=== PATIENT | male | born 1960 | race Caucasian/White ===

== ENCOUNTER 2017-03-10 02:34 | Inpatient (IN) | payer MEDICARE ==
[~2017-03-10 02:34] MED LIST: ALENDRONATE SOD10 MG PO; AMITRIPTYLINE H50 MG PO; GLUCOPHAGE500 MG PO; HYDROCODONE-APA1 TAB PO; LISINOPRIL-HCTZ1 T13 PO; LISINOPRIL5 MG NG; MOBIC7.5 MG PO; XANAX1 MG PO
[2017-03-10 03:13] LABS: BASOPHILS 0.2 % (0-2); EOSINOPHILS 5.6 % (0-7); HEMATOCRIT 27.4 % (42.0-54.0); HEMOGLOBIN 8.7 g/dL (13.5-17.5); LYMPHOCYTES 17.4 % (15-50); MCH 28.8 pg (26.0-34.0); MCHC 31.8 g/dL (31.0-37.0); MCV 90.7 fL (80.0-100.0); MEAN PLATELET VOLUME 10.4 fL (7.4-10.4); MONOCYTES 14.5 % (2-11); NEUTROPHILS 62.3 % (40-80); PLATELET COUNT 235 10x3/uL (130-400); RBC 3.02 10x6/uL (4.20-6.10); RDW 16.3 % (11.5-14.5); WBC 4.6 10x3/uL (4.8-10.8)
[2017-03-10 03:14] LABS: APPEARANCE CLEAR (CLEAR); BACTERIA NONE SEEN /hpf (NONE SEEN); BILIRUBIN NEGATIVE (NEGATIVE); COLOR YELLOW (YELLOW); EPITHELIAL CELLS NSEEN /hpf (0-5); GLUCOSE NEGATIVE (NEGATIVE); KETONE NEGATIVE (NEGATIVE); NITRITE NEGATIVE (NEGATIVE); PROTEIN 2+ mg/dL (NEGATIVE); SPECIFIC GRAVITY 1.015 (1.005-1.020); UROBILINOGEN NORMAL (NORMAL); WHITE CELLS - URINE NSEEN /hpf (0-5)
[2017-03-10 03:16] LABS: UDS - AMPHET NEGATIVE QUAL (NEGATIVE); UDS - BARB NEGATIVE QUAL (NEGATIVE); UDS - BENZO NEGATIVE QUAL (NEGATIVE); UDS - COCAINE NEGATIVE QUAL (NEGATIVE); UDS - OPIATE NEGATIVE QUAL (NEGATIVE); UDS - PCP NEGATIVE QUAL (NEGATIVE); UDS - THC NEGATIVE QUAL (NEGATIVE)
[2017-03-10 03:31] LABS: ALBUMIN 2.2 g/dL (3.4-5.0); ALKALINE PHOSPHATASE 114 U/L (46-116); ALT (SGPT) 13 U/L (10-68); CARBON DIOXIDE 19.9 mmol/L (21.0-32.0); CHLORIDE - SERUM 108 mmol/L (98-107); CREATININE - SERUM 3.8 mg/dL (0.6-1.3); SODIUM 137 mmol/L (136-145); UREA NITROGEN 58 mg/dL (7-18); eGFR NON AFRICAN AMERICAN 17 mL/min (90-120)
[2017-03-10 03:34] LABS: CREATINE KINASE 80 UL (21-232)
[2017-03-10 03:35] LABS: CALC OSMOLALITY 286 mosm/kg (275-300); GLUCOSE 45 mg/dL (74-106); PROTEIN - SERUM 7.6 g/dL (6.4-8.2); TROPONIN-I < 0.017 ng/mL (0.000-0.060)
--- NOTE | 2017-03-10 09:01 | NUR ---
PT TO ROOM ALERT AND ORIENTED PARTNER AT BEDSIDE. WILL ADMIT
[2017-03-10] MEDS ORDERED: NITROSTAT0.4 MG SL (09:03)
[2017-03-10] MEDS ORDERED: COLACE100 MG PO (09:03)
[2017-03-10] MEDS ORDERED: COREG12.5 MG PO (09:04)
[2017-03-10] MEDS ORDERED: BUMEX2 MG PO (09:04)
[2017-03-10] MEDS ORDERED: ULTRAM50 MG PO (09:05)
[2017-03-10] MEDS ORDERED: GLIMEPIRIDE2 MG PO (09:05)
[2017-03-10] MEDS ORDERED: BENADRYL50 MG PO (09:06)
[2017-03-10] MEDS ORDERED: NEURONTIN 300300 MG PO (09:06)
[2017-03-10 09:08] VITALS: BP 186/90; BMI 39.0
[2017-03-10] MEDS ORDERED: OXYCONTIN10 MG PO (09:08)
--- NOTE | 2017-03-10 09:22 | NUR ---
PT ADMISSION COMPLETE. PT EATING BREAKFAST WITH PARTNER AT BEDSIDE FSBS IS WNL. FLUIDS INFUSING TO R AC NO PROBLEMS. WAITING ON TELE MONITOR TO BE READY AND WILL PLACE AND START PRBC TRANSFUSION
--- NOTE | 2017-03-10 09:59 | NUR ---
CONSENT OBTAINED FOR PRBC TRANSFUSION PLACED ON PT CHART. PT IS SR 69 BPM ON TELE.
--- NOTE | 2017-03-10 10:15 | NUR ---
PT PRE TRANSFUSION VS ARE ALL WNL, BP IS HTN NORMAL FOR PT. 181/84. WILL ASK DR FLOR TO RESTART BP MEDS. PRBC INFUSING TO R AC 20 G PIV WITHOUT ANY ISSUES. WILL CONT TO MONITOR CLOSELY
[2017-03-10 10:27] VITALS: BMI 38.9
--- NOTE | 2017-03-10 10:32 | NUR ---
VS ARE UNCHANGED. PRBC STILL INFUSING TO R AC NO PROBLEMS. SPOUSE AT BEDSIDE PT DENIES ANY TRANSFUSION REACTION. WILL CONT TO MONITOR
[2017-03-10 11:48] VITALS: BP 180/88
--- NOTE | 2017-03-10 12:40 | NUR ---
SECOND UNIT OF PRBC STARTED NO CHANGE IN VS WILL CONT TO MONITOR
[2017-03-10 14:17] LABS: COMPLEMENT C4 22.9 mg/dL (17.4-52.2)
--- NOTE | 2017-03-10 15:00 | NUR ---
SECOND UNIT OF PRBC FINISHED TRANSFUSING. VS STILL UNCHANGED PT TOLERATED WELL WILL CONT TO MONITOR
[2017-03-10 16:04] VITALS: BP 186/89
[2017-03-10 17:28] LABS: CREATININE - URINE 19.2 mg/dL (30-125); PRO/CRE RATIO URINE 12.1 mg/g; PROTEIN - URINE 233.2 mg/dL (0.0-11.9)
--- NOTE | 2017-03-10 17:55 | NUR ---
PT SITTING UP IN BED WATCHING TV DENIES ANY NEEDS
[2017-03-10 19:00] VITALS: BP 143/62
[2017-03-10 19:17] LABS: ERYTHROCYTE SEDIMENTATION RATE 62 mm/hr (0-20)
--- NOTE | 2017-03-10 22:15 | NUR ---
PATIENT IS ALERT, RESTING IN BED WATCHING TV. CALL LIGHT IN REACH, DENIES NEEDS AT THIS TIME.
[2017-03-11] VITALS: BP 132/67
[2017-03-11 04:00] VITALS: BP 158/76
[2017-03-11 05:14] LABS: BASOPHILS 0.3 % (0-2); EOSINOPHILS 7.5 % (0-7); HEMATOCRIT 29.2 % (42.0-54.0); HEMOGLOBIN 9.4 g/dL (13.5-17.5); IMMATURE GRANULOCYTES 0.3 % (0-5); LYMPHOCYTES 28.3 % (15-50); MCH 28.4 pg (26.0-34.0); MCHC 32.2 g/dL (31.0-37.0); MEAN PLATELET VOLUME 10.7 fL (7.4-10.4); MONOCYTES 12.2 % (2-11); NEUTROPHILS 51.4 % (40-80); PLATELET COUNT 196 10x3/uL (130-400); RBC 3.31 10x6/uL (4.20-6.10); WBC 3.6 10x3/uL (4.8-10.8)
[2017-03-11 05:20] LABS: MCV 88.2 fL (80.0-100.0)
[2017-03-11 05:35] LABS: HEMOGLOBIN A1C 5.7 % (4.8-6.0)
[2017-03-11 05:39] LABS: ANION GAP 15.2 mmol/L (8-16); CALCIUM 8.1 mg/dL (8.5-10.1); CARBON DIOXIDE 17.5 mmol/L (21.0-32.0); CREATININE - SERUM 3.8 mg/dL (0.6-1.3); POTASSIUM - SERUM 5.7 mmol/L (3.5-5.1)
--- NOTE | 2017-03-11 07:30 | NUR ---
REPORT RECIEVED. RR EVEN AND UNLABORED. PT DENIES NEEDS AT THIS TIME. PARTNER AT BEDSIDE. ASSESSMENT PERFORMED, PLACED NAME ON WHITE BOARD, WILL CTM.
[2017-03-11 08:00] VITALS: BP 170/65
[2017-03-11 12:00] VITALS: BP 151/52
[2017-03-11 16:00] VITALS: BP 124/51
--- NOTE | 2017-03-11 16:30 | NUR ---
PT EXPRESSING CONCERN REGARDING KIDNEY BIOPSY. GAVE TEACHING PACKET REGARDING BIOPSY. WENT OVER PACKET BRIEFLY WITH PT AND TOLD PT TO ADDRESS FURTHER CONCERNS WITH DR. RCOW WHEN HE ROUNDS AGAIN. PT VERBALIZED UNDERSTANDING. WILL CTM.
--- NOTE | 2017-03-11 18:25 | NUR ---
PT RESTING QUIETLY, REQUESTED DIET ASA'CARSARMIUT SODA. GIVEN TO PT. RR EVEN AND UNLABORED. WILL GIVE REPORT ON PT CONDTION FOR THE DAY.
--- NOTE | 2017-03-11 19:26 | NUR ---
PT IN BED WATCHING TELEVISON. PARTNER AT BEDSIDE. DENIES NEEDS AT THIS TIME.
[2017-03-11 20:00] VITALS: BP 151/77
[2017-03-12] VITALS: BP 130/66
--- NOTE | 2017-03-12 00:03 | NUR ---
PT RESTING WITH EYES CLOSED. RESP EVEN AND REGULAR. FAMILY AT BEDSIDE.
[2017-03-12 04:00] VITALS: BP 135/71
[2017-03-12 07:17] LABS: BASOPHILS 0.3 % (0-2); EOSINOPHILS 8.2 % (0-7); HEMATOCRIT 29.2 % (42.0-54.0); HEMOGLOBIN 9.2 g/dL (13.5-17.5); IMMATURE GRANULOCYTES 0.3 % (0-5); LYMPHOCYTES 25.4 % (15-50); MCH 27.9 pg (26.0-34.0); MCHC 31.5 g/dL (31.0-37.0); MCV 88.5 fL (80.0-100.0); MONOCYTES 13.5 % (2-11); NEUTROPHILS 52.3 % (40-80); PLATELET COUNT 203 10x3/uL (130-400); RDW 17.3 % (11.5-14.5); WBC 3.8 10x3/uL (4.8-10.8)
[2017-03-12 07:34] LABS: ANION GAP 14.9 mmol/L (8-16); CALCIUM 8.7 mg/dL (8.5-10.1); CARBON DIOXIDE 17.9 mmol/L (21.0-32.0); CREATININE - SERUM 4.3 mg/dL (0.6-1.3); POTASSIUM - SERUM 5.8 mmol/L (3.5-5.1)
--- NOTE | 2017-03-12 07:53 | NUR ---
SLEEPING AT THIS TIME WITH RESPIRATIONS EVEN AND NON LABORED. PARTNER AT BEDSIDE. CALL LIGHT IN REACH, WILL CONTINUE WITH PLAN OF CARE.
[2017-03-12 08:00] VITALS: BP 143/71
--- NOTE | 2017-03-12 11:35 | NUR ---
BLOOD SUGAR 156 AND COVERED WITH INSULIN PER SLIDING SCALE AND ORDER.
[2017-03-12 16:00] VITALS: BP 108/51
--- NOTE | 2017-03-12 18:00 | NUR ---
CONSENT SIGNED FOR PROCEDURE TOMORROW. EXPLAINED TO PT AND HE VERBALIZED UNDERSTANDING THAT HE WOULD BE NPO AFTER MIDNIGHT. DENIES NEEDS OR PAIN. CALL LIGHT IN REACH. WILL CONTINUE WITH PLAN OF CARE.
[2017-03-12 19:00] VITALS: BP 173/76
[2017-03-13] VITALS: BP 168/69
[2017-03-13 04:22] VITALS: BP 129/66
[2017-03-13 04:48] LABS: BASOPHILS 0.5 % (0-2); EOSINOPHILS 8.6 % (0-7); HEMATOCRIT 27.5 % (42.0-54.0); HEMOGLOBIN 8.7 g/dL (13.5-17.5); IMMATURE GRANULOCYTES 0.3 % (0-5); LYMPHOCYTES 27.4 % (15-50); MCH 27.9 pg (26.0-34.0); MCHC 31.6 g/dL (31.0-37.0); MCV 88.1 fL (80.0-100.0); MEAN PLATELET VOLUME 10.6 fL (7.4-10.4); MONOCYTES 10.7 % (2-11); NEUTROPHILS 52.5 % (40-80); PLATELET COUNT 191 10x3/uL (130-400); RBC 3.12 10x6/uL (4.20-6.10); RDW 17.3 % (11.5-14.5); WBC 3.8 10x3/uL (4.8-10.8)
[2017-03-13 04:52] LABS: INR 1.13 (0.85-1.17); PROTIME 14.4 SECONDS (11.6-15.0)
[2017-03-13 05:07] LABS: ANION GAP 15.9 mmol/L (8-16); CALCIUM 7.8 mg/dL (8.5-10.1); CARBON DIOXIDE 17.5 mmol/L (21.0-32.0); CREATININE - SERUM 4.3 mg/dL (0.6-1.3); POTASSIUM - SERUM 5.4 mmol/L (3.5-5.1)
--- NOTE | 2017-03-13 07:00 | NUR ---
REPORT RECIEVED FROM OFF GOING NURSE. PT IN BED WITH SIGNIFICANT OTHER AT BEDSIDE. SEE FLOW SHEET FOR ASSESSMENT. PT BREATHING NORMALLY AND UNLABOERD. DENIES PAIN AT THIS TIME. 0 S/SX OF DISTRESS/DISCOMFORT NTOED. REMAINS NPO FROM TODAYS KIDNEY BIOPSY. CALL LIGHT IN REACH. WILL CONT POC
[2017-03-13 08:00] VITALS: BP 138/68
--- NOTE | 2017-03-13 08:00 | NUR ---
LEFT VIA BED FOR KIDNEY BIOPSY. BREATHING NORMAL AND UNLABORED. 0 S/SX OF DISTRESS/DISCOMFORT NOTED. WILL CONT POC
--- NOTE | 2017-03-13 09:44 | NUR ---
PT BACK FROM PROCEDURE. ALERT AND ORIENTED. PRESSURE DRESSING TO RIGHT FLANK DRESSING C/D/I. VSS. DENIES PAIN AT THIS TIME. BREATHING NORMAL AND UNLABORED. CALL LIGHT IN REACH. WILL CONT POC
[2017-03-13 10:11] LABS: ANA REFLEX - DIRECT Negative (Negative)
--- NOTE | 2017-03-13 11:12 | NUR ---
Nutrition Follow Up: Pt had renal biopsy today. Noted low K+ diet discussed by MD with pt. Pt is eating 100% meal avg on a renal ADA diet. Wt stable. +BM 03/12/17. Meds noted. Labs reviewed - K+ continues elevated. Rec continue current diet. RD following.
[2017-03-13 12:00] VITALS: BP 110/57
--- NOTE | 2017-03-13 12:00 | NUR ---
NO CHANGES FROM PREVIOUS ASSESSMENT. DRESSING C/D/I. VSS. CALL LIGHT IN REACH. WILL CONT POC
[2017-03-13 16:00] VITALS: BP 140/54
--- NOTE | 2017-03-13 17:36 | NUR ---
PT REMAINS IN BED WITH NO NEEDS AT THIS TIME. SIGNIFICANT OTHER AT BEDSIDE. DRESSING C/D/I. CALL LIGHT IN REACH. WILL CONT POC
[2017-03-13 19:13] VITALS: BP 156/72
[2017-03-14] VITALS: BP 120/57
--- NOTE | 2017-03-14 04:26 | NUR ---
CARDIOGRAPHER AT BEDSIDE TO OBTAIN VITALS, CALL LIGHT IN REACH. WILL CONTINUE WITH PLAN OF CARE.
[2017-03-14 04:28] VITALS: BP 128/61
[2017-03-14 05:25] LABS: ANION GAP 13.6 mmol/L (8-16); CARBON DIOXIDE 18.9 mmol/L (21.0-32.0); CREATININE - SERUM 4.7 mg/dL (0.6-1.3); POTASSIUM - SERUM 5.5 mmol/L (3.5-5.1)
[2017-03-14 05:27] LABS: INR 1.14 (0.85-1.17); PROTIME 14.5 SECONDS (11.6-15.0)
[2017-03-14 05:39] LABS: HEMOGLOBIN 8.3 g/dL (13.5-17.5); MCH 28.3 pg (26.0-34.0); MCHC 31.9 g/dL (31.0-37.0); MCV 88.7 fL (80.0-100.0); MEAN PLATELET VOLUME 10.7 fL (7.4-10.4); PLATELET COUNT 165 10x3/uL (130-400); RBC 2.93 10x6/uL (4.20-6.10); RDW 17.3 % (11.5-14.5); WBC 2.7 10x3/uL (4.8-10.8)
[2017-03-14 06:02] LABS: EOSINOPHILS 6 % (0-7); LYMPHOCYTES 40 % (15-50); MONOCYTES 6 % (2-11); NEUTROPHILS 42 % (40-80); PLATELET ESTIMATE DECREASED
--- NOTE | 2017-03-14 07:00 | NUR ---
REPORT RECIEVED FROM OFF GOING RN. PT AT BED SIDE BY THE SINK BRUSHING HIS TEETH WITH A STEADY GAIT. SEE FLOW SHEET FOR ASSESSMENT. ASHLEY PAIN AT THIS TIME. DRESSING TO RIGHT FLANK C/D/I. VSS. SIGNIFICANT OTHER IN ROOM WITH PT. WANTING TO DC HOME TODAY. 0 S/SX OF DISTRESS/DISCOMFORT NOTED. CALL LIGHT IN REACH. WILL CONT POC
[2017-03-14 07:25] LABS: SPE - A/G RATIO 0.6 (0.7-1.7); SPE - ALBUMIN 2.8 g/dL (2.9-4.4); SPE - ALPHA-1 GLOBULIN 0.3 g/dL (0.0-0.4); SPE - ALPHA-2 GLOBULIN 0.8 g/dL (0.4-1.0); SPE - BETA GLOBULIN 1.1 g/dL (0.7-1.3); SPE - GAMMA GLOBULIN 2.3 g/dL (0.4-1.8); SPE - M-SPIKE Not Observed g/dL (Not Observed); SPE - TOTAL PROTEIN 7.3 g/dL (6.0-8.5)
[2017-03-14] MEDS ORDERED: FAMOTIDINE10 MG PO (07:47)
[2017-03-14] MEDS ORDERED: HYDRALAZINE HCL25 MG PO (07:47)
[2017-03-14] MEDS ORDERED: SODIUM BICARBO650 MG PO (07:47)
--- NOTE | 2017-03-14 07:53 | NUR ---
DR CROW AT BEDSIDE. NEW ORDERS TO DC PT HOME.
[2017-03-14 07:58] VITALS: BP 152/70
[2017-03-14 11:16] VITALS: BP 178/73
[2017-03-14 12:17] LABS: UPE RAND - ALBUMIN 59.8 % (()); UPE RAND - BETA GLOBULIN 11.1 % (())
--- NOTE | 2017-03-14 14:27 | NUR ---
DISCHARGE PAPER WORK SIGNED. ALL DISCHARGE INSTRUCTIONS WENT OVER WITH PT AND SIGINIFCANT OTHER. DENIES ANY QUESTIONS. IV DC WITH CATHETER TIP INTACT. ALL BELONGS ACCOUNTED FOR. LEFT VIA W/C PUSHED BY HOSPITAL VOULENTEER. BREATHING NORMAL AND UNLABORED. 0 S/X OF DISTRESS/DISCOMFORT NOTED.
[2017-03-14 17:13] LABS: ANCA - ANTIMYELOPEROXIDASE <9.0 U/mL (0.0-9.0); ANCA - ANTIPROTEINASE 3 <3.5 U/mL (0.0-3.5); ANCA - ATYPICAL <1:20 titer (Neg:<1:20); ANCA - CYTOPLASMIC <1:20 titer (Neg:<1:20); ANCA - PERINUCLEAR <1:20 titer (Neg:<1:20)
--- NOTE | 2017-03-14 17:55 | NUR ---
Patient Name: SONYA FLORIAN Admission Status: ER Accout number: [id number] Admission Date: 03-10-2017 : 1960 Admission Diagnosis:ACUTE KIDNEY FAILURE, UNSPECIFIED Attending: CHACHO, Current LOS: 4 Anticipated DC Date: 03-14-2017 Planned Disposition: Home Primary Insurance: [facility] LATE ENTRY: Discharge Planning Comments: * Is the patient Alert and Oriented? Yes 0 * How many steps to enter\exit or inside your home? 3 0 * PCP DR. FLOR 0 * Pharmacy [facility] [address] 0 * Preadmission Environment Home with Family 0 * ADLs Independent 0 * Equipment Bedside Commode Cane Other Rolling Walker Walker 0 * Other Equipment TRANSFER BOARD NO LOCAL MEDICAL EQUIPMENT PROVIDER PREFERENCE 0 * List name and contact numbers for known caregivers / representatives who currently or will assist patient after discharge: VAZQUEZ ALESSIOMARJORIE, FRIEND, 0 * Community resources currently utilized None 0 * Please name any agencies selected above. NONE 0 * Additional services required to return to the preadmission environment? No 0 * Can the patient safely return to the preadmission environment? Yes 0 * Has this patient been hospitalized within the prior 30 days at any hospital? No 0 CM MET WITH PT AND FRIEND IN ROOM TO DISCUSS DISCHARGE PLANNING AND NEEDS. PT REPORTS LIVING AT HOME INDEPENDENTLY WITH FRIEND. PT REPORTS HAVING ALL NEEDED MEDICAL EQUIPMENT AT HOME WITH NO EQUIPMENT PROVIDER PREFERENCE. PT HAS NO OUTSIDE SERVICES ASSISTING IN THE HOME. CM DISCUSSED AVAILABILITY OF HOME HEALTH, REHAB SERVICES AND MEDICAL EQUIPMENT. PT DENIES DISCHARGE NEEDS, REPORTS HIS FRIEND IS HERE TO PICK HIM UP FOR DISCHARGE HOME. IMPORTANT MESSAGE FROM MEDICARE PROVIDED AND EXPLAINED. PT ASKED ABOUT GRAB BARS FOR SHOWER, CM EXPLAINED THAT IT IS NOT COVERED BY MEDICARE, REFERRED TO [facility]. PT DENIES FURTHER NEEDS. Crossing Supervisor: Howie Handley
[2017-03-15 10:21] LABS: ANTI-GLOMERULAR BASMENT MEMBRN 4 units (0-20)
--- NOTE | 2017-03-21 06:49 | DS ---
PATIENT:SONYA FLORIAN :56 MEDICAL RECORD: [id number] DISCHARGE SUMMARY ADMISSION DATE: 03/10/17 DISCHARGE DATE: 03/14/17 REASON FOR ADMISSION: Progressive renal insufficiency, acute kidney injury on chronic kidney disease. HISTORY AND HOSPITAL COURSE: This is a nice 56-year-old gentleman with a past medical history of diabetes. He does have leukopenia and anemia related to his renal insufficiency. He had a renal biopsy and has been ready to go home and we will have to follow him up in clinic. He is not having any active bleeding, but his hematocrit is 26. He will receive a shot of erythropoietin and we will have him follow up with Dr. Johnson as well as our clinic for biopsy results. Somewhat concern, he may have multiple myeloma or simply just progressive diabetic nephropathy. PHYSICIAL EXAMINATION: GENERAL: He is alert and oriented times 3. VITAL SIGNS: Blood pressure is 116/72, 66 heart rate. CHEST: Regular rhythm. S1 and S2. EXTREMITIES: Chronic right lower extremity lymphedema, +1 left lower extremity edema. ABDOMEN: Obese with positive bowel sounds. No appreciable hepatosplenomegaly. LUNGS: Grossly clear except for decreased breath sounds at the bases. Lab is consistent with ESRD, except for his hematocrit of 26. We are avoiding a transfusion at this time. He will follow up in clinic on as mentioned. Renal low-potassium diet. He is not going to be able to afford Veltassa, but needs to follow his low potassium diet, which we discussed in detail. He is also saving his left arm and will need an OPC visit. MEDICATIONS ON DISCHARGE: Pepcid 10 twice a day, Coreg 12.5 b.i.d., hydralazine 25 twice a day. His pain medications per his infant toddler lead teacher. Sodium bicarb 650 mg 3 times a day, Neurontin 300 mg a day. Renal ADA diet. Followup in our clinic in 2 days. TRANSINT:[id number] Voice Confirmation ID: [id number] DOCUMENT ID: [id number] NIGEL CROW MD at 0649 CC: [id number] DICTATION DATE: 03/14/17 0829 ENGINEER CHIEF: 03/14/17 1220 DIS IN 03/14/17 [id number] [place] [address]
--- NOTE | 2017-03-23 12:47 | EC ---
PATIENT:SONYA FLORIAN DATE OF SERVICE: 03/10/17 SEX: M MEDICAL RECORD: [id number] DATE OF : 56 LOCATION:D.M2 D.210 AGE OF PATIENT: 56 ADMISSION DATE: 03/10/17 REFERRING PHYSICIAN: INTERPRETING PHYSICIAN: BIANCA MURGUIA MD ECHOCARDIOGRAM REPORT ECHO CHARGES 4 ECHO COMPLETE CLINICAL DIAGNOSIS: HX OF CABG AND VAVLE/ HTN ECHOCARDIOGRAPHIC MEASUREMENTS (adult normal given) AC root (d.<3.7cm) 3.4 cm LV Septum d (<1.2 cm> 1.3 cm Valve Excursion 1.9 cm LV Septum (systole) 1.5 cm Left Atria (s.<4.0cm> 4.4 cm LVPW d(<1.2cm) 1.5 cm RV (d.<2.3cm) 5.0 cm LVPW (sytole) 1.6 cm LV diastole(<5.6CM) 4.7 cm MV E-F(>70mm/sec) cm LV systole 3.7 cm LVOT Diameter 2.1 cm MV exc.(>10mm) 1.9 cm Est.ejection fraction (50-75%) % Pericardial Effusion N DOPPLER: LVIT cm/sec A 61.0 cm/sec E 129 cm/sec LA cm/sec RVSP 42 mmHg LVOT 106 cm/sec AOP1/2T m/s Asc. Ao 108 cm/sec RVOT 90 cm/sec RA cm/sec PA 120 cm/sec AV Gradient Peak 4364 mmHg AV Mean 2.39 mmHg AV Area 3.2 cm MV Gradient Peak 7.45 mmHg MV Mean 1.80 mmHg MV Area cm COMMENTS: Obstetrics Specialist: Marques MONDRAGON Heel Sander: 4 Dr. Murguia TAPE# PACS DATE OF SERVICE: 03/11/2017 PROCEDURE: Transthoracic echocardiogram. FINDINGS: 1. Left ventricle appears to be mildly hypertrophied. Concentric hypertrophy is seen. Does not appear to have any obvious regional wall motion abnormalities. The patient was bradycardic through the exam; however, the lateral wall was not well visualized. 2. The mitral valve is shown to have normal structure with [id number] ECHOCARDIOGRAM REPORT [id number] SONYA FLORIAN mitral regurgitation. 3. The left atrium is moderately dilated. 4. The right ventricle is mildly to moderately dilated with mildly depressed right ventricular function. 5. The aortic valve is normal. 6. The tricuspid valve has mild tricuspid regurgitation. The right ventricular systolic pressure appears to be 30 to 35 mmHg. 7. IVC was not well demonstrated on this exam. 8. The pericardium is normal. There is no pericardial effusion. CONCLUSIONS: The patient has mild hypertensive heart disease with no obvious regional wall motion abnormalities, dilatation of the left atrium and moderate mitral regurgitation, overall preserved LV systolic function. TRANSINT:[id number] Voice Confirmation ID: [id number] DOCUMENT ID: [id number] 03/21/2017 Edited to correct date of service, dm. BIANCA MURGUIA MD at 1247 CC: [id number] DICTATION DATE: 03/12/17 1104 DENTURE PROCESSOR: 03/12/17 1127 DIS IN 03/14/17 [facility] [address] [place] [address]
== END 2017-03-14 14:32 | disposition home or self-care (01) | DRG 700 ==
LOC: D.ER 02:34 → D.M2 07:00
PROVIDERS: Emergency Medicine; Internal Medicine Nephrology; Radiology Diagnostic Radiology; ADMIT Family Medicine
PROC: 0TB03ZX Excision of Right Kidney, Percutaneous Approach, Diagnostic (ICD-10-PCS; principal; 2017-03-13 08:30)
DX: E11.22 Type 2 diabetes mellitus with diabetic chronic kidney disease (principal); E87.5 Hyperkalemia; N17.9 Acute kidney failure, unspecified; E11.649 Type 2 diabetes mellitus with hypoglycemia without coma; I12.9 Hypertensive chronic kidney disease with stage 1 through stage 4 chronic kidney disease, or unspecified chronic kidney disease; N18.9 Chronic kidney disease, unspecified; D63.1 Anemia in chronic kidney disease; I25.10 Atherosclerotic heart disease of native coronary artery without angina pectoris; R80.9 Proteinuria, unspecified; D72.819 Decreased white blood cell count, unspecified; E66.9 Obesity, unspecified; Z68.39 Body mass index [BMI] 39.0-39.9, adult; Z95.1 Presence of aortocoronary bypass graft

== ENCOUNTER 2017-05-03 13:30 | Emergency (ER) | payer MEDICARE ==
[~2017-05-03 13:30] MED LIST changes: +BENADRYL50 MG PO; +BUMEX2 MG PO; +COLACE100 MG PO; +COREG12.5 MG PO; +FAMOTIDINE10 MG PO; +GLIMEPIRIDE2 MG PO; +HYDRALAZINE HCL25 MG PO; +NEURONTIN 300300 MG PO; +NITROSTAT0.4 MG SL; +OXYCONTIN10 MG PO; +SODIUM BICARBO650 MG PO; +ULTRAM50 MG PO
== END 2017-05-03 15:08 | disposition home or self-care (01) ==
LOC: D.ER 13:30
DX: S49.92XA Unspecified injury of left shoulder and upper arm, initial encounter (principal); W19.XXXA Unspecified fall, initial encounter; Y93.89 Activity, other specified; Y92.029 Unspecified place in mobile home as the place of occurrence of the external cause; M25.512 Pain in left shoulder

== ENCOUNTER 2017-05-08 17:24 | Inpatient (IN) | payer MEDICARE ==
[~2017-05-08] VITALS: Ht 182.9 cm; Wt 149.9 kg
[2017-05-08 18:35] LABS: BASOPHILS 0.2 % (0-2); EOSINOPHILS 3.5 % (0-7); HEMATOCRIT 29.9 % (42.0-54.0); IMMATURE GRANULOCYTES 0.2 % (0-5); LYMPHOCYTES 17.3 % (15-50); MCH 28.2 pg (26.0-34.0); MCHC 30.1 g/dL (31.0-37.0); MCV 93.7 fL (80.0-100.0); MEAN PLATELET VOLUME 11.4 fL (7.4-10.4); MONOCYTES 12.5 % (2-11); NEUTROPHILS 66.3 % (40-80); RBC 3.19 10x6/uL (4.20-6.10); RDW 16.8 % (11.5-14.5); WBC 4.2 10x3/uL (4.8-10.8)
[2017-05-08 18:42] LABS: PLATELET COUNT 215 10x3/uL (130-400)
[2017-05-08 18:58] LABS: APPEARANCE CLEAR (CLEAR); BILIRUBIN NEGATIVE (NEGATIVE); COLOR YELLOW (YELLOW); GLUCOSE 50 mg/dL (NEGATIVE); KETONE NEGATIVE (NEGATIVE); NITRITE NEGATIVE (NEGATIVE); PROTEIN 2+ mg/dL (NEGATIVE); UROBILINOGEN NORMAL (NORMAL)
[2017-05-08 19:00] LABS: ALBUMIN 2.2 g/dL (3.4-5.0); ALKALINE PHOSPHATASE 186 U/L (46-116); ALT (SGPT) 6 U/L (10-68); BILIRUBIN - TOTAL 0.47 mg/dL (0.2-1.3); CALC OSMOLALITY 297 mosm/kg (275-300); CALCIUM 8.4 mg/dL (8.5-10.1); CARBON DIOXIDE 18.6 mmol/L (21.0-32.0); CHLORIDE - SERUM 104 mmol/L (98-107); CREATININE - SERUM 4.8 mg/dL (0.6-1.3); PROTEIN - SERUM 8.2 g/dL (6.4-8.2); SODIUM 135 mmol/L (136-145); UREA NITROGEN 73 mg/dL (7-18); eGFR NON AFRICAN AMERICAN 13 mL/min (90-120)
[2017-05-08 19:02] LABS: GLUCOSE 206 mg/dL (74-106)
[2017-05-08 19:06] LABS: CHOL - HDL RATIO 3.5 ratio (2.3-4.9); CHOLESTEROL, TOTAL 131 mg/dL (0-200); CREATINE KINASE 123 UL (21-232); HDL CHOLESTEROL 38 mg/dL (32-96); LDL CHOLESTEROL 84 mg/dL (0-100); LDL-HDL RATIO 2.2 ratio (1.5-3.5); TRIGLYCERIDE 45 mg/dL (30-200)
[2017-05-08 19:16] LABS: TROPONIN-I < 0.017 ng/mL (0.000-0.060)
[2017-05-08 20:38] LABS: THYROID STIMULATING HORMONE 2.26 uIU/mL (0.36-3.74)
[2017-05-09] VITALS (8 sets, daily range): BP systolic 143–174; BP diastolic 63–73; Ht 182.9 cm; Wt 149.9 kg
--- NOTE | 2017-05-09 07:42 | NUR ---
AM ROUNDING- RECEIVED REPORT FROM SPRAY MAKER NURSE MYCHAL. PT IS CURRENTLY LAYING IN BED WITH EYES OPEN RESTING. GUEST MEMBER IS AT BEDSIDE. ON 02 AT 2L VIA NC. NO MONITOR. IV SEEN TO LEFT HAND THAT IS CURRENTLY SALINE LOCKED. NO NEED AT THIS CURRENT TIME. WILL CONTINUE TO MONITOR AND CONTINUE WITH PLAN OF CARE.
--- NOTE | 2017-05-09 15:42 | NUR ---
CALLED DR. GLASS OFFICE TO SEE ABOUT GETTING PT MEDICATION FOR DVT PREVENTION (PT HAS 4+/3+ PITTING EDEMA). SPOKE WITH DR. QUAN MORENO NURSE WITH NEW ORDERS RECEIVED FOR LOVENOX 30MG DAILY. WILL PUT ORDERS IN GIVEN.
--- NOTE | 2017-05-09 18:50 | NUR ---
PT IS CURRENTLY SITTING UP IN BED WITH EYES OPEN RESTING. PARTNER IS AT BEDSIDE. PT STATES TO ME HE HAS URINATED MORE AND MORE THROUGHOUT SHIFT (APPROX 15 TIMES TODAY). WILL PASS THIS ALONG IN REPORT TO MECHANICAL OPERATOR NURSE. WILL CONTINUE TO MONITOR.
[2017-05-10 01:11] VITALS: BP 116/51
--- NOTE | 2017-05-10 04:10 | NUR ---
PT RESTING COMFORTABLY, NO NEEDS AT THIS TIME. CONTINUE TO MONITOR CLOSELY. BED LOW, CALL LIGHT IN REACH, SIDE RAILS X 2, HOB 30 DEGREES.
[2017-05-10 04:29] VITALS: BP 140/61
[2017-05-10 05:22] LABS: BASOPHILS 0.4 % (0-2); EOSINOPHILS 4.2 % (0-7); HEMOGLOBIN 7.9 g/dL (13.5-17.5); IMMATURE GRANULOCYTES 0.4 % (0-5); LYMPHOCYTES 32.3 % (15-50); MCH 28.4 pg (26.0-34.0); MCHC 30.4 g/dL (31.0-37.0); MCV 93.5 fL (80.0-100.0); MEAN PLATELET VOLUME 11.2 fL (7.4-10.4); MONOCYTES 15.2 % (2-11); NEUTROPHILS 47.5 % (40-80); PLATELET COUNT 209 10x3/uL (130-400); RBC 2.78 10x6/uL (4.20-6.10); RDW 16.7 % (11.5-14.5)
[2017-05-10 05:24] LABS: WBC 2.6 10x3/uL (4.8-10.8)
[2017-05-10 06:00] LABS: ANION GAP 16.3 mmol/L (8-16); CALCIUM 7.5 mg/dL (8.5-10.1); CARBON DIOXIDE 19.8 mmol/L (21.0-32.0); CREATININE - SERUM 4.9 mg/dL (0.6-1.3); PHOSPHOROUS 6.6 mg/dL (2.5-4.9); POTASSIUM - SERUM 5.1 mmol/L (3.5-5.1)
--- NOTE | 2017-05-10 06:10 | NUR ---
EDEMA IN LOWER EXTREMITIES. PATIENT REQUEST A PAIN PILL THIS MORNING EVEN THOUGH HE DID NOT WANT ANYTHING FOR PAIN LAST NIGHT. REPORTS DISCOMFORT IN HIS LEGS. PAIN MEDICATION ADMINISTERED ORDERED. BED LOW, CALL LIGHT IN REACH.
[2017-05-10 08:23] VITALS: BP 140/63
--- NOTE | 2017-05-10 09:11 | NUR ---
MORNING MEDICATIONS GIVEN. PT A&O SITTING UP IN BED EATING BREAKFAST. POST RESIDUAL BLADDER SCAN COMPLETED. PT VOIDED 150ML CLEAR YELLOW URINE. BLADDER SCAN ONLY REVEALED 56ML. JOSH, LOCOMOTIVE FIRER/FIREMAN FOR AT BEDSIDE AND AWARE, WILL REPORT TO RENAL WELL. PT REMAINS EXTREMELY SWOLLEN ALL OVER HAD TO DOPPLER PEDAL PULSES. WILL NEED STOOL SPECIMEN PT VERBALIZED UNDERSTANDING AND TOP HAT IN BR. PT HAS LASIX DRIP AT 10ML/HR INFUSING TO L.HAND PIV WITH DRSG CDI AND SWAB CAPS IN USE. PT DENIES ANY CURRENT PAIN OR NEEDS. CL IN REACH, BED IN LOWEST, SIDE RAILS X2. WILL CPOC.
[2017-05-10 09:25] LABS: % SATURATION 13 % (15-55); IRON 25 ug/dl (35-150); TOTAL IRON BIND CAPACITY 185 ug/dl (260-445); UNSAT IRON BIND CAPACITY 160 ug/dl (150-375)
[2017-05-10 11:56] VITALS: BP 117/55
--- NOTE | 2017-05-10 12:30 | NUR ---
ADMINISTERED PTS NEW MEDICATIONS AND TEACHING PROVIDED. INCREASED PTS LASIX DRIP TO 20ML/HR ORDERED AND STILL MONITERING URINE OUTPUT STRICTLY. PT DENIES ANY QUESTIONS OR CONCERNS. NO FURTHER NEEDS AT THIS TIME. WILL CPOC.
--- NOTE | 2017-05-10 13:00 | CN ---
PATIENT NAME:SONYA FLORIAN MEDICAL RECORD: [id number] : 56 LOCATION:D. D.2131 ADMIT DATE: 05/08/17 ACCOUNT: [id number] CONSULTING PHYSICIAN: MYNOR PARADA MD REFERRING PHYSICIAN: BUFFY TUCKER MD DATE OF CONSULTATION: 05/09/2017 HISTORY OF PRESENT ILLNESS: A 56-year-old gentleman with known history of coronary artery disease, status post coronary bypass grafting. He has a history of chronic renal insufficiency, worsening erythropoietin dependent edema. He admitted with marked volume overload, anasarca, scrotal edema, leg edema, and failed outpatient. He was noted to have a marked elevated BNP. LV function has been normal in late February. We were asked to see him concerning his cardiovascular status. PAST MEDICAL HISTORY: Includes; 1. History of diabetes mellitus. 2. Hypertension. 3. Hyperlipidemia. 4. Chronic renal insufficiency. MEDICATIONS: Include; 1. Amaryl 1 mg p.o. daily. 2. Pepcid 10 daily. 3. Bumex 2 mg p.o. b.i.d. 4. Tramadol 50 q.6 p.r.n. 5. OxyContin 10 mg q.12. 6. Neurontin 300 mg daily. 7. Hydralazine 25 b.i.d. 8. Carvedilol 25 b.i.d. ALLERGIES: PENICILLIN. SOCIAL HISTORY: He is a nonsmoker, nondrinker. Prior to current illness, he was able to take care of his ADLs. REVIEW OF SYSTEMS: The patient reports easy bruising but reports no swollen glands. The patient reports no fever, no night sweats, no significant weight gain, no significant weight loss. No significant exercise tolerance. The patient reports no dry eyes, no irritation, no vision change. Patient reports no difficulty hearing and no ear pain. Patient reports no frequent nose bleeds or nose and sinus problems. Patient reports on arm pain on exertion. No shortness of breath while lying down. No history of heart murmur. Patient reports no cough, no wheezing or coughing up blood. Patient reports no abdominal pain, no vomiting. Normal appetite. No diarrhea and not vomiting blood. No nausea and no constipation. Patient reports no incontinence. No difficulty urinating. No hematuria. No increased frequency. Patient reports no muscle aches. No weakness, no arthralgias, no back pain. No swelling of the extremities. Patient reports no abnormal mole, no jaundice, no rashes. Reports no loss of consciousness. No weakness and no numbness. No seizures, dizziness, or headaches. The patient reports no depression, no sleep disturbance, feeling safe in a relationship and no alcohol abuse. Patient reports on fatigue. Reports no runny nose or sinus pressure. No itching, no hives, and no frequent sneezing. CONSULT REPORT [id number] SONYA FLORIAN PHYSICAL EXAMINATION: GENERAL: Pleasant gentleman in no acute distress. VITAL SIGNS: Blood pressure 163/72, pulse 63 and regular. HEENT: Normocephalic, atraumatic. NECK: No bruits are noted. HEART: Regular, II/ systolic ejection murmur. LUNGS: Fairly good air excursion. ABDOMEN: Soft, nontender. Positive fluid wave. EXTREMITIES: Pulses are 1+. There is 2+ edema. NEUROLOGIC: Grossly intact. IMPRESSION: Volume overload. BNP elevated multifactorial, functionally normal in the past. Combination of edema secondary to renal insufficiency and anemia. At this point in time, we would agree with current management of Bumex drip. Potassium has been elevated, so we would not use Aldactone as an additive agent at this point. TRANSINT:[id number] Voice Confirmation ID: [id number] DOCUMENT ID: [id number] MYNOR PARADA MD at 1300 CC: [id number] DICTATION DATE: 05/09/17 1427 CELLULAR PLASTICS CUTTER: 05/09/17 1524 ADM IN [id number] [place] [address]
[2017-05-10 13:28] LABS: APPEARANCE CLEAR (CLEAR); BACTERIA FEW /hpf (NONE SEEN); BILIRUBIN NEGATIVE (NEGATIVE); COLOR YELLOW (YELLOW); EPITHELIAL CELLS 0-5 /hpf (0-5); GLUCOSE 50 mg/dL (NEGATIVE); KETONE NEGATIVE (NEGATIVE); NITRITE NEGATIVE (NEGATIVE); PROTEIN 3+ mg/dL (NEGATIVE); RED CELLS - URINE OCC /hpf (0-5); SPECIFIC GRAVITY 1.015 (1.005-1.020); UROBILINOGEN NORMAL (NORMAL); WHITE CELLS - URINE RARE /hpf (0-5)
[2017-05-10 13:29] LABS: GRANULAR CAST RARE /lpf (NONE SEEN); HYALINE CAST OCC /lpf (NONE SEEN); MUCUS <1+ /lpf (NONE SEEN)
--- NOTE | 2017-05-10 15:00 | NUR ---
PT SITTING UP IN BED RESTING QUIETLY WITH SPOUSE AT BEDSIDE. RR NONLABORED ON RA. PT DENIES ANY CURRENT PAIN OR NEEDS. CL IN REACH, BED IN LOWEST, SIDE RAILS X2. WILL CPOC.
[2017-05-10 16:13] VITALS: BP 115/53
--- NOTE | 2017-05-10 18:26 | NUR ---
PT OOB IN BR TRYING TO HAVE A BM HE STATES HE IS PASSING A LOT OF GAS AND WILL CONTINUE TO TRY. TOP HAT IN PLACE IF HE IS ABLE AND WILL COLLECT STOOL ORDERED. PT DENIES ANY CURRENT NEEDS. WILL CPOC.
[2017-05-10 21:32] VITALS: BP 101/40
--- NOTE | 2017-05-10 23:05 | NUR ---
PATIENT SLEEPING. IRON INFUSION COMPLETE. FLUSHED IV WITH 10ML NS AND CONTINUED THE LASIX DRIP AT 20 ML HR. BED LOW, CALL LIGHT IN REACH
[2017-05-11 02:21] VITALS: BP 120/60
--- NOTE | 2017-05-11 03:13 | NUR ---
COAT CUTTER AT BEDSIDE TO OBTAIN VITALS, CALL LIGHT IN REACH. WILL CONTINUE WITH PLAN OF CARE.
--- NOTE | 2017-05-11 03:44 | NUR ---
FSBS WAS 32 CRITICAL LOW. TREATING WITH ORANGE JUICE AND TWO PACKS OF SUGAR. ALSO A PUDDING CUP.
--- NOTE | 2017-05-11 04:34 | NUR ---
PATIENT HAS A BLOOD SUGAR OF 43, 30 MINUTES AFTER LAST CHECK. HE REPORTED HAVING DIFFICULTY BREATHING. TREATED WITH APPLE JUICE AND SUGAR. ALSO PUDDING, AND A SANDWICH AND GRAPES. WILL RECHECK IN 30 MINUTES.
--- NOTE | 2017-05-11 04:49 | NUR ---
FSBS IS 60 AT 0450. PUDDING CUP.
[2017-05-11 05:51] LABS: HEMATOCRIT 30.3 % (42.0-54.0); MCH 28.2 pg (26.0-34.0); MCHC 29.7 g/dL (31.0-37.0); MEAN PLATELET VOLUME 11.8 fL (7.4-10.4); PLATELET COUNT 238 10x3/uL (130-400); RBC 3.19 10x6/uL (4.20-6.10); RDW 16.7 % (11.5-14.5); WBC 2.9 10x3/uL (4.8-10.8)
--- NOTE | 2017-05-11 06:07 | NUR ---
FSBS IS AT 70 AT 6:05 . PATIENT RESTING. HE JUST GOT BACK IN BED AFTER BM. STOOL COLLECTED FOR LAB. BEDDING CHANGE, WAS WET FROM SWEATTING. IV INFUSING 20ML/HR LASIX.
[2017-05-11 06:10] LABS: ANION GAP 15.6 mmol/L (8-16); CALCIUM 8.4 mg/dL (8.5-10.1); CARBON DIOXIDE 21.4 mmol/L (21.0-32.0); CREATININE - SERUM 5.5 mg/dL (0.6-1.3); PHOSPHOROUS 7.4 mg/dL (2.5-4.9)
[2017-05-11 06:19] VITALS: BP 154/69
[2017-05-11 06:48] LABS: LYMPHOCYTES 29 % (15-50); MONOCYTES 9 % (2-11); NEUTROPHILS 60 % (40-80); PLATELET ESTIMATE NORMAL
--- NOTE | 2017-05-11 07:45 | NUR ---
AM ROUNDS COMPLETED. INTRODUCED MYSELF TO PT PRIMARY RN FOR TODAYS SHIFT. PT A&O SITTING UP IN BED RESTING QUIETLY. PT STATES HE SLEPT WELL OVERALL AND CAN NOTICE A DECREASE IN BILAT LE SWELLING. PT WAITING ON BREAKFAST, DENIES ANY CURRENT PAIN OR NEEDS. CL IN REACH, BED IN LOWEST, SIDE RAILS X2. WILL CPOC.
[2017-05-11 07:52] VITALS: BP 144/78
[2017-05-11 08:18] LABS: FOLATE (FOLIC ACID) - SERUM 4.3 ng/mL (>3.0); HEPATITIS C ANTIBODY 0.3 (0.0-0.9)
--- NOTE | 2017-05-11 09:00 | NUR ---
MORNING MEDICATIONS GIVEN. PT RESTING IN BED AND DENIES ANY CURRENT PAIN OR NEEDS. REFUSED HIS COLACE AND STATES HE HAD MULTIPLE STOOLS LAST NIGHT AND IS NOT WANTING/NEEDING IT AND WOULD PREFER IT PRN. NO FURTHER NEEDS WILL CPOC.
--- NOTE | 2017-05-11 12:22 | NUR ---
Nutrition follow-up: Diet:Renal PO intake 100% of meals Labs reviewed Wt: 333# PO intake is good at this time. RD following.
[2017-05-11 12:30] VITALS: BP 144/65
--- NOTE | 2017-05-11 14:47 | NUR ---
PT SITTING UP IN BED RESTING QUIETLY. DENIES ANY CURRENT PAIN OR NEEDS AT THIS TIME. EMPTIED URINAL OF 500CC CLEAR YELLOW URINE. WILL CPOC.
[2017-05-11 16:01] VITALS: BP 115/54
--- NOTE | 2017-05-11 18:26 | NUR ---
EMPTIED PTS URINAL OF 125ML CLEAR YELLOW URINE. PT SITTING UP IN BED RESTING QUIETLY WATCHING TV. PT STATES HE HAS HAD A GOOD DAY OVERALL BUT HAS JUST BEEN TIRED. DENIES ANY CURRENT PAIN OR NEEDS. CL IN REACH, BED IN LOWEST, SIDE RAILS X2, WILL PASS ON REPORT TO NIGHTSHIFT NURSE.
[2017-05-11 20:27] VITALS: BP 115/50
--- NOTE | 2017-05-12 00:03 | NUR ---
PT IN BED RESTING AT THIS TIME. WILL CONT TO MONITOR
[2017-05-12 00:33] VITALS: BP 108/44
--- NOTE | 2017-05-12 03:18 | NUR ---
STEEL PICKLER AT BEDSIDE TO OBTAIN VITALS, CALL LIGHT IN REACH. WILL CONTINUE WITH PLAN OF CARE.
--- NOTE | 2017-05-12 03:57 | NUR ---
ASSISTED PT TO BATHROOM. WHILE USING BATHROOM ROOM PT EXPLAINS THAT HE DOESNT WANT TO AND HOW HE DOESNT HAVE ANYONE TO TAKE CARE OF HIM AT HOME. PT BEGAN TO CRY WHILE SAYING "I THINK ITS OVER"
[2017-05-12 04:33] VITALS: BP 107/50
[2017-05-12 05:24] LABS: HEMATOCRIT 26.7 % (42.0-54.0); HEMOGLOBIN 8.2 g/dL (13.5-17.5); LYMPHOCYTES 25.1 % (15-50); MCH 28.4 pg (26.0-34.0); MCHC 30.7 g/dL (31.0-37.0); MEAN PLATELET VOLUME 11.4 fL (7.4-10.4); NEUTROPHILS 50.7 % (40-80); PLATELET COUNT 211 10x3/uL (130-400); RBC 2.89 10x6/uL (4.20-6.10); RDW 16.7 % (11.5-14.5); WBC 3.1 10x3/uL (4.8-10.8)
[2017-05-12 05:25] LABS: ANION GAP 17.7 mmol/L (8-16); CALCIUM 7.7 mg/dL (8.5-10.1); CARBON DIOXIDE 20.3 mmol/L (21.0-32.0); CREATININE - SERUM 5.6 mg/dL (0.6-1.3); PHOSPHOROUS 6.8 mg/dL (2.5-4.9)
[2017-05-12 05:26] LABS: MCV 92.4 fL (80.0-100.0)
--- NOTE | 2017-05-12 06:11 | NUR ---
PT BS WAS 30 25ML OF 50% DEXTROSE GIVEN BS SHAUN TO 52. MILK, MARTHA CRACKERS, AND PEANUT BUTTER GIVEN.
--- NOTE | 2017-05-12 07:54 | NUR ---
INTRODUCED MYSELF TO PT PRIMARY RN FOR TODAYS SHIFT. PT A&O AND FAMILIAR WITH ME FROM PREVIOUS DAYS. PT STILL VERY SWOLLEN IN LE AND SCROTOM. PT STILL ON LASIX DRIP AND DIURETICS HE IS NERVOUS ABOUT NEEDING DIALYSIS AND TRYING TO HOLD OFF. BUN AND CR IN TOILET. PT UNDERSTANDS AND IS ON PLAN FOR WHATEVER IS NEEDED. PT STATES HE HAD AN ALRIGHT NIGHT BUT ANOTHER EPISODE OF LOW BLOOD SUGAR, AMARYL WAS THE CULPRIT AND WAS D/C. WILL CTM. PT DENIES ANY CURRENT PAIN OR NEEDS AT THIS TIME. CL IN REACH, BED IN LOWEST, SIDE RAILS X2. WILL CPOC.
[2017-05-12 08:33] VITALS: BP 117/56
--- NOTE | 2017-05-12 09:00 | NUR ---
PT TOOK MORNING MEDICATIONS WITHOUT ANY TROUBLE SWALLOWING. ASSISTED PT TO BR AND HE HAD SMALL SOFT FORMED BM. PT BACK IN BED AND WATCHING TV. DENIES ANY CURRENT PAIN OR FURTHER NEEDS. CL IN REACH, WILL CPOC.
[2017-05-12 12:50] VITALS: BP 105/48
--- NOTE | 2017-05-12 13:39 | NUR ---
INITIATED PTS ALBUMIN ORDERED AND TEACHING PROVIDED FOR NEW DRUG. PT VERBALIZED UNDERSTANDING AND DENIES ANY QUESTIONS OR CONCERNS. PT WANTING TO REST AND DENIES ANY CURRENT NEEDS. CL IN REACH. WILL CPOC.
[2017-05-12 16:22] VITALS: BP 115/56
--- NOTE | 2017-05-12 19:15 | NUR ---
ROUNDING NOTE: PT VISITING WITH A FRIEND AT THE BEDSIDE AT THE CHANGE OF THE SHIFT. PT W/ LASIX GTT TO LEFT HAND AND RIGHT HAND SALINE LOC. PT HAS SIGNIFCANT BILATERAL LOWER EXTREMITY EDEMA +4, UNABLE TO PALPATE PULSES, BUT CAN DOPPLER PEDAL PULSES. WILL CONT TO MONITOR.
[2017-05-12 20:59] VITALS: BP 143/63
[2017-05-13 01:13] VITALS: BP 129/50
[2017-05-13 04:51] VITALS: BP 135/61
[2017-05-13 05:43] LABS: BASOPHILS 0.4 % (0-2); HEMATOCRIT 26.6 % (42.0-54.0); IMMATURE GRANULOCYTES 0.4 % (0-5); LYMPHOCYTES 33.1 % (15-50); MCHC 30.1 g/dL (31.0-37.0); MEAN PLATELET VOLUME 11.5 fL (7.4-10.4); MONOCYTES 18.4 % (2-11); NEUTROPHILS 40.7 % (40-80); PLATELET COUNT 219 10x3/uL (130-400); RBC 2.86 10x6/uL (4.20-6.10); RDW 16.9 % (11.5-14.5); WBC 2.7 10x3/uL (4.8-10.8)
[2017-05-13 05:58] LABS: ANION GAP 16.7 mmol/L (8-16); CARBON DIOXIDE 20.6 mmol/L (21.0-32.0); CREATININE - SERUM 5.6 mg/dL (0.6-1.3); POTASSIUM - SERUM 5.3 mmol/L (3.5-5.1)
--- NOTE | 2017-05-13 07:04 | NUR ---
PT HAS SLEPT THROUGHOUT MOST OF THE NIGHT. HE HAS BEEN PUTTING OUT SOME URINE PRODUCTION, BUT CONTINUES TO HAVE SIGNIFICANT GENERALIZED EDEMA. PT REPORTS PERSISTENT FATIGUE, BUT OVERALL FEELS BETTER WITH SOME OF THE FLUID BEING REMOVED.
--- NOTE | 2017-05-13 07:30 | NUR ---
RECEIVED PT IN BED AAOX4 RECIEVED PT IN BED RESP UNLABORED NAD NOTED
[2017-05-13 08:45] VITALS: BP 159/61
[2017-05-13 11:48] VITALS: BP 159/52
[2017-05-13 15:45] VITALS: BP 173/63
--- NOTE | 2017-05-13 19:45 | NUR ---
RESUMED CARE OF PT, LYING IN BED RESPIRATIONS EVEN AND UNLABORED ON ROOM AIR. LEFT HAND INFUSING LASIX @ 20ML/HR. CALL LIGHT IN REACH. WILL CONTINUE TO MONITOR. SEE NURSE ASSESSMENT.
[2017-05-13 21:24] VITALS: BP 162/72
[2017-05-14] VITALS: BP 161/98
--- NOTE | 2017-05-14 03:13 | NUR ---
LYING IN BED WITH EYES CLOSED, CALL LIGHT IN REACH. WILL CONTINUE TO MONITOR.
[2017-05-14 04:00] VITALS: BP 162/65
[2017-05-14 05:21] LABS: BASOPHILS 0.5 % (0-2); EOSINOPHILS 5.2 % (0-7); HEMATOCRIT 26.3 % (42.0-54.0); HEMOGLOBIN 8.1 g/dL (13.5-17.5); IMMATURE GRANULOCYTES 0.2 % (0-5); LYMPHOCYTES 22.8 % (15-50); MCH 28.6 pg (26.0-34.0); MCHC 30.8 g/dL (31.0-37.0); MCV 92.9 fL (80.0-100.0); MONOCYTES 14.1 % (2-11); NEUTROPHILS 57.2 % (40-80); PLATELET COUNT 213 10x3/uL (130-400); RBC 2.83 10x6/uL (4.20-6.10); RDW 16.8 % (11.5-14.5)
[2017-05-14 05:38] LABS: ANION GAP 16.9 mmol/L (8-16); CALCIUM 8.4 mg/dL (8.5-10.1); CARBON DIOXIDE 20.5 mmol/L (21.0-32.0); CREATININE - SERUM 5.6 mg/dL (0.6-1.3); PHOSPHOROUS 6.1 mg/dL (2.5-4.9); POTASSIUM - SERUM 5.4 mmol/L (3.5-5.1)
--- NOTE | 2017-05-14 06:39 | NUR ---
NO CHANGES FROM PREVIOUS ASSESSMENT, CALL LIGHT IN REACH. WILL CONTINUE TO MONITOR.
--- NOTE | 2017-05-14 07:30 | NUR ---
PT RESTING QUIETLY RESP UNLABORED EYES CLOSED NAD NOAD
--- NOTE | 2017-05-14 07:44 | NUR ---
LYING IN BED RESTING QUIETLY. ALERT AND ORIENTED X4. DENIES ANY NEEDS OR PAIN. NO S/SX OF ACUTE DISTRESS NOTED. CALL LIGHT AND PERSONAL ITEMS WITHIN REACH, BED LOW AND SR X2. WILL CONTINUE TO MONITOR
--- NOTE | 2017-05-14 08:46 | NUR ---
ADMINISTERED MORNING MEDS WHOLE WITHOUT DIFFICULTY. NO S/SX OF ACUTE DISTRESS NOTED. DENIES ANY PAIN OR NEEDS. WILL CONTINUE TO MONITOR
[2017-05-14 09:34] VITALS: BP 157/70
[2017-05-14 12:16] VITALS: BP 149/56
--- NOTE | 2017-05-14 12:30 | NUR ---
SITTING UP IN BED EATING LUNCH. FAMILY AT BEDSIDE. DENIES ANY NEEDS OR PAIN. CALL LIGHT AND PERSONAL ITEMS WITHIN REACH, BED LOW AND SR X2. WILL CONTINUE TO MONITOR
--- NOTE | 2017-05-14 14:25 | NUR ---
SITTING UP IN BED VISITING WITH FAMILY. DENIES ANY NEEDS. NO S/SX OF ACUTE DISTRESS NOTED. CALL LIGHT WITHIN REACH, BED LOW, SR X3. WILL CONTINUE TO MONITOR
[2017-05-14 16:12] VITALS: BP 158/69
--- NOTE | 2017-05-14 17:02 | NUR ---
LYING IN BED EYES CLOSED RESTING. APPROPRIATE RISE AND FALL OF CHEST. NO S/SX OF RESPIRATORY DISTRESS NOTED. CALL LIGHT AND PERSONAL ITEMS WITHIN REACH, BED LOW AND SR X2. WILL CONTINUE TO MONITOR
--- NOTE | 2017-05-14 19:45 | NUR ---
PT RESTING IN BED. ALERT/ORIENTED. IV LASIX INFUSING TO LEFT HAND AT 20ML/HR. PITTING EDEMA TO BILATERAL FEET/LEGS AND GENERALIZED EDEMA TO UPPER EXTREMITIES. DENIES PAIN. CALL LIGHT IN REACH. CPOC.
--- NOTE | 2017-05-14 21:15 | NUR ---
BEDTIME MEDS GIVEN. IV ALBUMIN ADMINISTERED. IV LASIX DRIP INFUSING. IV IRON NOW INFUSING. PO MEDS GIVEN. CPOC.
[2017-05-14 21:46] VITALS: BP 126/69
[2017-05-15] VITALS: BP 153/65
--- NOTE | 2017-05-15 02:50 | NUR ---
RESTING IN BED WITH NO DISTRESS. IV LASIX INFUSING. SIGNIFICANT OTHER AT BEDSIDE. CPOC.
[2017-05-15 05:33] VITALS: BP 123/66
--- NOTE | 2017-05-15 07:30 | NUR ---
PT SITTING UP IN BED SLEEPING NO S/S DISTRESS NOTED RR EVEN AND UNLABORED WILL CONT TO MONITOR
[2017-05-15 08:52] VITALS: BP 159/65
--- NOTE | 2017-05-15 09:00 | NUR ---
DR CROW SAID THAT HE WAS GOING TO PLAN FOR ACCESS CREATION FOR PT TO HAVE DIALYSIS TOMORROW. BUT SAID TO CANCEL IT. HE CANCELED CONSULT FOR DR LINDO, DR LINDO WAS NEVER NOTIFIED BY [facility] [employer] [facility]. CANCELLED ACCOMPANYING ORDERS.
--- NOTE | 2017-05-15 12:28 | NUR ---
PT LAYING DOWN IN BED SLEEPING WITH AT BEDSIDE. BOTH DENY NEEDS. BOTH STATE THAT THEY ARE NOT GETTING DIALYSIS TREATMENT ANY TIME SOON. THEY WANT TO WAIT FOR THE MEDICATIONS TO DO THEIR JOB.
[2017-05-15 12:39] VITALS: BP 134/59
--- NOTE | 2017-05-15 13:59 | NUR ---
Nutrition follow-up: Diet: Low sodium per renal PO intake 100% of most meals Labs: K, PO4 high at this time +BM Wt: 338# Recommend changing diet order to renal due to elevated K, PO4. RDN following.
--- NOTE | 2017-05-15 14:20 | NUR ---
call put in to pharmacy, no lasix drip on hand on floor for pt. called and spoke with [facility], they are sending one up.
--- NOTE | 2017-05-15 15:08 | NUR ---
STILL WAITING ON LASIX DRIP FROM PHARM..
--- NOTE | 2017-05-15 21:07 | NUR ---
HS MEDS GIVEN WITH FRESH ICE WATER. PT REFUSED NITRO PASTE, STATES THAT HE DOESNT NEED IT BECAUSE HE IS NOT HAVING CHEST PAIN. DENIES NEEDS AT THIS TIME, BED LOW, CL IN REACH.
[2017-05-15 21:22] VITALS: BP 158/68
[2017-05-16 02:14] VITALS: BP 155/74
--- NOTE | 2017-05-16 03:33 | NUR ---
RESTING WITH EYES CLOSED, RESPERATIONS EVEN, NO S/S DISTRESS NOTED.
[2017-05-16 05:55] VITALS: BP 154/64
[2017-05-16 06:32] LABS: BASOPHILS 0.5 % (0-2); EOSINOPHILS 2.8 % (0-7); HEMATOCRIT 27.1 % (42.0-54.0); HEMOGLOBIN 8.4 g/dL (13.5-17.5); IMMATURE GRANULOCYTES 0.2 % (0-5); LYMPHOCYTES 14.2 % (15-50); MCH 28.6 pg (26.0-34.0); MCV 92.2 fL (80.0-100.0); MEAN PLATELET VOLUME 10.9 fL (7.4-10.4); MONOCYTES 15.4 % (2-11); NEUTROPHILS 66.9 % (40-80); PLATELET COUNT 220 10x3/uL (130-400); RBC 2.94 10x6/uL (4.20-6.10); RDW 16.9 % (11.5-14.5); WBC 4.2 10x3/uL (4.8-10.8)
[2017-05-16 06:43] LABS: INR 1.26 (0.85-1.17); PROTIME 15.4 SECONDS (11.6-15.0)
[2017-05-16 06:47] LABS: ANION GAP 14.5 mmol/L (8-16); CALCIUM 8.7 mg/dL (8.5-10.1); CARBON DIOXIDE 22.6 mmol/L (21.0-32.0); CREATININE - SERUM 5.7 mg/dL (0.6-1.3); PHOSPHOROUS 5.3 mg/dL (2.5-4.9); POTASSIUM - SERUM 5.1 mmol/L (3.5-5.1)
--- NOTE | 2017-05-16 08:32 | NUR ---
AM ROUNDS - PT IN BED AT THIS TIME AND AWAKE, MONITOR SHOWING ST, HR 104. PT ON 4L O2 VIA NC. IV TO LEFT AC, SL. BED AT LOWEST POSITION. CALL RAPHAEL IN USE/REACH. WILL CONTINUE TO MONITOR.
--- NOTE | 2017-05-16 09:09 | NUR ---
AM ROUNDS - PT IS IN BED AND AWAKE AT THIS TIME. PT ON ROOM AIR. IV TO LEFT WRIST, LASIX AT 20CC/HR AND RIGHT AC, SL. UP WITH ASSIST. A&O. BED AT LOWEST POSITION. CALL RAPHAEL IN USE/REACH. SIDE RAILS UP X2. WILL CONTINUE TO MONITOR
[2017-05-16 09:48] VITALS: BP 159/66
[2017-05-16 12:26] VITALS: BP 167/68
--- NOTE | 2017-05-16 14:19 | NUR ---
will start lasix drip when pt returns from procedure
--- NOTE | 2017-05-16 18:11 | NUR ---
PT IN BED WITH HOB ELEVATED. PT WENT FOR A HEMESPLIT PLACEMENT TODAY. PT APPLIED ICE WHEN HE RETURNED FROM PROCEDURE. PT STARTED TO BLEED A LITTLE. APPLIED A 4X4 PRESSURE DRESSING AND SECURED WITH FOAM TAPE. V/S WNL. NO FUTHER BLEEDING NOTED. NO FUTHER NEEDS. WILL CONTINUE TO MONITOR.
--- NOTE | 2017-05-16 19:25 | NUR ---
PATIENT IS C/O DISCOMFORT. PAIN IN HIS SHOULDER AFTER HEMOSPLIT PLACEMENT. THE SITE IS BLEEDING , ONE FOUR BY FOUR IS SATURATED UNDER THE DRESSING. SITE IS COVERED WITH A DRESSING. FRESH WRAP APPLIED TO THE SHOULDER WITH VALDEMAR BANDAGE TO APPLY PRESSURE. SAND BAG IS IN ROOM IF NEEDED. MONITORING CLOSELY. BED IN LOW POSITION, CALL LIGHT IN REACH. FAMILY AT BEDSIDE.
[2017-05-16 21:50] VITALS: BP 126/60
--- NOTE | 2017-05-16 22:04 | NUR ---
IV START IN LEFT WRIST SECOND STICK. DC IV IN LEFT HAND BECAUSE IT HAD BECOME OCCLUDED. MEDICATIONS ADMINISTERED ORDERED. FAMILY AT BEDSIDE.
[2017-05-17 00:20] VITALS: BP 140/59
--- NOTE | 2017-05-17 02:54 | NUR ---
PT LYING IN BED, EYES CLOSED, RESPIRATIONS EVEN AND UNLABORED. FAMILY AT BEDSIDE. CONTINUE TO MONITOR CLOSELY. BED LOW, CALL LIGHT IN REACH, SIDE RAILS X 2, HOB 20 DEGREES.
[2017-05-17 04:33] VITALS: BP 125/60
[2017-05-17 05:54] LABS: BASOPHILS 0.3 % (0-2); EOSINOPHILS 2.1 % (0-7); HEMATOCRIT 26.6 % (42.0-54.0); HEMOGLOBIN 8.2 g/dL (13.5-17.5); IMMATURE GRANULOCYTES 0.3 % (0-5); MCH 28.9 pg (26.0-34.0); MCHC 30.8 g/dL (31.0-37.0); MCV 93.7 fL (80.0-100.0); MEAN PLATELET VOLUME 11.2 fL (7.4-10.4); MONOCYTES 15.7 % (2-11); NEUTROPHILS 63.6 % (40-80); PLATELET COUNT 191 10x3/uL (130-400); RBC 2.84 10x6/uL (4.20-6.10); RDW 17.1 % (11.5-14.5); WBC 3.8 10x3/uL (4.8-10.8)
[2017-05-17 06:40] LABS: ANION GAP 17.9 mmol/L (8-16); CALCIUM 8.2 mg/dL (8.5-10.1); CARBON DIOXIDE 21.2 mmol/L (21.0-32.0); CREATININE - SERUM 5.9 mg/dL (0.6-1.3); PHOSPHOROUS 5.5 mg/dL (2.5-4.9); POTASSIUM - SERUM 5.1 mmol/L (3.5-5.1)
--- NOTE | 2017-05-17 07:15 | NUR ---
PATIENT IN BED RESTING AT THIS TIME WITH FAMILY AT BEDSIDE. NO COMPLAINTS VOICED AT THIS TIME. NEW ORDER RECEIVED FOR DIALYSIS FOR TWO HOURS 20 BATH WITH NO FLUID REMOVAL, STOP LASIX, STOP DIUREL. PATIENT UPDATED ON NEW ORDERS AND IS IN AGREEMENT AT THIS TIME. CALL LIGHT AND WATER ARE WITHIN REACH.
[2017-05-17 08:21] VITALS: BP 122/61
--- NOTE | 2017-05-17 09:48 | NUR ---
OUT OF ROOM FOR DIALYSIS AT THIS TIME. WILL CONT. PLAN OF CARE.
[2017-05-17 16:14] VITALS: BP 140/74
[2017-05-17 19:00] VITALS: BP 147/63; BP 164/69
--- NOTE | 2017-05-17 19:46 | NUR ---
PT C/O LOWER EXTREM. LEG PAIN. LOWER LEGS ARE +4 EDEMA. WELL RIGHT ARM +2. PT HAS A HEMASPLIT ON RIGHT CHEST. AND AN IV ON LEFT FOREARM. PT ASKS FOR PAIN MED AND BENADRYL. PT DENIES ANY OTHER NEEDS. NO S/S OF DISTRESS. BED LOW AND CALL LIGHT IN REACH. WILL CPOC
[2017-05-18] VITALS: BP 160/70
--- NOTE | 2017-05-18 01:00 | NUR ---
PT ASLEEP. RESPIRATIONS EVEN AND UNLABORED. 16. BED LOW AND CALL LIGHT IN REACH. NO S/S OF DISTRESS. WILL CPOC
[2017-05-18 04:00] VITALS: BP 166/68
[2017-05-18 04:55] LABS: BASOPHILS 0.5 % (0-2); EOSINOPHILS 3.3 % (0-7); HEMATOCRIT 27.1 % (42.0-54.0); HEMOGLOBIN 8.5 g/dL (13.5-17.5); IMMATURE GRANULOCYTES 0.3 % (0-5); LYMPHOCYTES 27.2 % (15-50); MCHC 31.4 g/dL (31.0-37.0); MCV 92.5 fL (80.0-100.0); MONOCYTES 21.8 % (2-11); NEUTROPHILS 46.9 % (40-80); PLATELET COUNT 170 10x3/uL (130-400); RBC 2.93 10x6/uL (4.20-6.10); RDW 17.3 % (11.5-14.5); WBC 3.9 10x3/uL (4.8-10.8)
[2017-05-18 05:25] LABS: ANION GAP 16.1 mmol/L (8-16); CALCIUM 8.5 mg/dL (8.5-10.1); CARBON DIOXIDE 23.3 mmol/L (21.0-32.0); CREATININE - SERUM 5.1 mg/dL (0.6-1.3); PHOSPHOROUS 4.8 mg/dL (2.5-4.9); POTASSIUM - SERUM 4.4 mmol/L (3.5-5.1)
--- NOTE | 2017-05-18 06:19 | NUR ---
PT ASLEEP. AROUSES TO VERBAL STIMULI. ALBUMIN DONE INFUSING TO LEFT HAND IV. IV FLUSHED AND S/L. PT C/O RIGHT ARM PAIN. AND CONCERNS THAT THE ARM IS MORE SWOLLEN. AMBULATED ARM ON PILLOW AND OFFERED ICE. PT DENIES ANY OTHER NEEDS. NO S/S OF DISTRESS. BED LOW AND CALL LIGHT IN REACH. WILL CPOC
--- NOTE | 2017-05-18 09:12 | NUR ---
ASSESSMENT DONE. DENIES NEEDS.
[2017-05-18 09:15] VITALS: BP 173/82
[2017-05-18 11:53] VITALS: BP 142/78
--- NOTE | 2017-05-18 13:38 | NUR ---
PT SITTING UP IN BED TALKING ON TELEPHONE STATES HE IS DOING ALRIGHT AND DENIES ANY CURRENT PAIN OR NEEDS AT THIS TIME. CL IN REACH.
--- NOTE | 2017-05-18 13:43 | NUR ---
Nutrition Follow Up: Pt is eating 66% meal avg on a renal ADA diet. +BM 05/15/17. Wt stable. Meds and labs reviewed. Rec continue current diet. RD following.
[2017-05-18 16:53] VITALS: BP 142/76
--- NOTE | 2017-05-18 18:03 | NUR ---
WITHOUT CHANGES OR DISTRESS NOTED AT THIS TIME. DENIES NEEDS.
--- NOTE | 2017-05-18 19:28 | NUR ---
PT RESTING IN BED. PT C/O RIGHT ARM PAIM. IT IS SWOLLEN, WARM TO TOUCH. PT VOIDED 175 OF ODOROUS, CLOUDY ISIS URINE, PT DENIES ANY OTHER NEEDS. NO S/S OF DISTRESS. BEDLOW AND CALL LIGHT IN REACH. WILL CPOC
--- NOTE | 2017-05-18 22:01 | NUR ---
PT OUT OF SHOWER. X2 TO ASSIST BACK TO BED. PT IS NOW CLEAN. BED CLEAN AND DRY. DRIED THE GROIN AREA AND SKIN FOLDS. NO REDNESS ON GROIN. SOME REDDNESS ON BUTTOCK. PT SCROTUM IS SWOLLEN AND RED. PENIS IS ALSO SWOLLEN. PT C/O THE SWELLING ON PENIS. PT BACK IN BED. REPOSITONED FOR COMFORT. TEETH CLEANED AND ARE SOAKING AT BEDSIDE. PT DENIES ANY NEEDS. NO S/S OF DISTRESS.BED LOW AND CALL LIGHT IN REACH. WILL CPOC
--- NOTE | 2017-05-18 23:30 | NUR ---
PT LEFT ARM IV IS SWOLLEN. WILL NOT FLUSH PT C/O PAIN. IV INFLITRATED. REMOVED WITH CATH INTACT. DRSG APPLIED. PT STATES HE MAY BE D/C'D IN AM. DOESNT WANT TO BE STUCK FOR AN IV FOR ONE NIGHT. ONLY MED FOR IV IS ALBUMIN. PT DENIES ANY NEEDS. NO S/S OF DISTRESS. BED LOW AND CALL LIGHT IN REACH. WILL CPOC
--- NOTE | 2017-05-19 05:02 | NUR ---
PT ASLEEP. AROUSES TO VERBAL STIMULI. BED LOW AND CALL LIGHT IN REACH. PT DENIES ANY NEEDS AT THIS TIME. NO S/S OF DISTRESS. WILL CPOC
[2017-05-19 05:10] LABS: BASOPHILS 0.2 % (0-2); EOSINOPHILS 5.6 % (0-7); HEMATOCRIT 28.8 % (42.0-54.0); HEMOGLOBIN 8.8 g/dL (13.5-17.5); IMMATURE GRANULOCYTES 0.2 % (0-5); LYMPHOCYTES 21.9 % (15-50); MCH 28.4 pg (26.0-34.0); MCHC 30.6 g/dL (31.0-37.0); MCV 92.9 fL (80.0-100.0); MEAN PLATELET VOLUME 11.4 fL (7.4-10.4); MONOCYTES 15.1 % (2-11); PLATELET COUNT 187 10x3/uL (130-400); RDW 17.2 % (11.5-14.5); WBC 4.3 10x3/uL (4.8-10.8)
[2017-05-19 05:19] VITALS: BP 165/69
[2017-05-19 05:30] LABS: ANION GAP 14.4 mmol/L (8-16); CALCIUM 8.8 mg/dL (8.5-10.1); CREATININE - SERUM 5.7 mg/dL (0.6-1.3); PHOSPHOROUS 5.2 mg/dL (2.5-4.9); POTASSIUM - SERUM 4.4 mmol/L (3.5-5.1)
--- NOTE | 2017-05-19 07:25 | NUR ---
ASSESSMENT COMPLETED.DENIES ANY NEEDS. RIGHT CHEST HEMOSPLIT NOTED. PT HAS ANASARCA. UP TO BR WITH ASSIST. WILL MONITOR
[2017-05-19 10:27] VITALS: BP 127/86
[2017-05-19 11:56] VITALS: BP 130/53
--- NOTE | 2017-05-19 17:27 | NUR ---
Patient Name: SONYA FLORIAN Admission Status: ER Accout number: [id number] Admission Date: 05-08-2017 : 1960 Admission Diagnosis:SHORTNESS OF BREATH Attending: BUFFY TUCKER Current LOS: 11 Anticipated DC Date: Planned Disposition: Home Primary Insurance: [facility] Discharge Planning Comments: CM RECEIVED ORDER FOR OUTPATIENT HEMODIALYSIS CLINIC ARRANGEMENT. PATIENT PATHWAYS COORDINATOR SHANNON NOTIFIED. CM ATTEMPTED TO ASSESS PT FOR DISCHARGE NEEDS AT ABOUT 1425 HOURS, PT NOT IN ROOM. CM TO SEE PT AT A LATER DATE/TIME TO ATTEMPT ASSESSMENT OF DISCHARGE NEEDS. CM WAITING OUTPATIENT HEMODIALYSIS CLINIC ARRANGEMENT. Clinical Partner: Howie Handley
--- NOTE | 2017-05-19 18:09 | NUR ---
BACK FROM DIALYSIS. V/S STABLE DENIES ANYNEEDS. DIET SERVED
[2017-05-19 19:00] VITALS: BP 128/54
--- NOTE | 2017-05-19 20:45 | NUR ---
HS MEDS WITH FRESH ICE WATER, PT DECLINED NITRO PASTE AND COLACE. DENIES PAIN OR NEEDS, BED LOW, CL IN REACH. EXTRA PILLOW GIVEN TO FAMILY AT BED SIDE FOR COMFORT.
[2017-05-20] VITALS: BP 146/56
--- NOTE | 2017-05-20 00:21 | NUR ---
GLASS WOOL BLANKET MACHINE FEEDER AT BED SIDE TO OBTAIN VITALS, NO S/S DISTRESS NOTED.
--- NOTE | 2017-05-20 02:47 | NUR ---
PT RESTING COMFORTABLY, NO NEEDS. CONTINUE TO MONITOR CLOSELY.
[2017-05-20 04:54] VITALS: BP 154/63
[2017-05-20 05:24] LABS: BASOPHILS 0.5 % (0-2); EOSINOPHILS 6.7 % (0-7); HEMATOCRIT 27.7 % (42.0-54.0); HEMOGLOBIN 8.4 g/dL (13.5-17.5); IMMATURE GRANULOCYTES 0.2 % (0-5); LYMPHOCYTES 20.1 % (15-50); MCH 28.2 pg (26.0-34.0); MCHC 30.3 g/dL (31.0-37.0); MEAN PLATELET VOLUME 10.9 fL (7.4-10.4); MONOCYTES 14.3 % (2-11); NEUTROPHILS 58.2 % (40-80); PLATELET COUNT 167 10x3/uL (130-400); RBC 2.98 10x6/uL (4.20-6.10); RDW 17.4 % (11.5-14.5); WBC 4.3 10x3/uL (4.8-10.8)
[2017-05-20 05:47] LABS: CALCIUM 8.8 mg/dL (8.5-10.1); CARBON DIOXIDE 23.2 mmol/L (21.0-32.0); CREATININE - SERUM 5.6 mg/dL (0.6-1.3); PHOSPHOROUS 4.9 mg/dL (2.5-4.9)
[2017-05-20 06:01] LABS: ANION GAP 16.3 mmol/L (8-16); POTASSIUM - SERUM 4.5 mmol/L (3.5-5.1)
--- NOTE | 2017-05-20 07:05 | NUR ---
REPORT RECEIVED ON PATIENT. MORNING ROUNDS MADE. PATIENT LAYING IN BED, EYES CLOSED, BUT OPENED EYES WHEN SPOKEN TO. DENIES ANY NEEDS AT THIS TIME. WILL CONTINUE TO MONITOR. CPOC.
[2017-05-20 07:57] VITALS: BP 130/60
--- NOTE | 2017-05-20 10:14 | NUR ---
MORNING MEDS GIVEN. PATIENT LAYING IN BED, FAMILY AT BEDSIDE. PATIENT STATES HE DOESN'T WANT TO TAKE THE COLACE, HE DOESN'T NEED IT. WHILE IN ROOM HILARY MORENO ROUNDED ON PATIENT. STATES HE IS FINE TO DC TODAY IF OK WITH DR. CROW. PT ASKED IF I COULD FIND OUT WHO IS ROUNDING FOR HIM AND WHEN THEY WILL BE HERE TODAY. ADVISED I WILL CHECK IN TO THAT AND KEEP HIM INFORMED. PT VOICED UNDERSTANDING. DENIES ANY NEEDS AT THIS TIME. CPOC.
[2017-05-20 11:44] VITALS: BP 133/68
--- NOTE | 2017-05-20 11:50 | NUR ---
PATIENT LAYINGING IN BED, FAMILY AT BEDSIDE. REFUSED THE NITRO BID, STATES HE DOESN'T TAKE THAT AND DOESN'T WANT IT. STATES DR. CROW'S NURSE MADE ROUNDS AND TOLD HIM HE WAS GOING HOME TODAY. ADVISED I WOULD BRING DISCHARGE PAPERWORK AROUND SOON IT WAS READY. VOICED UNDERSTANDING. NO NEEDS AT THIS TIME. CPOC.
[2017-05-20] MEDS ORDERED: NEURONTIN 300300 MG PO (12:03)
--- NOTE | 2017-05-20 13:25 | NUR ---
PATIENT RESTING, DENIES ANY NEEDS. OC BED LOW AND LOCKED. CALL LIGHT IN REACH
--- NOTE | 2017-05-20 15:21 | NUR ---
DISCHARGE ORDERS RECEIVED. WENT OVER ALL DC PAPERWORK WITH PATIENT AND FAMILY MEMBER AND GAVE THEM COPIES AND EDUCATION. PATIENT VOICED UNDERSTANDING. HE KNOWS ABOUT HIS DIALYSIS ON MONDAY AND WILL CALL TO MAKE APPT WITH DR. TUCKER. CHANGED DRESSING ON . ESCORTED PATIENT TO VEHICLE VIA WHEELCHAIR.
--- NOTE | 2017-05-20 20:15 | NUR ---
LATE ENTRY 1305 CM SPOKE WITH THE PATIENT AND HIS FRIEND/ CAREGIVER, VAZQUEZ NIEVES, . THE PATIENT GAVE PERMISSION FOR MR NIEVES TO STAY. THE PATIENT HAS HIS INSTRUCTIONS REGARDING F/U FOR HD/WITH A SCHEDULE OF M/W/F AND FIRST APPT MONDAY AT 1100. HE IS A/O X4. WAS FAIRLY INDEPENDENT PRIOR TO ADMIT. HAS SIGNIFICANT LE SWELLING, HAS 3/4 STAIRS TO ENTER HIS HOME. RAILING IS PRESENT. HAS ROLLING WALKER AND CANE. WOULD LIKE A SHOWER CHAIR AND POSSIBLE WHEELCHAIR. DOES NOT HAVE A PREFERRED PROVIDER. WILL HAVE HEALTHCARE MEDICAL AND RESPIRATORY CONTACT PATIENT TO ASSESS TYPE OF BENCH REQUIRED AND WHEELCHAIR. PATIENT AND CAREGIVER DENIES ANY HOME HEALTH NEEDS. CM EXPLINED HOW TO ACCESS H/H IF NEEDED. HE HAS TRANSPORTATION TO HOME. AWAIT DISCHARGE ORDERS. PHARMACY- [facility] PCP- DR TUCKER RENAL- DR CROW CARDIO- DR BORJA AT [facility]
--- NOTE | 2017-05-26 11:12 | OP ---
PATIENT NAME: SONYA LEROY MEDICAL RECORD: [id number] :56 LOCATION:D. D.2131 ADMISSION DATE:05/08/17 SURGEON: FARIDA LINDO MD DATE OF OPERATION: 05/16/2017 REFERRED BY: Juan Luis Obrien MD DIAGNOSIS: Chronic kidney disease stage V, going on end-stage renal failure, N18.6. OPERATION PERFORMED: Insertion of a HemoSplit tunneled hemodialysis catheter with ultrasound and fluoroscopic guidance, placed via the right internal jugular vein. SURGEON: Farida Lindo MD ANESTHESIA: Local with monitoring per [facility] PREOP NOTE: Mr. Leroy is a 56-year-old diabetic male patient with worsening renal insufficiency, who is to start dialysis. I have been requested to provide for dialysis access. At this time, he has resolving anasarca with mostly edema in the lower extremities and lower torso, but there is still some edema in his arms and I prefer to wait to create a primary fistula or implant a graft in his upper extremities until such time as the edema is optimally resolved. I think the best for him is placement of a tunneled dialysis catheter for him to initiate dialysis and we will do that today. The patient is not n.p.o. and the procedure will be done under local. With the patient in the supine position on the operating table, he was prepped and draped in a sterile manner. The right internal jugular vein was located with ultrasound. It was normal in appearance sonographically. It was fully compressible and of normal caliber. The skin and subcutaneous tissues overlying and at the base of the neck were anesthetized with 1% lidocaine. A small incision was made with a #11 blade scalpel, and with continuous ultrasound guidance, a needle and then a guidewire were inserted into the internal jugular vein. Under fluoroscopy, the wire was advanced into the right atrium and dilators were passed. I chose a 23-cm HemoSplit catheter and I inserted this through an infraclavicular site and pulled it through a subcutaneous tunnel up to the cervical wound, where it was inserted into the chest and positioned with its tips in the right atrium through a peel-away introducer, which was subsequently removed. Both lumens of the catheter were aspirated and returned blood easily. They were then flushed with saline and then heparin locked, clamped, and capped. The catheter was sutured to the skin near the exit site with 2-0 Prolene and the surgical wound was closed with interrupted inverted 3-0 Vicryl and Dermabond glue. The incision was dressed with Maxorb Ag, Tegaderm, and Cavilon skin prep. The standard central venous line dressing including chlorhexidine barrier were applied to the catheter at the exit site. The patient was awakened and then returned to his room in stable condition. We will obtain a chest x-ray to document catheter positioning without complication and he may have dialysis now at any time. There was no blood loss during the procedure and all sponges, instruments, and needles were accounted for. No drain was used. No surgical specimen was submitted for histopathology. OPERATIVE REPORT [id number] SONYA LEROY TRANSINT:[id number] Voice Confirmation ID: [id number] DOCUMENT ID: [id number] FARIDA LINDO MD at 1112 CC: [id number] DICTATION DATE: 05/23/17 1326 GUN REPAIR CLERK: 05/23/17 1444 DIS IN 05/20/17 [address] [place] [address]
== END 2017-05-20 15:31 | disposition home or self-care (01) | DRG 683 ==
LOC: D.ER 17:24 → D.M2 20:11
PROVIDERS: Emergency Medicine; Family Medicine; Internal Medicine Nephrology; Surgery; ADMIT Legal Medicine
PROC: B543ZZA Ultrasonography of Right Jugular Veins, Guidance (ICD-10-PCS; 2017-05-16)
PROC: 05HM33Z Insertion of Infusion Device into Right Internal Jugular Vein, Percutaneous Approach (ICD-10-PCS; principal; 2017-05-16 14:30)
PROC: 5A1D70Z Performance of Urinary Filtration, Intermittent, Less than 6 Hours Per Day (ICD-10-PCS; 2017-05-17)
DX: N17.9 Acute kidney failure, unspecified (principal); I12.0 Hypertensive chronic kidney disease with stage 5 chronic kidney disease or end stage renal disease; I13.0 Hypertensive heart and chronic kidney disease with heart failure and stage 1 through stage 4 chronic kidney disease, or unspecified chronic kidney disease; I50.30 Unspecified diastolic (congestive) heart failure; E11.22 Type 2 diabetes mellitus with diabetic chronic kidney disease; D63.1 Anemia in chronic kidney disease; E11.21 Type 2 diabetes mellitus with diabetic nephropathy; E11.40 Type 2 diabetes mellitus with diabetic neuropathy, unspecified; N50.89 Other specified disorders of the male genital organs; N18.5 Chronic kidney disease, stage 5; E78.5 Hyperlipidemia, unspecified; I25.10 Atherosclerotic heart disease of native coronary artery without angina pectoris; Z95.1 Presence of aortocoronary bypass graft; E83.39 Other disorders of phosphorus metabolism

== ENCOUNTER 2017-05-31 11:47 | Emergency (ER) | payer MEDICARE ==
[2017-05-09 12:36] VITALS: BMI 42.8
[2017-05-31 12:52] LABS: ALBUMIN 2.2 g/dL (3.4-5.0); ANION GAP 13.7 mmol/L (8-16); BILIRUBIN - TOTAL 1.48 mg/dL (0.2-1.3); CALCIUM 8.6 mg/dL (8.5-10.1); CARBON DIOXIDE 25.7 mmol/L (21.0-32.0); CREATININE - SERUM 5.4 mg/dL (0.6-1.3); POTASSIUM - SERUM 3.4 mmol/L (3.5-5.1); PROTEIN - SERUM 7.4 g/dL (6.4-8.2)
[2017-05-31 12:59] LABS: BASOPHILS 0.2 % (0-2); EOSINOPHILS 0 % (0-7); HEMATOCRIT 29.4 % (42.0-54.0); HEMOGLOBIN 8.9 g/dL (13.5-17.5); IMMATURE GRANULOCYTES 0.2 % (0-5); LYMPHOCYTES 8.4 % (15-50); MCH 28.1 pg (26.0-34.0); MCHC 30.3 g/dL (31.0-37.0); MCV 92.7 fL (80.0-100.0); MEAN PLATELET VOLUME 11.2 fL (7.4-10.4); MONOCYTES 6.9 % (2-11); NEUTROPHILS 84.3 % (40-80); PLATELET COUNT 190 10x3/uL (130-400); RBC 3.17 10x6/uL (4.20-6.10); RDW 16.4 % (11.5-14.5); WBC 6.1 10x3/uL (4.8-10.8)
== END 2017-05-31 15:06 | disposition home or self-care (01) ==
LOC: D.ER 11:47
PROVIDERS: Emergency Medicine
DX: S82.201A Unspecified fracture of shaft of right tibia, initial encounter for closed fracture (principal); W19.XXXA Unspecified fall, initial encounter; Y93.89 Activity, other specified; Y92.89 Other specified places as the place of occurrence of the external cause; I10 Essential (primary) hypertension

== ENCOUNTER 2017-07-06 15:39 | Inpatient (IN) | payer MEDICARE ==
[~2017-07-06] VITALS: Ht 182.9 cm; Wt 71.7 kg
[2017-07-06 17:29] LABS: BASOPHILS 0.1 % (0-2); EOSINOPHILS 0.9 % (0-7); HEMATOCRIT 28.2 % (42.0-54.0); HEMOGLOBIN 8.2 g/dL (13.5-17.5); IMMATURE GRANULOCYTES 0.1 % (0-5); LYMPHOCYTES 26.1 % (15-50); MCH 27.1 pg (26.0-34.0); MCHC 29.1 g/dL (31.0-37.0); MCV 93.1 fL (80.0-100.0); MEAN PLATELET VOLUME 8.8 fL (7.4-10.4); MONOCYTES 10.3 % (2-11); NEUTROPHILS 62.5 % (40-80); RBC 3.03 10x6/uL (4.20-6.10); RDW 17.4 % (11.5-14.5); WBC 6.7 10x3/uL (4.8-10.8)
[2017-07-06 17:35] LABS: PLATELET COUNT 236 10x3/uL (130-400)
[2017-07-06 17:43] LABS: INR 1.12 (0.85-1.17)
[2017-07-06 17:45] LABS: ALBUMIN 1.7 g/dL (3.4-5.0); ANION GAP 9.6 mmol/L (8-16); BILIRUBIN - TOTAL 0.53 mg/dL (0.2-1.3); CALCIUM 8.4 mg/dL (8.5-10.1); CARBON DIOXIDE 28.5 mmol/L (21.0-32.0); CREATININE - SERUM 2.8 mg/dL (0.6-1.3); POTASSIUM - SERUM 3.1 mmol/L (3.5-5.1); PROTEIN - SERUM 7.6 g/dL (6.4-8.2)
[2017-07-06 23:46] VITALS: BP 137/70; BMI 41.2
[2017-07-07] MEDS ORDERED: HYDRALAZINE HCL25 MG PO (00:51)
[2017-07-07] MEDS ORDERED: COLACE100 MG PO (00:52)
[2017-07-07 01:30] VITALS: BP 137/70
[2017-07-07 05:21] VITALS: BP 114/52
[2017-07-07 09:04] VITALS: BP 122/62
[2017-07-07 10:52] LABS: ERYTHROCYTE SEDIMENTATION RATE 100 mm/hr (0-20)
[2017-07-07 12:38] VITALS: Ht 182.9 cm; Wt 71.7 kg
[2017-07-07 12:43] VITALS: BP 121/55
[2017-07-07 16:05] VITALS: BP 124/56
[2017-07-07 18:37] LABS: BASOPHILS 0.2 % (0-2); EOSINOPHILS 3.1 % (0-7); HEMOGLOBIN 7.6 g/dL (13.5-17.5); IMMATURE GRANULOCYTES 0.2 % (0-5); LYMPHOCYTES 34.4 % (15-50); MCHC 29.2 g/dL (31.0-37.0); MCV 92.5 fL (80.0-100.0); MEAN PLATELET VOLUME 9.2 fL (7.4-10.4); MONOCYTES 11.2 % (2-11); NEUTROPHILS 50.9 % (40-80); PLATELET COUNT 243 10x3/uL (130-400); RBC 2.81 10x6/uL (4.20-6.10); RDW 17.6 % (11.5-14.5); WBC 6.4 10x3/uL (4.8-10.8)
[2017-07-07 19:01] LABS: ALBUMIN 1.7 g/dL (3.4-5.0); ANION GAP 12.5 mmol/L (8-16); BILIRUBIN - TOTAL 0.44 mg/dL (0.2-1.3); CALCIUM 8.2 mg/dL (8.5-10.1); CARBON DIOXIDE 27.6 mmol/L (21.0-32.0); CREATININE - SERUM 3.2 mg/dL (0.6-1.3); POTASSIUM - SERUM 3.1 mmol/L (3.5-5.1); PROTEIN - SERUM 7.2 g/dL (6.4-8.2)
[2017-07-08 00:40] VITALS: BP 104/35
[2017-07-08 04:05] VITALS: BP 123/56
[2017-07-08 06:12] LABS: BASOPHILS 0.4 % (0-2); EOSINOPHILS 3.6 % (0-7); HEMOGLOBIN 7.8 g/dL (13.5-17.5); IMMATURE GRANULOCYTES 0.2 % (0-5); LYMPHOCYTES 32.9 % (15-50); MCHC 28.9 g/dL (31.0-37.0); MCV 93.4 fL (80.0-100.0); MEAN PLATELET VOLUME 8.9 fL (7.4-10.4); NEUTROPHILS 49.9 % (40-80); PLATELET COUNT 224 10x3/uL (130-400); RBC 2.89 10x6/uL (4.20-6.10); RDW 17.6 % (11.5-14.5); WBC 5.5 10x3/uL (4.8-10.8)
[2017-07-08 06:32] LABS: ALBUMIN 1.7 g/dL (3.4-5.0); ANION GAP 10.1 mmol/L (8-16); BILIRUBIN - TOTAL 0.53 mg/dL (0.2-1.3); CALCIUM 8.2 mg/dL (8.5-10.1); CREATININE - SERUM 3.1 mg/dL (0.6-1.3); POTASSIUM - SERUM 3.1 mmol/L (3.5-5.1); PROTEIN - SERUM 7.2 g/dL (6.4-8.2)
[2017-07-08 09:46] VITALS: BP 162/69
[2017-07-08 12:34] VITALS: BP 109/67
[2017-07-08 22:02] VITALS: BP 104/38
[2017-07-09] VITALS (21 sets, daily range): BP systolic 98–169; BP diastolic 33–68
[2017-07-09 06:38] LABS: BASOPHILS 0.3 % (0-2); EOSINOPHILS 4.3 % (0-7); HEMATOCRIT 32.3 % (42.0-54.0); IMMATURE GRANULOCYTES 0.2 % (0-5); LYMPHOCYTES 32.7 % (15-50); MCHC 30.3 g/dL (31.0-37.0); MCV 92.3 fL (80.0-100.0); MEAN PLATELET VOLUME 9.4 fL (7.4-10.4); MONOCYTES 14.5 % (2-11); PLATELET COUNT 224 10x3/uL (130-400); RDW 16.6 % (11.5-14.5); WBC 6.3 10x3/uL (4.8-10.8)
[2017-07-09 06:41] LABS: HEMOGLOBIN 9.8 g/dL (13.5-17.5)
[2017-07-09 06:55] LABS: ALBUMIN 1.8 g/dL (3.4-5.0); ANION GAP 12.7 mmol/L (8-16); BILIRUBIN - TOTAL 0.67 mg/dL (0.2-1.3); CARBON DIOXIDE 25.2 mmol/L (21.0-32.0); POTASSIUM - SERUM 3.9 mmol/L (3.5-5.1); VANCOMYCIN - RANDOM 34.2 ug/mL (10.0-20.0)
[2017-07-10 00:56] VITALS: BP 128/43
[2017-07-10 04:23] VITALS: BP 116/55
[2017-07-10 04:39] LABS: BASOPHILS 0.4 % (0-2); EOSINOPHILS 4.7 % (0-7); HEMATOCRIT 31.6 % (42.0-54.0); HEMOGLOBIN 9.7 g/dL (13.5-17.5); IMMATURE GRANULOCYTES 0.2 % (0-5); LYMPHOCYTES 36.7 % (15-50); MCH 28.2 pg (26.0-34.0); MCHC 30.7 g/dL (31.0-37.0); MCV 91.9 fL (80.0-100.0); MEAN PLATELET VOLUME 9.9 fL (7.4-10.4); MONOCYTES 14.3 % (2-11); NEUTROPHILS 43.7 % (40-80); PLATELET COUNT 227 10x3/uL (130-400); RBC 3.44 10x6/uL (4.20-6.10); RDW 16.5 % (11.5-14.5); WBC 5.5 10x3/uL (4.8-10.8)
[2017-07-10 05:16] LABS: ALBUMIN 1.8 g/dL (3.4-5.0); BILIRUBIN - TOTAL 0.78 mg/dL (0.2-1.3); CALCIUM 8.1 mg/dL (8.5-10.1); CARBON DIOXIDE 27.5 mmol/L (21.0-32.0); CREATININE - SERUM 4.7 mg/dL (0.6-1.3); GENTAMICIN - RANDOM 1.6 ug/mL (0.5-2.0); PHOSPHOROUS 4.7 mg/dL (2.5-4.9); PROTEIN - SERUM 7.8 g/dL (6.4-8.2); VANCOMYCIN - RANDOM 32.3 ug/mL (10.0-20.0)
[2017-07-10 05:33] LABS: ANION GAP 10.7 mmol/L (8-16)
[2017-07-10 05:34] LABS: POTASSIUM - SERUM 3.2 mmol/L (3.5-5.1)
[2017-07-10 09:26] VITALS: BP 148/71
[2017-07-10 20:00] VITALS: BP 131/63
[2017-07-11 04:00] VITALS: BP 145/76
[2017-07-11 04:52] LABS: BASOPHILS 0.2 % (0-2); EOSINOPHILS 5.7 % (0-7); HEMOGLOBIN 9.1 g/dL (13.5-17.5); IMMATURE GRANULOCYTES 0.2 % (0-5); LYMPHOCYTES 36.3 % (15-50); MCH 27.1 pg (26.0-34.0); MCHC 29.4 g/dL (31.0-37.0); MCV 92.3 fL (80.0-100.0); MEAN PLATELET VOLUME 9.8 fL (7.4-10.4); NEUTROPHILS 39.6 % (40-80); PLATELET COUNT 220 10x3/uL (130-400); RBC 3.36 10x6/uL (4.20-6.10); RDW 16.1 % (11.5-14.5); WBC 4.6 10x3/uL (4.8-10.8)
[2017-07-11 05:05] LABS: ALBUMIN 1.7 g/dL (3.4-5.0); ANION GAP 8.9 mmol/L (8-16); BILIRUBIN - TOTAL 0.6 mg/dL (0.2-1.3); CALCIUM 7.9 mg/dL (8.5-10.1); CARBON DIOXIDE 30.3 mmol/L (21.0-32.0); CREATININE - SERUM 3.9 mg/dL (0.6-1.3); POTASSIUM - SERUM 3.2 mmol/L (3.5-5.1); PROTEIN - SERUM 7.3 g/dL (6.4-8.2); VANCOMYCIN - RANDOM 23.2 ug/mL (10.0-20.0)
[2017-07-11 09:47] VITALS: BP 149/63
[2017-07-11 10:17] LABS: HEPATITIS C ANTIBODY 0.3 (0.0-0.9)
[2017-07-11 12:02] VITALS: BP 139/60
[2017-07-11 16:09] VITALS: BP 133/67
[2017-07-11 20:00] VITALS: BP 144/74
[2017-07-12 04:00] VITALS: BP 155/68
[2017-07-12 05:06] LABS: BASOPHILS 0.4 % (0-2); EOSINOPHILS 6.2 % (0-7); HEMATOCRIT 30.8 % (42.0-54.0); HEMOGLOBIN 9.2 g/dL (13.5-17.5); IMMATURE GRANULOCYTES 0.2 % (0-5); LYMPHOCYTES 39.3 % (15-50); MCH 27.5 pg (26.0-34.0); MCHC 29.9 g/dL (31.0-37.0); MCV 91.9 fL (80.0-100.0); MEAN PLATELET VOLUME 9.8 fL (7.4-10.4); MONOCYTES 16.2 % (2-11); NEUTROPHILS 37.7 % (40-80); PLATELET COUNT 201 10x3/uL (130-400); RBC 3.35 10x6/uL (4.20-6.10); RDW 16.1 % (11.5-14.5); WBC 4.8 10x3/uL (4.8-10.8)
[2017-07-12 05:33] LABS: ALBUMIN 1.7 g/dL (3.4-5.0); ANION GAP 9.4 mmol/L (8-16); BILIRUBIN - TOTAL 0.59 mg/dL (0.2-1.3); CALCIUM 8.1 mg/dL (8.5-10.1); PHOSPHOROUS 4.4 mg/dL (2.5-4.9); POTASSIUM - SERUM 3.4 mmol/L (3.5-5.1); PROTEIN - SERUM 7.3 g/dL (6.4-8.2); VANCOMYCIN - RANDOM 20.7 ug/mL (10.0-20.0)
[2017-07-12 05:34] LABS: CREATININE - SERUM 4.9 mg/dL (0.6-1.3)
[2017-07-12 09:40] VITALS: BP 163/63
[2017-07-12 16:28] VITALS: BP 160/62
[2017-07-12 20:00] VITALS: BP 124/65
[2017-07-13 04:00] VITALS: BP 132/51
[2017-07-13 04:39] LABS: BASOPHILS 0.2 % (0-2); EOSINOPHILS 5.1 % (0-7); HEMATOCRIT 30.3 % (42.0-54.0); HEMOGLOBIN 9.3 g/dL (13.5-17.5); IMMATURE GRANULOCYTES 0.2 % (0-5); LYMPHOCYTES 36.5 % (15-50); MCH 28.1 pg (26.0-34.0); MCHC 30.7 g/dL (31.0-37.0); MCV 91.5 fL (80.0-100.0); MEAN PLATELET VOLUME 9.5 fL (7.4-10.4); MONOCYTES 13.1 % (2-11); NEUTROPHILS 44.9 % (40-80); PLATELET COUNT 194 10x3/uL (130-400); RBC 3.31 10x6/uL (4.20-6.10); RDW 15.9 % (11.5-14.5); WBC 5.1 10x3/uL (4.8-10.8)
[2017-07-13 05:00] LABS: ALBUMIN 1.6 g/dL (3.4-5.0); ANION GAP 8.8 mmol/L (8-16); BILIRUBIN - TOTAL 0.6 mg/dL (0.2-1.3); CARBON DIOXIDE 30.6 mmol/L (21.0-32.0); CREATININE - SERUM 4.5 mg/dL (0.6-1.3); POTASSIUM - SERUM 3.4 mmol/L (3.5-5.1); PROTEIN - SERUM 7.3 g/dL (6.4-8.2); VANCOMYCIN - RANDOM 18.1 ug/mL (10.0-20.0)
[2017-07-13 08:58] LABS: ERYTHROCYTE SEDIMENTATION RATE 75 mm/hr (0-20)
[2017-07-13 09:02] VITALS: BP 148/80
[2017-07-13 12:24] VITALS: BP 136/61
[2017-07-13 16:21] VITALS: BP 121/61
[2017-07-13 20:00] VITALS: BP 133/61
[2017-07-14] VITALS: BP 147/67
[2017-07-14 04:00] VITALS: BP 125/63
[2017-07-14 05:32] LABS: BASOPHILS 0.2 % (0-2); EOSINOPHILS 7.3 % (0-7); HEMATOCRIT 29.9 % (42.0-54.0); HEMOGLOBIN 8.9 g/dL (13.5-17.5); IMMATURE GRANULOCYTES 0.2 % (0-5); LYMPHOCYTES 34.6 % (15-50); MCH 27.5 pg (26.0-34.0); MCHC 29.8 g/dL (31.0-37.0); MCV 92.3 fL (80.0-100.0); MEAN PLATELET VOLUME 9.8 fL (7.4-10.4); MONOCYTES 14.7 % (2-11); PLATELET COUNT 215 10x3/uL (130-400); RBC 3.24 10x6/uL (4.20-6.10); RDW 15.8 % (11.5-14.5); WBC 4.8 10x3/uL (4.8-10.8)
[2017-07-14 05:51] LABS: ALBUMIN 1.7 g/dL (3.4-5.0); ANION GAP 9.8 mmol/L (8-16); BILIRUBIN - TOTAL 0.59 mg/dL (0.2-1.3); CALCIUM 8.1 mg/dL (8.5-10.1); CARBON DIOXIDE 27.5 mmol/L (21.0-32.0); CREATININE - SERUM 5.5 mg/dL (0.6-1.3); PHOSPHOROUS 3.9 mg/dL (2.5-4.9); POTASSIUM - SERUM 3.3 mmol/L (3.5-5.1); PROTEIN - SERUM 7.2 g/dL (6.4-8.2); VANCOMYCIN - RANDOM 16.1 ug/mL (10.0-20.0)
[2017-07-14 08:06] VITALS: BP 151/52
[2017-07-14 20:00] VITALS: BP 143/62
[2017-07-15 04:00] VITALS: BP 149/66
[2017-07-15 06:38] LABS: HEMATOCRIT 30.8 % (42.0-54.0); HEMOGLOBIN 9.3 g/dL (13.5-17.5); LYMPHOCYTES 34.1 % (15-50); MCH 27.4 pg (26.0-34.0); MCHC 30.2 g/dL (31.0-37.0); MCV 90.9 fL (80.0-100.0); MEAN PLATELET VOLUME 9.6 fL (7.4-10.4); NEUTROPHILS 46.8 % (40-80); PLATELET COUNT 215 10x3/uL (130-400); RBC 3.39 10x6/uL (4.20-6.10); RDW 15.8 % (11.5-14.5); WBC 4.4 10x3/uL (4.8-10.8)
[2017-07-15 06:43] LABS: ALBUMIN 1.7 g/dL (3.4-5.0); ANION GAP 9.8 mmol/L (8-16); BILIRUBIN - TOTAL 0.58 mg/dL (0.2-1.3); CALCIUM 7.9 mg/dL (8.5-10.1); CARBON DIOXIDE 29.3 mmol/L (21.0-32.0); CREATININE - SERUM 4.4 mg/dL (0.6-1.3); POTASSIUM - SERUM 3.1 mmol/L (3.5-5.1); PROTEIN - SERUM 7.2 g/dL (6.4-8.2)
[2017-07-15 07:15] VITALS: BP 146/61
[2017-07-15 11:03] VITALS: BP 169/73
[2017-07-15 15:11] VITALS: BP 139/64
[2017-07-15 20:00] VITALS: BP 129/61
[2017-07-15 23:59] VITALS: BP 136/64
[2017-07-16 05:16] LABS: BASOPHILS 0.5 % (0-2); EOSINOPHILS 5.1 % (0-7); HEMATOCRIT 31.5 % (42.0-54.0); HEMOGLOBIN 9.3 g/dL (13.5-17.5); LYMPHOCYTES 35.3 % (15-50); MCH 27.3 pg (26.0-34.0); MCHC 29.5 g/dL (31.0-37.0); MCV 92.4 fL (80.0-100.0); MEAN PLATELET VOLUME 9.6 fL (7.4-10.4); MONOCYTES 14.4 % (2-11); NEUTROPHILS 44.7 % (40-80); PLATELET COUNT 232 10x3/uL (130-400); RBC 3.41 10x6/uL (4.20-6.10); RDW 16.1 % (11.5-14.5); WBC 4.3 10x3/uL (4.8-10.8)
[2017-07-16 05:32] LABS: ALBUMIN 1.9 g/dL (3.4-5.0); ANION GAP 9.7 mmol/L (8-16); BILIRUBIN - TOTAL 0.6 mg/dL (0.2-1.3); CALCIUM 8.4 mg/dL (8.5-10.1); CARBON DIOXIDE 29.8 mmol/L (21.0-32.0); CREATININE - SERUM 5.1 mg/dL (0.6-1.3); PHOSPHOROUS 3.7 mg/dL (2.5-4.9); POTASSIUM - SERUM 3.5 mmol/L (3.5-5.1); PROTEIN - SERUM 7.5 g/dL (6.4-8.2); VANCOMYCIN - RANDOM 20.2 ug/mL (10.0-20.0)
[2017-07-16 07:57] VITALS: BP 157/60
[2017-07-16 12:34] VITALS: BP 149/71
[2017-07-16 15:45] VITALS: BP 129/56
[2017-07-16 20:00] VITALS: BP 155/70
[2017-07-17] VITALS: BP 152/68
[2017-07-17 04:00] VITALS: BP 150/70
[2017-07-17 05:47] LABS: BASOPHILS 0.2 % (0-2); EOSINOPHILS 6.2 % (0-7); HEMATOCRIT 31.8 % (42.0-54.0); HEMOGLOBIN 9.6 g/dL (13.5-17.5); IMMATURE GRANULOCYTES 0.2 % (0-5); LYMPHOCYTES 33.7 % (15-50); MCH 27.7 pg (26.0-34.0); MCHC 30.2 g/dL (31.0-37.0); MCV 91.9 fL (80.0-100.0); MEAN PLATELET VOLUME 9.5 fL (7.4-10.4); MONOCYTES 14.6 % (2-11); NEUTROPHILS 45.1 % (40-80); PLATELET COUNT 242 10x3/uL (130-400); RBC 3.46 10x6/uL (4.20-6.10); RDW 16.2 % (11.5-14.5); WBC 4.2 10x3/uL (4.8-10.8)
[2017-07-17 06:05] LABS: ALBUMIN 1.8 g/dL (3.4-5.0); BILIRUBIN - TOTAL 0.6 mg/dL (0.2-1.3); CALCIUM 8.3 mg/dL (8.5-10.1); CARBON DIOXIDE 29.1 mmol/L (21.0-32.0); CREATININE - SERUM 5.8 mg/dL (0.6-1.3); PROTEIN - SERUM 7.5 g/dL (6.4-8.2); VANCOMYCIN - RANDOM 16.9 ug/mL (10.0-20.0)
[2017-07-17 06:07] LABS: POTASSIUM - SERUM 4.1 mmol/L (3.5-5.1)
[2017-07-17 08:45] VITALS: BP 168/76
[2017-07-17 12:31] VITALS: BP 98/43
[2017-07-17 16:47] VITALS: BP 148/72
[2017-07-18] VITALS: BP 123/55
[2017-07-18 04:00] VITALS: BP 145/65
[2017-07-18 09:02] VITALS: BP 148/63
[2017-07-18 12:45] VITALS: BP 138/55
[2017-07-18 17:19] VITALS: BP 147/61
[2017-07-19] VITALS: BP 133/58
[2017-07-19 04:00] VITALS: BP 118/58
[2017-07-19 05:27] LABS: BASOPHILS 0.2 % (0-2); EOSINOPHILS 5.8 % (0-7); HEMATOCRIT 31.9 % (42.0-54.0); HEMOGLOBIN 9.5 g/dL (13.5-17.5); IMMATURE GRANULOCYTES 0.2 % (0-5); MCH 27.7 pg (26.0-34.0); MCHC 29.8 g/dL (31.0-37.0); MEAN PLATELET VOLUME 9.5 fL (7.4-10.4); MONOCYTES 14.4 % (2-11); NEUTROPHILS 43.4 % (40-80); PLATELET COUNT 244 10x3/uL (130-400); RBC 3.43 10x6/uL (4.20-6.10); RDW 16.5 % (11.5-14.5)
[2017-07-19 05:48] LABS: ANION GAP 8.6 mmol/L (8-16); CARBON DIOXIDE 29.2 mmol/L (21.0-32.0); CREATININE - SERUM 5.1 mg/dL (0.6-1.3); PHOSPHOROUS 3.6 mg/dL (2.5-4.9); POTASSIUM - SERUM 3.8 mmol/L (3.5-5.1); VANCOMYCIN - RANDOM 22.7 ug/mL (10.0-20.0)
[2017-07-19 08:01] VITALS: BP 168/76
[2017-07-19 17:02] VITALS: BP 97/50
[2017-07-20] VITALS (17 sets, daily range): BP systolic 93–168; BP diastolic 42–79
[2017-07-20 05:20] LABS: BASOPHILS 0.2 % (0-2); HEMATOCRIT 32.5 % (42.0-54.0); HEMOGLOBIN 9.5 g/dL (13.5-17.5); IMMATURE GRANULOCYTES 0.2 % (0-5); LYMPHOCYTES 35.3 % (15-50); MCH 27.4 pg (26.0-34.0); MCHC 29.2 g/dL (31.0-37.0); MCV 93.7 fL (80.0-100.0); MEAN PLATELET VOLUME 9.4 fL (7.4-10.4); MONOCYTES 13.3 % (2-11); PLATELET COUNT 213 10x3/uL (130-400); RBC 3.47 10x6/uL (4.20-6.10); RDW 16.7 % (11.5-14.5); WBC 4.8 10x3/uL (4.8-10.8)
[2017-07-20 06:03] LABS: ANION GAP 8.6 mmol/L (8-16); CALCIUM 8.2 mg/dL (8.5-10.1); CARBON DIOXIDE 30.9 mmol/L (21.0-32.0); CREATININE - SERUM 4.3 mg/dL (0.6-1.3); PHOSPHOROUS 3.3 mg/dL (2.5-4.9); POTASSIUM - SERUM 3.5 mmol/L (3.5-5.1)
[2017-07-20 18:49] LABS: HEMATOCRIT 25.4 % (42.0-54.0)
[2017-07-20 18:53] LABS: HEMOGLOBIN 7.5 g/dL (13.5-17.5)
[2017-07-21] VITALS (14 sets, daily range): BP systolic 83–134; BP diastolic 38–57
[2017-07-21 13:57] LABS: BASOPHILS 0.2 % (0-2); EOSINOPHILS 3.8 % (0-7); HEMATOCRIT 28.6 % (42.0-54.0); HEMOGLOBIN 8.8 g/dL (13.5-17.5); IMMATURE GRANULOCYTES 0.2 % (0-5); LYMPHOCYTES 30.4 % (15-50); MCH 27.7 pg (26.0-34.0); MCHC 30.8 g/dL (31.0-37.0); MEAN PLATELET VOLUME 9.2 fL (7.4-10.4); MONOCYTES 13.4 % (2-11); PLATELET COUNT 221 10x3/uL (130-400); RBC 3.18 10x6/uL (4.20-6.10); RDW 17.7 % (11.5-14.5)
[2017-07-21 14:04] LABS: MCV 89.9 fL (80.0-100.0); WBC 6.6 10x3/uL (4.8-10.8)
[2017-07-21 14:26] LABS: ANION GAP 7.6 mmol/L (8-16); CALCIUM 7.7 mg/dL (8.5-10.1); CARBON DIOXIDE 31.9 mmol/L (21.0-32.0); CREATININE - SERUM 3.3 mg/dL (0.6-1.3); PHOSPHOROUS 2.7 mg/dL (2.5-4.9); POTASSIUM - SERUM 3.5 mmol/L (3.5-5.1); VANCOMYCIN - RANDOM 13.3 ug/mL (10.0-20.0)
[2017-07-22] VITALS: BP 90/42
[2017-07-22 04:00] VITALS: BP 115/56
[2017-07-22 04:38] LABS: BASOPHILS 0.4 % (0-2); EOSINOPHILS 5.2 % (0-7); HEMATOCRIT 26.5 % (42.0-54.0); HEMOGLOBIN 8.1 g/dL (13.5-17.5); IMMATURE GRANULOCYTES 0.4 % (0-5); LYMPHOCYTES 38.8 % (15-50); MCH 27.6 pg (26.0-34.0); MCHC 30.6 g/dL (31.0-37.0); MCV 90.1 fL (80.0-100.0); MEAN PLATELET VOLUME 9.1 fL (7.4-10.4); MONOCYTES 17.3 % (2-11); NEUTROPHILS 37.9 % (40-80); PLATELET COUNT 198 10x3/uL (130-400); RBC 2.94 10x6/uL (4.20-6.10); RDW 17.8 % (11.5-14.5); WBC 5.2 10x3/uL (4.8-10.8)
[2017-07-22 05:00] LABS: ANION GAP 7.5 mmol/L (8-16); CALCIUM 7.7 mg/dL (8.5-10.1); CARBON DIOXIDE 31.1 mmol/L (21.0-32.0); CREATININE - SERUM 3.9 mg/dL (0.6-1.3); PHOSPHOROUS 3.1 mg/dL (2.5-4.9); POTASSIUM - SERUM 3.6 mmol/L (3.5-5.1)
[2017-07-22 07:03] VITALS: BP 111/54
[2017-07-22 11:10] VITALS: BP 119/52
[2017-07-22 15:07] VITALS: BP 135/60
[2017-07-22 23:37] VITALS: BP 106/35
[2017-07-23 04:00] VITALS: BP 124/61
[2017-07-23 04:28] LABS: BASOPHILS 0.2 % (0-2); HEMATOCRIT 28.2 % (42.0-54.0); HEMOGLOBIN 8.3 g/dL (13.5-17.5); IMMATURE GRANULOCYTES 0.5 % (0-5); LYMPHOCYTES 40.7 % (15-50); MCH 26.9 pg (26.0-34.0); MCHC 29.4 g/dL (31.0-37.0); MCV 91.6 fL (80.0-100.0); MEAN PLATELET VOLUME 9.4 fL (7.4-10.4); MONOCYTES 15.1 % (2-11); NEUTROPHILS 35.5 % (40-80); PLATELET COUNT 203 10x3/uL (130-400); RBC 3.08 10x6/uL (4.20-6.10); RDW 17.5 % (11.5-14.5); WBC 4.4 10x3/uL (4.8-10.8)
[2017-07-23 04:42] LABS: ANION GAP 8.8 mmol/L (8-16); CALCIUM 7.8 mg/dL (8.5-10.1); CARBON DIOXIDE 30.9 mmol/L (21.0-32.0); CREATININE - SERUM 4.4 mg/dL (0.6-1.3); PHOSPHOROUS 3.6 mg/dL (2.5-4.9); POTASSIUM - SERUM 3.7 mmol/L (3.5-5.1)
[2017-07-23 09:23] VITALS: BP 119/62
[2017-07-23 11:43] VITALS: BP 124/64
[2017-07-23 16:00] VITALS: BP 135/50
[2017-07-23 20:00] VITALS: BP 104/51
[2017-07-24 04:00] VITALS: BP 124/42
[2017-07-24 04:00] LABS: HEMATOCRIT 28.5 % (42.0-54.0); HEMOGLOBIN 8.5 g/dL (13.5-17.5); MCH 27.2 pg (26.0-34.0); MCHC 29.8 g/dL (31.0-37.0); MCV 91.3 fL (80.0-100.0); MEAN PLATELET VOLUME 9.2 fL (7.4-10.4); RBC 3.12 10x6/uL (4.20-6.10); RDW 17.1 % (11.5-14.5); WBC 4.8 10x3/uL (4.8-10.8)
[2017-07-24 09:14] VITALS: BP 151/62
[2017-07-24 16:59] VITALS: BP 128/56
[2017-07-24 20:00] VITALS: BP 110/46
[2017-07-25 04:00] VITALS: BP 134/58
[2017-07-25 05:19] LABS: BASOPHILS 0.5 % (0-2); EOSINOPHILS 8.4 % (0-7); HEMOGLOBIN 8.3 g/dL (13.5-17.5); IMMATURE GRANULOCYTES 0.2 % (0-5); LYMPHOCYTES 41.5 % (15-50); MCH 27.5 pg (26.0-34.0); MCHC 29.6 g/dL (31.0-37.0); MCV 92.7 fL (80.0-100.0); MEAN PLATELET VOLUME 9.5 fL (7.4-10.4); MONOCYTES 14.4 % (2-11); PLATELET COUNT 205 10x3/uL (130-400); RBC 3.02 10x6/uL (4.20-6.10); RDW 17.3 % (11.5-14.5); WBC 4.3 10x3/uL (4.8-10.8)
[2017-07-25 05:47] LABS: ANION GAP 7.7 mmol/L (8-16); CALCIUM 7.9 mg/dL (8.5-10.1); CREATININE - SERUM 3.7 mg/dL (0.6-1.3); PHOSPHOROUS 3.6 mg/dL (2.5-4.9); POTASSIUM - SERUM 3.7 mmol/L (3.5-5.1); VANCOMYCIN - RANDOM 17.4 ug/mL (10.0-20.0)
[2017-07-25 08:56] VITALS: BP 162/58
[2017-07-25 12:46] VITALS: BP 157/58
[2017-07-25 16:12] VITALS: BP 115/43
[2017-07-25 20:00] VITALS: BP 130/60
[2017-07-26 04:00] VITALS: BP 112/63
[2017-07-26 05:36] LABS: BASOPHILS 0.7 % (0-2); EOSINOPHILS 6.9 % (0-7); HEMOGLOBIN 8.5 g/dL (13.5-17.5); IMMATURE GRANULOCYTES 0.2 % (0-5); LYMPHOCYTES 43.8 % (15-50); MCH 27.2 pg (26.0-34.0); MCHC 29.3 g/dL (31.0-37.0); MCV 92.7 fL (80.0-100.0); MEAN PLATELET VOLUME 9.8 fL (7.4-10.4); MONOCYTES 13.2 % (2-11); NEUTROPHILS 35.2 % (40-80); PLATELET COUNT 229 10x3/uL (130-400); RBC 3.13 10x6/uL (4.20-6.10); RDW 17.4 % (11.5-14.5); WBC 4.6 10x3/uL (4.8-10.8)
[2017-07-26 06:16] LABS: ANION GAP 8.9 mmol/L (8-16); CALCIUM 8.3 mg/dL (8.5-10.1); CARBON DIOXIDE 29.9 mmol/L (21.0-32.0); CREATININE - SERUM 4.3 mg/dL (0.6-1.3); POTASSIUM - SERUM 3.8 mmol/L (3.5-5.1)
[2017-07-26] MEDS ORDERED: ULTRAM50 MG PO (08:25)
[2017-07-26 08:28] VITALS: BP 157/58
[2017-07-26 12:17] LABS: FUNGUS STAIN Final report (())
[2017-07-26 20:00] VITALS: BP 122/61
[2017-07-27 04:00] VITALS: BP 150/66
[2017-07-27 04:45] LABS: BASOPHILS 0.5 % (0-2); HEMATOCRIT 27.9 % (42.0-54.0); HEMOGLOBIN 8.3 g/dL (13.5-17.5); IMMATURE GRANULOCYTES 0.2 % (0-5); LYMPHOCYTES 43.7 % (15-50); MCH 27.2 pg (26.0-34.0); MCHC 29.7 g/dL (31.0-37.0); MCV 91.5 fL (80.0-100.0); MEAN PLATELET VOLUME 9.3 fL (7.4-10.4); MONOCYTES 14.2 % (2-11); NEUTROPHILS 36.4 % (40-80); PLATELET COUNT 198 10x3/uL (130-400); RBC 3.05 10x6/uL (4.20-6.10); RDW 17.4 % (11.5-14.5); WBC 4.2 10x3/uL (4.8-10.8)
[2017-07-27 05:08] LABS: ANION GAP 6.8 mmol/L (8-16); CALCIUM 8.1 mg/dL (8.5-10.1); CREATININE - SERUM 3.5 mg/dL (0.6-1.3); PHOSPHOROUS 3.5 mg/dL (2.5-4.9); POTASSIUM - SERUM 3.8 mmol/L (3.5-5.1)
[2017-07-27 08:12] VITALS: BP 150/70
[2017-07-27 15:57] VITALS: BP 153/72
[2017-07-27 20:00] VITALS: BP 143/67
[2017-07-28] VITALS: BP 149/68
[2017-07-28 04:00] VITALS: BP 160/70
[2017-07-28 05:00] LABS: BASOPHILS 0.6 % (0-2); EOSINOPHILS 5.8 % (0-7); HEMATOCRIT 27.6 % (42.0-54.0); HEMOGLOBIN 8.2 g/dL (13.5-17.5); IMMATURE GRANULOCYTES 0.2 % (0-5); LYMPHOCYTES 39.3 % (15-50); MCH 27.1 pg (26.0-34.0); MCHC 29.7 g/dL (31.0-37.0); MCV 91.1 fL (80.0-100.0); MEAN PLATELET VOLUME 9.1 fL (7.4-10.4); NEUTROPHILS 40.1 % (40-80); PLATELET COUNT 197 10x3/uL (130-400); RBC 3.03 10x6/uL (4.20-6.10); RDW 17.7 % (11.5-14.5)
[2017-07-28 05:19] LABS: ANION GAP 8.4 mmol/L (8-16); CALCIUM 8.3 mg/dL (8.5-10.1); CARBON DIOXIDE 30.4 mmol/L (21.0-32.0); CREATININE - SERUM 4.3 mg/dL (0.6-1.3); PHOSPHOROUS 3.8 mg/dL (2.5-4.9); POTASSIUM - SERUM 3.8 mmol/L (3.5-5.1)
[2017-07-28 09:33] VITALS: BP 137/71
[2017-08-01 13:14] LABS: FUNGUS MYCOLOGY CULTURE Preliminary report (())
== END 2017-07-28 15:30 | disposition home health service (06) | DRG 981 ==
LOC: D.ER 15:39 → D.MS 22:17
PROVIDERS: Internal Medicine; Internal Medicine Nephrology; Nurse Practitioner Family; Orthopaedic Surgery
PROC: 0QPG04Z Removal of Internal Fixation Device from Right Tibia, Open Approach (ICD-10-PCS; principal; 2017-07-20 12:15)
PROC: 0QHG05Z Insertion of External Fixation Device into Right Tibia, Open Approach (ICD-10-PCS; 2017-07-20 12:15)
DX: L03.115 Cellulitis of right lower limb (principal); N18.6 End stage renal disease; I12.0 Hypertensive chronic kidney disease with stage 5 chronic kidney disease or end stage renal disease; E11.22 Type 2 diabetes mellitus with diabetic chronic kidney disease; D63.1 Anemia in chronic kidney disease; Z99.2 Dependence on renal dialysis; E87.6 Hypokalemia; Z95.1 Presence of aortocoronary bypass graft; R80.9 Proteinuria, unspecified; R06.6 Hiccough

== ENCOUNTER 2017-09-21 08:35 | Day surgery (SDC) | payer MEDICARE, MEDICAID ==
[~2017-09-21] VITALS: Ht 185.4 cm; Wt 118.4 kg
--- NOTE | ~2017-09-21 | OP ---
PATIENT NAME: SONYA FLORIAN MEDICAL RECORD: [id number] :56 LOCATION:[facility] ADMISSION DATE: SURGEON: FARIDA RIOJAS MD DATE OF OPERATION: 09/21/2017 PREOPERATIVE DIAGNOSIS: Prior right spiral tib-fib fracture. POSTOPERATIVE DIAGNOSIS: Prior right spiral tib-fib fracture. PROCEDURE: Removal of external fixator and placement of a short leg cast. SURGEON: Farida Riojas MD ANESTHESIA: General. INTRAOPERATIVE COMPLICATIONS: None. SUMMARY OF PATHOLOGIC FINDINGS: Essentially none. Upon removal of the long leg cast, the fracture had become fairly stabilized. OPERATIVE SUMMARY IN DETAIL: After obtaining the appropriate preoperative orthopedic surgery consent as well as anesthetic consultation, evaluation, and clearance, the patient was brought to the operating room and placed on the operating table in supine position. After adequate general laryngeal mask airway was administered, the lower extremity external fixator was serially and sequentially removed. Pin sites were cleaned with Betadine, covered with Xeroform dressing, and then a short leg cast was placed. After the short leg cast was placed, final radiographs were taken in AP and lateral planes with fluoroscopy. After the cast was allowed to dry, the patient was awakened and taken to recovery room in stable condition. All final instrument and sponge counts correct. TRANSINT:[id number] Voice Confirmation ID: [id number] DOCUMENT ID: [id number] BEULAH PEREZ, FARIDA PUGH at 1518 CC: [id number] DICTATION DATE: 10/19/17 08 ACTIVITIES OFFICER: 10/19/17 1428 [facility] 09/21/[address] [address]
[~2017-09-21 08:35] MED LIST changes: +LISINOPRIL5 MG PO
[2017-09-21 09:14] VITALS: Ht 185.4 cm; Wt 118.4 kg
[2017-09-21 09:16] LABS: BASOPHILS 0.2 % (0-2); EOSINOPHILS 4.7 % (0-7); HEMATOCRIT 35.9 % (42.0-54.0); HEMOGLOBIN 11.6 g/dL (13.5-17.5); IMMATURE GRANULOCYTES 0.2 % (0-5); MCH 28.4 pg (26.0-34.0); MCHC 32.3 g/dL (31.0-37.0); MEAN PLATELET VOLUME 9.3 fL (7.4-10.4); MONOCYTES 10.2 % (2-11); NEUTROPHILS 48.7 % (40-80); RBC 4.08 10x6/uL (4.20-6.10); RDW 15.7 % (11.5-14.5)
[2017-09-21 09:29] LABS: PLATELET COUNT 257 10x3/uL (130-400)
[2017-09-21 09:49] LABS: ANION GAP 13.5 mmol/L (8-16); CALCIUM 9.2 mg/dL (8.5-10.1); CARBON DIOXIDE 26.2 mmol/L (21.0-32.0); CREATININE - SERUM 3.7 mg/dL (0.6-1.3)
[2017-09-21 09:53] LABS: INR 1.04 (0.85-1.17)
[2017-09-21 09:56] LABS: POTASSIUM - SERUM 2.7 mmol/L (3.5-5.1)
[2017-09-21 10:00] LABS: APTT 30.7 SECONDS (22.8-39.4)
[2017-09-21] MEDS ORDERED: ULTRAM50 MG PO (15:13)
== END 2017-09-21 15:45 | disposition home or self-care (01) ==
LOC: D.OPS 08:35 → D.PAN 11:30 → D.OPS 13:00 → D.PAN 13:00 → D.OPS 15:45
PROVIDERS: Anesthesiology
DX: S82.91XA Unspecified fracture of right lower leg, initial encounter for closed fracture (principal); M14.671 Charcot's joint, right ankle and foot; E11.40 Type 2 diabetes mellitus with diabetic neuropathy, unspecified; K21.9 Gastro-esophageal reflux disease without esophagitis; Z01.812 Encounter for preprocedural laboratory examination

== ENCOUNTER 2017-12-19 07:14 | Day surgery (SDC) | payer MEDICARE, MEDICAID ==
[2017-12-18 17:26] LABS: BASOPHILS 0.5 % (0-2); EOSINOPHILS 3.5 % (0-7); HEMATOCRIT 33.5 % (42.0-54.0); HEMOGLOBIN 10.6 g/dL (13.5-17.5); IMMATURE GRANULOCYTES 0.2 % (0-5); LYMPHOCYTES 28.6 % (15-50); MCH 27.6 pg (26.0-34.0); MCHC 31.6 g/dL (31.0-37.0); MCV 87.2 fL (80.0-100.0); MEAN PLATELET VOLUME 9.2 fL (7.4-10.4); NEUTROPHILS 57.2 % (40-80); PLATELET COUNT 273 10x3/uL (130-400); RBC 3.84 10x6/uL (4.20-6.10); RDW 16.2 % (11.5-14.5); WBC 4.3 10x3/uL (4.8-10.8)
[2017-12-18 17:42] LABS: PROTIME 12.8 SECONDS (11.6-15.0)
[2017-12-18 17:55] LABS: ANION GAP 7.8 mmol/L (8-16); CALCIUM 8.5 mg/dL (8.5-10.1); CARBON DIOXIDE 33.3 mmol/L (21.0-32.0); CREATININE - SERUM 3.6 mg/dL (0.6-1.3); POTASSIUM - SERUM 3.1 mmol/L (3.5-5.1)
[~2017-12-19] VITALS: Ht 185.4 cm; Wt 100.7 kg
--- NOTE | ~2017-12-19 | OP ---
PATIENT NAME: SONYA LEROY MEDICAL RECORD: [id number] :56 LOCATION:[facility] ADMISSION DATE: SURGEON: FARIDA LINDO MD DATE OF OPERATION: 12/19/2017 REFERRING PHYSICIAN: Juan Luis Obrien MD PREOPERATIVE DIAGNOSES: End-stage renal disease, dependence on hemodialysis, malfunction of left internal jugular tunneled dialysis catheter. POSTOPERATIVE DIAGNOSES: End-stage renal disease, dependence on hemodialysis, malfunction of left internal jugular tunneled dialysis catheter. OPERATIONS PERFORMED: 1. Creation of left arm Tiny-type brachiobasilic AV fistula with plans for return to the operating room in 2-4 weeks for translocation of the basilic vein. 2. Exchange of tunneled dialysis catheter under fluoroscopy with performance of superior vena cavogram. 3. Laparoscopic insertion or implantation of peritoneal dialysis catheter with substernal extension. ANESTHESIA: Left upper extremity regional nerve block and general endotracheal anesthesia per MEDICAL INSURANCE COLLECTOR. SURGEON: Farida Lindo MD PREOPERATIVE NOTE: Mr. Leroy is a very nice 57-year-old white male patient who has end-stage renal disease and is on dialysis now with left internal jugular dialysis catheter. That catheter is not working properly and I have been asked to replace it. Also, he is now brought to the operating room to create an AV fistula in his left arm and to laparoscopically implant a PD catheter. He was examined preoperatively in the office and I considered him a candidate for substernal extension of PD catheter, so we are going to have an upper abdominal exit site. Under anesthesia, in supine position, the patient was prepped and draped in sterile manner. I used a Vera drain as proximal venous tourniquet and applied nitroglycerin ointment and then did Duplex ultrasound exam of the superficial and deeper veins and arteries of his left arm. I concluded that a brachiobasilic AV fistula would be his best access. He was not a good candidate for a forearm fistula or forearm loop graft. I made a hockey stick-shaped incision on the medial aspect of the arm and elbow and exposed the basilic vein and the brachial artery. The vein was ligated distally and then transected and bevelled. It was flushed with heparinized saline and treated with topical papaverine. It was hydrostatically distended or dilated with the dilute heparin flush. The artery was controlled proximally and distally with Silastic loops. The artery was opened and flushed proximally and distally with heparinized saline. The vein was then anastomosed end of vein to side of artery with continuous running 7-0 Prolene. When completed, the suture line was found to be hemostatic, and with release of the occluding loops, excellent flow was immediately established in the fistula. This was demonstrated by continuous pulsatile Doppler flow as well as pulsatile thrill. The wound was irrigated with gentamicin solution and approximated with interrupted inverted 3-0 Vicryl, running intracuticular 4-0 Monocryl, and Dermabond glue; dressed with Maxorb Ag, OPERATIVE REPORT [id number] ANIVAL,SONYA Tegaderm, and Cavilon skin prep. The patient's TDC was then addressed. Blunt dissection was used to free the Dacron felt cuff from the surrounding soft tissues and the subcutaneous tunnel. I found that it was seated quite well and there was no evidence of purulence. A Roadrunner guidewire was then passed through the catheter and into the inferior vena cava. Under fluoroscopy, the catheter was pulled back and contrast injection demonstrated the absence of fibrin sheathing and no evidence of stenosis of the left brachiocephalic vein or superior vena cava. The catheter was completely removed and then, over a guidewire, I inserted a new 23-cm HemoSplit catheter. I positioned its tip deep in the right atrium and the Dacron felt cuff deep in the subcutaneous tunnel. Both lumens were accessed and aspirated. Free return of blood confirmed from both. The catheter was then flushed with saline and lastly Hep-Locked with heparin 100 units per cc, clamped and capped. The catheter was sutured in place with 2-0 Prolene. Sterile dressing was applied including chlorhexidine patch on the catheter at the skin entry site. The patient was then reprepped and redraped. I attempted to insert a 5-mm XL Optiview-type port with a 0-degree 5-mm diameter laparoscope in place, but I was unable to actually get the trocar safely into the peritoneal space. I did note that the musculature of his anterior abdominal wall was quite stiff despite the environmental monitoring technician's use of muscle relaxing agents. I made a transverse incision at that site and cutdown to the superficial fascia and then explored the tract I had already created. Bleeding from a branch of the epigastric vessel was fairly brisk for a minute or two and this required several suture ligatures of Vicryl. At that point, I elected to go on and place a Val port through a supraumbilical midline incision. I made that incision and carried it down to the linea alba, which then was opened vertically and digital exploration of the upper abdomen revealed no evidence of blood or any injury from the initial trocar insertion attempt. A Val port was placed and pneumoperitoneum was developed with carbon dioxide. There were no intraabdominal adhesions. The omentum was quite thin and somewhat surprisingly confined to the upper half of the abdomen. I chose to use a Merit PD catheter with sternal extension. I used the stencils to identify sites for incision and placed the catheter into the abdomen and into the pelvis through a slanted tract and left the Dacron felt cuff within the substance of the rectus muscle and the coiled portion of the catheter in the pelvis. A pursestring suture of #0 Vicryl was applied. I moved the laparoscope to a 5-mm port in the left lower quadrant and closed the fascia of the upper midline incision with interrupted [id number] #0 Vicryls and used this incision then as part of the tunnel for the PD catheter extension. Appropriate measurements were done and the catheter shortened and connected with the provided metal connector, which was secured with two simple 2-0 Prolene ties. The extension was placed in a subcutaneous curving tunnel to an exit site in the right subcostal area. The catheter was then flushed with saline and noted to flow easily and aspirated well. The catheter was then heparin locked, clamped, and capped. The patient's wounds were irrigated with Ancef and gentamicin solution and infiltrated with 0.25% Marcaine without epinephrine. The fascia of the transverse incision on the left upper quadrant was closed with #0 Vicryl and all the wounds subcutaneous tissues approximated with interrupted 3-0 Vicryl and the two longer incisions closed with running intracuticular 4-0 Monocryl. All incisions were sealed with glue and dressed with Maxorb Ag, Tegaderm, and Cavilon skin prep. The catheter at the exit site was dressed with chlorhexidine-containing Biopatch and an Airstrip dressing. The patient was then awakened, extubated, and taken to the recovery room. OPERATIVE REPORT [id number] SONYA LEROY Blood loss during the operation was insignificant, 10 cc or 20 cc perhaps; certainly none was replaced. All sponges, instruments, and needles were accounted for. No surgical specimen was submitted for histopathology, though I did send the tip of the old TDC for culture. PLAN: The patient will go home today from the outpatient department and will have an appointment to return to see me in my office for dressing change and wound check next week. Also, he will be seeing the peritoneal dialysis nurses at [facility] next week for his first catheter flush. I expect he can start doing dialysis with his new catheter in about 2 weeks. He will be scheduled for return to the operating room in the next 2-4 weeks for translocation of the basilic vein. TRANSINT:[id number] Voice Confirmation ID: [id number] DOCUMENT ID: [id number] FARIDA LINDO MD at 0847 CC: [id number] DICTATION DATE: 12/19/17 1234 INFORMATION SECURITY MANAGER: 12/19/17 1354 [facility] 12/19/17 [facility] [address] [place] [address]
[~2017-12-19 07:14] MED LIST changes: +CARDIZEM30 MG PO; +MEGACE40 MG PO
[2017-12-19 07:20] VITALS: Ht 185.4 cm; Wt 100.7 kg
[2017-12-19 07:43] LABS: ANION GAP 9.9 mmol/L (8-16); CALCIUM 8.7 mg/dL (8.5-10.1); CREATININE - SERUM 4.4 mg/dL (0.6-1.3)
[2017-12-19 07:56] LABS: POTASSIUM - SERUM 2.9 mmol/L (3.5-5.1)
[2017-12-19] MEDS ORDERED: HYDROCODON-ACE1 EAC7 PO (12:07)
[2018-02-14] MEDS ORDERED: METAMUCIL1042 GM PO (14:45)
[2018-02-14] MEDS ORDERED: HYDROCODONE-APA1 TAB PO (14:46)
== END 2017-12-19 17:15 | disposition home or self-care (01) ==
LOC: D.OPS 07:14
PROVIDERS: Anesthesiology; Surgery
DX: T82.49XA Other complication of vascular dialysis catheter, initial encounter (principal); E11.22 Type 2 diabetes mellitus with diabetic chronic kidney disease; I12.0 Hypertensive chronic kidney disease with stage 5 chronic kidney disease or end stage renal disease; N18.6 End stage renal disease; Z99.2 Dependence on renal dialysis; I25.10 Atherosclerotic heart disease of native coronary artery without angina pectoris; Z01.812 Encounter for preprocedural laboratory examination

== ENCOUNTER 2017-12-27 12:11 | Emergency (ER) | payer MEDICARE, MEDICAID ==
[~2017-12-27] VITALS: Ht 185.4 cm; Wt 103.2 kg
[~2017-12-27 12:11] MED LIST changes: +HYDROCODON-ACE1 EAC7 PO
[2017-12-27 12:14] VITALS: BP 198/96; Ht 185.4 cm; Wt 103.2 kg
[2017-12-27] MEDS ORDERED: NORCO 7.5/325 T1 TA1 PO (14:02)
[2018-02-14] MEDS ORDERED: METAMUCIL1042 GM PO (14:45)
[2018-02-14] MEDS ORDERED: HYDROCODONE-APA1 TAB PO (14:46)
== END 2017-12-27 14:13 | disposition home or self-care (01) ==
LOC: D.ER 12:11
DX: R07.89 Other chest pain (principal); I12.0 Hypertensive chronic kidney disease with stage 5 chronic kidney disease or end stage renal disease; N18.6 End stage renal disease; Z99.2 Dependence on renal dialysis; S49.92XA Unspecified injury of left shoulder and upper arm, initial encounter; W19.XXXA Unspecified fall, initial encounter; Y93.89 Activity, other specified; Y92.019 Unspecified place in single-family (private) house as the place of occurrence of the external cause; E11.9 Type 2 diabetes mellitus without complications

== ENCOUNTER 2018-02-15 08:10 | Inpatient (IN) | payer MEDICARE, MEDICAID ==
[~2018-02-15] VITALS: Ht 182.9 cm; Wt 117.2 kg
--- NOTE | ~2018-02-15 | OP ---
PATIENT NAME: SONYA FLORIAN MEDICAL RECORD: [id number] :56 LOCATION:D.M2 D.2130 ADMISSION DATE:02/15/18 SURGEON: FARIDA RIOJAS MD DATE OF OPERATION: 02/15/2018 PREOPERATIVE DIAGNOSIS: Periprosthetic fracture of the left shoulder. 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 PROCEDURES: 1. Revision left shoulder hemiarthroplasty. 2. Excisional debridement of infection. SURGEON: Farida Riojas MD ANESTHESIA: General. INTRAOPERATIVE COMPLICATIONS: Essentially none; however, summary of pathologic findings showed the patient to have infectious mass in and around the area of the fracture at the tip of the cemented hemiarthroplasty that was put in 2013. Furthermore, this infection did track up all the way into the glenohumeral joint with infection about the previously placed prosthesis. The patient did have a history of having an infected Trialysis catheter on the same side around the time that he fell and broke his humerus below his previously placed implant. The decision was made to copiously I&D this, replace it with a long stem hemiarthroplasty for distal stability. It is of note that the patient has severely osteoporotic bone. OPERATIVE SUMMARY IN DETAIL: After obtaining the appropriate preoperative orthopedic surgery consent as well as anesthetic consultation, evaluation and clearance, the patient was brought to the operating room and placed in the operating table in supine position. After adequate general laryngeal mask airway was administered, the patient was placed in beach chair position. All pressure points were well padded. He was held firmly to the operating table using the vacuum pack suction system. Left upper extremity and shoulder were then prepped and draped in routine sterile fashion. Previously utilized deltopectoral incision was used. It was elongated. Careful dissection was carried down and as the dissection was carried out, pus was encountered. This was cultured. The dissection was then carried down to the level of the fracture. The shoulder prosthesis itself was dislocated and it was removed. The cement was retained in the humerus; however, it was loose enough that the entire cement mantle came out as a separate piece. At this point, curettage and rongeur was utilized to clean out the area of infected nonunion. Intraoperative frozen section showed infectious type material only and no evidence for metastatic disease and no neoplasia at the time of frozen section. After substantial excisional debridement that did include skin, subcutaneous tissue, portions of fat, fascia, muscle and bone, approximately 140 cm in aggregate and I felt like all infectious material was cleared. Serial broaching down the canal showed the patient could have a size 9 long stem humeral system. This was not cemented as revision surgery is likely in this infected position. Torn A long stem was placed. This is the long stem reverse; however, I used the adapter to put a normal head on it as I did not want to put a metaglene and glenosphere on at this point. When the stem was then placed under direct OPERATIVE REPORT [id number] SONYA FLORIAN fluoroscopic guidance, the head was created as described above, reduced back into the glenohumeral joint. Distal rotational stability had been achieved essentially based on press fit. At this point, the wound was copiously irrigated and closed in layered fashion using #1 Vicryl, 2-0 Vicryl, and ultimately skin estephania. Sterile dressings were applied. The patient was then awakened, taken to recovery room in stable condition. All final needle and sponge counts were correct. TRANSINT:[id number] Voice Confirmation ID: [id number] DOCUMENT ID: [id number] BEULAH PEREZ, FARIDA PUGH at 1418 CC: [id number] DICTATION DATE: 02/22/18 1247 BOTTOM FINISHER: 02/22/18 1257 [facility] 02/21/18 [facility] [address] [place] [address]
[~2018-02-15 08:10] MED LIST changes: +METAMUCIL1042 GM PO; +NORCO 7.5/325 T1 TA1 PO
[2018-02-15 08:45] LABS: BASOPHILS 0.4 % (0-2); EOSINOPHILS 6.3 % (0-7); HEMATOCRIT 27.3 % (42.0-54.0); HEMOGLOBIN 8.4 g/dL (13.5-17.5); IMMATURE GRANULOCYTES 0.2 % (0-5); LYMPHOCYTES 24.8 % (15-50); MCH 27.7 pg (26.0-34.0); MCHC 30.8 g/dL (31.0-37.0); MCV 90.1 fL (80.0-100.0); MEAN PLATELET VOLUME 8.9 fL (7.4-10.4); MONOCYTES 8.8 % (2-11); NEUTROPHILS 59.5 % (40-80); PLATELET COUNT 245 10x3/uL (130-400); RBC 3.03 10x6/uL (4.20-6.10); RDW 15.5 % (11.5-14.5); WBC 5.3 10x3/uL (4.8-10.8)
[2018-02-15 08:57] VITALS: BMI 30.3
[2018-02-15 08:59] LABS: INR 1.05 (0.85-1.17); PROTIME 13.3 SECONDS (11.6-15.0)
[2018-02-15 09:00] LABS: APTT 30.4 SECONDS (22.8-39.4)
[2018-02-15 09:03] LABS: ANION GAP 11.5 mmol/L (8-16); CALCIUM 8.2 mg/dL (8.5-10.1); CARBON DIOXIDE 26.6 mmol/L (21.0-32.0); CREATININE - SERUM 8.2 mg/dL (0.6-1.3); POTASSIUM - SERUM 3.1 mmol/L (3.5-5.1)
[2018-02-15 14:16] VITALS: BP 149/82; BMI 30.3
[2018-02-15 20:41] VITALS: BP 144/65
[2018-02-16 04:54] VITALS: BP 124/68
[2018-02-16 08:06] LABS: HEMATOCRIT 25.5 % (42.0-54.0); HEMOGLOBIN 8.2 g/dL (13.5-17.5); MCH 28.2 pg (26.0-34.0); MCHC 32.2 g/dL (31.0-37.0); MEAN PLATELET VOLUME 10.1 fL (7.4-10.4); RBC 2.91 10x6/uL (4.20-6.10); RDW 15.6 % (11.5-14.5)
[2018-02-16 08:07] LABS: MCV 87.6 fL (80.0-100.0); WBC 3.8 10x3/uL (4.8-10.8)
[2018-02-16 09:23] VITALS: BP 147/70
[2018-02-16 12:44] VITALS: Ht 182.9 cm; Wt 117.2 kg
[2018-02-16 13:26] VITALS: BP 114/69
[2018-02-16 18:00] VITALS: BP 118/64
[2018-02-16 20:00] VITALS: BP 130/74
[2018-02-17 04:00] VITALS: BP 103/52
[2018-02-17 05:18] LABS: BASOPHILS 0.2 % (0-2); HEMATOCRIT 22.4 % (42.0-54.0); IMMATURE GRANULOCYTES 0.2 % (0-5); LYMPHOCYTES 27.4 % (15-50); MCH 27.5 pg (26.0-34.0); MCHC 30.8 g/dL (31.0-37.0); MCV 89.2 fL (80.0-100.0); MEAN PLATELET VOLUME 9.6 fL (7.4-10.4); NEUTROPHILS 52.2 % (40-80); RBC 2.51 10x6/uL (4.20-6.10); RDW 15.9 % (11.5-14.5)
[2018-02-17 05:21] LABS: PLATELET COUNT 167 10x3/uL (130-400); WBC 4.9 10x3/uL (4.8-10.8)
[2018-02-17 05:22] LABS: HEMOGLOBIN 6.9 g/dL (13.5-17.5)
[2018-02-17 05:47] LABS: ANION GAP 11.6 mmol/L (8-16); CALCIUM 7.4 mg/dL (8.5-10.1); CARBON DIOXIDE 24.6 mmol/L (21.0-32.0); CREATININE - SERUM 8.3 mg/dL (0.6-1.3); POTASSIUM - SERUM 3.2 mmol/L (3.5-5.1); VANCOMYCIN - RANDOM 23.7 ug/mL (10.0-20.0)
[2018-02-17 08:20] VITALS: BP 134/87
[2018-02-17 12:09] VITALS: BP 117/59
[2018-02-17 15:56] VITALS: BP 140/59
[2018-02-17 20:26] VITALS: BP 113/54
[2018-02-18 00:58] VITALS: BP 115/55
[2018-02-18 06:37] LABS: BASOPHILS 0.2 % (0-2); EOSINOPHILS 5.8 % (0-7); HEMATOCRIT 26.3 % (42.0-54.0); IMMATURE GRANULOCYTES 0.4 % (0-5); LYMPHOCYTES 30.2 % (15-50); MCH 28.1 pg (26.0-34.0); MCHC 31.6 g/dL (31.0-37.0); MCV 89.2 fL (80.0-100.0); MEAN PLATELET VOLUME 10.1 fL (7.4-10.4); MONOCYTES 15.1 % (2-11); NEUTROPHILS 48.3 % (40-80); PLATELET COUNT 170 10x3/uL (130-400); RBC 2.95 10x6/uL (4.20-6.10); RDW 15.6 % (11.5-14.5); WBC 4.6 10x3/uL (4.8-10.8)
[2018-02-18 06:41] LABS: HEMOGLOBIN 8.3 g/dL (13.5-17.5)
[2018-02-18 06:51] VITALS: BP 115/55
[2018-02-18 06:59] LABS: ANION GAP 12.8 mmol/L (8-16); CARBON DIOXIDE 24.5 mmol/L (21.0-32.0); POTASSIUM - SERUM 3.3 mmol/L (3.5-5.1); VANCOMYCIN - RANDOM 21.8 ug/mL (10.0-20.0)
[2018-02-18 09:20] VITALS: BP 147/61
[2018-02-18 12:33] VITALS: BP 140/60
[2018-02-18 17:32] VITALS: BP 142/70
[2018-02-18 21:59] VITALS: BP 140/89
[2018-02-19 05:51] LABS: BASOPHILS 0.5 % (0-2); EOSINOPHILS 6.5 % (0-7); HEMATOCRIT 24.6 % (42.0-54.0); HEMOGLOBIN 7.8 g/dL (13.5-17.5); LYMPHOCYTES 27.1 % (15-50); MCH 28.2 pg (26.0-34.0); MCHC 31.7 g/dL (31.0-37.0); MCV 88.8 fL (80.0-100.0); MEAN PLATELET VOLUME 10.6 fL (7.4-10.4); MONOCYTES 11.5 % (2-11); NEUTROPHILS 54.4 % (40-80); PLATELET COUNT 191 10x3/uL (130-400); RBC 2.77 10x6/uL (4.20-6.10); RDW 15.1 % (11.5-14.5); WBC 4.4 10x3/uL (4.8-10.8)
[2018-02-19 06:28] LABS: ANION GAP 13.5 mmol/L (8-16); CALCIUM 7.7 mg/dL (8.5-10.1); CARBON DIOXIDE 24.8 mmol/L (21.0-32.0); CREATININE - SERUM 7.7 mg/dL (0.6-1.3); POTASSIUM - SERUM 3.3 mmol/L (3.5-5.1); VANCOMYCIN - RANDOM 18.9 ug/mL (10.0-20.0)
[2018-02-19 07:16] VITALS: BP 143/62
[2018-02-19 08:37] VITALS: BP 152/66
[2018-02-19 11:41] VITALS: BP 142/67
[2018-02-19 16:10] VITALS: BP 175/74
[2018-02-19 20:00] VITALS: BP 127/64
[2018-02-20 00:46] VITALS: BP 174/75
[2018-02-20 04:00] VITALS: BP 144/64
[2018-02-20 06:23] LABS: BASOPHILS 0.2 % (0-2); EOSINOPHILS 5.8 % (0-7); HEMATOCRIT 26.5 % (42.0-54.0); HEMOGLOBIN 8.9 g/dL (13.5-17.5); IMMATURE GRANULOCYTES 0.2 % (0-5); LYMPHOCYTES 25.3 % (15-50); MCH 29.5 pg (26.0-34.0); MCHC 33.6 g/dL (31.0-37.0); MCV 87.7 fL (80.0-100.0); MONOCYTES 13.3 % (2-11); NEUTROPHILS 55.2 % (40-80); PLATELET COUNT 202 10x3/uL (130-400); RBC 3.02 10x6/uL (4.20-6.10); RDW 15.6 % (11.5-14.5); WBC 4.2 10x3/uL (4.8-10.8)
[2018-02-20 07:27] LABS: ANION GAP 12.9 mmol/L (8-16); CARBON DIOXIDE 23.4 mmol/L (21.0-32.0); CREATININE - SERUM 7.8 mg/dL (0.6-1.3); POTASSIUM - SERUM 3.3 mmol/L (3.5-5.1); VANCOMYCIN - RANDOM 18.2 ug/mL (10.0-20.0)
[2018-02-20 07:41] VITALS: BP 162/65
[2018-02-20 11:06] VITALS: BP 169/82
[2018-02-20 15:52] VITALS: BP 186/64
[2018-02-20 20:00] VITALS: BP 124/67
[2018-02-21 00:44] VITALS: BP 130/51
[2018-02-21 04:00] VITALS: BP 151/67
[2018-02-21 06:39] LABS: BASOPHILS 0.5 % (0-2); EOSINOPHILS 6.1 % (0-7); HEMATOCRIT 27.7 % (42.0-54.0); HEMOGLOBIN 8.9 g/dL (13.5-17.5); IMMATURE GRANULOCYTES 0.2 % (0-5); LYMPHOCYTES 28.4 % (15-50); MCH 28.4 pg (26.0-34.0); MCHC 32.1 g/dL (31.0-37.0); MCV 88.5 fL (80.0-100.0); MONOCYTES 12.7 % (2-11); NEUTROPHILS 52.1 % (40-80); PLATELET COUNT 235 10x3/uL (130-400); RBC 3.13 10x6/uL (4.20-6.10); RDW 15.6 % (11.5-14.5); WBC 4.3 10x3/uL (4.8-10.8)
[2018-02-21 06:44] LABS: % SATURATION 34 % (15-55); IRON 53 ug/dl (35-150); TOTAL IRON BIND CAPACITY 155 ug/dl (260-445); UNSAT IRON BIND CAPACITY 102 ug/dl (150-375)
[2018-02-21 07:03] LABS: ANION GAP 11.8 mmol/L (8-16); CALCIUM 7.9 mg/dL (8.5-10.1); CARBON DIOXIDE 24.6 mmol/L (21.0-32.0); CREATININE - SERUM 7.8 mg/dL (0.6-1.3); POTASSIUM - SERUM 3.4 mmol/L (3.5-5.1); VANCOMYCIN - RANDOM 16.2 ug/mL (10.0-20.0)
[2018-02-21 07:55] VITALS: BP 166/48
[2018-02-21] MEDS ORDERED: PROBIOTIC1 EAC1 PO (11:07)
[2018-02-21] MEDS ORDERED: RIFADIN300 MG PO (11:26)
[2018-02-21 11:28] VITALS: BP 162/63
== END 2018-02-21 16:47 | disposition home health service (06) | DRG 483 ==
LOC: D.OPS 08:10 → D.PAN 13:00 → D.M2 14:02 → D.OPS 14:20 → D.M2 02-21 16:47
PROVIDERS: Anesthesiology; Internal Medicine Nephrology; Orthopaedic Surgery
PROC: 0RPK0JZ Removal of Synthetic Substitute from Left Shoulder Joint, Open Approach (ICD-10-PCS; 2018-02-15)
PROC: 0RBK0ZZ Excision of Left Shoulder Joint, Open Approach (ICD-10-PCS; principal; 2018-02-15 09:45)
PROC: 0RRK0JZ Replacement of Left Shoulder Joint with Synthetic Substitute, Open Approach (ICD-10-PCS; 2018-02-15 09:45)
PROC: 5A1D70Z Performance of Urinary Filtration, Intermittent, Less than 6 Hours Per Day (ICD-10-PCS; 2018-02-16)
DX: T84.59XA Infection and inflammatory reaction due to other internal joint prosthesis, initial encounter (principal); N18.6 End stage renal disease; M86.112 Other acute osteomyelitis, left shoulder; I12.0 Hypertensive chronic kidney disease with stage 5 chronic kidney disease or end stage renal disease; M97.32XA Periprosthetic fracture around internal prosthetic left shoulder joint, initial encounter; B95.61 Methicillin susceptible Staphylococcus aureus infection as the cause of diseases classified elsewhere; X58.XXXA Exposure to other specified factors, initial encounter; E11.69 Type 2 diabetes mellitus with other specified complication; D64.9 Anemia, unspecified; E87.6 Hypokalemia; E11.22 Type 2 diabetes mellitus with diabetic chronic kidney disease; K21.9 Gastro-esophageal reflux disease without esophagitis; Y83.8 Other surgical procedures as the cause of abnormal reaction of the patient, or of later complication, without mention of misadventure at the time of the procedure; B95.62 Methicillin resistant Staphylococcus aureus infection as the cause of diseases classified elsewhere

== ENCOUNTER → 2018-02-26 17:02 | Outpatient (CLI) | payer MEDICARE, MEDICAID ==
[2018-02-16 12:44] VITALS: BMI 30.2
[~2018-02-26 17:02] MED LIST changes: +PROBIOTIC1 EAC1 PO; +RIFADIN300 MG PO
[2018-02-26 18:23] LABS: BASOPHILS 0.4 % (0-2); EOSINOPHILS 7.3 % (0-7); HEMATOCRIT 32.5 % (42.0-54.0); HEMOGLOBIN 10.2 g/dL (13.5-17.5); IMMATURE GRANULOCYTES 0.2 % (0-5); LYMPHOCYTES 29.3 % (15-50); MCHC 31.4 g/dL (31.0-37.0); MCV 92.3 fL (80.0-100.0); MEAN PLATELET VOLUME 9.8 fL (7.4-10.4); MONOCYTES 7.9 % (2-11); NEUTROPHILS 54.9 % (40-80); PLATELET COUNT 267 10x3/uL (130-400); RBC 3.52 10x6/uL (4.20-6.10); RDW 15.8 % (11.5-14.5); WBC 4.7 10x3/uL (4.8-10.8)
[2018-02-26 19:10] LABS: ERYTHROCYTE SEDIMENTATION RATE 20 mm/hr (0-20)
== END | disposition home or self-care (01) ==
LOC: D.LABREF 17:02
PROVIDERS: Student in an Organized Health Care Education/Training Program
DX: B99.9 Unspecified infectious disease (principal)

== ENCOUNTER → 2018-03-05 12:19 | Outpatient (CLI) | payer MEDICARE, MEDICAID ==
[2018-02-16 12:44] VITALS: BMI 30.2
[2018-03-05 14:07] LABS: BASOPHILS 0.4 % (0-2); EOSINOPHILS 10.1 % (0-7); HEMATOCRIT 32.7 % (42.0-54.0); HEMOGLOBIN 10.2 g/dL (13.5-17.5); IMMATURE GRANULOCYTES 0.2 % (0-5); LYMPHOCYTES 28.3 % (15-50); MCHC 31.2 g/dL (31.0-37.0); MCV 92.9 fL (80.0-100.0); MEAN PLATELET VOLUME 9.7 fL (7.4-10.4); MONOCYTES 9.1 % (2-11); NEUTROPHILS 51.9 % (40-80); PLATELET COUNT 279 10x3/uL (130-400); RBC 3.52 10x6/uL (4.20-6.10); RDW 16.5 % (11.5-14.5); WBC 5.1 10x3/uL (4.8-10.8)
[2018-03-05 15:29] LABS: ERYTHROCYTE SEDIMENTATION RATE 105 mm/hr (0-20)
== END | disposition home or self-care (01) ==
LOC: D.LABREF 12:19
PROVIDERS: Student in an Organized Health Care Education/Training Program
DX: B99.9 Unspecified infectious disease (principal)

== ENCOUNTER → 2018-03-12 12:13 | Outpatient (CLI) | payer MEDICARE, MEDICAID ==
[2018-02-16 12:44] VITALS: BMI 30.2
[2018-03-12 13:15] LABS: BASOPHILS 0.4 % (0-2); EOSINOPHILS 13.6 % (0-7); HEMATOCRIT 32.7 % (42.0-54.0); HEMOGLOBIN 10.2 g/dL (13.5-17.5); IMMATURE GRANULOCYTES 0.2 % (0-5); LYMPHOCYTES 31.6 % (15-50); MCH 29.3 pg (26.0-34.0); MCHC 31.2 g/dL (31.0-37.0); NEUTROPHILS 43.2 % (40-80); RBC 3.48 10x6/uL (4.20-6.10); RDW 17.4 % (11.5-14.5); WBC 4.7 10x3/uL (4.8-10.8)
[2018-03-12 13:21] LABS: PLATELET COUNT 216 10x3/uL (130-400)
[2018-03-12 14:47] LABS: ERYTHROCYTE SEDIMENTATION RATE 50 mm/hr (0-20)
== END | disposition home or self-care (01) ==
LOC: D.LABREF 12:13
PROVIDERS: Student in an Organized Health Care Education/Training Program
DX: B99.9 Unspecified infectious disease (principal)

== ENCOUNTER 2018-03-14 14:11 | Outpatient (CLI) | payer MEDICARE, MEDICAID ==
[~2018-03-14] VITALS: Ht 182.9 cm; Wt 104.5 kg
[2018-03-14 14:51] VITALS: BP 133/87; Ht 182.9 cm; Wt 104.5 kg
== END 2018-03-14 15:30 | disposition home or self-care (01) ==
LOC: D.OPS 14:11
DX: Z79.2 Long term (current) use of antibiotics (principal)

== ENCOUNTER → 2018-03-19 13:05 | Outpatient (CLI) | payer MEDICARE, MEDICAID ==
[2018-03-14 14:51] VITALS: BMI 31.2
[2018-03-19 13:48] LABS: BASOPHILS 0.4 % (0-2); EOSINOPHILS 11.8 % (0-7); HEMATOCRIT 30.4 % (42.0-54.0); HEMOGLOBIN 9.6 g/dL (13.5-17.5); IMMATURE GRANULOCYTES 0.2 % (0-5); LYMPHOCYTES 27.6 % (15-50); MCHC 31.6 g/dL (31.0-37.0); MEAN PLATELET VOLUME 10.5 fL (7.4-10.4); MONOCYTES 8.9 % (2-11); NEUTROPHILS 51.1 % (40-80); PLATELET COUNT 189 10x3/uL (130-400); RDW 18.1 % (11.5-14.5); WBC 5.2 10x3/uL (4.8-10.8)
[2018-03-19 14:58] LABS: ERYTHROCYTE SEDIMENTATION RATE 70 mm/hr (0-20)
== END | disposition home or self-care (01) ==
LOC: D.LABREF 13:05
PROVIDERS: Student in an Organized Health Care Education/Training Program
DX: B99.9 Unspecified infectious disease (principal)

== ENCOUNTER → 2018-03-26 17:31 | Outpatient (CLI) | payer MEDICARE, MEDICAID ==
[2018-03-14 14:51] VITALS: BMI 31.2
[2018-03-26 19:15] LABS: BASOPHILS 0.2 % (0-2); EOSINOPHILS 8.8 % (0-7); HEMATOCRIT 32.7 % (42.0-54.0); HEMOGLOBIN 10.2 g/dL (13.5-17.5); IMMATURE GRANULOCYTES 0.2 % (0-5); LYMPHOCYTES 23.8 % (15-50); MCH 30.7 pg (26.0-34.0); MCHC 31.2 g/dL (31.0-37.0); MCV 98.5 fL (80.0-100.0); MEAN PLATELET VOLUME 10.4 fL (7.4-10.4); MONOCYTES 11.4 % (2-11); NEUTROPHILS 55.6 % (40-80); PLATELET COUNT 212 10x3/uL (130-400); RBC 3.32 10x6/uL (4.20-6.10); RDW 17.8 % (11.5-14.5); WBC 6.1 10x3/uL (4.8-10.8)
[2018-03-26 20:32] LABS: ERYTHROCYTE SEDIMENTATION RATE 72 mm/hr (0-20)
== END | disposition home or self-care (01) ==
LOC: D.LABREF 17:31
PROVIDERS: Student in an Organized Health Care Education/Training Program
DX: B99.9 Unspecified infectious disease (principal)

== ENCOUNTER 2018-05-29 17:58 | Inpatient (IN) | payer MEDICARE, MEDICAID ==
[2018-05-29] VITALS (7 sets, daily range): BP systolic 157–224; BP diastolic 85–102
[~2018-05-29] VITALS: Ht 182.9 cm; Wt 105.5 kg
[2018-05-29] MEDS ORDERED: FUROSEMIDE20 MG (18:13)
[2018-05-29 19:14] LABS: BASOPHILS 0.2 % (0-2); EOSINOPHILS 3.5 % (0-7); HEMATOCRIT 38.4 % (42.0-54.0); HEMOGLOBIN 12.5 g/dL (13.5-17.5); IMMATURE GRANULOCYTES 0.2 % (0-5); LYMPHOCYTES 22.8 % (15-50); MCH 31.6 pg (26.0-34.0); MCHC 32.6 g/dL (31.0-37.0); MCV 97.2 fL (80.0-100.0); MEAN PLATELET VOLUME 10.5 fL (7.4-10.4); MONOCYTES 11.1 % (2-11); NEUTROPHILS 62.2 % (40-80); PLATELET COUNT 188 10x3/uL (130-400); RBC 3.95 10x6/uL (4.20-6.10); RDW 14.1 % (11.5-14.5); WBC 5.4 10x3/uL (4.8-10.8)
[2018-05-29 19:19] LABS: APTT 32.1 SECONDS (22.8-39.4); PROTIME 12.7 SECONDS (11.6-15.0)
[2018-05-29 19:38] LABS: ALBUMIN 2.8 g/dL (3.4-5.0); ALKALINE PHOSPHATASE 85 U/L (46-116); ALT (SGPT) 9 U/L (10-68); BILIRUBIN - TOTAL 0.42 mg/dL (0.2-1.3); CALC OSMOLALITY 287 mosm/kg (275-300); CALCIUM 8.9 mg/dL (8.5-10.1); CARBON DIOXIDE 30.8 mmol/L (21.0-32.0); CHLORIDE - SERUM 99 mmol/L (98-107); CKMB 5.5 U/L (0.0-3.6); CREATINE KINASE 81 UL (21-232); CREATININE - SERUM 7.1 mg/dL (0.6-1.3); GLUCOSE 144 mg/dL (74-106); MAGNESIUM - SERUM 1.7 mg/dL (1.8-2.4); PRO BNP 25078 pg/mL (0-125); SODIUM 140 mmol/L (136-145); TROPONIN-I 0.029 ng/mL (0.000-0.060); UREA NITROGEN 28 mg/dL (7-18); eGFR NON AFRICAN AMERICAN 8 mL/min (90-120)
[2018-05-29 19:40] LABS: POTASSIUM - SERUM 2.6 mmol/L (3.5-5.1)
[2018-05-30] VITALS (16 sets, daily range): BP systolic 98–151; BP diastolic 57–82; Ht 182.9 cm; Wt 105.5 kg
[2018-05-30 06:22] LABS: BASOPHILS 0.2 % (0-2); EOSINOPHILS 3.5 % (0-7); HEMATOCRIT 33.2 % (42.0-54.0); HEMOGLOBIN 10.7 g/dL (13.5-17.5); LYMPHOCYTES 25.4 % (15-50); MCH 31.9 pg (26.0-34.0); MCHC 32.2 g/dL (31.0-37.0); MCV 99.1 fL (80.0-100.0); MEAN PLATELET VOLUME 10.2 fL (7.4-10.4); MONOCYTES 11.4 % (2-11); NEUTROPHILS 59.5 % (40-80); PLATELET COUNT 162 10x3/uL (130-400); RBC 3.35 10x6/uL (4.20-6.10); RDW 14.3 % (11.5-14.5); WBC 5.1 10x3/uL (4.8-10.8)
[2018-05-30 06:50] LABS: ANION GAP 15.6 mmol/L (8-16); CALCIUM 8.2 mg/dL (8.5-10.1); CARBON DIOXIDE 26.2 mmol/L (21.0-32.0); CREATININE - SERUM 7.5 mg/dL (0.6-1.3); MAGNESIUM - SERUM 1.7 mg/dL (1.8-2.4)
[2018-05-30 07:19] LABS: POTASSIUM - SERUM 2.8 mmol/L (3.5-5.1)
[2018-05-30] MEDS ORDERED: LASIX40 MG PO (11:36)
[2018-05-30] MEDS ORDERED: COZAAR50 MG PO (11:37)
[2018-05-30] MEDS ORDERED: OXYCODONE-APAP1 TAB PO (11:40)
[2018-05-30] MEDS ORDERED: NEURONTIN 300300 MG PO (11:40)
[2018-05-30] MEDS ORDERED: TOBREX5 ML RIGHT EYE (11:42)
[2018-05-30] MEDS ORDERED: DUREZOL5 ML EACH EYE (11:43)
[2018-05-31 00:09] VITALS: BP 128/66
[2018-05-31 04:00] VITALS: BP 135/60
[2018-05-31 06:10] LABS: BASOPHILS 0.4 % (0-2); EOSINOPHILS 4.5 % (0-7); HEMATOCRIT 36.9 % (42.0-54.0); HEMOGLOBIN 11.6 g/dL (13.5-17.5); IMMATURE GRANULOCYTES 0.2 % (0-5); LYMPHOCYTES 30.6 % (15-50); MCH 31.4 pg (26.0-34.0); MCHC 31.4 g/dL (31.0-37.0); MEAN PLATELET VOLUME 10.6 fL (7.4-10.4); NEUTROPHILS 54.3 % (40-80); PLATELET COUNT 151 10x3/uL (130-400); RBC 3.69 10x6/uL (4.20-6.10); RDW 14.5 % (11.5-14.5); WBC 5.3 10x3/uL (4.8-10.8)
[2018-05-31 06:24] LABS: ANION GAP 16.9 mmol/L (8-16); CALCIUM 8.2 mg/dL (8.5-10.1); CARBON DIOXIDE 24.4 mmol/L (21.0-32.0); CREATININE - SERUM 8.1 mg/dL (0.6-1.3); PROTEIN - SERUM 8.1 g/dL (6.4-8.2)
[2018-05-31 06:27] LABS: POTASSIUM - SERUM 3.3 mmol/L (3.5-5.1)
[2018-05-31 06:41] LABS: APTT 38.5 SECONDS (22.8-39.4); INR 0.98 (0.85-1.17); PROTIME 12.5 SECONDS (11.6-15.0)
[2018-05-31 08:17] VITALS: BP 136/73
[2018-05-31 12:52] LABS: PROTEIN - BODY FLUID 0.4 G/DL
[2018-05-31 13:11] LABS: MACROPHAGES BF 48 %; MESOTHELIALS BF 20 %; NEUT - BF 10 %
[2018-05-31 17:22] VITALS: BP 112/52
[2018-05-31 20:43] VITALS: BP 118/64
[2018-05-31 23:52] VITALS: BP 104/65
[2018-06-01 04:05] LABS: BASOPHILS 0.2 % (0-2); EOSINOPHILS 4.1 % (0-7); HEMATOCRIT 32.2 % (42.0-54.0); HEMOGLOBIN 10.3 g/dL (13.5-17.5); IMMATURE GRANULOCYTES 0.2 % (0-5); LYMPHOCYTES 33.2 % (15-50); MCH 31.6 pg (26.0-34.0); MCV 98.8 fL (80.0-100.0); MEAN PLATELET VOLUME 10.2 fL (7.4-10.4); MONOCYTES 9.1 % (2-11); NEUTROPHILS 53.2 % (40-80); PLATELET COUNT 136 10x3/uL (130-400); RBC 3.26 10x6/uL (4.20-6.10); RDW 14.5 % (11.5-14.5); WBC 5.2 10x3/uL (4.8-10.8)
[2018-06-01 04:13] LABS: ANION GAP 12.7 mmol/L (8-16); CALCIUM 7.8 mg/dL (8.5-10.1); CARBON DIOXIDE 27.5 mmol/L (21.0-32.0); CREATININE - SERUM 8.4 mg/dL (0.6-1.3); MAGNESIUM - SERUM 1.5 mg/dL (1.8-2.4); PHOSPHOROUS 5.6 mg/dL (2.5-4.9); POTASSIUM - SERUM 3.2 mmol/L (3.5-5.1)
[2018-06-01 09:26] VITALS: BP 134/62
[2018-06-01 13:15] LABS: FUNGUS STAIN Final report (())
[2018-06-01 18:29] VITALS: BP 140/78
[2018-06-01 19:59] VITALS: BP 134/58
[2018-06-01 23:45] VITALS: BP 149/64
[2018-06-02 03:55] VITALS: BP 138/66
[2018-06-02 05:14] LABS: ANION GAP 13.1 mmol/L (8-16); CALCIUM 8.1 mg/dL (8.5-10.1); CARBON DIOXIDE 27.1 mmol/L (21.0-32.0); CREATININE - SERUM 9.3 mg/dL (0.6-1.3); PHOSPHOROUS 6.5 mg/dL (2.5-4.9); POTASSIUM - SERUM 3.2 mmol/L (3.5-5.1)
[2018-06-02 05:15] LABS: BASOPHILS 0.3 % (0-2); EOSINOPHILS 5.2 % (0-7); HEMATOCRIT 31.9 % (42.0-54.0); HEMOGLOBIN 10.3 g/dL (13.5-17.5); LYMPHOCYTES 34.1 % (15-50); MCH 31.8 pg (26.0-34.0); MCHC 32.3 g/dL (31.0-37.0); MCV 98.5 fL (80.0-100.0); MEAN PLATELET VOLUME 10.5 fL (7.4-10.4); MONOCYTES 10.8 % (2-11); NEUTROPHILS 49.6 % (40-80); PLATELET COUNT 146 10x3/uL (130-400); RBC 3.24 10x6/uL (4.20-6.10); RDW 14.3 % (11.5-14.5); WBC 5.7 10x3/uL (4.8-10.8)
[2018-06-02 08:15] VITALS: BP 167/76
[2018-06-02 11:27] LABS: NEUT - BF 34 %
[2018-06-02 11:28] LABS: EOS BF 2 %; MACROPHAGES BF 37 %
[2018-06-02 12:51] VITALS: BP 177/78
[2018-06-02 16:14] VITALS: BP 154/69
[2018-06-02 18:07] LABS: ACID FAST SMEAR Negative (()); AFB SPECIMEN PROCESSING Concentration (())
[2018-06-02 19:55] VITALS: BP 159/66
[2018-06-02 23:45] VITALS: BP 124/51
[2018-06-03 03:55] VITALS: BP 160/57
[2018-06-03 06:06] LABS: ANION GAP 14.5 mmol/L (8-16); CALCIUM 8.1 mg/dL (8.5-10.1); CARBON DIOXIDE 26.3 mmol/L (21.0-32.0); PHOSPHOROUS 7.3 mg/dL (2.5-4.9)
[2018-06-03 06:09] LABS: POTASSIUM - SERUM 3.8 mmol/L (3.5-5.1)
[2018-06-03 06:21] LABS: BASOPHILS 0.2 % (0-2); EOSINOPHILS 6.7 % (0-7); HEMATOCRIT 30.8 % (42.0-54.0); HEMOGLOBIN 10.1 g/dL (13.5-17.5); IMMATURE GRANULOCYTES 0.4 % (0-5); LYMPHOCYTES 31.3 % (15-50); MCH 31.5 pg (26.0-34.0); MCHC 32.8 g/dL (31.0-37.0); MEAN PLATELET VOLUME 10.9 fL (7.4-10.4); MONOCYTES 12.1 % (2-11); NEUTROPHILS 49.3 % (40-80); PLATELET COUNT 140 10x3/uL (130-400); RBC 3.21 10x6/uL (4.20-6.10); RDW 14.1 % (11.5-14.5); WBC 5.4 10x3/uL (4.8-10.8)
[2018-06-03 11:34] VITALS: BP 139/62
[2018-06-03 19:59] VITALS: BP 165/67
[2018-06-03 23:45] VITALS: BP 147/70
[2018-06-04 03:45] VITALS: BP 167/71
[2018-06-04 05:00] LABS: BASOPHILS 0.2 % (0-2); EOSINOPHILS 6.9 % (0-7); HEMATOCRIT 32.4 % (42.0-54.0); HEMOGLOBIN 10.4 g/dL (13.5-17.5); LYMPHOCYTES 34.1 % (15-50); MCH 30.9 pg (26.0-34.0); MCHC 32.1 g/dL (31.0-37.0); MCV 96.1 fL (80.0-100.0); MEAN PLATELET VOLUME 10.3 fL (7.4-10.4); MONOCYTES 8.9 % (2-11); NEUTROPHILS 49.9 % (40-80); PLATELET COUNT 137 10x3/uL (130-400); RBC 3.37 10x6/uL (4.20-6.10)
[2018-06-04 05:18] LABS: ANION GAP 14.7 mmol/L (8-16); CALCIUM 7.8 mg/dL (8.5-10.1); CARBON DIOXIDE 25.8 mmol/L (21.0-32.0); CREATININE - SERUM 10.4 mg/dL (0.6-1.3); PHOSPHOROUS 7.9 mg/dL (2.5-4.9)
[2018-06-04 05:26] LABS: POTASSIUM - SERUM 4.5 mmol/L (3.5-5.1)
[2018-06-04 08:41] VITALS: BP 177/77
[2018-06-04 12:08] LABS: BASOPHILS 0.2 % (0-2); EOSINOPHILS 6.8 % (0-7); HEMATOCRIT 32.1 % (42.0-54.0); HEMOGLOBIN 10.4 g/dL (13.5-17.5); IMMATURE GRANULOCYTES 0.2 % (0-5); LYMPHOCYTES 30.4 % (15-50); MCH 30.3 pg (26.0-34.0); MCHC 32.4 g/dL (31.0-37.0); MCV 93.6 fL (80.0-100.0); MEAN PLATELET VOLUME 9.9 fL (7.4-10.4); MONOCYTES 6.9 % (2-11); NEUTROPHILS 55.5 % (40-80); PLATELET COUNT 144 10x3/uL (130-400); RBC 3.43 10x6/uL (4.20-6.10); RDW 15.3 % (11.5-14.5); WBC 6.2 10x3/uL (4.8-10.8)
[2018-06-04 19:00] VITALS: BP 129/61
[2018-06-05 00:23] VITALS: BP 93/50
[2018-06-05 05:03] VITALS: BP 118/60
[2018-06-05 05:38] LABS: BASOPHILS 0.2 % (0-2); EOSINOPHILS 4.2 % (0-7); HEMOGLOBIN 9.4 g/dL (13.5-17.5); IMMATURE GRANULOCYTES 0.2 % (0-5); LYMPHOCYTES 15.5 % (15-50); MCH 30.8 pg (26.0-34.0); MCHC 33.6 g/dL (31.0-37.0); MCV 91.8 fL (80.0-100.0); MEAN PLATELET VOLUME 11.6 fL (7.4-10.4); MONOCYTES 10.4 % (2-11); NEUTROPHILS 69.5 % (40-80); RBC 3.05 10x6/uL (4.20-6.10); RDW 16.6 % (11.5-14.5); WBC 6.2 10x3/uL (4.8-10.8)
[2018-06-05 05:46] LABS: PLATELET COUNT 179 10x3/uL (130-400)
[2018-06-05 06:00] LABS: ANION GAP 14.7 mmol/L (8-16); CALCIUM 7.8 mg/dL (8.5-10.1); CARBON DIOXIDE 26.2 mmol/L (21.0-32.0); PHOSPHOROUS 6.9 mg/dL (2.5-4.9); POTASSIUM - SERUM 4.9 mmol/L (3.5-5.1)
[2018-06-05 06:11] LABS: CREATININE - SERUM 7.7 mg/dL (0.6-1.3)
[2018-06-05 08:35] VITALS: BP 125/61
[2018-06-05 13:20] VITALS: BP 95/52
[2018-06-05 19:45] VITALS: BP 110/88
[2018-06-05 23:30] VITALS: BP 89/41
[2018-06-06 04:05] VITALS: BP 109/53
[2018-06-06 09:51] VITALS: BP 93/58
[2018-06-06 14:12] VITALS: BP 98/43
[2018-06-06 19:00] VITALS: BP 133/67
[2018-06-07 00:44] VITALS: BP 106/56
[2018-06-07 04:34] VITALS: BP 106/53
[2018-06-07 08:48] VITALS: BP 111/59
[2018-06-07 12:00] VITALS: BP 130/58
[2018-06-07 14:12] LABS: FUNGUS MYCOLOGY CULTURE Preliminary report (())
--- NOTE | 2018-06-07 17:13 | MORECARE ---
CASE MANAGEMENT DISCHARGE SUMMARY PATIENT: SONYA FLORIAN UNIT: [id number] ADM DATE: 05/29/18 AGE: 57 : 56 SEX: M ROOM/BED: D.210 AUTHOR: ROSIO BARRIENTOS PHYSICIAN: REFERRING PHYSICIAN: NOAH GALEANO MD DATE OF SERVICE: 06/07/18 Discharge Plan Patient Name: SONYA FLORIAN Facility: [facility]:[place] : 1960 Planned Disposition: Acute Care Hospital Anticipated Discharge Date: 06/07/18 Discharge Date: Expected LOS: 9 Initial Reviewer: [id number] Initial Review Date: 06/07/2018 Generated: 06/07/18 6:13 pm DCP- Discharge Planning Updated by [email or web address]: Cailin Hamilton on 06/07/18 11:[address] BEDSIDE NURSE (HODAN MORENO) CAME AND ASKED ME TO ASSIST DR GATES. HE WANTS TO TRANSFER THE PATIENT TO [facility] FOR PLEURAL EFFUSION SECONDARY TO PD. (WITH NOTATION TO ME THAT THE PATIENT "JUST DOESN'T LIKE US"). OBTAINED HIS CELL NUMBER TO GIVE THE TRANSFER UNIT FO RT DOC TO DOC. CALL PLACED TO TRANSFER CENTER ( ) AND I SPOKE WITH ARNOLDO. HE WILL INITIATE THE TRANSFER. I FAXED FACE SHEET TO [phone]. ARNOLDO CALLED BACK FOR CLINICALS, AND THE PHONE CALL GOT SENT TO ME. I GAVE HIM THE INFORMATION THAT COULD BE FOUND IN THE COMPUTER, EXPLAINING THAT I HONESTLY HAVE NOT LAID EYES ON THE PATINET IN A COUPLE OF DAYS. I REQUESTED THAT HE SPEAK TO THE BEDSIDE NURSE WITH FURTHER QUESTIONS. HE EXPLAINED THAT HE TRIED TO SPEAK WITH HER AND FOR SOME REASON WAS TRANSFERRED TO OR. I EXPLAINED TO [facility] THAT IF THE TRANSFER CENTER CALLS BACK ON THEIR LINE, HE IS NEEDING TO SPEAK TO THE BEDSIDE NURSE AND NOT ME. WILL WAIT FOR RETURN CALL. DCPIA - Discharge Planning Initial Assessment Updated by [id number]: Howie Handley on 06/07/18 5:11 pm * Is the patient Alert and Oriented? Yes * How many steps to enter\\exit or inside your home? RAMP * PCP DR. TUCKER * [facility] [address] * Preadmission Environment Home with Family * ADLs Partial Dependent * Partial ADLs (Assistance needed) Bathing Toileting * Equipment Bedside Commode Shower Chair Wheelchair * Other Equipment NO MEDICAL EQUIPMENT PROVIDER PREFERENCE * List name and contact numbers for known caregivers / representatives who currently or will assist patient after discharge: VAZQUEZ NIEVES (CRAIG), SIGNIFICANT OTHER, * Verbal permission to speak to the caregivers and representatives has been obtained from the patient. Yes * Community resources currently utilized None * Please name any agencies selected above. PT WAS DOING PERITONEAL DIALYSIS AT HOME, THE CATHETER HAS BEEN REMOVED AND HE WILL NEED HEMODIALYSIS * Additional services required to return to the preadmission environment? Yes * Can the patient safely return to the preadmission environment? Yes * Has this patient been hospitalized within the prior 30 days at any hospital? No Coverage Notice Reviewer: [id number] Daisy Handley Notice Issued Date-Time: 06/07/2018 14:50 Notice Type: IM Discharge Notice Notice Delivered To: Patient Relationship to Patient: Agency Service Representative Name: Delivery Method: HAND - Hand Delivered Helen Days: Prior Verbal Notification: Recipient Understood Notice: Yes Recipient Signature: Yes Med Rec Note Co-signed by Attending: Coverage Notice Comment: Patient Name: SONYA FLORIAN Page [phone] at 1713 All edits/amendments must be made on the electronic document DICTATION DATE: 06/07/181712 GATE WATCH: RAY 06/07/181712 RPT#: [id number] DC DATE: STATUS: ADM IN [facility] [address] [place] [address] END OF REPORT
--- NOTE | 2018-06-07 17:21 | MORECARE ---
CASE MANAGEMENT DISCHARGE SUMMARY PATIENT: SONYA FLORIAN UNIT: [id number] ADM DATE: 05/29/18 AGE: 57 : 56 SEX: M ROOM/BED: D.2106 AUTHOR: FLOYDDOC PHYSICIAN: REFERRING PHYSICIAN: NOAH GALEANO MD DATE OF SERVICE: 06/07/18 Discharge Plan Patient Name: SONYA FLORIAN Facility: [facility]:[place] : 1960 Planned Disposition: Acute Care Hospital Anticipated Discharge Date: 06/07/18 Discharge Date: Expected LOS: 9 Initial Reviewer: [email or web address] Initial Review Date: 06/07/2018 Generated: 06/07/18 6:20 pm Comments DCP- Discharge Planning Updated by [email or web address]: Howie Handley on 06/07/18 4:[address] Patient Name: SONYA FLORIAN Encounter No: [id number] : 1960 Primary Insurance: [facility] MEDICARE SOLUTIONS Anticipated DC Date: 06-07-2018 Planned Disposition: Acute Care Hospital External Planned Provider: [facility] DCP follow-up note: CM SPOKE TO HAND ASSEMBLER, URI, INFORMED HER THAT ADMINISTRATIVE APPROVAL WILL NEED TO BE REQUESTED FOR TRANSFER. CM MET WITH PT IN ROOM WHO REPORTS HE HAS MET WITH DR. GATES AND DISCUSSED TRANSFER. PT STILL WANTS TRANSFER TO [facility] AND REPORTS DR. AGTES TOLD HIM THAT HE WOULD "DO BETTER IN [place]". PT REPORTS LIVING AT HOME WITH SIGNIFICANT OTHER WHO ASSISTS WITH BATHING AND TOILETING NEEDED. PT HAS NO OUTSIDE SERVICES ASSISTING IN THE HOME. PT HAS BEDSIDE TOILET, SHOWER CHAIR AND WHEELCHAIR AT [facility] WITH NO MEDICAL EQUIPMENT PROVIDER PREFERNECE. PT REPORTS HIS PD CATHETER HAS BEEN REMOVED AND HE WILL NOW HAVE TO HAVE HEMODIALYSIS. PT REPORTS SIGNIFICANT OTHER OR FAMILY MEMBER WILL PICK HIM UP FOR DISCHARGE HOME. IMPORTANT MESSAGE FROM MEDICARE PROVIDED AND EXPLAINED. CM PROVIDED CM CONTACT INFORMATION TO PT. CM NOTIFIED URI, HAND ASSEMBLER, OF PT'S DESIRE TO TRANSFER TO [facility] IN [place]. CM RECEIVED MESSAGE FROM BEDSIDE NURSE THAT DOM AT [facility], , IS WORKING WITH THE CASE WITH [facility] TRANSFER LINE. CM WAITING ADMISSION DETERINATION FROM [facility] HOSPITAL IN [place]. CM TO CONTINUE TO FOLLOW AND ASSIST NEEDED. Howie Handley, CASE MANAGEMENT DCP- Discharge Planning Updated by [id number]: Cailin Alfonso on 06/07/18 11:[address] BEDSIDE NURSE (HODAN MORENO) CAME AND ASKED ME TO ASSIST DR GATES. HE WANTS TO TRANSFER THE PATIENT TO [facility] FOR PLEURAL EFFUSION SECONDARY TO PD. (WITH NOTATION TO ME THAT THE PATIENT "JUST DOESN'T LIKE US"). OBTAINED HIS CELL NUMBER TO GIVE THE TRANSFER UNIT FO RTHE DOC TO DOC. CALL PLACED TO TRANSFER CENTER ( ) AND I SPOKE WITH ARNOLDO. HE WILL INITIATE THE TRANSFER. I FAXED FACE SHEET TO [phone]. ARNOLDO CALLED BACK FOR CLINICALS, AND THE PHONE CALL GOT SENT TO ME. I GAVE HIM THE INFORMATION THAT COULD BE FOUND IN THE COMPUTER, EXPLAINING THAT I HONESTLY HAVE NOT LAID EYES ON THE PATINET IN A COUPLE OF DAYS. I REQUESTED THAT HE SPEAK TO THE BEDSIDE NURSE WITH FURTHER QUESTIONS. HE EXPLAINED THAT HE TRIED TO SPEAK WITH HER AND FOR SOME REASON WAS TRANSFERRED TO [place]. I EXPLAINED TO SACHA THAT IF THE TRANSFER CENTER CALLS BACK ON THEIR LINE, HE IS NEEDING TO SPEAK TO THE BEDSIDE NURSE AND NOT ME. WILL WAIT FOR RETURN CALL. DCPIA - Discharge Planning Initial Assessment Updated by [id number]: Howie Handley on 06/07/18 5:11 pm * Is the patient Alert and Oriented? Yes * How many steps to enter\\exit or inside your home? RAMP * PCP DR. TUCKER * Pharmacy [facility] [address] * Preadmission Environment Home with Family * ADLs Partial Dependent * Partial ADLs (Assistance needed) Bathing Toileting * Equipment Bedside Commode Shower Chair Wheelchair * Other Equipment NO MEDICAL EQUIPMENT PROVIDER PREFERENCE * List name and contact numbers for known caregivers / representatives who currently or will assist patient after discharge: VAZQUEZ NIEVES (CRAIG), SIGNIFICANT OTHER, * Verbal permission to speak to the caregivers and representatives has been obtained from the patient. Yes * Community resources currently utilized None * Please name any agencies selected above. PT WAS DOING PERITONEAL DIALYSIS AT HOME, THE CATHETER HAS BEEN REMOVED AND HE WILL NEED HEMODIALYSIS * Additional services required to return to the preadmission environment? Yes * Can the patient safely return to the preadmission environment? Yes * Has this patient been hospitalized within the prior 30 days at any hospital? No Coverage Notice Reviewer: [id number] Daisy Handley Notice Issued Date-Time: 06/07/2018 14:50 Notice Type: IM Discharge Notice Notice Delivered To: Patient Relationship to Patient: Bander Operator Name: Delivery Method: HAND - Hand Delivered Helen Days: Prior Verbal Notification: Recipient Understood Notice: Yes Recipient Signature: Yes Med Rec Note Co-signed by Attending: Coverage Notice Comment: Last DP export: 06/07/18 4:13 Patient Name: SONYA FLORIAN Page [phone] at 1721 All edits/amendments must be made on the electronic document DICTATION DATE: 06/07/181719 SEED TESTER: RAY 06/07/181719 RPT#: [id number] DC DATE: STATUS: ADM IN [facility] [address] [place] [address] END OF REPORT
[2018-06-07 18:45] VITALS: BP 107/62
[2018-06-07 20:00] VITALS: BP 124/60
[2018-06-08] VITALS: BP 122/48
[2018-06-08 04:00] VITALS: BP 147/60
[2018-06-08 07:00] VITALS: BP 148/68
--- NOTE | 2018-06-08 10:42 | MORECARE ---
CASE MANAGEMENT DISCHARGE SUMMARY PATIENT: SONYA FLORIAN UNIT: [id number] ADM DATE: 05/29/18 AGE: 57 : 56 SEX: M ROOM/BED: D.210 AUTHOR: FLOYD,DOC PHYSICIAN: REFERRING PHYSICIAN: NOAH GALEANO MD DATE OF SERVICE: 06/08/18 Discharge Plan Patient Name: SONYA FLORIAN Facility: [facility]:[place] : 1960 Planned Disposition: Home Anticipated Discharge Date: 06/07/18 Discharge Date: Expected LOS: 9 Initial Reviewer: [id number] Initial Review Date: 06/07/2018 Generated: 06/08/18 11:42 am Comments DCP- Discharge Planning Updated by [email or web address]: Howie Handley on 06/08/18 9:[address] Patient Name: SONYA FLORIAN Encounter No: [id number] : 1960 Primary Insurance: [facility] MEDICARE SOLUTIONS Anticipated DC Date: Planned Disposition: Home DCP follow-up note: CM REVIEWED CHART, NURSES NOTE INDICATES THAT [facility] CALLED LAST EVENING AND DECLINED PT. CM NOTIFED PT IN ROOM. PT PLANS TO DISCHARGE HOME WITH SIGNIFICANT OTHER AND HAS UNKNOWN DISCHARGE NEEDS AT THIS TIME. CM TO CONTINUE TO FOLLOW AND ASSIST NEEDED. ARIANA Sanchez DCP- Discharge Planning Updated by [id number]: Howie Handley on 06/07/18 4:[address] Patient Name: SONYA FLORIAN Encounter No: [id number] : 1960 Primary Insurance: [facility] MEDICARE SOLUTIONS Anticipated DC Date: 06-07-2018 Planned Disposition: Acute Care Hospital External Planned Provider: [facility] DCP follow-up note: CM SPOKE TO RD MANAGER, URI, INFORMED HER THAT ADMINISTRATIVE APPROVAL WILL NEED TO BE REQUESTED FOR TRANSFER. CM MET WITH PT IN ROOM WHO REPORTS HE HAS MET WITH DR. GATES AND DISCUSSED TRANSFER. PT STILL WANTS TRANSFER TO [facility] AND REPORTS DR. GATES TOLD HIM THAT HE WOULD "DO BETTER IN [place]". PT REPORTS LIVING AT HOME WITH SIGNIFICANT OTHER WHO ASSISTS WITH BATHING AND TOILETING NEEDED. PT HAS NO OUTSIDE SERVICES ASSISTING IN THE HOME. PT HAS BEDSIDE TOILET, SHOWER CHAIR AND WHEELCHAIR AT [facility] WITH NO MEDICAL EQUIPMENT PROVIDER PREFERNECE. PT REPORTS HIS PD CATHETER HAS BEEN REMOVED AND HE WILL NOW HAVE TO HAVE HEMODIALYSIS. PT REPORTS SIGNIFICANT OTHER OR FAMILY MEMBER WILL PICK HIM UP FOR DISCHARGE HOME. IMPORTANT MESSAGE FROM MEDICARE PROVIDED AND EXPLAINED. PROVIDED CM CONTACT INFORMATION TO PT. CM NOTIFIED MAURICIO GREWALRD MANAGER, OF PT'S DESIRE TO TRANSFER TO [facility] IN [place]. CM RECEIVED MESSAGE FROM BEDSIDE NURSE THAT DOM AT [facility], , IS WORKING WITH THE CASE WITH [facility] TRANSFER LINE. CM WAITING ADMISSION DETERINATION FROM [facility] IN [place]. CM TO CONTINUE TO FOLLOW AND ASSIST NEEDED. Howie Handley, CASE MANAGEMENT DCP- Discharge Planning Updated by [id number]: Cailin Hamilton on 06/07/18 11:[address] BEDSIDE NURSE (HODAN MORENO) CAME AND ASKED ME TO ASSIST DR GATES. HE WANTS TO TRANSFER THE PATIENT TO [facility] FOR PLEURAL EFFUSION SECONDARY TO PD. (WITH NOTATION TO ME THAT THE PATIENT "JUST DOESN'T LIKE US"). OBTAINED HIS CELL NUMBER TO GIVE THE TRANSFER UNIT FO RTHE DOC TO DOC. CALL PLACED TO TRANSFER CENTER ( ) AND I SPOKE WITH ARNOLDO. HE WILL INITIATE THE TRANSFER. I FAXED FACE SHEET TO [phone]. ARNOLDO CALLED BACK FOR CLINICALS, AND THE PHONE CALL GOT SENT TO ME. I GAVE HIM THE INFORMATION THAT COULD BE FOUND IN THE COMPUTER, EXPLAINING THAT I HONESTLY HAVE NOT LAID EYES ON THE PATINET IN A COUPLE OF DAYS. I REQUESTED THAT HE SPEAK TO THE BEDSIDE NURSE WITH FURTHER QUESTIONS. HE EXPLAINED THAT HE TRIED TO SPEAK WITH HER AND FOR SOME REASON WAS TRANSFERRED TO [place]. I EXPLAINED TO SACHA THAT IF THE TRANSFER CENTER CALLS BACK ON THEIR LINE, HE IS NEEDING TO SPEAK TO THE BEDSIDE NURSE AND NOT ME. WILL WAIT FOR RETURN CALL. DCPIA - Discharge Planning Initial Assessment Updated by [id number]: Howie Handley on 06/07/18 5:11 pm * Is the patient Alert and Oriented? Yes * How many steps to enter\\exit or inside your home? RAMP * PCP DR. TUCKER * Pharmacy [facility] [address] * Preadmission Environment Home with Family * ADLs Partial Dependent * Partial ADLs (Assistance needed) Bathing Toileting * Equipment Bedside Commode Shower Chair Wheelchair * Other Equipment NO MEDICAL EQUIPMENT PROVIDER PREFERENCE * List name and contact numbers for known caregivers / representatives who currently or will assist patient after discharge: VAZQUEZ NIEVES (CRAIG), SIGNIFICANT OTHER, * Verbal permission to speak to the caregivers and representatives has been obtained from the patient. Yes * Community resources currently utilized None * Please name any agencies selected above. PT WAS DOING PERITONEAL DIALYSIS AT HOME, THE CATHETER HAS BEEN REMOVED AND HE WILL NEED HEMODIALYSIS * Additional services required to return to the preadmission environment? Yes * Can the patient safely return to the preadmission environment? Yes * Has this patient been hospitalized within the prior 30 days at any hospital? No Coverage Notice Reviewer: [id number] Daisy Handley Notice Issued Date-Time: 06/07/2018 14:50 Notice Type: IM Discharge Notice Notice Delivered To: Patient Relationship to Patient: Lodge Sales Associate Name: Delivery Method: HAND - Hand Delivered Helen Days: Prior Verbal Notification: Recipient Understood Notice: Yes Recipient Signature: Yes Med Rec Note Co-signed by Attending: Coverage Notice Comment: Last DP export: 06/07/18 4:20 Patient Name: SONYA FLORIAN Page [id number] at 1042 All edits/amendments must be made on the electronic document DICTATION DATE: 06/08/18 104 STILL OPERATOR WHISKEY: RAY 06/08/18 104 RPT#: [id number] DC DATE: STATUS: ADM IN [facility] [address] [place] [address] END OF REPORT
[2018-06-08 16:11] VITALS: BP 150/74
--- NOTE | 2018-06-08 16:28 | MORECARE ---
CASE MANAGEMENT DISCHARGE SUMMARY PATIENT: SONYA FLORIAN UNIT: [id number] ADM DATE: 05/29/18 AGE: 57 : 56 SEX: M ROOM/BED: D.210 AUTHOR: FLOYD,DOC PHYSICIAN: REFERRING PHYSICIAN: NOAH GALEANO MD DATE OF SERVICE: 06/08/18 Discharge Plan Patient Name: SONYA FLORIAN Facility: [facility]:[place] : 1960 Planned Disposition: Home Anticipated Discharge Date: 06/07/18 Discharge Date: Expected LOS: 9 Initial Reviewer: [id number] Initial Review Date: 06/07/2018 Generated: 06/08/18 5:27 pm Comments DCP- Discharge Planning Updated by [id number]: Howie Handley on 06/08/18 9:[address] Patient Name: SONYA FLORIAN Encounter No: [id number] : 1960 Primary Insurance: [facility] MEDICARE SOLUTIONS Anticipated DC Date: Planned Disposition: Home DCP follow-up note: CM REVIEWED CHART, NURSES NOTE INDICATES THAT [facility] CALLED LAST EVENING AND DECLINED PT. CM NOTIFED PT IN ROOM. PT PLANS TO DISCHARGE HOME WITH SIGNIFICANT OTHER AND HAS UNKNOWN DISCHARGE NEEDS AT THIS TIME. CM TO CONTINUE TO FOLLOW AND ASSIST NEEDED. ARIANA Sanchez DCP- Discharge Planning Updated by [id number]: Howie Handley on 06/07/18 4:[address] Patient Name: SONYA FLORIAN Encounter No: [id number] : 1960 Primary Insurance: [facility] MEDICARE SOLUTIONS Anticipated DC Date: 06-07-2018 Planned Disposition: Acute Care Hospital External Planned Provider: [facility] DCP follow-up note: CM SPOKE TO TRANSPORTATION DRIVER, URI, INFORMED HER THAT ADMINISTRATIVE APPROVAL WILL NEED TO BE REQUESTED FOR TRANSFER. CM MET WITH PT IN ROOM WHO REPORTS HE HAS MET WITH DR. GATES AND DISCUSSED TRANSFER. PT STILL WANTS TRANSFER TO [facility] AND REPORTS DR. GATES TOLD HIM THAT HE WOULD "DO BETTER IN [place]". PT REPORTS LIVING AT HOME WITH SIGNIFICANT OTHER WHO ASSISTS WITH BATHING AND TOILETING NEEDED. PT HAS NO OUTSIDE SERVICES ASSISTING IN THE HOME. PT HAS BEDSIDE TOILET, SHOWER CHAIR AND WHEELCHAIR AT [facility] WITH NO MEDICAL EQUIPMENT PROVIDER PREFERNECE. PT REPORTS HIS PD CATHETER HAS BEEN REMOVED AND HE WILL NOW HAVE TO HAVE HEMODIALYSIS. PT REPORTS SIGNIFICANT OTHER OR FAMILY MEMBER WILL PICK HIM UP FOR DISCHARGE HOME. IMPORTANT MESSAGE FROM MEDICARE PROVIDED AND EXPLAINED. PROVIDED CM CONTACT INFORMATION TO PT. CM NOTIFIED MAURICIO GREWALTRANSPORTATION DRIVER, OF PT'S DESIRE TO TRANSFER TO [facility] IN [place]. CM RECEIVED MESSAGE FROM BEDSIDE NURSE THAT DOM AT [facility], , IS WORKING WITH THE CASE WITH [facility] TRANSFER LINE. CM WAITING ADMISSION DETERINATION FROM [facility] IN [place]. CM TO CONTINUE TO FOLLOW AND ASSIST NEEDED. Howie Handley, CASE MANAGEMENT DCP- Discharge Planning Updated by [id number]: Cailin Hamilton on 06/07/18 11:[address] BEDSIDE NURSE (HODAN MORENO) CAME AND ASKED ME TO ASSIST DR GATES. HE WANTS TO TRANSFER THE PATIENT TO [facility] FOR PLEURAL EFFUSION SECONDARY TO PD. (WITH NOTATION TO ME THAT THE PATIENT "JUST DOESN'T LIKE US"). OBTAINED HIS CELL NUMBER TO GIVE THE TRANSFER UNIT FO RTHE DOC TO DOC. CALL PLACED TO TRANSFER CENTER ( ) AND I SPOKE WITH ARNOLDO. HE WILL INITIATE THE TRANSFER. I FAXED FACE SHEET TO [phone]. ARNOLDO CALLED BACK FOR CLINICALS, AND THE PHONE CALL GOT SENT TO ME. I GAVE HIM THE INFORMATION THAT COULD BE FOUND IN THE COMPUTER, EXPLAINING THAT I HONESTLY HAVE NOT LAID EYES ON THE PATINET IN A COUPLE OF DAYS. I REQUESTED THAT HE SPEAK TO THE BEDSIDE NURSE WITH FURTHER QUESTIONS. HE EXPLAINED THAT HE TRIED TO SPEAK WITH HER AND FOR SOME REASON WAS TRANSFERRED TO [place]. I EXPLAINED TO SACHA THAT IF THE TRANSFER CENTER CALLS BACK ON THEIR LINE, HE IS NEEDING TO SPEAK TO THE BEDSIDE NURSE AND NOT ME. WILL WAIT FOR RETURN CALL. DCPIA - Discharge Planning Initial Assessment Updated by [id number]: Howie Handley on 06/07/18 5:11 pm * Is the patient Alert and Oriented? Yes * How many steps to enter\\exit or inside your home? RAMP * PCP DR. TUCKER * Pharmacy [facility] [address] * Preadmission Environment Home with Family * ADLs Partial Dependent * Partial ADLs (Assistance needed) Bathing Toileting * Equipment Bedside Commode Shower Chair Wheelchair * Other Equipment NO MEDICAL EQUIPMENT PROVIDER PREFERENCE * List name and contact numbers for known caregivers / representatives who currently or will assist patient after discharge: VAZQUEZ NIEVES (CRAIG), SIGNIFICANT OTHER, * Verbal permission to speak to the caregivers and representatives has been obtained from the patient. Yes * Community resources currently utilized None * Please name any agencies selected above. PT WAS DOING PERITONEAL DIALYSIS AT HOME, THE CATHETER HAS BEEN REMOVED AND HE WILL NEED HEMODIALYSIS * Additional services required to return to the preadmission environment? Yes * Can the patient safely return to the preadmission environment? Yes * Has this patient been hospitalized within the prior 30 days at any hospital? No External Providers [facility] Next Contact Date: 06/08/2018 Service Request Date: Service Type: Resolution: Reviewer: Comments: Coverage Notice Reviewer: [id number] Daisy Handley Notice Issued Date-Time: 06/07/2018 14:50 Notice Type: IM Discharge Notice Notice Delivered To: Patient Relationship to Patient: General Administrator Name: Delivery Method: HAND - Hand Delivered Helen Days: Prior Verbal Notification: Recipient Understood Notice: Yes Recipient Signature: Yes Med Rec Note Co-signed by Attending: Coverage Notice Comment: Last DP export: 06/08/18 9:42 Patient Name: SONYA FLORIAN Page [id number] at 1628 All edits/amendments must be made on the electronic document DICTATION DATE: 06/08/181626 SECURITY MANAGEMENT SPECIALIST: RAY 06/08/181626 RPT#: [id number] [place] DATE: STATUS: ADM IN [facility] [address] [place] [address] END OF REPORT
--- NOTE | 2018-06-08 16:43 | MORECARE ---
CASE MANAGEMENT DISCHARGE SUMMARY PATIENT: SONYA FLORIAN UNIT: [id number] ADM DATE: 05/29/18 AGE: 57 : 56 SEX: M ROOM/BED: D.2104 AUTHOR: FLOYD,DOC PHYSICIAN: REFERRING PHYSICIAN: NOAH GALEANO MD DATE OF SERVICE: 06/08/18 Discharge Plan Patient Name: SONYA FLORIAN Facility: [facility]:[place] : 1960 Planned Disposition: Home Anticipated Discharge Date: 06/08/18 Discharge Date: Expected LOS: 10 Initial Reviewer: [id number] Initial Review Date: 06/07/2018 Generated: 06/08/18 5:43 pm Comments DCP- Discharge Planning Updated by [email or web address]: Howie Handley on 06/08/18 3:[address] Patient Name: SONYA FLORIAN Encounter No: [id number] : 1960 Primary Insurance: [facility] MEDICARE SOLUTIONS Anticipated DC Date: 06-08-2018 Planned Disposition: Home DCP follow-up note: CM SPOKE TO BEDSIDE NURSE WHO INFORMED CM THAT PT FAILED OXYGEN TESTING AND WILL NEED HOME AND PORTABLE OXYGEN. CM CALLED AND SPOKE TO DR. JACK WHO PROVIDED OXYGEN ORDER FOR DISCHARGE TODAY. CM NOTIFIED BEDSIDE NURSE. CM CALLED LEVIE AT [phone], SPOKE TO CHIQUITA WHO TOOK REFERRAL AND WILL HAVE PORTABLE OXYGEN DELIVERED TO [facility] FOR DIS[facility]GE HOME AND WILL ARRANGE HOME DELIVERY OF HOME OXYGEN AFTER PT'S ARRIVAL HOME TODAY. [facility] AT [phone]. CM NOTIFIED PT AND CAREGIVER / SIGNIFICANT OTHER IN ROOM. PT'S SIGNIFICANT OTHER TO TRANSPORT PT HOME AT DISCHARGE. BEDSIDE NURSE NOTIFIED. Howie Handley, CASE MANAGMENT DCP- Discharge Planning Updated by [id number]: Howie Handley on 06/08/18 9:[address] Patient Name: SONYA FLORIAN Encounter No: [id number] : 1960 Primary Insurance: C MEDICARE SOLUTIONS Anticipated DC Date: Planned Disposition: Home DCP follow-up note: CM REVIEWED CHART, NURSES NOTE INDICATES THAT [facility] CALLED LAST EVENING AND DECLINED PT. CM NOTIFED PT IN ROOM. PT PLANS TO DISCHARGE HOME WITH SIGNIFICANT OTHER AND HAS UNKNOWN DISCHARGE NEEDS AT THIS TIME. CM TO CONTINUE TO FOLLOW AND ASSIST NEEDED. Howie Handley, CASE MANAGEMENT DCP- Discharge Planning Updated by [id number]: Howie Handley on 06/07/18 4:[address] Patient Name: SONYA FLORIAN Encounter No: [id number] : 1960 Primary Insurance: [facility] MEDICARE SOLUTIONS Anticipated DC Date: 06-07-2018 Planned Disposition: Acute Care Hospital External Planned Provider: [facility] DCP follow-up note: CM SPOKE TO BRIMMER BLOCKER, URI, INFORMED HER THAT ADMINISTRATIVE APPROVAL WILL NEED TO BE REQUESTED FOR TRANSFER. CM MET WITH PT IN ROOM WHO REPORTS HE HAS MET WITH DR. GATES AND DISCUSSED TRANSFER. PT STILL WANTS TRANSFER TO [facility] AND REPORTS DR. GATES TOLD HIM THAT HE WOULD "DO BETTER IN [place]". PT REPORTS LIVING AT HOME WITH SIGNIFICANT OTHER WHO ASSISTS WITH BATHING AND TOILETING NEEDED. PT HAS NO OUTSIDE SERVICES ASSISTING IN THE HOME. PT HAS BEDSIDE TOILET, SHOWER CHAIR AND WHEELCHAIR AT [facility] WITH NO MEDICAL EQUIPMENT PROVIDER PREFERNECE. PT REPORTS HIS PD CATHETER HAS BEEN REMOVED AND HE WILL NOW HAVE TO HAVE HEMODIALYSIS. PT REPORTS SIGNIFICANT OTHER OR FAMILY MEMBER WILL PICK HIM UP FOR DISCHARGE HOME. IMPORTANT MESSAGE FROM MEDICARE PROVIDED AND EXPLAINED. PROVIDED CM CONTACT INFORMATION TO PT. CM NOTIFIED URI, BRIMMER BLOCKER, OF PT'S DESIRE TO TRANSFER TO [facility] IN [place]. CM RECEIVED MESSAGE FROM BEDSIDE NURSE THAT DOM AT [facility], , IS WORKING WITH THE CASE WITH [facility] TRANSFER LINE. CM WAITING ADMISSION DETERINATION FROM [facility] IN [place]. CM TO CONTINUE TO FOLLOW AND ASSIST NEEDED. Howie Handley, CASE MANAGEMENT DCP- Discharge Planning Updated by [id number]: Cailin Hamilton on 06/07/18 11:[address] BEDSIDE NURSE (HODAN MORENO) CAME AND ASKED ME TO ASSIST DR GATES. HE WANTS TO TRANSFER THE PATIENT TO [facility] FOR PLEURAL EFFUSION SECONDARY TO PD. (WITH NOTATION TO ME THAT THE PATIENT "JUST DOESN'T LIKE US"). OBTAINED HIS CELL NUMBER TO GIVE THE TRANSFER UNIT FO RTHE DOC TO DOC. CALL PLACED TO TRANSFER CENTER ( ) AND I SPOKE WITH ARNOLDO. HE WILL INITIATE THE TRANSFER. I FAXED FACE SHEET TO [phone]. ARNOLDO CALLED BACK FOR CLINICALS, AND THE PHONE CALL GOT SENT TO ME. I GAVE HIM THE INFORMATION THAT COULD BE FOUND IN THE COMPUTER, EXPLAINING THAT I HONESTLY HAVE NOT LAID EYES ON THE PATINET IN A COUPLE OF DAYS. I REQUESTED THAT HE SPEAK TO THE BEDSIDE NURSE WITH FURTHER QUESTIONS. HE EXPLAINED THAT HE TRIED TO SPEAK WITH HER AND FOR SOME REASON WAS TRANSFERRED TO [place]. I EXPLAINED TO SACHA THAT IF THE TRANSFER CENTER CALLS BACK ON THEIR LINE, HE IS NEEDING TO SPEAK TO THE BEDSIDE NURSE AND NOT ME. WILL WAIT FOR RETURN CALL. DCPIA - Discharge Planning Initial Assessment Updated by [id number]: Howie Handley on 06/07/18 5:11 pm * Is the patient Alert and Oriented? Yes * How many steps to enter\\exit or inside your home? RAMP * PCP DR. TUCKER * Pharmacy [facility] [address] * Preadmission Environment Home with Family * ADLs Partial Dependent * Partial ADLs (Assistance needed) Bathing Toileting * Equipment Bedside Commode Shower Chair Wheelchair * Other Equipment NO MEDICAL EQUIPMENT PROVIDER PREFERENCE * List name and contact numbers for known caregivers / representatives who currently or will assist patient after discharge: VAZQUEZ "TYLER NIEVES, SIGNIFICANT OTHER, * Verbal permission to speak to the caregivers and representatives has been obtained from the patient. Yes * Community resources currently utilized None * Please name any agencies selected above. PT WAS DOING PERITONEAL DIALYSIS AT HOME, THE CATHETER HAS BEEN REMOVED AND HE WILL NEED HEMODIALYSIS * Additional services required to return to the preadmission environment? Yes * Can the patient safely return to the preadmission environment? Yes * Has this patient been hospitalized within the prior 30 days at any hospital? No Coverage Notice Reviewer: [id number] - Howie Handley Notice Issued Date-Time: 06/07/2018 14:50 Notice Type: IM Discharge Notice Notice Delivered To: Patient Relationship to Patient: Supervisor Remelt Name: Delivery Method: HAND - Hand Delivered Helen Days: Prior Verbal Notification: Recipient Understood Notice: Yes Recipient Signature: Yes Med Rec Note Co-signed by Attending: Coverage Notice Comment: Last DP export: 06/08/18 3:28 Patient Name: SONYA FLORIAN Page 11353 at 1643 All edits/amendments must be made on the electronic document DICTATION DATE: 06/08/181642 BUSINESS ANALYTICS INTERN: RAY 06/08/181642 RPT#: [id number] [place] DATE: STATUS: ADM IN [facility] [address] [place] [address] END OF REPORT
--- NOTE | 2018-06-09 17:31 | MORECARE ---
CASE MANAGEMENT DISCHARGE SUMMARY PATIENT: SONYA FLORIAN UNIT: [id number] ADM DATE: 05/29/18 AGE: 57 : 56 SEX: M ROOM/BED: D.2101 AUTHOR: FLOYD,DOC PHYSICIAN: REFERRING PHYSICIAN: NOAH GALEANO MD DATE OF SERVICE: 06/09/18 Discharge Plan Patient Name: SONYA FLORIAN Facility: [facility]:[place] : 1960 Planned Disposition: Home Anticipated Discharge Date: 06/08/18 Discharge Date: 06/08/2018 Expected LOS: 10 Initial Reviewer: [id number] Initial Review Date: 06/07/2018 Generated: 06/09/18 6:31 pm Comments DCP- Discharge Planning Updated by [id number]: Nirmala Leon on 06/09/18 4:[address] LATE ENTRY CM OBTAINED DR JACK' SIGNATURE FOR [facility]. FAXED OXYGEN ORDER TO [phone]. DCP- Discharge Planning Updated by [email or web address]: Howei Handley on 06/08/18 3:[address] Patient Name: SONYA FLORIAN Encounter No: [id number] : 1960 Primary Insurance: [facility] MEDICARE SOLUTIONS Anticipated DC Date: 06-08-2018 Planned Disposition: Home DCP follow-up note: CM SPOKE TO BEDSIDE NURSE WHO INFORMED CM THAT PT FAILED OXYGEN TESTING AND WILL NEED HOME AND PORTABLE OXYGEN. CM CALLED AND SPOKE TO DR. JACK WHO PROVIDED OXYGEN ORDER FOR DISCHARGE TODAY. CM NOTIFIED BEDSIDE NURSE. CM CALLED [facility] AT [phone], SPOKE TO CHIQUITA WHO TOOK REFERRAL AND WILL HAVE PORTABLE OXYGEN DEL[facility]ED TO [facility] FOR DIS[facility]GE HOME AND WILL ARRANGE HOME DELIVERY OF HOME OXYGEN AFTER PT'S ARRIVAL HOME TODAY. CM FAXED REFERRAL TO [facility] AT [phone]. CM NOTIFIED PT AND CAREGIVER / SIGNIFICANT OTHER IN ROOM. PT'S SIGNIFICANT OTHER TO TRANSPORT PT HOME AT DISCHARGE. BEDSIDE NURSE NOTIFIED. Howie Handley, CASE MANAGMENT DCP- Discharge Planning Updated by [id number]: Howie Handley on 06/08/18 9:[address] Patient Name: SONYA FLORIAN Encounter No: [id number] : 1960 Primary Insurance: [facility] [employer] SOLUTIONS Anticipated DC Date: Planned Disposition: Home DCP follow-up note: CM REVIEWED CHART, NURSES NOTE INDICATES THAT [facility] CALLED LAST EVENING AND DECLINED PT. CM NOTIFED PT IN ROOM. PT PLANS TO DISCHARGE HOME WITH SIGNIFICANT OTHER AND HAS UNKNOWN DISCHARGE NEEDS AT THIS TIME. CM TO CONTINUE TO FOLLOW AND ASSIST NEEDED. Howie Handley, CASE MANAGEMENT DCP- Discharge Planning Updated by [id number]: Howie Handley on 06/07/18 4:[address] Patient Name: SONYA FLORIAN Encounter No: [id number] : 1960 Primary Insurance: [facility] [employer] SOLUTIONS Anticipated DC Date: 06-07-2018 Planned Disposition: Acute Care Hospital External Planned Provider: [facility] DCP follow-up note: CM SPOKE TO HAND WASHER, URI, INFORMED HER THAT ADMINISTRATIVE APPROVAL WILL NEED TO BE REQUESTED FOR TRANSFER. CM MET WITH PT IN ROOM WHO REPORTS HE HAS MET WITH DR. GATES AND DISCUSSED TRANSFER. PT STILL WANTS TRANSFER TO [facility] AND REPORTS DR. GATES TOLD HIM THAT HE WOULD "DO BETTER IN [place]". PT REPORTS LIVING AT HOME WITH SIGNIFICANT OTHER WHO ASSISTS WITH BATHING AND TOILETING NEEDED. PT HAS NO OUTSIDE SERVICES ASSISTING IN THE HOME. PT HAS BEDSIDE TOILET, SHOWER CHAIR AND WHEELCHAIR AT [facility] WITH NO MEDICAL EQUIPMENT PROVIDER PREFERNECE. PT REPORTS HIS PD CATHETER HAS BEEN REMOVED AND HE WILL NOW HAVE TO HAVE HEMODIALYSIS. PT REPORTS SIGNIFICANT OTHER OR FAMILY MEMBER WILL PICK HIM UP FOR DISCHARGE HOME. IMPORTANT MESSAGE FROM MEDICARE PROVIDED AND EXPLAINED. PROVIDED CM CONTACT INFORMATION TO PT. CM NOTIFIED MAURICIO GREWALHAND WASHER, OF PT'S DESIRE TO TRANSFER TO [facility] IN [place]. CM RECEIVED MESSAGE FROM BEDSIDE NURSE THAT DOM AT [facility], , IS WORKING WITH THE CASE WITH [facility] TRANSFER LINE. CM WAITING ADMISSION DETERINATION FROM [facility] IN [place]. CM TO CONTINUE TO FOLLOW AND ASSIST NEEDED. Howie Handley, CASE MANAGEMENT DCP- Discharge Planning Updated by [id number]: Cailin Hamilton on 06/07/18 11:[address] BEDSIDE NURSE (HODAN MORENO) CAME AND ASKED ME TO ASSIST DR GATES. HE WANTS TO TRANSFER THE PATIENT TO [facility] FOR PLEURAL EFFUSION SECONDARY TO PD. (WITH NOTATION TO ME THAT THE PATIENT "JUST DOESN'T LIKE US"). OBTAINED HIS CELL NUMBER TO GIVE THE TRANSFER UNIT FO RTHE DOC TO DOC. CALL PLACED TO TRANSFER CENTER ( ) AND I SPOKE WITH ARNOLDO. HE WILL INITIATE THE TRANSFER. I FAXED FACE SHEET TO [phone]. ARNOLDO CALLED BACK FOR CLINICALS, AND THE PHONE CALL GOT SENT TO ME. I GAVE HIM THE INFORMATION THAT COULD BE FOUND IN THE COMPUTER, EXPLAINING THAT I HONESTLY HAVE NOT LAID EYES ON THE PATINET IN A COUPLE OF DAYS. I REQUESTED THAT HE SPEAK TO THE BEDSIDE NURSE WITH FURTHER QUESTIONS. HE EXPLAINED THAT HE TRIED TO SPEAK WITH HER AND FOR SOME REASON WAS [place]SFERRED TO [place]. I EXPLAINED TO SACHA THAT IF THE TRANSFER CENTER CALLS BACK ON THEIR LINE, HE IS NEEDING TO SPEAK TO THE BEDSIDE NURSE AND NOT ME. WILL WAIT FOR RETURN CALL. DCPIA - Discharge Planning Initial Assessment Updated by KACIE: Howie Handley on 06/07/18 5:11 pm * Is the patient Alert and Oriented? Yes * How many steps to enter\\exit or inside your home? RAMP * PCP DR. TUCKER * Pharmacy [facility] [address] * Preadmission Environment Home with Family * ADLs Partial Dependent * Partial ADLs (Assistance needed) Bathing Toileting * Equipment Bedside Commode Shower Chair Wheelchair * Other Equipment NO MEDICAL EQUIPMENT PROVIDER PREFERENCE * List name and contact numbers for known caregivers / representatives who currently or will assist patient after discharge: ELLASHABBIR"JULI"EZEQUIEL, SIGNIFICANT OTHER, * Verbal permission to speak to the caregivers and representatives has been obtained from the patient. Yes * Community resources currently utilized None * Please name any agencies selected above. PT WAS DOING PERITONEAL DIALYSIS AT HOME, THE CATHETER HAS BEEN REMOVED AND HE WILL NEED HEMODIALYSIS * Additional services required to return to the preadmission environment? Yes * Can the patient safely return to the preadmission environment? Yes * Has this patient been hospitalized within the prior 30 days at any hospital? No Coverage Notice Reviewer: [id number] - Howie Handley Notice Issued Date-Time: 06/07/2018 14:50 Notice Type: IM Discharge Notice Notice Delivered To: Patient Relationship to Patient: Tire Builder Operator Name: Delivery Method: HAND - Hand Delivered Helen Days: Prior Verbal Notification: Recipient Understood Notice: Yes Recipient Signature: Yes Med Rec Note Co-signed by Attending: Coverage Notice Comment: Last DP export: 06/08/18 3:43 Patient Name: SONYA FLORIAN Page 12010 at 1731 All edits/amendments must be made on the electronic document DICTATION DATE: 06/09/181730 BUSINESS SALES CONSULTANT: RAY 06/09/181730 RPT#: [id number] DC DATE:06/08/18 STATUS: DIS IN [facility] [address] [place] [address] END OF REPORT
--- NOTE | 2018-06-11 11:15 | MORECARE ---
CASE MANAGEMENT DISCHARGE SUMMARY PATIENT: SONYA FLORIAN UNIT: [id number] ADM DATE: 05/29/18 AGE: 57 : 56 SEX: M ROOM/BED: D.2104 AUTHOR: FLOYD,DOC PHYSICIAN: REFERRING PHYSICIAN: NOAH GALEANO MD DATE OF SERVICE: 06/11/18 Discharge Plan Patient Name: SONYA FLORIAN Facility: [facility]:[place] : 1960 Planned Disposition: Home Anticipated Discharge Date: 06/08/18 Discharge Date: 06/08/2018 Expected LOS: 10 Initial Reviewer: [id number] Initial Review Date: 06/07/2018 Generated: 06/11/18 12:15 pm Comments DCP- Discharge Planning Updated by [email or web address]: Nirmala Leon on 06/09/18 4:[address] LATE ENTRY CM OBTAINED DR JACK' SIGNATURE FOR [facility]. FAXED OXYGEN ORDER TO [phone]. DCP- Discharge Planning Updated by [id number]: Howie Handley on 06/08/18 3:[address] Patient Name: SONYA FLORIAN Encounter No: [id number] : 1960 Primary Insurance: [facility] MEDICARE SOLUTIONS Anticipated DC Date: 06-08-2018 Planned Disposition: Home DCP follow-up note: CM SPOKE TO BEDSIDE NURSE WHO INFORMED CM THAT PT FAILED OXYGEN TESTING AND WILL NEED HOME AND PORTABLE OXYGEN. CM CALLED AND SPOKE TO DR. JACK WHO PROVIDED OXYGEN ORDER FOR DISCHARGE TODAY. CM NOTIFIED BEDSIDE NURSE. CM CALLED [facility] AT [phone], SPOKE TO CHIQUITA WHO TOOK REFERRAL AND WILL HAVE PORTABLE OXYGEN DELIVERED TO [facility] FOR DISCHARGE HOME AND WILL ARRANGE HOME DELIVERY OF HOME OXYGEN AFTER PT'S ARRIVAL HOME TODAY. CM FAXED REFERRAL TO [facility] AT [phone]. CM NOTIFIED PT AND CAREGIVER / SIGNIFICANT OTHER IN ROOM. PT'S SIGNIFICANT OTHER TO TRANSPORT PT HOME AT DISCHARGE. BEDSIDE NURSE NOTIFIED. Howie Handley, CASE MANAGMENT DCP- Discharge Planning Updated by [id number]: Howie Handley on 06/08/18 9:[address] Patient Name: SONYA FLORIAN Encounter No: [id number] : 1960 Primary Insurance: [facility] MEDICARE SOLUTIONS Anticipated DC Date: Planned Disposition: Home DCP follow-up note: CM REVIEWED CHART, NURSES NOTE INDICATES THAT [facility] CALLED LAST EVENING AND DECLINED PT. CM NOTIFED PT IN ROOM. PT PLANS TO DISCHARGE HOME WITH SIGNIFICANT OTHER AND HAS UNKNOWN DISCHARGE NEEDS AT THIS TIME. CM TO CONTINUE TO FOLLOW AND ASSIST NEEDED. Howie Handley, CASE MANAGEMENT DCP- Discharge Planning Updated by [id number]: Howie Handley on 06/07/18 4:[address] Patient Name: SONYA FLORIAN Encounter No: [id number] : 1960 Primary Insurance: [facility] MEDICARE SOLUTIONS Anticipated DC Date: 06-07-2018 Planned Disposition: Acute Care Hospital External Planned Provider: [facility] DCP follow-up note: CM SPOKE TO THREAD SPOOLER, URI, INFORMED HER THAT ADMINISTRATIVE APPROVAL WILL NEED TO BE REQUESTED FOR TRANSFER. CM MET WITH PT IN ROOM WHO REPORTS HE HAS MET WITH DR. GATES AND DISCUSSED TRANSFER. PT STILL WANTS TRANSFER TO [facility] AND REPORTS DR. GATES TOLD HIM THAT HE WOULD "DO BETTER IN [place]". PT REPORTS LIVING AT HOME WITH SIGNIFICANT OTHER WHO ASSISTS WITH BATHING AND TOILETING NEEDED. PT HAS NO OUTSIDE SERVICES ASSISTING IN THE HOME. PT HAS BEDSIDE TOILET, SHOWER CHAIR AND WHEELCHAIR AT [facility] WITH NO MEDICAL EQUIPMENT PROVIDER PREFERNECE. PT REPORTS HIS PD CATHETER HAS BEEN REMOVED AND HE WILL NOW HAVE TO HAVE HEMODIALYSIS. PT REPORTS SIGNIFICANT OTHER OR FAMILY MEMBER WILL PICK HIM UP FOR DISCHARGE HOME. IMPORTANT MESSAGE FROM MEDICARE PROVIDED AND EXPLAINED. PROVIDED CM CONTACT INFORMATION TO PT. CM NOTIFIED MAURICIO GREWALTHREAD SPOOLER, OF PT'S DESIRE TO TRANSFER TO [facility] IN [place]. CM RECEIVED MESSAGE FROM BEDSIDE NURSE THAT DOM AT [facility], , IS WORKING WITH THE CASE WITH [facility] TRANSFER LINE. CM WAITING ADMISSION DETERINATION FROM [facility] IN [place]. CM TO CONTINUE TO FOLLOW AND ASSIST NEEDED. Howie Handley, CASE MANAGEMENT DCP- Discharge Planning Updated by [id number]: Cailin Hamilton on 06/07/18 11:[address] BEDSIDE NURSE (HODAN MORENO) CAME AND ASKED ME TO ASSIST DR GATES. HE WANTS TO TRANSFER THE PATIENT TO [facility] FOR PLEURAL EFFUSION SECONDARY TO PD. (WITH NOTATION TO ME THAT THE PATIENT "JUST DOESN'T LIKE US"). OBTAINED HIS CELL NUMBER TO GIVE THE TRANSFER UNIT FO RTHE DOC TO DOC. CALL PLACED TO TRANSFER CENTER ( ) AND I SPOKE WITH ARNOLDO. HE WILL INITIATE THE TRANSFER. I FAXED FACE SHEET TO [phone]. ARNOLDO CALLED BACK FOR CLINICALS, AND THE PHONE CALL GOT SENT TO ME. I GAVE HIM THE INFORMATION THAT COULD BE FOUND IN THE COMPUTER, EXPLAINING THAT I HONESTLY HAVE NOT LAID EYES ON THE PATINET IN A COUPLE OF DAYS. I REQUESTED THAT HE SPEAK TO THE BEDSIDE NURSE WITH FURTHER QUESTIONS. HE EXPLAINED THAT HE TRIED TO SPEAK WITH HER AND FOR SOME REASON WAS TRANSFERRED TO [place]. I EXPLAINED TO SACHA THAT IF THE TRANSFER CENTER CALLS BACK ON THEIR LINE, HE IS NEEDING TO SPEAK TO THE BEDSIDE NURSE AND NOT ME. WILL WAIT FOR RETURN CALL. DCPIA - Discharge Planning Initial Assessment Updated by KACIE: Howie Handley on 06/07/18 5:11 pm * Is the patient Alert and Oriented? Yes * How many steps to enter\\exit or inside your home? RAMP * PCP DR. TUCKER * [place] [facility] [address] * Preadmission Environment Home with Family * ADLs Partial Dependent * Partial ADLs (Assistance needed) Bathing Toileting * Equipment Bedside Commode Shower Chair Wheelchair * Other Equipment NO MEDICAL EQUIPMENT PROVIDER PREFERENCE * List name and contact numbers for known caregivers / representatives who currently or will assist patient after discharge: ELLASHABBIR"JULI"EZEQUIEL, SIGNIFICANT OTHER, * Verbal permission to speak to the caregivers and representatives has been obtained from the patient. Yes * Community resources currently utilized None * Please name any agencies selected above. PT WAS DOING PERITONEAL DIALYSIS AT HOME, THE CATHETER HAS BEEN REMOVED AND HE WILL NEED HEMODIALYSIS * Additional services required to return to the preadmission environment? Yes * Can the patient safely return to the preadmission environment? Yes * Has this patient been hospitalized within the prior 30 days at any hospital? No External Providers External Provider: [facility] Next Contact Date: 06/11/2018 Service Request Date: Service Type: Resolution: Reviewer: Comments: Coverage Notice Reviewer: [id number] - Howie Handley Notice Issued Date-Time: 06/07/2018 14:50 Notice Type: IM Discharge Notice Notice Delivered To: Patient Relationship to Patient: Field Artillery Targeting Technician Name: Delivery Method: HAND - Hand Delivered Helen Days: Prior Verbal Notification: Recipient Understood Notice: Yes Recipient Signature: Yes Med Rec Note Co-signed by Attending: Coverage Notice Comment: Last DP export: 06/09/18 4:31 Patient Name: SONYA FLORIAN Page 51490 at 1115 All edits/amendments must be made on the electronic document DICTATION DATE: 06/11/181113 CANNON FIRE DIRECTION SPECIALIST: RAY 06/11/181113 RPT#: [id number] DC DATE:06/08/18 STATUS: DIS IN [facility] [address] [place] [address] END OF REPORT
--- NOTE | 2018-06-11 11:22 | MORECARE ---
CASE MANAGEMENT DISCHARGE SUMMARY PATIENT: SONYA FLORIAN UNIT: [id number] ADM DATE: 05/29/18 AGE: 57 : 56 SEX: M ROOM/BED: D.2105 AUTHOR: FLOYD,DOC PHYSICIAN: REFERRING PHYSICIAN: NOAH GALEANO MD DATE OF SERVICE: 06/11/18 Discharge Plan Patient Name: SONYA FLORIAN Facility: [facility]:[place] : 1960 Planned Disposition: Home Anticipated Discharge Date: 06/08/18 Discharge Date: 06/08/2018 Expected LOS: 10 Initial Reviewer: [id number] Initial Review Date: 06/07/2018 Generated: 06/11/18 12:22 pm Comments DCP- Discharge Planning Updated by [id number]: Howie Handley on 06/11/18 10:[address] Patient Name: SONYA FLORIAN Encounter No: [id number] : 1960 Primary Insurance: [facility] MEDICARE SOLUTIONS Anticipated DC Date: 06-08-2018 Planned Disposition: Home WITH HOME HEALTH RESUMPTION External Planned Provider: [facility] DCP follow-up note: CM RECEIVED MESSAGE FROM FLAVIO OF [facility] REPORTING THAT PT IS ACTIVE WITH [facility] AND THEY ARE RESUMING CARE; FLAVIO ASKED THAT DISCHARGE INFORMATION BE FAXED TO THEM. CM CALLED PT AT HOME, , WHO REPORTED HE IS NOT SURE HOW MUCH THERAPY HE WILL BE ABLE TO DO WITH THE ARM THAT HAS THE NEW FISTULA, BUT HE DOES WANT HOME HEALTH TO RESUME. PT STATES HE DID NOT THINK TO MENTION THIS DURING CONVERSATION WITH CM AT THE HOSPITAL. CM FAXED DISCHARGE INFORMATION [facility] INFORMATION TO [place] AT [phone]. Howie Handley, CASE MANAGEMENT DCP- Discharge Planning Updated by [id number]: Nirmala Leon on 06/09/18 4:[address] LATE ENTRY CM OBTAINED DR JACK' SIGNATURE FOR [facility]. FAXED OXYGEN ORDER TO [phone]. DCP- Discharge Planning Updated by [email or web address]: Howie Handley on 06/08/18 3:[address] Patient Name: SONYA FLORIAN Encounter No: [id number] : 1960 Primary Insurance: [facility] MEDICARE SOLUTIONS Anticipated DC Date: 06-08-2018 Planned Disposition: Home DCP follow-up note: CM SPOKE TO BEDSIDE NURSE WHO INFORMED CM THAT PT FAILED OXYGEN TESTING AND WILL NEED HOME AND PORTABLE OXYGEN. CM CALLED AND SPOKE TO DR. JACK WHO PROVIDED OXYGEN ORDER FOR DISCHARGE TODAY. CM NOTIFIED BEDSIDE NURSE. CM CALLED [facility] AT [phone], SPOKE TO CHIQUITA WHO TOOK REFERRAL AND WILL HAVE PORTABLE OXYGEN DELIVERED TO [facility]OSP[facility] FOR DISCHARGE HOME AND WILL ARRANGE HOME DELIVERY OF HOME OXYGEN AFTER PT'S ARRIVAL HOME TODAY. CM FAXED REFERRAL TO [facility] AT [phone]. CM NOTIFIED PT AND CAREGIVER / SIGNIFICANT OTHER IN ROOM. PT'S SIGNIFICANT OTHER TO TRANSPORT PT HOME AT DISCHARGE. BEDSIDE NURSE NOTIFIED. Howie Handley, CASE MANAGMENT DCP- Discharge Planning Updated by [id number]: Howie Handley on 06/08/18 9:[address] Patient Name: SONYA FLORIAN Encounter No: [id number] : 1960 Primary Insurance: [facility] MEDICARE SOLUTIONS Anticipated DC Date: Planned Disposition: Home DCP follow-up note: CM REVIEWED CHART, NURSES NOTE INDICATES THAT [facility] CALLED LAST EVENING AND DECLINED PT. CM NOTIFED PT IN ROOM. PT PLANS TO DISCHARGE HOME WITH SIGNIFICANT OTHER AND HAS UNKNOWN DISCHARGE NEEDS AT THIS TIME. CM TO CONTINUE TO FOLLOW AND ASSIST NEEDED. Howie Handley, CASE MANAGEMENT DCP- Discharge Planning Updated by [id number]: Hoiwe Handley on 06/07/18 4:[address] Patient Name: SONYA FLORIAN Encounter No: [id number] : 1960 Primary Insurance: [facility] MEDIC[facility] SOLUTIONS Anticipated DC Date: 06-07-2018 Planned Disposition: Acute Care Hospital External Planned Provider: [facility] DCP follow-up note: CM SPOKE TO VAN DRIVER, URI, INFORMED HER THAT ADMINISTRATIVE APPROVAL WILL NEED TO BE REQUESTED FOR TRANSFER. CM MET WITH PT IN ROOM WHO REPORTS HE HAS MET WITH DR. GATES AND DISCUSSED TRANSFER. PT STILL WANTS TRANSFER TO [facility] AND REPORTS DR. GATES TOLD HIM THAT HE WOULD "DO BETTER IN [place]". PT REPORTS LIVING AT HOME WITH SIGNIFICANT OTHER WHO ASSISTS WITH BATHING AND TOILETING NEEDED. PT HAS NO OUTSIDE SERVICES ASSISTING IN THE HOME. PT HAS BEDSIDE TOILET, SHOWER CHAIR AND WHEELCHAIR AT [facility] WITH NO MEDICAL EQUIPMENT PROVIDER PREFERNECE. PT REPORTS HIS PD CATHETER HAS BEEN REMOVED AND HE WILL NOW HAVE TO HAVE HEMODIALYSIS. PT REPORTS SIGNIFICANT OTHER OR FAMILY MEMBER WILL PICK HIM UP FOR DISCHARGE HOME. IMPORTANT MESSAGE FROM MEDICARE PROVIDED AND EXPLAINED. PROVIDED CM CONTACT INFORMATION TO PT. CM NOTIFIED MAURICIO GREWALVAN DRIVER, OF PT'S DESIRE TO TRANSFER TO [facility] IN [place]. CM RECEIVED MESSAGE FROM BEDSIDE NURSE THAT DOM AT [facility], , IS WORKING WITH THE CASE WITH [facility] TRANSFER LINE. CM WAITING ADMISSION DETERINATION FROM [facility] IN [place]. CM TO CONTINUE TO FOLLOW AND ASSIST NEEDED. Howie Handley, CASE MANAGEMENT DCP- Discharge Planning Updated by [id number]: Cailin Hamilton on 06/07/18 11:[address] BEDSIDE NURSE (HODAN MORENO) CAME AND ASKED ME TO ASSIST DR GATES. HE WANTS TO TRANSFER THE PATIENT TO [facility] FOR PLEURAL EFFUSION SECONDARY TO PD. (WITH NOTATION TO ME THAT THE PATIENT "JUST DOESN'T LIKE US"). OBTAINED HIS CELL NUMBER TO GIVE THE TRANSFER UNIT FO RTHE DOC TO DOC. CALL PLACED TO TRANSFER CENTER ( ) AND I SPOKE WITH ARNOLDO. HE WILL INITIATE THE TRANSFER. I FAXED FACE SHEET TO [phone]. ARNOLDO CALLED BACK FOR CLINICALS, AND THE PHONE CALL GOT SENT TO ME. I GAVE HIM THE INFORMATION THAT COULD BE FOUND IN THE COMPUTER, EXPLAINING THAT I HONESTLY HAVE NOT LAID EYES ON THE PATINET IN A COUPLE OF DAYS. I REQUESTED THAT HE SPEAK TO THE BEDSIDE NURSE WITH FURTHER QUESTIONS. HE EXPLAINED THAT HE TRIED TO SPEAK WITH HER AND FOR SOME REASON WAS TRANSFERRED TO [place]. I EXPLAINED TO SACHA THAT IF THE TRANSFER CENTER CALLS BACK ON THEIR LINE, HE IS NEEDING TO SPEAK TO THE BEDSIDE NURSE AND NOT ME. WILL WAIT FOR RETURN CALL. DCPIA - Discharge Planning Initial Assessment Updated by [id number]: Howie Handley on 06/07/18 5:11 pm * Is the patient Alert and Oriented? Yes * How many steps to enter\\exit or inside your home? RAMP * PCP DR. TUCKER * [facility] [address] * Preadmission Environment Home with Family * ADLs Partial Dependent * Partial ADLs (Assistance needed) Bathing Toileting * Equipment Bedside Commode Shower Chair Wheelchair * Other Equipment NO MEDICAL EQUIPMENT PROVIDER PREFERENCE * List name and contact numbers for known caregivers / representatives who currently or will assist patient after discharge: VAZQUEZ NIEVES (CRAIG), SIGNIFICANT OTHER, * Verbal permission to speak to the caregivers and representatives has been obtained from the patient. Yes * Community resources currently utilized None * Please name any agencies selected above. PT WAS DOING PERITONEAL DIALYSIS AT HOME, THE CATHETER HAS BEEN REMOVED AND HE WILL NEED HEMODIALYSIS * Additional services required to return to the preadmission environment? Yes * Can the patient safely return to the preadmission environment? Yes * Has this patient been hospitalized within the prior 30 days at any hospital? No Coverage Notice Reviewer: [id number] Daisy Handley Notice Issued Date-Time: 06/07/2018 14:50 Notice Type: IM Discharge Notice Notice Delivered To: Patient Relationship to Patient: Hearing Therapist Name: Delivery Method: HAND - Hand Delivered Helen Days: Prior Verbal Notification: Recipient Understood Notice: Yes Recipient Signature: Yes Med Rec Note Co-signed by Attending: Coverage Notice Comment: Last DP export: 06/11/18 10:15 Patient Name: SONYA FLORIAN Page 08289 at 1122 All edits/amendments must be made on the electronic document DICTATION DATE: 06/11/181120 PRODUCE DEPARTMENT MANAGER: RAY 06/11/18 112 RPT#: [id number] DC DATE:06/08/18 STATUS: DIS IN [facility] [address] [place] [address] END OF REPORT
--- NOTE | 2018-06-14 09:29 | OP ---
PATIENT NAME: SONYA LEROY MEDICAL RECORD: [id number] :56 LOCATION:D.M2 D.2109 ADMISSION DATE:05/29/18 SURGEON: FARIDA LINDO MD DATE OF OPERATION: 06/04/2018 REFERRED BY: Tadeo Myers MD PRIMARY CARE PHYSICIAN: Frandy Tucker MD PREOPERATIVE DIAGNOSES: End-stage renal disease and dependence on dialysis with a pleural effusion complicating peritoneal dialysis and necessitating cessation of peritoneal dialysis and initiation of hemodialysis. POSTOPERATIVE DIAGNOSES: End-stage renal disease and dependence on dialysis with pleural effusion complicating peritoneal dialysis and necessitating cessation of peritoneal dialysis and initiation of hemodialysis, broken peritoneal dialysis catheter with subcutaneous leak. SURGEON: Farida Lindo MD ANESTHESIA: General with LMA per MANPOWER DEVELOPMENT SPECIALIST MANAGER. OPERATION PERFORMED: Ultrasound-guided insertion of a 23 cm HemoSplit tunneled dialysis catheter via the left internal jugular vein and removal of peritoneal dialysis catheter. OPERATIVE COMPLICATIONS: Right inferior epigastric artery tear with hemorrhage, requiring transfusion. PREOPERATIVE NOTE: Mr. Leroy is a 57-year-old white male with end-stage renal disease, who has had hemodialysis with catheters in the past. More recently, I have created a brachial artery to basilic vein AV fistula and planned a second stage operation for translocation of the basilic vein, but that has not been done due to him falling out of his wheelchair and breaking his arm. I have done laparoscopic implantation of a Merit peritoneal dialysis catheter in the right pelvis with a subcutaneous extension exiting in the right upper quadrant. The patient has had difficulties with insufficient fluid removal and development of a pleural effusion requiring chest tube drainage and he is now brought to the operating room to place a tunneled dialysis catheter for hemodialysis and to remove the peritoneal catheter. DESCRIPTION OF PROCEDURE: Under general anesthesia with LMA by MANPOWER DEVELOPMENT SPECIALIST MANAGER, he was prepped and draped in sterile manner. The right internal jugular was examined with ultrasound and noted to be small and sclerotic. The left internal jugular vein was imaged sonographically. It was of normal caliber, it was fully compressible, and an incision was then made there at the base of the neck on the left, and through that incision a micropuncture needle was inserted with the ultrasound guidance. A guidewire followed and that was replaced with a larger introducer and a larger guidewire, and under fluoroscopy dilators were passed over the guidewire with the guidewire positioned initially in the inferior vena cava and lastly a dilator peel-away sheath was inserted and then a 23 cm HemoSplit catheter was brought through a subcutaneous incision from a small infraclavicular incision and passed through the peel-away sheath. It was positioned nicely in the right atrium. Both lumens were accessed and aspirated, they returned blood easily. They were then flushed easily with saline and OPERATIVE REPORT [id number] SONYA LEROY lastly they were heparin-locked, clamped and capped. The cervical incision was closed with an interrupted inverted 3-0 Vicryl and Dermabond glue and dressed with Maxorb Ag, Tegaderm, and Cavilon skin prep. The catheter was sutured to the skin at the entry site with 2-0 Prolene and a standard CVL dressing with chlorhexidine impregnated disc applied. The abdomen was then exposed already having been prepped and draped. I used a combination of fluoroscopy and ultrasound to follow the tract of the subcutaneous portion of the dialysis catheter from the right upper quadrant exit site, noted immediately on fluoroscopy was the fact that the two catheter segments had become disconnected and the titanium connector was free in the middle, not attached to either. I made an incision over the connector and exposed the superior segment of the catheter and exposed the connector, which was removed. The Dacron felt cuff on this upper portion was just about a centimeter from the exit sites, so this required an additional incision there at the exit site to free up the Dacron felt cuff from the surrounding tissues and removed that segment. I placed the inferior segment on traction and was able to palpate the catheter just below the incision beneath the umbilicus and made a transverse incision through the old scar there and exposed the catheter with electrocautery, extended the dissection down to the anterior rectus sheath and opened that and dissected the deeper Dacron felt cuff from the surrounding tissues and removed that deeper catheter segment. At that point, a rather dramatic hemorrhage emanated from the wound. This required extension of the incision both to the left and right, and there was about 2000 units of blood lost in a very short period of time before the bleeding torn inferior rectus artery, which was quite large, was identified, clamped and suture ligated. The artery was noted to be atherosclerotic and although it was torn completely in two, the lower portion of the artery did not contract and bled freely. The superior portion of that artery fortunately did contract and was not bleeding. It was also suture ligated. The patient did have some fluid collected along the catheter from the broken connection down to the anterior rectus sheath and this fluid was obviously peritoneal dialysis fluid, which had leaked from the catheter and it was suctioned away and the wounds irrigated with saline and then the fascia of the lower incision was closed with interrupted [id number] 0 Vicryl. The wounds were then all infiltrated with 0.5% Marcaine with epinephrine and closed with interrupted 3-0 Vicryl and estephania. Sterile dressings were applied and the patient was awakened and taken to the recovery room in stable condition. The patient was given 2 units of type O negative blood during the rapid hemorrhage and did not have significant shock or hypotension during this time. It is my opinion that this blood transfusion was needed and very necessary to prevent further complications. No drain was used. All sponges, instruments and needles were accounted for. No surgical specimen was submitted for histopathology. In future, I actually would consider the patient again for a peritoneal dialysis as that is if I can find an explanation for how subcutaneous leakage of the peritoneal dialysis catheter might have caused his pleural effusion. TRANSINT:[id number] Voice Confirmation ID: [id number] DOCUMENT ID: [id number] OPERATIVE REPORT [id number] SONYA LEROY JAMES MD at 0929 CC: FRANDY TUCKER MD and TADEO MYERS MD [id number] DICTATION DATE: 06/04/18 1228 PSYCHOLOGY LECTURER: 06/04/18 1335 DIS IN 06/08/18 [facility] [address] [place] [address]
== END 2018-06-08 19:58 | disposition home health service (06) | DRG 981 ==
LOC: D.ER 17:58 → D.EDHOLD 22:00 → D.M2 22:00
PROVIDERS: Family Medicine; General Practice; Internal Medicine Nephrology; Internal Medicine Pulmonary Disease; Surgery; ADMIT Internal Medicine
PROC: 0W9930Z Drainage of Right Pleural Cavity with Drainage Device, Percutaneous Approach (ICD-10-PCS; 2018-05-31 10:30)
PROC: 0JH63XZ Insertion of Tunneled Vascular Access Device into Chest Subcutaneous Tissue and Fascia, Percutaneous Approach (ICD-10-PCS; 2018-06-04)
PROC: 05HN33Z Insertion of Infusion Device into Left Internal Jugular Vein, Percutaneous Approach (ICD-10-PCS; 2018-06-04)
PROC: B544ZZA Ultrasonography of Left Jugular Veins, Guidance (ICD-10-PCS; 2018-06-04)
PROC: 0WPG03Z Removal of Infusion Device from Peritoneal Cavity, Open Approach (ICD-10-PCS; principal; 2018-06-04 09:00)
DX: T85.611A Breakdown (mechanical) of intraperitoneal dialysis catheter, initial encounter (principal); I50.33 Acute on chronic diastolic (congestive) heart failure; J18.9 Pneumonia, unspecified organism; N18.6 End stage renal disease; I13.2 Hypertensive heart and chronic kidney disease with heart failure and with stage 5 chronic kidney disease, or end stage renal disease; J90 Pleural effusion, not elsewhere classified; J98.11 Atelectasis; E11.22 Type 2 diabetes mellitus with diabetic chronic kidney disease; Z99.2 Dependence on renal dialysis; E87.6 Hypokalemia; J98.01 Acute bronchospasm; I27.20 Pulmonary hypertension, unspecified; D64.9 Anemia, unspecified; E78.5 Hyperlipidemia, unspecified; Y83.8 Other surgical procedures as the cause of abnormal reaction of the patient, or of later complication, without mention of misadventure at the time of the procedure

== ENCOUNTER → 2018-06-28 16:07 | Outpatient (CLI) | payer MEDICARE, MEDICAID ==
[2018-05-30 14:58] VITALS: BMI 31.4
[~2018-06-28 16:07] MED LIST changes: +COZAAR50 MG PO; +DUREZOL5 ML EACH EYE; +FUROSEMIDE20 MG; +LASIX40 MG PO; +OXYCODONE-APAP1 TAB PO; +TOBREX5 ML RIGHT EYE
== END | disposition home or self-care (01) ==
LOC: D.RAD 16:07
DX: J90 Pleural effusion, not elsewhere classified (principal)

== ENCOUNTER 2018-07-20 06:10 | Day surgery (SDC) | payer MEDICARE, MEDICAID ==
[2018-07-19 14:55] LABS: BASOPHILS 0.5 % (0-2); EOSINOPHILS 5.1 % (0-7); HEMATOCRIT 34.4 % (42.0-54.0); HEMOGLOBIN 10.9 g/dL (13.5-17.5); LYMPHOCYTES 33.5 % (15-50); MCH 31.1 pg (26.0-34.0); MCHC 31.7 g/dL (31.0-37.0); MCV 98.3 fL (80.0-100.0); MONOCYTES 13.7 % (2-11); NEUTROPHILS 47.2 % (40-80); PLATELET COUNT 209 10x3/uL (130-400); RDW 15.6 % (11.5-14.5); WBC 3.7 10x3/uL (4.8-10.8)
[2018-07-19 15:05] LABS: INR 1.03 (0.85-1.17)
[2018-07-19 15:21] LABS: ANION GAP 13.1 mmol/L (8-16); CALCIUM 8.3 mg/dL (8.5-10.1); CARBON DIOXIDE 29.4 mmol/L (21.0-32.0); CREATININE - SERUM 3.5 mg/dL (0.6-1.3); POTASSIUM - SERUM 3.5 mmol/L (3.5-5.1)
[~2018-07-20] VITALS: Ht 182.9 cm; Wt 99.8 kg
[2018-07-20] MEDS ORDERED: DIFLUCAN100 MG PO (06:47)
[2018-07-20 06:50] VITALS: Ht 182.9 cm; Wt 99.8 kg
--- NOTE | 2018-07-20 11:30 | NUR ---
REC'D FROM RR. FRIEND AT BEDSIDE. DRESSING CDI TO LEFT UPPER AVF. BRUIT AND THRILL PRESENT. SCARLETT CHRISTENSEN SERVED,
--- NOTE | 2018-07-20 12:00 | NUR ---
EATING FL TRAY. FRIEND AT BEDSIDE. NO C/O VOICED.
--- NOTE | 2018-07-20 13:15 | NUR ---
TOLERATED FL TRAY. IV DC'D WITH CATHETER INTACT.
--- NOTE | 2018-07-20 13:20 | NUR ---
WRITTEN AND VERBAL DC INST GIVEN TO PT. VERBALIZED UNDERSTANDING. SLING APPLIED TO LEFT ARM.
--- NOTE | 2018-07-20 13:30 | NUR ---
DC'D HOME WITH FRIEND VIA PRIVATE VEHICLE. TAKEN TO VEHICLE PER PRIVATE WHEELCHAIR. STABLE AT TIME OF DC.
--- NOTE | 2018-07-27 13:37 | OP ---
PATIENT NAME: SONYA FLORIAN MEDICAL RECORD: [id number] :56 LOCATION:[facility] ADMISSION DATE: SURGEON: FARIDA LINDO MD DATE OF OPERATION: 07/20/2018 REFERRING PHYSICIAN: Matt Castillo MD DIAGNOSES: End-stage renal disease and dependence on hemodialysis. OPERATION PERFORMED: Second stage creation of a left brachial artery to translocated basilic arteriovenous fistula. SURGEON: Farida Lindo MD ANESTHESIA: General anesthesia via LMA per CHIP BIN CONVEYOR TENDER. PREOPERATIVE NOTE: This 57-year-old man is presently on hemodialysis with a left internal jugular vein catheter and has had a brachiobasilic Tiny type AV fistula created as a first stage in preparation for creation of a translocated basilic vein fistula. In the meantime since that operation to create the fistula had a laparoscopic peritoneal dialysis catheter implanted and removed due to complications. Today, we planned to complete the translocated fistula. 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 Hicks has only fairly recently finally taken care of and Dr. Hicks has expressed concern about the patient even having a left-sided internal jugular dialysis catheter. I have told him that I think his risk of infection would be higher with the groin catheter. I thought we will hopefully be able to get this catheter out as soon as possible. Under anesthesia in supine position, the patient was prepped and draped in sterile manner. The patient has some contracture type or limited range of motion of the left shoulder and it was difficult to abduct it fully, but it was abducted fairly easily about 75 degrees. I used ultrasound to trace the course of the basilic vein from the arterial anastomosis proximally. I thought it was somewhat disappointingly small in the distal third of the arm. I made a long incision from axilla to antecubital space and exposed the vein and mobilized it fully to the arterial anastomosis. There was a segment of strictured vein in the JA area. I clamped the vein close to the arterial anastomosis and transected it on the bevel. I then flushed it with heparinized saline and treated it with more topical papaverine. The area of stenosis was subsequently able to be excised as I had enough redundancy in the vein for that. I made a subcutaneous tunnel not as far anterior as I would have preferred, but I thought all I could get and I placed the vein as superficially as possible. I then did an end-to-end [id number] anastomosis with a running 7-0 Prolene and when the occluding clamps and loops were released, excellent flow was restored within the basilic vein and fistula and the suture line was hemostatic. The wound was irrigated with saline and then infiltrated with 0.25% Marcaine with epinephrine and then closed without the use of a drain with interrupted 3-0 Vicryl and running intracuticular 4-0 Monocryl. The incision was sealed with glue and dressed with Maxorb Ag, Tegaderm, and Cavilon skin prep, and the patient awakened and taken to the recovery room. Blood loss during the operation was about 5 cc. None was replaced. Sponges, instruments, and needles were accounted for. No surgical specimen was submitted OPERATIVE REPORT [id number] SONYA FLORIAN for histopathology. PLAN: I will have the patient back to see me in my office about 10 days from now. I will have home health see him to check on his wound and he will be going to dialysis in [place] on his usual schedule for dialysis via his tunneled dialysis catheter. Hopefully, this fistula will go ahead and develop now that the stenotic segment has been treated. I will recommend that he have an angiogram in 3-4 weeks and certainly if it is not developing as expected. If the fistula does not develop relatively quickly, I would not hesitate to go on to placing a graft so we can get his catheter out sooner. TRANSINT:[id number] Voice Confirmation ID: [id number] DOCUMENT ID: [id number] cc: Elliott Nichols FARIDA LINDO MD at 1337 CC: ELLIOTT NICHOLS and MATT CASTILLO [id number] DICTATION DATE: 07/20/18 183 ROLL FORGER: 07/20/182152 [facility] 07/20/18 [facility] [address] [place] [address]
== END 2018-07-20 13:30 | disposition home or self-care (01) ==
LOC: D.OPS 06:10 → D.PAN 08:00 → D.OPS 08:00
PROVIDERS: Surgery
DX: N18.6 End stage renal disease (principal); E11.22 Type 2 diabetes mellitus with diabetic chronic kidney disease; I12.0 Hypertensive chronic kidney disease with stage 5 chronic kidney disease or end stage renal disease; Z99.2 Dependence on renal dialysis; I25.10 Atherosclerotic heart disease of native coronary artery without angina pectoris; Z01.812 Encounter for preprocedural laboratory examination

== ENCOUNTER 2018-10-23 06:45 | Day surgery (SDC) | payer MEDICARE, MEDICAID ==
[2018-10-22 11:42] LABS: BASOPHILS 0.5 % (0-2); EOSINOPHILS 4.3 % (0-7); HEMOGLOBIN 10.5 g/dL (13.5-17.5); IMMATURE GRANULOCYTES 0.2 % (0-5); MCH 29.7 pg (26.0-34.0); MCHC 31.8 g/dL (31.0-37.0); MCV 93.5 fL (80.0-100.0); MEAN PLATELET VOLUME 10.2 fL (7.4-10.4); MONOCYTES 9.2 % (2-11); NEUTROPHILS 50.8 % (40-80); PLATELET COUNT 178 10x3/uL (130-400); RBC 3.53 10x6/uL (4.20-6.10); RDW 13.9 % (11.5-14.5); WBC 4.4 10x3/uL (4.8-10.8)
[2018-10-22 11:50] LABS: INR 0.98 (0.85-1.17); PROTIME 12.5 SECONDS (11.6-15.0)
[2018-10-22 11:54] LABS: ANION GAP 12.3 mmol/L (8-16); CALCIUM 8.9 mg/dL (8.5-10.1); CARBON DIOXIDE 28.9 mmol/L (21.0-32.0); CREATININE - SERUM 8.3 mg/dL (0.6-1.3); POTASSIUM - SERUM 5.2 mmol/L (3.5-5.1)
[~2018-10-23] VITALS: Ht 182.9 cm; Wt 99.8 kg
[~2018-10-23 06:45] MED LIST changes: +DIFLUCAN100 MG PO; +NITROQUICK0.4 MG SL
[2018-10-23 07:18] VITALS: Ht 182.9 cm; Wt 99.8 kg
--- NOTE | 2018-10-23 14:19 | NUR ---
1350 HOB UP 90 DEGREES. B/P 106/78 PT STATES HIS B/P FLUCTUATES AND LAST SURGERY HE WAS HOSPITALIZED FOR 2 DAYS DUE TO B/P ISSUES. AFTER ONE MINUTE ON SITTING ON SOB A REPEAT B/P WAS TAKEN- 122/71. DR. LINDO'S NURSE HERE AND AWARE THAT B/P HAS BEEN STABLE FOR LAST SEVERAL CYCLES.
--- NOTE | 2018-10-23 14:52 | NUR ---
1440 IV DISCONNECTED FROM HEMOSPLIT. HUB WIPED WITH ALCOHOL AND THEN FLUSHED WITH 2100 UNITS OF HEPARIN AND CLAMPED. SITE COVERED WITH HEMOSPLIT HUB.
--- NOTE | 2018-10-23 15:10 | NUR ---
1445 B/P 131/37 HR 76 R 16 O2 SAT 97% PT IS TALKATIVE AND CHEERFUL. STATES HE IS READY TO GO HOME. DR. LINDO CAME BY AND SPOKE WITH PT AND AGREES PT IS READY TO BE DISCHARGED HOME.
--- NOTE | 2018-10-24 16:31 | OP ---
PATIENT NAME: SONYA FLORIAN MEDICAL RECORD: [id number] :56 LOCATION:[facility] ADMISSION DATE: SURGEON: FARIDA LINDO MD DATE OF OPERATION: 10/23/2018 REFERRING PHYSICIAN: Khadra Gardiner MD PREOPERATIVE DIAGNOSES: End-stage renal disease and dependence on hemodialysis, diabetes, hypertension, coronary artery disease, mechanical complications of prior PD catheter, and thrombosed right arm AV graft. POSTOPERATIVE DIAGNOSES: End-stage renal disease and dependence on hemodialysis, diabetes, hypertension, coronary artery disease, mechanical complications of prior PD catheter, and thrombosed right arm AV graft. OPERATION PERFORMED: Implantation of a 6-mm x 40-cm Artegraft in the left arm in a loop configuration from the proximal brachial artery back to the proximal basilic vein. DESCRIPTION OF PROCEDURE: I made a vertical incision on the medial aspect of the arm and exposed the brachial artery just above the antecubital space. I found it to be quite atherosclerotic and I was concerned that putting a graft on that might lead to steal syndrome. I made a second incision longitudinally just distal to the axilla and exposed the most proximal brachial artery and the proximal basilic vein. These vessels were quite suitable, I thought, for a graft. The vein was controlled with Silastic loops. It was opened and flushed with heparinized saline. An Artegraft was rinsed and prepared for anastomosis. It was shortened, bevelled, and anastomosed end-to-side of the vein with running 6-0 Prolene. When completed, the graft and anastomosis were flushed with heparinized saline and the suture line was hemostatic. The graft was clamped. It was pulled through a very shallow subcutaneous tunnel down to the initial incision just above the elbow and then back up to the proximal incision, where it was shortened and beveled. The artery was occluded, controlled with Silastic loops, opened, and flushed with heparinized saline. The graft was then anastomosed end-to-side of the artery with running 6-0 Prolene. When completed, that suture line was hemostatic, and with release of the occluding loops and clamps, excellent flow was established within this new loop AV graft in the right arm. Doppler examination demonstrated pulsatile flow in the distal brachial artery and in the radial and ulnar arteries, which persisted when the graft was opened and was enhanced with digital compression of the graft. The wounds were irrigated with saline and infiltrated with 0.25% Marcaine without epinephrine. The wounds were closed with interrupted inverted 3-0 Vicryl and running intracuticular 4-0 Monocryl, Dermabond glue, and Maxorb Ag. They were dressed further with Tegaderm and Cavilon skin prep. The patient was awakened and taken to the recovery room in stable condition. Blood loss during the operation perhaps 5 cc, was unreplaced. Sponges, instruments, and needles were accounted for. No drain was used and no surgical specimen submitted for histopathology. The patient will be discharged to home today with a prescription for [place] 5/325. He can take one or two p.o. q. 4 hours p.r.n. pain. He will come back to see me in my office in the next week or 10 days. I anticipate that his new OPERATIVE REPORT [id number] SONYA FLORIAN AV graft can be utilized for dialysis in 2 weeks and hopefully surely, soon after that, he will be able to have his tunneled dialysis catheter removed. TRANSINT:[id number] Voice Confirmation ID: [id number] DOCUMENT ID: [id number] FARIDA LINDO MD at 1631 CC: KHADRA GARDINER MD [id number] DICTATION DATE: 10/23/18 1412 ANIMAL SHELTER CLERK: 10/23/18 1643 [facility] 10/23/18 [facility] [address] [place] [address]
== END 2018-10-23 15:04 | disposition home or self-care (01) ==
LOC: D.OPS 06:45 → D.PAN 08:00 → D.OPS 15:04
PROVIDERS: Surgery; ATTEND Internal Medicine Nephrology
DX: T82.868A Thrombosis due to vascular prosthetic devices, implants and grafts, initial encounter (principal); E11.22 Type 2 diabetes mellitus with diabetic chronic kidney disease; I12.0 Hypertensive chronic kidney disease with stage 5 chronic kidney disease or end stage renal disease; N18.6 End stage renal disease; Z99.2 Dependence on renal dialysis; Z01.812 Encounter for preprocedural laboratory examination

== ENCOUNTER 2018-12-17 11:40 | Inpatient (IN) | payer MEDICARE, MEDICAID ==
[~2018-12-17] VITALS: Ht 182.9 cm; Wt 105.2 kg
--- NOTE | ~2018-12-17 | HEMODYNAMI ---
PATIENT:SONYA FLORIAN MEDICAL RECORD: [id number] : 56 LOCATION:[facility] D.2120 ADMISSION DATE: 12/17/18 Generatedon:12/18/201811:55 Patient name: SONYA FLORIAN Patient #: [id number] SSN: : 1960 Date of study: 12/18/2018 Page: Of Hemodynamic Procedure Report Patient Data Patient Demographics Procedure consent was obtained First Name: SONYA Gender: Male Last Name: ANIVAL : 1960 [facility] Initial: CELINA Age: 58 year(s) Patient #: [id number] Race: Unknown Additional ID: [id number] Contact details Address: [address] [address] State: [place] City: [place] Zip code: [address] Past Medical History Allergies Allergen Reaction Date Comments Reported Penicillins 12/18/2018 Admission Admission Data Admission Date: 12/17/2018 Admission Time: 17:07 Room #: D.2120 Lab Results Lab Result Date: 12/18/2018 Lab Result Time: 0:00 Biochemistry Name Units Result Min Max BUN mg/dl 69 --(----)-* 7 18 Creatinine mg/dl 9.6 --(----)-* 0.6 1.3 eGFR ml/min 6 *-(----)-- 90 120 NONAFRICAN CBC Name Units Result Min Max Hematocrit % 33.6 *-(----)-- 42 54 Hemoglobin g/dl 10.6 *-(----)-- 13.5 17.5 Procedure Procedure Types Cath Procedure Diagnostic Procedure LHC LHC w/Coronaries w/Grafts Sedation Charges Moderate Sedation up to 15 minutes PCI Procedure Coronary Stent Coronary Stent Initial Procedure Description Procedure Date Procedure Date: 12/18/2018 Procedure Start Time: 11:34 Procedure End Time: 11:53 Procedure Staff Name Function Dane Mccall MD Performing Physician Whit Christianson RT Monitor Ru Bolden RT Scrub Francoise Garza RT Scrub Yovany Quispe RN Nurse Procedure Data Cath Procedure Fluoroscopy Diagnostic fluoroscopy Total fluoroscopy Time: 3.9 time: 3.9 min min Diagnostic fluoroscopy Total fluoroscopy dose: dose: 1298 mGy 1298 mGy Contrast Material Contrast Material Type Amount (ml) Isovue 300 118 Entry Location Entry Primary Successful Side Size Upsize Upsize Entry Closure Succes sful Closure Location (Fr) 1 (Fr) 2 (Fr) Remarks Device Remarks Femoral Right 5 Fr 6 Fr Exoseal artery Short Estimated blood loss: 10 ml Diagnostic catheters Device Type Used For End Catheter Placement MULTIPACK Pigtail 5 Fr Procedure catheter MULTIPACK JL 4.0 5Fr Procedure catheter MULTIPACK 3DRC 5Fr Procedure catheter DIAGNOSTIC AR2 MOD 5 Fr Procedure catheter ([id number]) Procedure Complications No complications Procedure Medications Medication Administration Route Dosage 0.9% NaCl I.V. 10 ml/hr Oxygen etCO2 Nasal cannula 2 l/min Heparin Flush Bag added to field 2 bags (1000units/500ml NS) Lidocaine 2% added to field 20 Versed I.V. 1 mg Fentanyl I.V. 50 mcg Heparin Bolus I.V. 4000 units Integrilin (Bolus I.V. 9 ml 2mg/ml) Integrilin (Bolus wasted 1 ml 2mg/ml) Plavix P.O. 600 mg Hemodynamics Rest HGB: 10.6 (g/dl) Heart Rate: 70 (bpm) Snapshots Pre Cath Intra NCS Post Cath Vital Signs Time Heart Resp SPO2 etCO2 NIBP Rhythm Pain Sedation Rate (ipm) (%) (mmHg) (mmHg) Status Level (bpm) 11:06:36 69 16 100 33.7 83/50(65) NSR 0 (11) 10(A) , No pain 11:12:45 66 15 100 33 140/51(78) NSR 0 (11) 10(A) , No pain 11:23:38 63 17 100 43.5 110/34(69) NSR 0 (11) 10(A) , No pain 11:27:54 62 11 100 42 119/43(84) NSR 0 (11) 9(A) , No pain 11:33:14 62 19 100 41.2 119/48(92) NSR 0 (11) 9(A) , No pain 11:37:34 65 15 100 32.2 123/41(74) NSR 0 (11) 9(A) , No pain 11:41:54 65 15 100 33.7 133/43(97) NSR 0 (11) 10(A) , No pain 11:47:05 68 15 100 35.2 136/42(88) NSR 0 (11) 10(A) , No pain 11:51:23 68 16 100 34.5 135/47(94) NSR 0 (11) 10(A) , No pain Medications Time Medication Route Dose Verified Delivered Reason Notes Effectiveness by by 11:13:06 0.9% NaCl I.V. 10 Yovany Yovany Per physician ml/hr Brittaney Quispe RN RN 11:13:17 Oxygen etCO2 2 Yovany Yovany for low 02 sats Nasal l/min Brittaney Quispe cannula RN RN 11:13:27 Heparin Flush added 2 Yovany Yovany used for Bag to bags Brittaney Quispe procedure (1000units/500ml RN RN NS) 11:13:38 Lidocaine 2% added 20ml Yovany Yovany for local to vial Brittaney Quispe anesthetic RN RN 11:31:14 Versed I.V. 1 mg Yovany Yovany for sedation Brittaney Quispe RN RN 11:31:22 Fentanyl I.V. 50 Yovany Yovany for sedation mcg Brittaney Quispe RN RN 11:44:43 Heparin Bolus I.V. 4000 Yovany Yovany for units Brittaney Quispe anticoagulation RN RN 11:44:56 Integrilin I.V. 9 ml Yovany Yovany for (Bolus 2mg/ml) Brittaney Quispe antiplatelet RN RN therapy 11:45:05 Integrilin wasted 1 ml Yovany Yovany to sharp's (Bolus 2mg/ml) Brittaney Quispe RN RN 11:50:16 Plavix P.O. 600 Yovany Yovany for mg Brittaney Quispe antiplatelet RN RN therapy Procedure Log Time Note 10:48:45 Signed procedure consent form obtained from patient. 10:48:46 Diagnostic Cath status Urgent 10:48:47 Time tracking: Regular hours (M-F 7:00 - 5:00) 10:48:52 Plan of Care:Hemodynamics will remain stable., Cardiac rhythm will remain stable., Comfort level will be maintained., Respiratory function will remain adequate., Patient/ family verbilizes understanding of procedure., Procedure tolerated without complication., Recovers from procedure without complications.. 10:49:03 Patient allergic to Penicillins 10:49:54 Lab Result : BUN 69 mg/dl 10:49:54 Lab Result : eGFR NONAFRICAN 6 ml/min 10:49:54 Lab Result : Creatinine 9.6 mg/dl 10:49:54 Lab Result : Hemoglobin 10.6 g/dl 10:49:54 Lab Result : Hematocrit 33.6 % 10:50:16 Ru BONILLA(R) sent for patient. Start room use. 10:58:14 Patient received from Med II to CCL 2 Alert and oriented. Tansferred to table in Supine position. 10:58:15 Warm blankets applied, and benji hugger turned on for patient comfort. 10:58:16 Correct patient and procedure confirmed by team. 10:58:16 ECG and BP/O2 sat monitors applied to patient. 11:05:19 Vital chart was started 11:05:21 Baseline sample Acquired. 11:05:25 Rhythm: sinus rhythm 11:05:32 Full Disclosure recording started 11:05:34 Pre-procedure instructions explained to patient. 11:05:34 Pre-op teaching completed and patient verbalized understanding. 11:05:35 Family in patients room. 11:05:37 Patient NPO since Midnight. 11:05:46 Patient diabetic? Yes. 11:05:47 If diabetic: On Metformin? No 11:05:51 Previous problem with sedation/anesthesia? No ? 11:05:52 Snore? Yes 11:05:54 Sleep apnea? No 11:05:55 Deviated septum? No 11:05:56 Opens mouth fully? Yes 11:05:58 Sticks out tongue? Yes 11:06:00 Airway obstruction? No ? 11:06:05 Dentures? No ? 11:06:08 Pre procedure: right dorsailis pedis pulse 2+ Normal; easily identifiable; not easily obliterated 11:06:20 Patient pain scale 0/10 ?. 11:06:23 IV patent on arrival in left hand with 0.9% NaCl at KVO. 11:06:25 Lab results completed and on chart. 11:06:28 Right groin area was prepped with chlora-prep and draped in sterile fashion 11:06:29 Alarms reviewed by RDa N. 11:06:29 Sharps counted by scrub and verified by R.N. 11:07:30 Use device set Femoral Dx 11:07:31 ACIST Syringe (64749) opened to sterile field. 11:07:32 Bag Decanter (2002S) opened to sterile field. 11:07:33 ACIST Hand Control (29669) opened to sterile field. 11:07:33 ACIST Manifold (89050) opened to sterile field. 11:07:34 Tegaderm 4 x 4 (1626W) opened to sterile field. 11:07:35 Medline Cath Pack ([id number]) opened to sterile field. 11:07:35 DIAGNOSTIC Multipack 5Fr catheter set (AO1588) opened to sterile field. 11:07:39 SHEATH 5FR [place] (CCF249) opened to sterile field. 11:07:40 DENITAALD Guide Wire (159-194) opened to sterile field. 11:13:06 0.9% NaCl 10 ml/hr I.V. was administered by Yovany Quispe RN; Per physician; 11:13:17 Oxygen 2 l/min etCO2 Nasal cannula was administered by Yovany Quispe RN; for low 02 sats; 11:13:27 Heparin Flush Bag (1000units/500ml NS) 2 bags added to field was administered by Yovany Quispe RN; used for procedure; 11:13:38 Lidocaine 2% 20ml vial added to field was administered by Yovany Quispe RN; for local anesthetic; 11:21:12 Procedure type changed to Cath procedure, Diagnostic procedure, LHC, LHC w/Coronaries w/Grafts, Sedation Charges, Moderate Sedation up to 15 minutes, PCI procedure, Coronary Stent, Coronary Stent Initial 11:24:39 Zero performed for pressure channel P1 11:30:08 --------ALL STOP TIME OUT------ 11:30:08 Final Timeout: patient, procedure, and site verified with staff and physician. All members of the team are in agreement. 11:30:09 Right groin site verified by team. 11:30:12 Fire Safety Assessment: A--An alcohol-based skin anteseptic being used preoperatively., C--Open oxygen or nitrous oxide is being used., D--An ESU, laser, or fiber-optic light is being used. 11:30:15 Physical assessment completed. ASA score P 3 - A patient with severe systemic disease as per Dane Mccall MD. 11:30:26 5) <15 or on dialysis Very severe, or end stage kidney failure. 11:30:30 Maximum allowable contrast does (3.7 X eGFR X 0.75)6 ml. 11:30:33 Sedation plan: IV Moderate Sedation Medication:Versed, Fentanyl 11:31:14 Versed 1 mg I.V. was administered by Yovany Quispe RN; for sedation; 11::22 Fentanyl 50 mcg I.V. was administered by Yovany Quispe RN; for sedation; 11:34:24 Procedure started. 11:34:43 Local anesthetic to right femoral artery with Lidocaine 2% by Dane Mccall MD.INITIAL ACCESS ONLY 11:35:38 A 5 Fr sheath was inserted into the Right Femoral artery 11:35:52 A MULTIPACK Pigtail 5 Fr catheter was advanced over the wire and used for Procedure. 11:36:15 LV gram done using KIRK 11:36:25 Injector settings: Ml/sec: 10, Volume: 20, 11:36:47 EF : 60 % 11:36:52 Catheter removed. 11:36:57 A MULTIPACK JL 4.0 5Fr catheter was advanced over the wire and used for Procedure. 11:38:24 LCA angiography performed. 11:38:26 Catheter removed. 11:38:31 A MULTIPACK 3DRC 5Fr catheter was advanced over the wire and used for Procedure. 11:39:32 TAVERA to LAD angiography performed. 11:40:05 RCA angiography performed. 11:40:08 Catheter removed. 11:40:27 SHEATH 6FR [place] (PTW551) opened to sterile field. 11:40:35 Sheath upsized to a 6 Fr Short. 11:40:46 A DIAGNOSTIC AR2 MOD 5 Fr catheter ([id number]) was advanced over the wire and used for Procedure. 11:41:22 SVG to OM angiography performed. 11:42:09 SVG to RCA angiography performed. 11:42:16 Catheter removed. 11:42:33 CHOICE PT Extra Support 182cm wire ([id number]) opened to sterile field. 11:42:34 INFLATOR Merit BasixCompak (UF4681) opened to sterile field. 11:42:43 GUIDE 6FR XBC 3 ([id number]) opened to sterile field. 11:42:52 6 Fr XBC 3 guide catheter was inserted over the wire 11:43:46 CHOICE ES 182 wire advanced. 11:44:43 Heparin Bolus 4000 units I.V. was administered by Yovany Quispe RN; for anticoagulation; 11:44:48 Wire advanced across lesion. 11:44:56 Integrilin (Bolus 2mg/ml) 9 ml I.V. was administered by Yovany Quispe RN; for antiplatelet therapy; 11:45:05 Integrilin (Bolus 2mg/ml) 1 ml wasted was administered by Yovany Quispe RN; to sharp's; 11:46:10 Place stent Inflation Number: 1 A ITZ RX 2.5 x 15 stent ([id number]) was prepped and advanced across the Mid CX 80. The stent was deployed at 13 ANILA for 0:00 (min:sec) 0. 11:46:34 Inflation number: 2 The stent balloon was then re-inflated across the Mid CX 0 to 19 ANILA for 0:00 (min:sec) . 11:46:49 Stent catheter was removed intact over wire. 11:46:50 Wire removed. 11:46:51 Guide catheter removed. 11:47:26 EXOSEAL 6Fr (EX600) opened to sterile field. 11:47:36 Sheath removed intact; hemostasis achieved with Exoseal to the Right Femoral artery. 11:47:38 Procedure ended.(Physican Out) 11:48:25 Fluoroscopy time 03.90 minutes. 11:48:29 Fluoroscopy dose: 1298 mGy 11:48:29 Flurop Dose total: 1298 11:48:33 Contrast amount:Isovue 300 118ml. 11:48:34 Sharps counted by scrub and verified by R.N. 11:48:38 Post-op/insertion site Right Femoral artery dressed using a 4 x 4 and Tegaderm. 11:48:41 Post-procedure physical assessment completed. ASA score P 3 - A patient with severe systemic disease as per Dane Mccall MD. 11:48:43 Post procedure rhythm: sinus rhythm 11:48:46 Estimated blood loss: 10 ml 11:48:47 Post procedure instruction explained to patient.Patient verbalizes understanding. 11:48:47 Patient needs reinforcement of post procedure teaching. 11:50:16 Plavix 600 mg P.O. was administered by Yovany Quispe RN; for antiplatelet therapy; 11:50:54 Procedure and supply charges have been captured, reviewed, submitted and are correct. 11:50:58 Procedure Complication : No complications 11:53:01 Vital chart was stopped 11:53:01 See physician's report for complete and final results. 11:53:03 Report given to Pre/Post Procedure Room. 11:53:07 Patient transfered to Pre/Post Procedure Room with Bed. 11:53:09 Procedure ended. 11:53:09 Full Disclosure recording stopped 11:53:12 End room use (Document Last) Intervention Summary Intervention Notes Time ActionType Lesion and Equipment Used Action# Pressure Duration Attributes 11:46:10 Place stent Mid CX ITZ RX 2.5 x 1 13 00:00 15 stent ([id number]) 11:46:34 Reinflate Mid CX ITZ RX 2.5 x 2 19 00:00 stent 15 stent balloon ([id number]) Device Usage Item Name Manufacture Quantity Catalog Number Hospital Part Current M inimal Lot# / Charge Number Stock Stock Serial# Code ACIST Syringe Acist 1 82472 176618 439424 866422 2 0 (72770) Medical Systems Inc Bag Decanter Microtek 1 2001S 606159 72032 950196 5 (2001S) Medical Inc. ACIST Hand Acist 1 81982 455421 560694 008752 5 Control Medical (53151) Systems Inc ACIST Manifold Acist 1 85016 521234 757038 535292 5 (00256) Medical Systems Inc Tegaderm 4 x 4 3M 1 1626W 952011 449065 867193 5 (1626W) Medline Cath Medline 1 [id number] 381971 60003 010075 5 Pack ([id number]) DIAGNOSTIC Cardinal 1 IZ8075 944970 81285 128854 3 0 Multipack 5Fr Health catheter set (MO9787) SHEATH 5FR Terumo 1 GDE017 047605 345050 895455 5 [place] (WIH886) EMERALD Guide Cardinal 1 502-834 392182 034592 902450 5 Wire (339-671) Health MULTIPACK Cardinal 1 555091 5 Pigtail 5 Fr Health catheter MULTIPACK JL Cardinal 1 426058 5 4.0 5Fr Health catheter MULTIPACK 3DRC Cardinal 1 607277 5 5Fr catheter Health SHEATH 6FR Terumo 1 GRS304 898545 733511 582663 4 0 [place] (JBV574) DIAGNOSTIC AR2 Cardinal 1 356910I 317846 356554 722418 2 0 MOD 5 Fr Health catheter (946883G) CHOICE PT [place] 1 [id number] 205890 550160 723681 5 Extra Support Scientific 182cm wire (5150650L4) INFLATOR Merit Merit 1 TL0204 243436 016124 875648 1 5 FREEjit (MJ3715) GUIDE 6FR XBC Cardinal 1 84097905 349718 31406 698760 5 3 (33312511) Health ITZ RX 2.5 x Medtronic 1 [id number] 999012 8599150 914413 5 [id number] 15 stent ([id number]) EXOSEAL 6Fr Cardinal 1 EX600 729399 079814 683864 1 0 (EX600) Health Signature Audit [place] Stage Time Signature Unsigned Intra-Procedure 12/18/2018 Whit Christianson 11:55:52 AM RT(R) Signatures Monitor : Whit Christianson Signature : RT Date : Time : [address] [address]
[2018-12-17 12:03] VITALS: BP 202/80
--- NOTE | 2018-12-17 12:03 | NUR ---
EDP AT BEDSIDE AND IS AWARE OF PT'S BP.
[2018-12-17 12:22] LABS: BASOPHILS 0.2 % (0-2); EOSINOPHILS 2.4 % (0-7); HEMATOCRIT 33.6 % (42.0-54.0); HEMOGLOBIN 10.6 g/dL (13.5-17.5); IMMATURE GRANULOCYTES 0.2 % (0-5); LYMPHOCYTES 12.8 % (15-50); MCH 31.3 pg (26.0-34.0); MCHC 31.5 g/dL (31.0-37.0); MCV 99.1 fL (80.0-100.0); MEAN PLATELET VOLUME 10.1 fL (7.4-10.4); MONOCYTES 12.1 % (2-11); NEUTROPHILS 72.3 % (40-80); PLATELET COUNT 158 10x3/uL (130-400); RBC 3.39 10x6/uL (4.20-6.10); RDW 14.9 % (11.5-14.5); WBC 5.1 10x3/uL (4.8-10.8)
[2018-12-17 12:33] LABS: ALBUMIN 3.6 g/dL (3.4-5.0); ALKALINE PHOSPHATASE 127 U/L (46-116); ALT (SGPT) 9 U/L (10-68); BILIRUBIN - TOTAL 0.46 mg/dL (0.2-1.3); CALC OSMOLALITY 289 mosm/kg (275-300); CALCIUM 8.7 mg/dL (8.5-10.1); CARBON DIOXIDE 25.7 mmol/L (21.0-32.0); CHLORIDE - SERUM 99 mmol/L (98-107); CREATININE - SERUM 9.6 mg/dL (0.6-1.3); GLUCOSE 107 mg/dL (74-106); POTASSIUM - SERUM 5.9 mmol/L (3.5-5.1); PROTEIN - SERUM 8.5 g/dL (6.4-8.2); SODIUM 135 mmol/L (136-145); UREA NITROGEN 69 mg/dL (7-18); eGFR NON AFRICAN AMERICAN 6 mL/min (90-120)
[2018-12-17 12:34] LABS: APTT 32.8 SECONDS (22.8-39.4); INR 1.08 (0.85-1.17); PROTIME 13.5 SECONDS (11.6-15.0)
[2018-12-17 12:45] LABS: CKMB 1.5 U/L (0.0-3.6); CREATINE KINASE 47 UL (21-232); MAGNESIUM - SERUM 1.9 mg/dL (1.8-2.4); TROPONIN-I < 0.017 ng/mL (0.000-0.060)
[2018-12-17 13:01] VITALS: BP 192/76
[2018-12-17 13:30] VITALS: BP 190/53
[2018-12-17 14:00] VITALS: BP 177/59
--- NOTE | 2018-12-17 14:25 | NUR ---
PT TRANSFERED TO DIALYSIS VIA STRETCHER AT THIS TIME.
--- NOTE | 2018-12-17 17:17 | NUR ---
PT LEFT ED TO DIALYSIS AT APPROX 1410. ROOM 2120 ASSIGNED TO PT, THIS NURSE CALLED REPORT TO HODAN TRAN AT 1709. DIALYSIS NOTIFIED THAT PT WILL GO TO ASSIGNED BED WHEN DIALYSIS COMPLETE. HODAN TRAN AWARE THAT PT IN DIALYSIS CURRENTLY.
--- NOTE | 2018-12-17 18:29 | NUR ---
DIALYSIS CALLED HE IS FINISHED. THEY PULLED OFF 2.3 LITERS. TRANSPORTED TO 2119 VIA ER [facility]. HE IS ALERT ABLE TO VOICE NEEDS RESP EVEN WITHOUT LABOR. FAMILY AT BEDSIDE. 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 HEPARIN DRIP INFUSING AT 10CC/HR OR 1000U/HR. WEARS A RIGHT BOOT ON FOOT. ORIENT TO ROOM. FAMILY AT BEDSIDE.
--- NOTE | 2018-12-17 19:30 | NUR ---
REPORT RECIEVED AND ROUNDING COMPLETE. PATIENT LAYING IN BED EYES CLOSED, BREATHING EVEN AND UNLABORED. PATIENT HAS A LEFT HAND PIV WITH HEPARIN @ 10ML/HR. PATIENT RESERVES BILATERAL ARMS. PATIENT IS SHOWING NO S/SX OF DISTRESS AT THIS TIME. CALL LIGHT WITHIN REACH AND BED IN LOWEST POSITION.
[2018-12-17 20:00] VITALS: BP 141/44
[2018-12-17 23:25] VITALS: BP 141/44; BMI 31.5
[2018-12-18] VITALS: BP 110/56
--- NOTE | 2018-12-18 01:44 | NUR ---
I have reviewed this patient and I concur with the Shift Assessment completed by the Licensed Practical Nurse today this shift.
[2018-12-18 03:14] LABS: BASOPHILS 0.3 % (0-2); EOSINOPHILS 3.6 % (0-7); HEMATOCRIT 31.2 % (42.0-54.0); HEMOGLOBIN 9.9 g/dL (13.5-17.5); IMMATURE GRANULOCYTES 0.3 % (0-5); LYMPHOCYTES 25.6 % (15-50); MCH 31.5 pg (26.0-34.0); MCHC 31.7 g/dL (31.0-37.0); MCV 99.4 fL (80.0-100.0); MEAN PLATELET VOLUME 9.7 fL (7.4-10.4); MONOCYTES 22.3 % (2-11); NEUTROPHILS 47.9 % (40-80); PLATELET COUNT 132 10x3/uL (130-400); RBC 3.14 10x6/uL (4.20-6.10)
[2018-12-18 03:24] LABS: WBC 3.1 10x3/uL (4.8-10.8)
[2018-12-18 03:38] LABS: CALCIUM 8.5 mg/dL (8.5-10.1); CHLORIDE - SERUM 101 mmol/L (98-107); GLUCOSE 88 mg/dL (74-106); SODIUM 138 mmol/L (136-145); TROPONIN-I < 0.017 ng/mL (0.000-0.060)
[2018-12-18 03:39] LABS: CALC OSMOLALITY 284 mosm/kg (275-300); CARBON DIOXIDE 33.3 mmol/L (21.0-32.0); CREATININE - SERUM 6.6 mg/dL (0.6-1.3); POTASSIUM - SERUM 4.9 mmol/L (3.5-5.1); UREA NITROGEN 40 mg/dL (7-18); eGFR NON AFRICAN AMERICAN 9 mL/min (90-120)
[2018-12-18 04:30] VITALS: BP 106/35
--- NOTE | 2018-12-18 07:51 | NUR ---
BEDSIDE REPORT FROM INSTALLER INSPECTOR FINAL NURSE. PT IS NPO FOR HEART CATH THIS AM. HEP GTT GOING AT 12. HOWEVER, DR. ZARAGOZA JUST DC GTT. WILL GET CONSENTS SIGNED.
[2018-12-18 08:14] VITALS: Ht 182.9 cm; Wt 105.2 kg
[2018-12-18 09:18] VITALS: BP 122/38
--- NOTE | 2018-12-18 12:41 | NUR ---
BACK FROM VAULT TELLER. R GROIN CLEAN DRY NO SIGNS OF EDEMA. PT INSTRUCTED TO LAY FLAT FOR 4 HOURS.
--- NOTE | 2018-12-18 15:56 | NUR ---
NO SIGNS OF EDEMA NOR BLEEDING ON SITE. NO DISTRESS NOTED.
[2018-12-18 15:57] VITALS: BP 133/46
--- NOTE | 2018-12-18 16:23 | NUR ---
HOB ELEVATED. NO DISTRESS VS STABLE. NO BLEEDING, NO EDEMA FROM SITE.
[2018-12-18 18:49] VITALS: BP 140/67
--- NOTE | 2018-12-18 19:26 | NUR ---
RECEIVED PATIENT. RESTING IN BED. RR EVEN AND UNLABORED. NO S/S OF DISTRESS NOTED. DENIES NEEDS AT THIS TIME. WILL CPOC.
[2018-12-19] VITALS: BP 102/36
--- NOTE | 2018-12-19 01:47 | NUR ---
PT RESTING QUIETLY IN BED. RR EVEN AN UNLABORED. DENIES PAIN AT THIS TIME. DRESSING TO R GROIN C/D/I. NO S/S OF DISTRESS NOTED. WILL CPOC.
[2018-12-19 04:30] VITALS: BP 109/26
[2018-12-19 05:10] LABS: BASOPHILS 0.5 % (0-2); EOSINOPHILS 5.2 % (0-7); HEMATOCRIT 31.6 % (42.0-54.0); HEMOGLOBIN 10.1 g/dL (13.5-17.5); IMMATURE GRANULOCYTES 0.2 % (0-5); LYMPHOCYTES 27.4 % (15-50); MCH 32.2 pg (26.0-34.0); MCV 100.6 fL (80.0-100.0); MEAN PLATELET VOLUME 10.8 fL (7.4-10.4); MONOCYTES 18.2 % (2-11); NEUTROPHILS 48.5 % (40-80); PLATELET COUNT 136 10x3/uL (130-400); RBC 3.14 10x6/uL (4.20-6.10); RDW 15.2 % (11.5-14.5)
[2018-12-19 05:23] LABS: WBC 4.2 10x3/uL (4.8-10.8)
[2018-12-19 05:37] LABS: ANION GAP 14.6 mmol/L (8-16); CALCIUM 7.8 mg/dL (8.5-10.1); CARBON DIOXIDE 26.7 mmol/L (21.0-32.0); CREATININE - SERUM 8.2 mg/dL (0.6-1.3); POTASSIUM - SERUM 5.3 mmol/L (3.5-5.1)
--- NOTE | 2018-12-19 08:04 | NUR ---
REPORT RECEIVED. WILL CONTINUE WITH POC. PT CURRENTLY LYING SEMI FOWLERS. CALL LIGHT W/I REACH. PT IS RESTING AT THE MOMENT. FAMILY AT BEDSIDE. RR EVEN AND UNLABORED ON RA. L.HAND PIV IS SALINE LOCKED. NO S/S OF DISTRESS NOTED. PT DENIES ANY NEEDS AT THIS TIME. WILL CTM.
[2018-12-19 08:41] VITALS: BP 122/27
[2018-12-19] MEDS ORDERED: RENVELA800 MG PO (09:15)
--- NOTE | 2018-12-19 11:00 | NUR ---
PT TRANSFERED TO DIALYSIS. WILL CTM.
--- NOTE | 2018-12-19 15:11 | NUR ---
I have reviewed this patient and I concur with the Shift Assessment completed by the Licensed Practical Nurse today this shift.
--- NOTE | 2018-12-19 16:26 | NUR ---
PT CURRENTLY LYING SEMI FOWLERS. CALL LIGHT W/I REACH. PT IS AAO AND DENIES ANY NEEDS AT THIS TIME. NO FAMILY PRESENT. WILL CTM.
[2018-12-19 18:15] VITALS: BP 113/27
--- NOTE | 2018-12-19 18:43 | NUR ---
PT SEMI FOWLERS. RR UNLABORED AND EVEN. CALL LIGHT WITH REACH. PT DENIES ANY FUTHER NEEDS AT THIS TIME. WILL CONT WITH POC.
--- NOTE | 2018-12-19 19:54 | NUR ---
RESUMING PATIENT CARE. PATIENT IS ALERT AND ORIENTED, RESTING COMFORTABLY ION BED. RESPIRATIONS ARE EVEN AND UNLABORED. NO S/S OF DISTRESS. NO C/O PAIN. DENIES NEEDS AT THIS TIME. CALL LIGHT WITHIN REACH. WILL CPOC.
[2018-12-19 20:00] VITALS: BP 101/62
[2018-12-20] VITALS: BP 100/68
[2018-12-20 04:00] VITALS: BP 110/56
[2018-12-20 05:56] LABS: BASOPHILS 0.6 % (0-2); HEMATOCRIT 29.8 % (42.0-54.0); HEMOGLOBIN 9.7 g/dL (13.5-17.5); IMMATURE GRANULOCYTES 0.3 % (0-5); LYMPHOCYTES 46.2 % (15-50); MCH 32.1 pg (26.0-34.0); MCHC 32.6 g/dL (31.0-37.0); MCV 98.7 fL (80.0-100.0); MEAN PLATELET VOLUME 10.4 fL (7.4-10.4); MONOCYTES 14.1 % (2-11); NEUTROPHILS 30.8 % (40-80); PLATELET COUNT 125 10x3/uL (130-400); RBC 3.02 10x6/uL (4.20-6.10); WBC 3.3 10x3/uL (4.8-10.8)
[2018-12-20 06:28] LABS: ANION GAP 10.7 mmol/L (8-16); CALCIUM 7.8 mg/dL (8.5-10.1); CARBON DIOXIDE 30.7 mmol/L (21.0-32.0); CREATININE - SERUM 6.5 mg/dL (0.6-1.3); POTASSIUM - SERUM 4.4 mmol/L (3.5-5.1)
--- NOTE | 2018-12-20 07:34 | NUR ---
BEDSIDE SHIFT REPORT DONE WITH NIGHT NURSE. PT IN NO DISTRESS. WILL CONTINUE TO MONITOR.
[2018-12-20 09:43] VITALS: BP 131/57
--- NOTE | 2018-12-20 11:19 | NUR ---
RESTING QUIETLY WITH NO DISTRESS. WILL CONTINUE TO MONITOR.
[2018-12-20] MEDS ORDERED: LIPITOR20 MG PO (12:56)
[2018-12-20] MEDS ORDERED: ISOSORBIDE MONO30 M1 PO (12:57)
[2018-12-20] MEDS ORDERED: PROTONIX40 MG PO (12:58)
[2018-12-20] MEDS ORDERED: PLAVIX75 MG PO (13:03)
[2018-12-20] MEDS ORDERED: BAYER CHEWABLE81 MG PO (13:03)
[2018-12-20 13:27] VITALS: BP 122/41
--- NOTE | 2018-12-20 15:00 | NUR ---
ORDERS FOR DC. PT IV DC WITH CATH INTACT. DC INSTRUCTIONS GIVEN TO PT AND CAREGIVER. BOTH VERBALIZE UNDERSTANDING.
--- NOTE | 2018-12-20 15:19 | NUR ---
TO CAR VIA .
--- NOTE | 2018-12-20 16:16 | MORECARE ---
CASE MANAGEMENT DISCHARGE SUMMARY PATIENT: SONYA FLORIAN UNIT: [id number] ADM DATE: 12/17/18 AGE: 58 : 56 SEX: M ROOM/BED: D.2120 AUTHOR: FLOYD,DOC PHYSICIAN: REFERRING PHYSICIAN: DIEGO GATES MD DATE OF SERVICE: 12/20/18 Discharge Plan Patient Name: SONYA FLORIAN Facility: [facility]:[place] : 1960 Planned Disposition: Home Anticipated Discharge Date: 12/20/18 Discharge Date: 12/20/2018 Expected LOS: 3 Initial Reviewer: [email or web address] Initial Review Date: 12/20/2018 Generated: 12/20/18 5:16 pm DCPIA - Discharge Planning Initial Assessment Updated by KACIE: Howie Handley on 12/20/18 4:15 pm * Is the patient Alert and Oriented? Yes * How many steps to enter\exit or inside your home? * PCP DR. TUCKER * Pharmacy [facility] [address] * Preadmission Environment Home with Family * ADLs Independent * Equipment Back Brace Rolling Walker Shower Chair Wheelchair * Other Equipment ROLLATOR WALKER NO MEDICAL EQUIPMENT PROVIDER PREFERENCE * List name and contact numbers for known caregivers / representatives who currently or will assist patient after discharge: VAZQUEZ NIEVES (CRAIG), SIGNIFICANT OTHER, * Verbal permission to speak to the caregivers and representatives has been obtained from the patient. Yes * Community resources currently utilized Other * Please name any agencies selected above. OUTPATIENT DIALYSIS, [facility], MWF, 1100, DRIVES SELF * Additional services required to return to the preadmission environment? No * Can the patient safely return to the preadmission environment? Yes * Has this patient been hospitalized within the prior 30 days at any hospital? No Coverage Notice Reviewer: [id number] - Howie Handley Notice Issued Date-Time: 12/20/2018 9:45 Notice Type: IM Discharge Notice Notice Delivered To: Patient Relationship to Patient: Cut Press Operator Name: Delivery Method: HAND - Hand Delivered Helen Days: Prior Verbal Notification: Recipient Understood Notice: Yes Recipient Signature: Yes Med Rec Note Co-signed by Attending: Coverage Notice Comment: Patient Name: SONYA FLORIAN Page 52415 at 1616 All edits/amendments must be made on the electronic document DICTATION DATE: 12/20/181614 DRYER OPERATOR: RAY 12/20/181614 RPT#: [id number] DC DATE:12/20/18 STATUS: DIS IN [facility] [address] [place] [address] END OF REPORT
--- NOTE | 2018-12-20 16:25 | MORECARE ---
CASE MANAGEMENT DISCHARGE SUMMARY PATIENT: SONYA FLORIAN UNIT: [id number] ADM DATE: 12/17/18 AGE: 58 : 56 SEX: M ROOM/BED: D.7815 AUTHOR: FLOYD,DOC PHYSICIAN: REFERRING PHYSICIAN: DIEGO GATES MD DATE OF SERVICE: 12/20/18 Discharge Plan Patient Name: SONYA FLORIAN Facility: [facility]:[place] : 1960 Planned Disposition: Home Anticipated Discharge Date: 12/20/18 Discharge Date: 12/20/2018 Expected LOS: 3 Initial Reviewer: [email or web address] Initial Review Date: 12/20/2018 Generated: 12/20/18 5:24 pm Comments DCP- Discharge Planning Updated by [email or web address]: Howie Handley on 12/20/18 3:[address] Patient Name: SONYA FLORIAN Admission Status: ER Accout number: [id number] Admission Date: 12-17-2018 : 1960 Admission Diagnosis: Attending: DIEGO GATES Current LOS: 3 Anticipated DC Date: 12-20-2018 Planned Disposition: Home Primary Insurance: [facility] MEDIC[facility] SOLUT[employer] Discharge Planning Comments: CM MET WITH PT AND SIGNIFICANT OTHER IN ROOM TO DISCUSS DISCHARGE PLANNING AND NEEDS. SONYA FLORIAN provided verbal consent to discuss current and ongoing needs with/in the presence of: SIGNIFICANT OTHER, JULI. PT REPORTS LIVING AT HOME INDEPENDENTLY WITH HIS SIGNIFICANT OTHER. PT HASBEDSIDE COMMMODE, SHOWER CHAIR, ROLLATOR WALKER AND WHEELCHAIR WITH NO MEDICAL EQUIPMENT PROVIDER PREFERENCE. PT HAS NO OUTSIDE SERVICES ASSISTING IN THE HOME. PT GOES TO DIALYSIS AT [facility], MWF, 1100, DRIVES SELF TO AND FROM DIALYSIS. CM DISCUSSED AVAILABILITY OF HOME HEALTH, REHAB SERVICES AND MEDICAL EQUIPMENT. PT DENIES DISCHARGE NEEDS, REPORTS HIS SIGNIFICANT OTHER WILL PICK HIM UP FOR DISCHARGE HOME. IMPORTANT MESSAGE FROM MEDICARE PROVIDED AND EXPLAINED. PT PLANS TO DISCHARGE HOME WITH SIGNIFICANT OTHER, HAS NO ANTICIPATED DISCHARGE NEEDS AT THIS TIME. SIGNIFICANT OTHER TO TRANSPORT HOME. CM TO FOLLOW AND ASSIST IF NEEDED. Computer Forensics Investigator: Howie Handley DCPIA - Discharge Planning Initial Assessment Updated by [email or web address]: Howie Handley on 12/20/18 4:15 pm * Is the patient Alert and Oriented? Yes * How many steps to enter\\exit or inside your home? * PCP DR. TUCKER * Pharmacy [facility] [address] * Preadmission Environment Home with Family * ADLs Independent * Equipment Back Brace Rolling Walker Shower Chair Wheelchair * Other Equipment ROLLATOR WALKER NO MEDICAL EQUIPMENT PROVIDER PREFERENCE * List name and contact numbers for known caregivers / representatives who currently or will assist patient after discharge: ELLASHABBIR"JULI" LMAKYLEIGH, SIGNIFICANT OTHER, * Verbal permission to speak to the caregivers and representatives has been obtained from the patient. Yes * Community resources currently utilized Other * Please name any agencies selected above. OUTPATIENT DIALYSIS, [facility], MWF, 1100, DRIVES SELF * Additional services required to return to the preadmission environment? No * Can the patient safely return to the preadmission environment? Yes * Has this patient been hospitalized within the prior 30 days at any hospital? No Coverage Notice Reviewer: [email or web address] Dasiy Handley Notice Issued Date-Time: 12/20/2018 9:45 Notice Type: IM Discharge Notice Notice Delivered To: Patient Relationship to Patient: Professor Of Languages Name: Delivery Method: HAND - Hand Delivered Helen Days: Prior Verbal Notification: Recipient Understood Notice: Yes Recipient Signature: Yes Med Rec Note Co-signed by Attending: Coverage Notice Comment: Last DP export: 12/20/18 3:16 p Patient Name: SONYA FLORIAN Page [id number] at 1625 All edits/amendments must be made on the electronic document DICTATION DATE: 12/20/181623 ASSEMBLY AND PACKING SUPERVISOR: RAY 12/20/181623 RPT#: [id number] DC DATE:12/20/18 STATUS: DIS IN [facility] [address] [place] [address] END OF REPORT
--- NOTE | 2018-12-21 08:37 | MORECARE ---
CASE MANAGEMENT DISCHARGE SUMMARY PATIENT: SONYA FLORIAN UNIT: [id number] ADM DATE: 12/17/18 AGE: 58 : 56 SEX: M ROOM/BED: D.2685 AUTHOR: FLOYD,DOC PHYSICIAN: REFERRING PHYSICIAN: DIEGO GATES MD DATE OF SERVICE: 12/21/18 Discharge Plan Patient Name: SONYA FLORIAN Facility: [facility]:[place] : 1960 Planned Disposition: Home Anticipated Discharge Date: 12/20/18 Discharge Date: 12/20/2018 Expected LOS: 3 Initial Reviewer: [email or web address] Initial Review Date: 12/20/2018 Generated: 12/21/18 9:36 am Comments DCP- Discharge Planning Updated by [email or web address]: Howie Handley on 12/20/18 3:[address] Patient Name: SONYA FLORIAN Admission Status: ER Accout number: [id number] Admission Date: 12-17-2018 : 1960 Admission Diagnosis: Attending: DIEGO GATES Current LOS: 3 Anticipated DC Date: 12-20-2018 Planned Disposition: Home Primary Insurance: [facility] [employer] SOLUTIONS Discharge Planning Comments: CM MET WITH PT AND SIGNIFICANT OTHER IN ROOM TO DISCUSS DISCHARGE PLANNING AND NEEDS. SONYA FLORIAN provided verbal consent to discuss current and ongoing needs with/in the presence of: SIGNIFICANT OTHER, JULI. PT REPORTS LIVING AT HOME INDEPENDENTLY WITH HIS SIGNIFICANT OTHER. PT HASBEDSIDE COMMMODE, SHOWER CHAIR, ROLLATOR WALKER AND WHEELCHAIR WITH NO MEDICAL EQUIPMENT PROVIDER PREFERENCE. PT HAS NO OUTSIDE SERVICES ASSISTING IN THE HOME. PT GOES TO DIALYSIS AT [facility], MWF, 1100, DRIVES SELF TO AND FROM DIALYSIS. CM DISCUSSED AVAILABILITY OF HOME HEALTH, REHAB SERVICES AND MEDICAL EQUIPMENT. PT DENIES DISCHARGE NEEDS, REPORTS HIS SIGNIFICANT OTHER WILL PICK HIM UP FOR DISCHARGE HOME. IMPORTANT MESSAGE FROM MEDICARE PROVIDED AND EXPLAINED. PT PLANS TO DISCHARGE HOME WITH SIGNIFICANT OTHER, HAS NO ANTICIPATED DISCHARGE NEEDS AT THIS TIME. SIGNIFICANT OTHER TO TRANSPORT HOME. CM TO FOLLOW AND ASSIST IF NEEDED. It Program Engagement Director: Howie Handley DCPIA - Discharge Planning Initial Assessment Updated by [id number]: Howie Handley on 12/20/18 4:15 pm * Is the patient Alert and Oriented? Yes * How many steps to enter\\exit or inside your home? * PCP DR. TUCKER * Pharmacy [facility] [address] * Preadmission Environment Home with Family * ADLs Independent * Equipment Back Brace Rolling Walker Shower Chair Wheelchair * Other Equipment ROLLATOR WALKER NO MEDICAL EQUIPMENT PROVIDER PREFERENCE * List name and contact numbers for known caregivers / representatives who currently or will assist patient after discharge: VAZQUEZ FORD" LAMKYLEIGH, SIGNIFICANT OTHER, * Verbal permission to speak to the caregivers and representatives has been obtained from the patient. Yes * Community resources currently utilized Other * Please name any agencies selected above. OUTPATIENT DIALYSIS, [facility], MWF, 1100, DRIVES SELF * Additional services required to return to the preadmission environment? No * Can the patient safely return to the preadmission environment? Yes * Has this patient been hospitalized within the prior 30 days at any hospital? No Coverage Notice Reviewer: [id number] Daisy Handley Notice Issued Date-Time: 12/20/2018 9:45 Notice Type: IM Discharge Notice Notice Delivered To: Patient Relationship to Patient: Building Performance Consultant Name: Delivery Method: HAND - Hand Delivered Helen Days: Prior Verbal Notification: Recipient Understood Notice: Yes Recipient Signature: Yes Med Rec Note Co-signed by Attending: Coverage Notice Comment: Last DP export: 12/20/18 3:24 p Patient Name: SONYA FLORIAN Page [id number] at 0837 All edits/amendments must be made on the electronic document DICTATION DATE: 12/21/18835 COAL CRUSHER OPERATOR: RAY 12/21/1836 RPT#: [id number] DC DATE:12/20/18 STATUS: DIS IN [facility] [address] [place] [address] END OF REPORT
--- NOTE | 2018-12-24 18:38 | CN ---
PATIENT NAME:SONYA LEROY MEDICAL RECORD: [id number] : 56 LOCATION:D.M2 D.2120 ADMIT DATE: 12/17/18 ACCOUNT: [id number] CONSULTING PHYSICIAN: CATE ZARAGOZA MD REFERRING PHYSICIAN: DIEGO GATES MD DATE OF CONSULTATION: 12/17/2018 CARDIOLOGY CONSULT DIAGNOSES: 1. Unstable angina class IV. 2. Coronary artery disease. 3. Previous coronary bypass graft surgery. 4. End-stage renal failure, on dialysis. 5. Hypertension. 6. Diabetes. 7. Obesity. HISTORY OF PRESENT ILLNESS: Mr. Leroy presents with chest pain that started this morning and last night. It is just like that of his previous angina, status post coronary artery bypass graft surgery [address] Gonzalez at [facility]. He continues to have chest pain at rest with class IV anginal symptomatology. He was set to dialyze today, but due to the chest pain he came here instead. He is hypertensive with systolic blood pressures in the 200 range. His heart rate is in the 70s. He is on carvedilol. No other cardiovascular medications. PHYSICAL EXAMINATION: GENERAL APPEARANCE: Well-nourished, well-developed, appears stated age. Level of distress, comfortable. PSYCHIATRIC: Mental status, alert, normal affect. Orientation, oriented to time, place and person. EYES: Lids and conjunctiva, noninjected. No discharge, no pallor. ENT: Lips, teeth, gums, normal dentition. Oropharynx, no cyanosis, no pallor. NECK: Carotid arteries, bilateral normal upstroke, no bruits, no thrills. JUGULAR VEINS: No jugular venous pressure or distention. CERVICAL LYMPH NODES: Nontender, nonenlarged. THYROID: Not enlarged. Nontender. No nodules. LUNGS: Respiratory effort, unlabored. CHEST: Normal curvature. No thoracic deformity. No chest wall tenderness. Percussion, resonant. Auscultation, clear. No wheezes, no rales, no rhonchi. CARDIOVASCULAR: Precordial exam, nondisplaced. No heaves or pericardial thrills. Rate and rhythm, regular. Heart sounds, normal S1, normal S2. No S3, no gallop, no rub. Systolic murmur, not heard. Diastolic murmur, not heard. EXTREMITIES: No cyanosis, no edema. Peripheral pulses, full and equal in all extremities, except as noted. No bruits appreciated. ABDOMEN: Soft, nondistended. Normal aorta. No bruit. Nontender. No masses. Liver, nontender, no hepatomegaly. Spleen, nontender, no splenomegaly. MUSCULOSKELETAL: No joint tenderness. No joint swelling. No erythema. NEUROLOGICAL: Normal gait, normal strength, normal tone. SKIN: Warm and dry. OVERALL IMPRESSION: Chest pain compatible with angina, no acute changes on his EKG. He is significantly hypertensive at this time, we will optimize medical management with the addition of calcium channel fabio as well as long-acting CONSULT REPORT [id number] SONYA LEROY nitrate. If he continues to have chest pain in an unstable fashion, would proceed with coronary angiography. TRANSINT:[id number] Voice Confirmation ID: [id number] DOCUMENT ID: [id number] CATE ZARAGOZA MD at 1838 CC: [id number] DICTATION DATE: 12/17/18 120 TOP WADDY: 12/17/18 1225 DIS IN 12/20/18 [facility] [address] [place] [address]
--- NOTE | 2018-12-24 18:38 | OP ---
PATIENT NAME: SONYA FLORIAN MEDICAL RECORD: [id number] :56 LOCATION:D.M2 D.2120 ADMISSION DATE:12/17/18 SURGEON: CATE ZARAGOZA MD DATE OF OPERATION: 12/18/2018 PROCEDURES: 1. PTCA and stent, left circumflex. 2. Left heart catheterization. 3. Selective coronary angiography. 4. Vein graft angiography. 5. TAVERA angiography. 6. Left ventriculogram. INDICATION: Unstable angina, coronary artery disease. PROCEDURE IN DETAIL: After informed consent was obtained with detailed description of risks and benefits as well as alternative therapies, the patient elected to proceed with angiogram and angioplasty. The right femoral area was prepped and draped in normal sterile fashion. The right femoral artery was cannulated via modified Seldinger technique with placement of 6-Azeri sheath. All catheters were exchanged through this sheath. FINDINGS: Left ventriculogram performed in standard 30-degree KIRK view reveals good cardiac wall motion throughout all segments. Overall ejection fraction is estimated at 60%. SELECTIVE CORONARY ANGIOGRAPHY: 1. Left main is with no significant angiographic disease. 2. Left anterior descending has 80+ percent stenosis proximally. 3. TAVERA to the distal LAD is widely patent. Distal LAD is widely patent. 4. Ramus intermedius is totally occluded. 5. Vein graft to the ramus intermedius is widely patent. Distal ramus intermedius is widely patent. 6. Circumflex has 85% to 90% stenosis in the mid vessel. This is nongrafted. 7. Right coronary has 95% stenosis in the mid vessel. 8. Vein graft to the RCA is widely patent. Distal RCA is widely patent. PTCA AND STENT OF THE SOLOMON CIRCUMFLEX: The stent used was 2.5 x 15 mm Jack, taken to 19 atmospheres. Result was 0% residual stenosis. OVERALL IMPRESSION: Successful PTCA and stent of the left circumflex, going from 85% to 90% initial stenosis to 0% residual. TRANSINT:[id number] Voice Confirmation ID: [id number] DOCUMENT ID: [id number] CATE ZARAGOZA MD at 1838 CC: [id number] DICTATION DATE: 12/18/18 1155 WAFER POLISHER: 12/18/18 1205 DIS IN 12/20/18 [place] [id number] [facility] [place] [id number]
--- NOTE | 2018-12-24 18:38 | EC ---
PATIENT:SONYA FLORIAN DATE OF SERVICE: 12/17/18 SEX: M MEDICAL RECORD: [id number] DATE OF : 56 LOCATION:D. D.212 AGE OF PATIENT: 58 ADMISSION DATE: 12/17/18 REFERRING PHYSICIAN: INTERPRETING PHYSICIAN: CATE MCCALL MD ECHOCARDIOGRAM REPORT ECHO CHARGES 5 ECHO LIMITED Date: 12/17/18 CLINICAL DIAGNOSIS: UNSTABLE ANGINA CAD/CABG ECHOCARDIOGRAPHIC MEASUREMENTS (adult normal given) AC root (d.<3.7cm) cm LV Septum d (<1.2 cm> cm Valve Excursion cm LV Septum (systole) cm Left Atria (s.<4.0cm> 3.8 cm LVPW d(<1.2cm) cm RV (d.<2.3cm) 4.4 cm LVPW (sytole) cm LV diastole(<5.6CM) 4.6 cm MV E-F(>70mm/sec) cm LV systole 3.4 cm LVOT Diameter cm MV exc.(>10mm) cm Est.ejection fraction (50-75%) % DOPPLER: LVIT cm/sec A 101 cm/sec E 154 cm/sec LA cm/sec RVSP 24 mmHg LVOT 118 cm/sec AOP1/2T m/s Asc. Ao 152 cm/sec RVOT cm/sec RA cm/sec PA cm/sec AV Gradient Peak 9.20 mmHg AV Mean 4.70 mmHg AV Area 2.7 cm MV Gradient Peak 12.54mmHg MV Mean 4.58 mmHg MV Area cm COMMENTS: Arcade Game Technician: Marques MONDRAGON Photographer News: 1 Dr. Mccall TAPE# PACS Pericardial Effusion N DATE OF SERVICE: 12/17/2018 ECHOCARDIOGRAM DATE OF SERVICE: 12/17/2018 FINDINGS: 1. Left ventricular chamber size is within normal limits. Left ventricular systolic function is normal. Overall ejection fraction estimated at 55%. 2. Left atrium is within normal limits at 3.8 cm. Right atrium and right ECHOCARDIOGRAM REPORT [id number] SONYA FLORIAN ventricular chamber sizes are mildly dilated. 3. Valvular structures have normal structure and motion. 4. Doppler interrogation reveals no significant valvular insufficiency or stenosis. 5. No evidence of pericardial effusion or left ventricular thrombus. TRANSINT:[id number] Voice Confirmation ID: [id number] DOCUMENT ID: [id number] CATE MCCALL MD at 1838 CC: [id number] DICTATION DATE: 12/18/18 0644 STOCK ORDER LISTER: 12/18/18 0818 DIS IN 12/20/18 [place] [id number] [place] [id number]
== END 2018-12-20 15:20 | disposition home or self-care (01) | DRG 246 ==
LOC: D.ER 11:40 → D.M2 17:07 → D.ER 17:17 → D.M2 12-20 15:20
PROVIDERS: Family Medicine; Internal Medicine Interventional Cardiology; ADMIT Internal Medicine Nephrology; ATTEND Internal Medicine Nephrology
PROC: 5A1D70Z Performance of Urinary Filtration, Intermittent, Less than 6 Hours Per Day (ICD-10-PCS; 2018-12-17)
PROC: B2111ZZ Fluoroscopy of Multiple Coronary Arteries using Low Osmolar Contrast (ICD-10-PCS; 2018-12-18)
PROC: B2121ZZ Fluoroscopy of Single Coronary Artery Bypass Graft using Low Osmolar Contrast (ICD-10-PCS; 2018-12-18)
PROC: B2181ZZ Fluoroscopy of Left Internal Mammary Bypass Graft using Low Osmolar Contrast (ICD-10-PCS; 2018-12-18)
PROC: B2151ZZ Fluoroscopy of Left Heart using Low Osmolar Contrast (ICD-10-PCS; 2018-12-18)
PROC: 027034Z Dilation of Coronary Artery, One Artery with Drug-eluting Intraluminal Device, Percutaneous Approach (ICD-10-PCS; principal; 2018-12-18 15:00)
PROC: 4A023N7 Measurement of Cardiac Sampling and Pressure, Left Heart, Percutaneous Approach (ICD-10-PCS; 2018-12-18 15:00)
DX: I25.110 Atherosclerotic heart disease of native coronary artery with unstable angina pectoris (principal); N18.6 End stage renal disease; I12.0 Hypertensive chronic kidney disease with stage 5 chronic kidney disease or end stage renal disease; E11.22 Type 2 diabetes mellitus with diabetic chronic kidney disease; E66.9 Obesity, unspecified; Z68.31 Body mass index [BMI] 31.0-31.9, adult; E87.5 Hyperkalemia; D63.1 Anemia in chronic kidney disease

== ENCOUNTER 2019-02-19 16:48 | Emergency (ER) | payer MEDICARE, MEDICAID ==
[~2019-02-19] VITALS: Ht 182.9 cm; Wt 108.0 kg
[~2019-02-19 16:48] MED LIST changes: +BAYER CHEWABLE81 MG PO; +ISOSORBIDE MONO30 M1 PO; +LIPITOR20 MG PO; +PLAVIX75 MG PO; +PROTONIX40 MG PO; +RENVELA800 MG PO
[2019-02-19 16:49] VITALS: Ht 182.9 cm; Wt 108.0 kg
[2019-02-19] MEDS ORDERED: HYDROCODONE-A1 UDTA2 PO (18:19)
[2019-02-19 18:33] VITALS: BP 156/80
== END 2019-02-19 19:42 | disposition home or self-care (01) ==
LOC: D.ER 16:48
DX: S40.012A Contusion of left shoulder, initial encounter (principal); V49.40XA Driver injured in collision with unspecified motor vehicles in traffic accident, initial encounter

== ENCOUNTER 2019-08-16 10:06 | Outpatient (CLI) | payer MEDICARE ==
[~2019-08-16] VITALS: Ht 182.9 cm; Wt 103.6 kg
--- NOTE | ~2019-08-16 | CN ---
PATIENT NAME:SONYA LEROY MEDICAL RECORD: [id number] : 56 LOCATION:D.ER ADMIT DATE: ACCOUNT: [id number] CONSULTING PHYSICIAN: CATE ZARAGOZA MD REFERRING PHYSICIAN: LARRY PATE MD DATE OF CONSULTATION: 08/16/2019 CARDIOLOGY CONSULTATION ADMITTING DIAGNOSES: 1. Unstable angina. 2. Coronary artery disease. 3. Previous percutaneous transluminal coronary angioplasty stent. 4. Hypertension. 5. Hyperlipidemia. HISTORY OF PRESENT ILLNESS: Mr. Leroy has a history of coronary artery disease. Last cardiac stent being last summer. For the past 2 days, he has had increasing episodes of chest pain, he is now class IV, it is just like that of his previous angina, dull, aching, pressure-like sensation across the anterior chest with radiation to the jaw and left shoulder area. He was quite hypertensive when he came into the Emergency Room. His blood pressure is markedly better now, but he continues to have the chest pain. His EKG is with no acute ST-T abnormalities. PHYSICAL EXAMINATION: CONSTITUTIONAL/GENERAL APPEARANCE: Well nourished, well developed, appears stated age. EYES: Lids and conjunctivae noninjected. No discharge. No pallor. ENT: Lips within normal limit. No cyanosis. No pallor. NECK: Carotid arteries, bilateral normal upstroke. No bruits. No thrills. No jugular venous pressure or distention. CERVICAL LYMPH NODES: Nontender. Nonenlarged. THYROID: Not enlarged. No nodules. CARDIOVASCULAR: Precordial exam, nondisplaced. No heaves or pericardial thrills. Rate and rhythm, regular. Heart sounds, normal S1, normal S2. No S3, no gallop, no rub. Systolic murmur, not heard. Diastolic murmur, not heard. RESPIRATORY: Respiratory effort, unlabored. Normal curvature. No thoracic deformity. No chest wall tenderness. Percussion, resonant. Auscultation, clear. No wheezes, no rales, no rhonchi. ABDOMEN: Soft, nondistended, nontender. No abdominal pain, no vomiting and normal appetite. MUSCULOSKELETAL: No joint tenderness, normal gait, normal tone. SKIN: Warm and dry. OVERALL IMPRESSION: Chest pain compatible with angina. We will give him Lopressor to get his heart rate and blood pressure down even further. We will proceed with coronary angiography if he continues to have chest pain. TRANSINT:[id number] Voice Confirmation ID: [id number] DOCUMENT ID: [id number] CONSULT REPORT [id number] SONYA LEROY JEFFREY MD CC: [id number] DICTATION DATE: 08/16/19 120 DEVELOPMENTAL TRAINING COUNSELOR: 08/16/19 1548 [facility] [address] [place] [address]
--- NOTE | ~2019-08-16 | EC ---
PATIENT:SONYA FLORIAN DATE OF SERVICE: 08/16/19 SEX: M MEDICAL RECORD: [id number] DATE OF : 56 LOCATION:D.CAT AGE OF PATIENT: 58 ADMISSION DATE: 08/16/19 REFERRING PHYSICIAN: INTERPRETING PHYSICIAN: CATE MCCALL MD ECHOCARDIOGRAM REPORT ECHO CHARGES 4 ECHO COMPLETE Date: 08/17/19 CLINICAL DIAGNOSIS: [place] ECHOCARDIOGRAPHIC MEASUREMENTS (adult normal given) AC root (d.<3.7cm) 3.8 cm LV Septum d (<1.2 cm> 0.9 cm Valve Excursion 2.2 cm LV Septum (systole) 1.1 cm Left Atria (s.<4.0cm> 3.9 cm LVPW d(<1.2cm) 0.7 cm RV (d.<2.3cm) 2.6 cm LVPW (sytole) 0.9 cm LV diastole(<5.6CM) 4.6 cm MV E-F(>70mm/sec) cm LV systole 3.5 cm LVOT Diameter 1.8 cm MV exc.(>10mm) cm Est.ejection fraction (50-75%) % DOPPLER: LVIT cm/sec A 106 cm/sec E 118 cm/sec LA cm/sec RVSP 19.3 mmHg LVOT 132 cm/sec AOP1/2T m/s Asc. Ao 134 cm/sec RVOT 82 cm/sec RA cm/sec PA 122 cm/sec AV Gradient Peak 7.2 mmHg AV Mean 3.9 mmHg AV Area 2.3 cm MV Gradient Peak 6.9 mmHg MV Mean 3.4 mmHg MV Area cm COMMENTS: Director Of Outside Sales: Josiane [facility] Grill Attendant: 1 Dr. Mccall TAPE# PACS Pericardial Effusion N DATE OF SERVICE: ECHOCARDIOGRAM FINDINGS: 1. Left ventricular chamber size is within normal limits. Left ventricular systolic function is normal at 55%. 2. Left atrium is within normal limits. Right atrium and right ventricular chamber sizes are mildly dilated. 3. Valvular structures have normal structure and motion. ECHOCARDIOGRAM REPORT [id number] SONYA FLORIAN 4. Doppler interrogation reveals no significant valvular insufficiency or stenosis and pulmonary systolic pressure estimated at 19 mmHg. 5. No evidence of pericardial effusion or left ventricular thrombus. TRANSINT:[id number] Voice Confirmation ID: [id number] DOCUMENT ID: [id number] CATE MCCALL MD CC: [id number] DICTATION DATE: 08/18/19 1114 FIBERGLASS SKI MAKER: 08/18/19 193 DEP CLI 08/17/19 [facility] [address] [place] [address]
--- NOTE | ~2019-08-16 | OP ---
PATIENT NAME: SONYA FLORIAN MEDICAL RECORD: [id number] :56 LOCATION:D.M2 D.2125 ADMISSION DATE: SURGEON: CATE ZARAGOZA MD DATE OF OPERATION: 08/16/2019 PROCEDURES: 1. PTCA stent LAD. 2. PTCA stent left circumflex. 3. Left heart catheterization. 4. Selective coronary angiography. 5. Vein graft angiography. 6. TAVERA angiography. 7. Left ventriculogram. PROCEDURE: After informed consent was obtained and after a detailed description of risks, benefits as well as alternative therapies, the patient elected to proceed with angiogram and angioplasty. The right femoral area was prepped and draped in normal sterile fashion. Right femoral artery was cannulated via modified Seldinger technique with placement of 6-Chinese sheath. All catheters exchanged through this sheath. FINDINGS: Left ventriculogram was performed in standard 30-degree KIRK view reveals preserved cardiac wall motion, ejection fraction estimated at 55%. SELECTIVE CORONARY ANGIOGRAPHY: 1. Left main is with no significant angiographic disease. 2. Left anterior descending has 85%-90% stenosis proximally and the TAVERA is atretic with no functional flow. 3. Left circumflex has a 90% stenosis proximally and is nongrafted. 4. Ramus intermedius is 100% stenosis proximally and is grafted. The distal ramus intermedius is widely patent as is the graft. 5. The right coronary is totally occluded. 6. Vein graft to the right coronary is widely patent. Distal right coronary is widely patent as well as the vein graft. PTCA STENT OF THE LAD: The stent used was a 3.0 x 30 mm [place]. Result was 0% residual stenosis. PTCA STENT OF THE LEFT CIRCUMFLEX: The stent used was a 3.0 x 22 mm Jack. Result was 0% residual stenosis. OVERALL IMPRESSION: Successful PTCA stent of the LAD and circumflex, both going from 85% to 90% initial stenosis to 0% residual. TRANSINT:[id number] Voice Confirmation ID: [id number] DOCUMENT ID: [id number] CATE ZARAGOZA MD CC: [id number] DICTATION DATE: 08/16/19 1604 CONTAINER MAKER: 08/16/192136 [place] [id number] [place] [address]
--- NOTE | ~2019-08-16 | HEMODYNAMI ---
PATIENT:SONYA FLORIAN MEDICAL RECORD: [id number] : 56 LOCATION:[facility] ADMISSION DATE: 08/16/19 Generatedon:08/16/201916:09 Patient name: SONYA FLORIAN Patient #: [id number] SSN: : 1960 Date of study: 08/16/2019 Page: Of Hemodynamic Procedure Report Patient Data Patient Demographics Procedure consent was obtained First Name: SONYA Gender: Male Last Name: ANIVAL : 1960 [facility] Initial: CELINA Age: 58 year(s) Patient #: [id number] Race: Unknown Additional ID: [id number] Contact details Address: [place] [phone] State: [place] City: [place] Zip code: [address] Past Medical History Allergies Allergen Reaction Date Comments Reported Penicillins 12/18/2018 Penicillins 08/16/2019 Admission Admission Data Admission Date: 08/16/2019 Admission Time: 10:06 Arrival Date: 08/16/2019 Arrival Time: 0:00 Admit Source: Emergency Insurance Payor: Medicare department [facility] #: [id number] Height (in.): 72 BSA: 2.25 (m2) Height (cm.): 182.88 BMI: 30.99 (kg/m2) Weight (lbs.): 228.47 Weight (kg.): 103.63 Lab Results Lab Result Date: 08/16/2019 Lab Result Time: 0:00 Biochemistry Name Units Result Min Max BUN mg/dl 25 --(----)-* 7 18 Creatinine mg/dl 5 --(----)-* 0.6 1.3 eGFR ml/min 13 *-(----)-- 90 120 NONAFRICAN CBC Name Units Result Min Max Hematocrit % 37 *-(----)-- 42 54 Hemoglobin g/dl 12 *-(----)-- 13.5 17.5 Procedure Procedure Types Cath Procedure Diagnostic Procedure LHC LHC w/Coronaries w/Grafts Sedation Charges Moderate Sedation up to 15 minutes PCI Procedure Coronary Stent Coronary Stent Initial x2 Hemochron ACT Test Procedure Description Procedure Date Procedure Date: 08/16/2019 Procedure Start Time: 15:39 Procedure End Time: 16:07 Procedure Staff Name Function Dane Mccall MD Performing Physician Pat Reyan RT Scrub Freddy Joyner RN Nurse Francoise Garza RT Monitor Procedure Data Cath Procedure Fluoroscopy Diagnostic fluoroscopy Total fluoroscopy Time: 6.5 time: 6.5 min min Diagnostic fluoroscopy Total fluoroscopy dose: 982 dose: 982 mGy mGy Contrast Material Contrast Material Type Amount (ml) Isovue 370 137 Entry Location Entry Primary Successful Side Size Upsize Upsize Entry Closure Succes sful Closure Location (Fr) 1 (Fr) 2 (Fr) Remarks Device Remarks Femoral Right 5 Fr 6 Fr Exoseal artery Short Estimated blood loss: 10 ml Diagnostic catheters Device Type Used For End Catheter Placement MULTIPACK Pigtail 5 Fr Procedure catheter MULTIPACK JL 4.0 5Fr Procedure catheter MULTIPACK 3DRC 5Fr Procedure catheter Procedure Complications No complications Procedure Medications Medication Administration Route Dosage Oxygen etCO2 Nasal cannula 2 l/min Heparin Flush Bag added to field 2 bags (1000units/500ml NS) Lidocaine 2% added to field 20 0.9% NaCl I.V. 100 ml/hr Versed I.V. 1 mg Fentanyl I.V. 50 mcg Versed I.V. 1 mg Fentanyl I.V. 50 mcg Heparin Bolus I.V. 4000 units Hemodynamics Rest BSA: 2.25 (m2) HGB: 12 (g/dl) O2 Consumption: Estimated: 260.83 (ml/min) O2 Cons umption indexed: Estimated:115.92 (ml/min/m) Heart Rate: 66 (bpm) Snapshots Pre Cath Intra NCS Post Cath Vital Signs Time Heart Resp SPO2 etCO2 NIBP (mmHg) Rhythm Pain Sedation Rate (ipm) (%) (mmHg) Status Level (bpm) 15:26:22 65 17 100 0 156/62(111) NSR 0 (11) 10(A) , No pain 15:30:15 65 20 100 0 152/69(121) NSR 0 (11) 10(A) , No pain 15:34:42 64 13 100 0 135/62(95) NSR 0 (11) 10(A) , No pain 15:39:02 65 18 100 0 135/58(101) NSR 0 (11) 10(A) , No pain 15:43:20 64 13 100 0 110/60(83) NSR 0 (11) 10(A) , No pain 15:48:35 65 12 100 0 133/58(96) NSR 0 (11) 10(A) , No pain 15:52:51 67 12 100 0 119/56(88) NSR 0 (11) 10(A) , No pain 15:57:07 56 12 100 0 126/53(81) NSR 0 (11) 10(A) , No pain 16:02:18 66 12 100 0 143/60(100) NSR 0 (11) 10(A) , No pain 16:06:41 70 32 100 0 148/58(113) NSR 0 (11) 10(A) , No pain Medications Time Medication Route Dose Verified Delivered Reason Notes Effectiveness by by 15:09:49 Oxygen etCO2 2 Buffie Buffie Per physician Nasal l/min Anya Joyner RN cannula 15:09:59 Heparin Flush added 2 Buffie Buffie used for Bag to bags Anya Joyner RN procedure (1000units/500ml field NS) 15:10:10 Lidocaine 2% added 20ml Buffie Dane for local to vial Anya Mccall MD anesthetic field 15:10:22 0.9% NaCl I.V. 100 Buffie Buffie ml/hr Anya Joyner RN 15:39:36 Versed I.V. 1 mg Buffie Buffie for sedation Anya Joyner RN 15:39:41 Fentanyl I.V. 50 Buffie Buffie for sedation mcg Anya Joyner RN 15:44:09 Versed I.V. 1 mg Buffie Buffie for sedation Anya Joyner RN 15:44:13 Fentanyl I.V. 50 Buffie Buffie for sedation mcg Anya Joyner RN 15:47:35 Heparin Bolus I.V. 4000 Buffie Buffie for verif ied units Anya Joyner RN anticoagulation with dr mccall Procedure Log Time Note 14:29:21 Informed consent obtained and on chart 14:29:38 Procedure Status Urgent Heart Cath (IP). 14:29:38 Time tracking: Regular hours (M-F 7:00 - 5:00) 14:29:41 Plan of Care:Hemodynamics will remain stable., Cardiac rhythm will remain stable., Comfort level will be maintained., Respiratory function will remain adequate., Patient/ family verbilizes understanding of procedure., Procedure tolerated without complication., Recovers from procedure without complications.. 14:29:43 Pat Friasur RT(R) sent for patient. Start room use. 14:29:46 H&P Date Dictated: 08/16/2019 ER History on chart.. 15:09:49 Oxygen 2 l/min etCO2 Nasal cannula was administered by Freddy Joyner RN; Per physician; Verbal order read back and verified. 15:09:59 Heparin Flush Bag (1000units/500ml NS) 2 bags added to field was administered by Freddy Joyner RN; used for procedure; Verbal order read back and verified. 15:10:10 Lidocaine 2% 20ml vial added to field was administered by Dane Mccall MD; for local anesthetic; Verbal order read back and verified. 15:10:22 0.9% NaCl 100 ml/hr I.V. was administered by Freddy Joyner RN; ; Verbal order read back and verified. 15:17:44 Patient received from ED to CCL 1 Alert and oriented. Tansferred to table in Supine position. 15:17:45 Warm blankets applied, and benji hugger turned on for patient comfort. 15:17:46 Correct patient and procedure confirmed by team. 15:17:46 ECG and BP/O2 sat monitors applied to patient. 15:18:36 Pre-procedure instructions explained to patient. 15:18:37 Pre-op teaching completed and patient verbalized understanding. 15:18:39 Family in waiting room. 15:18:41 Patient NPO since Midnight. 15:18:46 Patient allergic to Penicillins 15:18:50 Is the patient allergic to Iodine/contrast media? No. 15:20:43 Light sedation used due to pt had full lunch less than 4 hrs prior to construction craft laborer procedure and had just finished a canned soda immediately before arrival to lab. Dr Mccall aware. 15:20:48 Is patient on blood thinner?Yes 15:20:50 ACC The patient was administered the following blood thiners within the last 24 hours: ACCPlavix 15:20:57 Patient diabetic? Yes. 15:21:05 Previous problem with sedation/anesthesia? No ? 15:21:07 Snore? Yes 15:21:08 Sleep apnea? No 15:21:09 Deviated septum? No 15:21:10 Opens mouth fully? Yes 15:21:11 Sticks out tongue? Yes 15:21:13 Airway obstruction? No ? 15:21:16 Dentures? Yes OUT 15:21:22 Pre procedure: right dorsailis pedis pulse 2+ Normal; easily identifiable; not easily obliterated 15:21:26 Patient pain scale 0/10 ?. 15:21:38 IV patent on arrival in left hand with 0.9% NaCl at [facility]. 15::59 Lab Result : BUN 25 mg/dl 15::59 Lab Result : eGFR NONAFRICAN 13 ml/min ::59 Lab Result : Creatinine 5 mg/dl ::59 Lab Result : Hemoglobin 12 g/dl ::59 Lab Result : Hematocrit 37 % 15:25:02 Lab results completed and on chart. 15:25:05 Stress Test: no; N/A ? 15:28:33 Risk of Mortality: 2.6 15:28:37 Risk of blood transfusion: 12.4 15:28:40 Risk of YASSINE: 20.7 15:28:44 Right groin area was prepped with chlora-prep and draped in sterile fashion 15:28:44 Alarms reviewed by R. N. 15:28:45 Sharps counted by scrub and verified by R.N. 15:29:00 Vital chart was started 15:29:01 Baseline sample Acquired. 15:29:02 Full Disclosure recording started 15:29:14 Rhythm: sinus rhythm 15:30:21 Arrival Date: 08/16/2019 12:00:00 AM 15:30:22 Admit Source: Emergency department 15:30:27 Patient Height : 72 inches 15:30:32 Patient Weight : 228.47 lbs 15:30:43 Spoke with dialysis nurse about pt transfered to construction craft laborer from er, with dialysis needles still in place to fistula to upper rt arm with syringes attached. She stated that she would send someone to remove the needles upon arrival of pt to inpatient room 2124. 15:30:59 Insurance Payor : Medicare 15:33:40 --------ALL STOP TIME OUT------ 15:33:41 Final Timeout: patient, procedure, and site verified with staff and physician. All members of the team are in agreement. 15:33:42 Right groin site verified by team. 15:33:45 Fire Safety Assessment: A--An alcohol-based skin anteseptic being used preoperatively., C--Open oxygen or nitrous oxide is being used., D--An ESU, laser, or fiber-optic light is being used. 15:33:48 Physical assessment completed. ASA score P 2 - A patient with mild systemic disease as per Dane Mccall MD. 15:34:07 5) <15 or on dialysis Very severe, or end stage kidney failure. 15:34:09 Maximum allowable contrast dose (3.7 X eGFR X 0.75)36 ml. 15:34:13 Sedation plan: IV Moderate Sedation Medication:Versed, Fentanyl 15:34:17 Use device set Femoral Dx 15:34:22 Use device set TAUTH PCI 15:34:24 ACIST Syringe (30668) opened to sterile field. 15:34:27 Bag Decanter (2002S) opened to sterile field. 15:34:29 Medline Cath Pack ([id number]) opened to sterile field. 15:34:30 ACIST Hand Control (29931) opened to sterile field. 15:34:31 ACIST Manifold (93131) opened to sterile field. 15:34:32 DIAGNOSTIC Multipack 5Fr catheter set ([id number]) opened to sterile field. 15:34:36 SHEATH 5FR [place] (SIS172) opened to sterile field. 15:34:36 EMERALD Guide Wire (010-427) opened to sterile field. 15:38:59 Procedure started. 15:39:03 Local anesthetic to right femoral artery with Lidocaine 2% by Dane Mccall MD.INITIAL ACCESS ONLY 15:39:36 Versed 1 mg I.V. was administered by Freddy Joyner RN; for sedation; Verbal order read back and verified. 15:39:41 Fentanyl 50 mcg I.V. was administered by Freddy Joyner RN; for sedation; Verbal order read back and verified. 15:39:50 A 5 Fr sheath was inserted into the Right Femoral artery 15:40:47 A MULTIPACK Pigtail 5 Fr catheter was advanced over the wire and used for Procedure. 15:40:55 LV gram done using KIRK 15:40:59 Injector settings: Ml/sec: 5, Volume: 15, 15:41:07 EF : 60 % 15:41:10 Catheter removed. 15:41:16 A MULTIPACK JL 4.0 5Fr catheter was advanced over the wire and used for Procedure. 15:41:21 LCA angiography performed. 15:42:10 Catheter removed. 15:42:16 A MULTIPACK 3DRC 5Fr catheter was advanced over the wire and used for Procedure. 15:42:55 TAVERA to LAD angiography performed. 15:44:07 RCA angiography performed. 15:44:09 Versed 1 mg I.V. was administered by Freddy Joyner RN; for sedation; Verbal order read back and verified. 15:44:13 Fentanyl 50 mcg I.V. was administered by Freddy Joyner RN; for sedation; Verbal order read back and verified. 15:44:16 Catheter removed. 15:44:29 GUIDE 6FR AR 2.0 catheter ([id number]) opened to sterile field. 15:45:02 Sheath upsized to a 6 Fr Short. 15:45:12 6 Fr AR 2 guide catheter was inserted over the wire 15:45:48 SVG to Ramus angiography performed. 15:46:29 SVG to RCA angiography performed. 15:46:48 Proceeding to intervention. 15:47:07 Guide catheter removed. 15:47:10 GUIDE 6FR XBLAD 4.0 catheter ([id number]) opened to sterile field. 15:47:15 6 Fr XBLAD 4 guide catheter was inserted over the wire 15:47:35 Heparin Bolus 4000 units I.V. was administered by Frdedy Joyner RN; for anticoagulation; verified with dr mccall Verbal order read back and verified. 15:48:51 Pre PCI Site: [place] Circ has 85% stenosis. 15:50:09 CHOICE PT Extra Support 182cm wire ([id number]) opened to sterile field. 15:50:13 2ND WIRE GOING DOWN THE LAD. 15:50:57 The ITZ RX 3.0 x 22 stent ([id number]) was advanced then removed because of failure to cross lesion 15:52:13 Inflate balloon Inflation number: 1 A EUPHORA 3.0 x 20 Balloon ([id number]) was prepped and advanced across the Mid CX , then inflated to 15 ANILA for 0:00 (min:sec) . 15:52:17 Inflation number: 2 The EUPHORA 3.0 x 20 Balloon ([id number]) was reinflated across the Mid CX , to 15 ANILA for 0:00 (min:sec) . 15:52:21 Balloon removed over the wire. 15:53:34 Place stent Inflation Number: 3 A ITZ RX 3.0 x 22 stent ([id number]) was prepped and advanced across the Mid CX . The stent was deployed at 17 ANILA for 0:00 (min:sec) . 15:53:45 Stent catheter was removed intact over wire. 15:53:46 Wire removed. 15:54:06 Pre PCI Site: [place] LAD has 90% stenosis. 15:55:20 Inflation number: 1 The EUPHORA 3.0 x 20 Balloon ([id number]) was reinflated across the Mid LAD , to 17 ANILA for 0:00 (min:sec) . 15:55:23 Balloon removed over the wire. 15:57:03 Place stent Inflation Number: 1 A ITZ RX 3.0 x 30 stent ([id number]) was prepped and advanced across the Mid LAD1 . The stent was deployed at 17 ANILA for 0:00 (min:sec) . 15:57:52 Stent catheter was removed intact over wire. 15:57:53 Wire removed. 15:57:53 Guide catheter removed. 15:57:58 EXOSEAL 6Fr (EX600) opened to sterile field. 15:58:09 Sheath removed intact; hemostasis achieved with Exoseal to the Right Femoral artery. 15:58:33 Fluoroscopy time 06.50 minutes. 15:58:39 Flurop Dose total: 982 15:58:39 Fluoroscopy dose: 982 mGy 15:58:44 Dose Area Product 59006 mGy/cm. 15:59:06 Procedure ended.(Physican Out) 15:59:53 Contrast amount:Isovue 370 137ml. 15:59:56 Maximum allowable dose exceeded? Yes. 15:59:56 Sharps counted by scrub and verified by R.N. 16:00:00 Post-op/insertion site Right Femoral artery dressed using a 4 x 4 and Tegaderm. 16:00:04 Post right femoral artery:stable, soft, clean and dry 16:00:06 Post Procedure Pulses reassessed and unchanged 16:00:09 Post procedure: right dorsailis pedis pulse 2+ Normal; easily identifiable; not easily obliterated. 16:00:18 Post-procedure physical assessment completed. ASA score P 2 - A patient with mild systemic disease as per Dane Mccall MD. 16:00:21 Post procedure rhythm: unchanged. 16:00:24 Estimated blood loss: 10 ml 16:00:25 Post procedure instruction explained to patient.Patient verbalizes understanding. 16:00:26 Patient needs reinforcement of post procedure teaching. 16:01:03 Procedure type changed to Cath procedure, Diagnostic procedure, LHC, C w/Coronaries w/Grafts, Sedation Charges, Moderate Sedation up to 15 minutes, PCI procedure, Coronary Stent, Coronary Stent Initial x2, Hemochron ACT Test 16:06:37 Procedure and supply charges have been captured, reviewed, submitted and are correct. 16:06:42 Procedure Complication : No complications 16:06:46 Vital chart was stopped 16:06:47 [facility] Findings: MVD- PCI performed (see procedure note) 16:06:49 Operative report dictated upon procedure completion. 16:06:49 See physician's report for complete and final results. 16:06:53 Report given to Med II. 16:06:57 Patient transfered to Med II with Bed. 16:07:00 Procedure ended. 16:07:00 Full Disclosure recording stopped 16:07:10 ACC-PCI Only Patient was given prescriptions, or instructed by Dane Mccall MD to start/continue the following medications upon discharge: Plavix 16:07:12 End room use (Document Last) 16:07:41 End room use (Document Last) 16:08:53 ACT drawn and resulted at 260 seconds. (normal therapeutic range 180-240 seconds). Intervention Summary Intervention Notes Time ActionType Lesion and Equipment Used Action# Pressure Duration Attributes 15:50:57 Discard ITZ RX 3.0 x Stent 22 stent ([id number]) 15:52:13 Inflate Mid CX EUPHORA 3.0 x 1 15 00:00 balloon 20 Balloon ([id number]) 15:52:17 Reinflate Mid CX EUPHORA 3.0 x 2 15 00:00 balloon 20 Balloon ([id number]) 15:53:34 Place stent Mid CX ITZ RX 3.0 x 3 17 00:00 22 stent ([id number]) 15:55:20 Reinflate Mid LAD EUPHORA 3.0 x 1 17 00:00 balloon 20 Balloon ([id number]) 15:57:03 Place stent Mid LAD1 ITZ RX 3.0 x 1 17 00:00 30 stent ([id number]) Device Usage Item Name Manufacture Quantity Catalog Number Hospital Part Current M inimal Lot# / Charge Number Stock Stock Serial# Code ACIST Syringe Acist 1 88561 658961 758022 955605 2 0 (22928) Medical Systems Inc Bag Decanter Microtek 1 2001S 911690 40539 536424 5 (2001S) Medical Inc. Medline Cath Medline 1 [id number] 688435 42339 976572 5 Pack ([id number]) ACIST Hand Acist 1 72638 201408 928764 438841 5 Control Medical (49368) Systems Inc ACIST Manifold Acist 1 25374 928723 291857 044706 5 (41292) Medical Systems Inc DIAGNOSTIC Cardinal 1 ME4041 482868 60732 904522 3 0 Multipack 5Fr Health catheter set (SU4691) SHEATH 5FR Terumo 1 HSP048 903290 754020 653721 5 [place] (QWL575) EMERALD Guide Cardinal 1 502-455 304862 783903 945807 5 Wire (502-455) Health MULTIPACK Cardinal 1 802476 5 Pigtail 5 Fr Health catheter MULTIPACK JL Cardinal 1 921758 5 4.0 5Fr Health catheter MULTIPACK 3DRC Cardinal 1 929802 5 5Fr catheter Health GUIDE 6FR AR Medtronic 1 [id number] 803546 42762 317253 1 2.0 catheter ([id number]) GUIDE 6FR Cardinal 1 09203553 840082 451283 067503 3 XBLAD 4.0 Health catheter (35977694) CHOICE PT Mayer 1 [id number] 538721 089068 516851 5 Extra Support Scientific 182cm wire ([id number]) ITZ RX 3.0 x Medtronic 1 [id number] 467333 1949292 395034 5 [id number] 22 stent ([id number]) EUPHORA 3.0 x Medtronic 1 [id number] 434663 473611 596494 5 [id number] 20 Balloon ([id number]) ITZ RX 3.0 x Medtronic 1 [id number] 440622 8549848 059986 5 [id number] 30 stent ([id number]) EXOSEAL 6Fr Cardinal 1 EX600 371895 662317 152775 1 0 (EX600) Health Signature Audit [place] Stage Time Signature Unsigned Intra-Procedure 08/16/2019 Francoise Garza 4:08:02 PM RT(R) Intra-Procedure 08/16/2019 Freddy Joyner RN 4:08:20 PM Intra-Procedure 08/16/2019 Dane Mccall 4:09:42 PM [place] [id number] [place] [id number]
[~2019-08-16 10:06] MED LIST changes: +HYDROCODONE-A1 UDTA2 PO
[2019-08-16 10:29] LABS: LYMPHOCYTES 26.4 % (15-50); MCH 31.3 pg (26.0-34.0); MCHC 32.4 g/dL (31.0-37.0); MCV 96.6 fL (80.0-100.0); MEAN PLATELET VOLUME 10.1 fL (7.4-10.4); NEUTROPHILS 53.9 % (40-80); PLATELET COUNT 149 10x3/uL (130-400); RBC 3.83 10x6/uL (4.20-6.10); WBC 4.4 10x3/uL (4.8-10.8)
[2019-08-16 10:44] LABS: APTT 29.6 SECONDS (22.8-39.4); INR 0.97 (0.85-1.17); PROTIME 12.9 SECONDS (11.6-15.0)
[2019-08-16 10:47] LABS: CALC OSMOLALITY 273 mosm/kg (275-300); CALCIUM 8.6 mg/dL (8.5-10.1); CARBON DIOXIDE 22.8 mmol/L (21.0-32.0); CHLORIDE - SERUM 99 mmol/L (98-107); POTASSIUM - SERUM 3.6 mmol/L (3.5-5.1); SODIUM 133 mmol/L (136-145); UREA NITROGEN 25 mg/dL (7-18); eGFR NON AFRICAN AMERICAN 13 mL/min (90-120)
[2019-08-16 10:48] LABS: GLUCOSE 164 mg/dL (74-106)
[2019-08-16 11:04] LABS: ALBUMIN 3.1 g/dL (3.4-5.0); ALKALINE PHOSPHATASE 128 U/L (30-120); ALT (SGPT) 10 U/L (10-68); BILIRUBIN - TOTAL 0.32 mg/dL (0.2-1.3); CKMB 1.6 U/L (0.0-3.6); CREATINE KINASE 40 UL (21-232); MAGNESIUM - SERUM 1.8 mg/dL (1.8-2.4); PROTEIN - SERUM 8.4 g/dL (6.4-8.2)
[2019-08-16 11:05] LABS: TROPONIN-I < 0.017 ng/mL (0.000-0.060)
[2019-08-16] MEDS ORDERED: GABAPENTIN300 MG PO (12:46)
[2019-08-16 17:20] VITALS: BP 117/88; Ht 182.9 cm; Wt 103.6 kg
[2019-08-16] MEDS ORDERED: BENADRYL25 MG PO (18:37)
--- NOTE | 2019-08-16 18:40 | NUR ---
[facility] CALLED BY ANA ROBERTS IN ICU TO REMOVE DIALYSIS NEEDLES. STATED WILL BE OVER WHEN DIALYSIS COMPLETE IN ICU
--- NOTE | 2019-08-16 19:30 | NUR ---
RECEIVED REPORT, WILL ASSUME CARE OF PT, A&O,R.GROIN DRESSING C/D/I, IV-L.HAND. DENIES ANY NEEDS AT THIS TIME, BED IS LOW, SRX2,FAMILY AT BEDSIDE, WILL CONTINUE PLAN OF CARE
[2019-08-16 20:00] VITALS: BP 115/48
[2019-08-16] MEDS ORDERED: SENSIPAR30 MG PO (23:32)
[2019-08-17] VITALS: BP 90/38
--- NOTE | 2019-08-17 02:23 | NUR ---
I have reviewed this patient and I concur with the Shift Assessment completed by the Licensed Practical Nurse today this shift.
[2019-08-17 04:00] VITALS: BP 134/64
[2019-08-17 06:10] LABS: BASOPHILS 0.2 % (0-2); EOSINOPHILS 4.6 % (0-7); HEMATOCRIT 36.7 % (42.0-54.0); HEMOGLOBIN 11.6 g/dL (13.5-17.5); IMMATURE GRANULOCYTES 0.2 % (0-5); LYMPHOCYTES 24.8 % (15-50); MCHC 31.6 g/dL (31.0-37.0); MCV 98.1 fL (80.0-100.0); MEAN PLATELET VOLUME 10.4 fL (7.4-10.4); MONOCYTES 14.2 % (2-11); PLATELET COUNT 166 10x3/uL (130-400); RBC 3.74 10x6/uL (4.20-6.10); RDW 13.5 % (11.5-14.5); WBC 4.8 10x3/uL (4.8-10.8)
[2019-08-17 06:45] LABS: ALBUMIN 2.8 g/dL (3.4-5.0); ALKALINE PHOSPHATASE 111 U/L (30-120); ALT (SGPT) 12 U/L (10-68); BILIRUBIN - TOTAL 0.21 mg/dL (0.2-1.3); CALCIUM 8.1 mg/dL (8.5-10.1); CARBON DIOXIDE 27.2 mmol/L (21.0-32.0); CHLORIDE - SERUM 100 mmol/L (98-107); CKMB 5.2 U/L (0.0-3.6); CREATINE KINASE 57 UL (21-232); PHOSPHOROUS 6.4 mg/dL (2.5-4.9); PROTEIN - SERUM 7.2 g/dL (6.4-8.2); SODIUM 135 mmol/L (136-145)
[2019-08-17 06:46] LABS: CALC OSMOLALITY 277 mosm/kg (275-300); CREATININE - SERUM 7.1 mg/dL (0.6-1.3); GLUCOSE 84 mg/dL (74-106); POTASSIUM - SERUM 4.5 mmol/L (3.5-5.1); UREA NITROGEN 37 mg/dL (7-18); eGFR NON AFRICAN AMERICAN 8 mL/min (90-120)
[2019-08-17 06:47] LABS: TROPONIN-I 1.154 ng/mL (0.000-0.060)
--- NOTE | 2019-08-17 07:11 | NUR ---
ASSESSMENT DONE. DENIES NEEDS
[2019-08-17 09:07] VITALS: BP 105/42
[2019-08-17] MEDS ORDERED: RENVELA800 MG PO (11:04)
[2019-08-17] MEDS ORDERED: BAYER CHEWABLE81 MG PO (11:31)
--- NOTE | 2019-08-17 11:32 | NUR ---
CONFIRMED WITH DR ZARAGOZA THAT PT TO BE DISCHARGED HOME ON ASA [address] ZARAGOZA. ADDED TO HOME MEDICATION LIST.
--- NOTE | 2019-08-17 12:49 | NUR ---
DC GIVEN TO PT
--- NOTE | 2019-08-17 14:11 | NUR ---
I have reviewed this patient and I concur with the Shift Assessment completed by the Licensed Practical Nurse today this shift.
--- NOTE | 2019-08-17 14:12 | NUR ---
DC HOME PER PERSONAL CAR
== END 2019-08-17 14:14 | disposition home or self-care (01) ==
LOC: D.M2 10:06 → D.ER 10:06 → D.CATH 10:06 → EDSTATUS 16:55 → D.M2 16:55 → D.CATH 08-17 14:14
PROVIDERS: Family Medicine; ATTEND Internal Medicine Nephrology
DX: I25.110 Atherosclerotic heart disease of native coronary artery with unstable angina pectoris (principal); E78.5 Hyperlipidemia, unspecified; I12.0 Hypertensive chronic kidney disease with stage 5 chronic kidney disease or end stage renal disease; N18.6 End stage renal disease; Z99.2 Dependence on renal dialysis; G62.9 Polyneuropathy, unspecified
CPT/HCPCS: 93459; C9600 ×2

== ENCOUNTER → 2020-09-24 08:48 | Outpatient (CLI) | payer MEDICARE, OTHER ==
[2020-04-03 17:53] VITALS: BMI 39.1
[~2020-09-24 08:48] MED LIST changes: +BENADRYL25 MG PO; +GABAPENTIN300 MG PO; +KEFLEX500 MG PO; +SENSIPAR30 MG PO
== END | disposition home or self-care (01) ==
LOC: D.MRI 08:48
PROVIDERS: ATTEND Clinical Nurse Specialist Family Health
DX: S91.002A Unspecified open wound, left ankle, initial encounter (principal)

== ENCOUNTER 2020-10-26 09:00 | Inpatient (IN) | payer MEDICARE, OTHER ==
[~2020-10-26] VITALS: Ht 182.9 cm; Wt 111.1 kg
[~2020-10-26 09:00] MED LIST changes: +CREON DR 24,001 EACH
[2020-10-26 09:58] VITALS: BP 97/76; BMI 33.3
[2020-10-26 10:16] LABS: ANION GAP 15.7 mmol/L (8-16); CALCIUM 9.1 mg/dL (8.5-10.1); CARBON DIOXIDE 25.9 mmol/L (21.0-32.0); CREATININE - SERUM 9.7 mg/dL (0.6-1.3); POTASSIUM - SERUM 4.6 mmol/L (3.5-5.1)
[2020-10-26 10:26] LABS: BASOPHILS 0.3 % (0-2); EOSINOPHILS 3.5 % (0-7); LYMPHOCYTES 16.9 % (15-50); MCHC 33.2 g/dL (31.0-37.0); MCV 96.2 fL (80.0-100.0); MONOCYTES 7.6 % (2-11); NEUTROPHILS 71.7 % (40-80); PLATELET COUNT 153 10x3/uL (130-400); RBC 3.12 10x6/uL (4.20-6.10); RDW 14.6 % (11.5-14.5); WBC 4.9 10x3/uL (4.8-10.8)
[2020-10-26 11:02] LABS: APTT 31.1 SECONDS (22.8-39.4); INR 1.13 (0.85-1.17); PROTIME 13.4 SECONDS (11.6-15.0)
--- NOTE | 2020-10-26 14:31 | NUR ---
PATIENT ARRIVED VIA STRETCHER. FAMILY AT BEDSIDE. DENIES ANY NEEDS AT THIS TIME. ALERT AND ORIENTED. WOUND VAC PRESENT UPON ARRIVAL.
--- NOTE | 2020-10-26 15:41 | NUR ---
DOWN TO DIALYISIS
--- NOTE | 2020-10-26 20:10 | NUR ---
REPORT RECEIVED. RETRIEVED PT FROM DIALYSIS. PT A&O, UP IN BED TALKING WITH NURSE. NO S/S OF DISTRESS OBSERVED. RR EVEN & UNLABORED ON RA. IV TO L FA SL. SR 79 ON TELE. WOUND VAC ON AND IN PLACE TO L LOWER EXTREMITY. BED LOCKED AND LOWERED, CL IN REACH. ASSESSMENT COMPLETE. WILL CONT POC.
[2020-10-26 21:00] VITALS: BP 126/49
[2020-10-27] VITALS (7 sets, daily range): BP systolic 95–130; BP diastolic 39–60; Ht 182.9 cm; Wt 111.1 kg
[2020-10-27 04:16] LABS: VANCOMYCIN - RANDOM 18.9 ug/mL (10.0-20.0)
[2020-10-27 04:20] LABS: CREATININE - SERUM 6.9 mg/dL (0.6-1.3)
--- NOTE | 2020-10-27 11:18 | NUR ---
PATIENT AAOX4, RESP EVEN AND NON LABORED, NO S/S OF DISTRESS, MEDICATIONS ADMINSITERED WITH NO COMPLICATIONS, IV ANTIBIOTICS INFUSING, PATIENT IS NOT IN ANY PAIN AT THIS TIME, WOUND VAC TO LEFT ANKLE WOUND DRESSING INTACT, NO FURTHER NEEDS AT THIS TIME, CLIR, EVERP
--- NOTE | 2020-10-27 14:49 | NUR ---
I have reviewed this patient and I concur with the Shift Assessment completed by the Licensed Practical Nurse today this shift.
--- NOTE | 2020-10-27 19:00 | NUR ---
pt lying in bed awake alert denies any issues or needs, wound vac continues to lle, dressing cdi. call light in reach will continue to monitor
[2020-10-28] VITALS: BP 108/50
[2020-10-28 04:00] VITALS: BP 101/43
[2020-10-28 06:25] LABS: HEMATOCRIT 26.5 % (42.0-54.0); HEMOGLOBIN 8.7 g/dL (13.5-17.5); MCH 31.6 pg (26.0-34.0); MCHC 32.9 g/dL (31.0-37.0); MEAN PLATELET VOLUME 9.2 fL (7.4-10.4); RBC 2.76 10x6/uL (4.20-6.10); RDW 14.7 % (11.5-14.5); WBC 4.4 10x3/uL (4.8-10.8)
[2020-10-28 06:46] LABS: ANION GAP 12.8 mmol/L (8-16); CALCIUM 8.5 mg/dL (8.5-10.1); CARBON DIOXIDE 28.7 mmol/L (21.0-32.0); POTASSIUM - SERUM 4.5 mmol/L (3.5-5.1); VANCOMYCIN - RANDOM 15.6 ug/mL (10.0-20.0)
[2020-10-28 06:48] LABS: CREATININE - SERUM 8.8 mg/dL (0.6-1.3)
--- NOTE | 2020-10-28 07:00 | NUR ---
PT LYING IN BED WITH EYES CLOSED. RAISES TO VERBAL STIMULI. RESP EVEN AND UNLABORED. AAO X4. WOUND VAC CONNECTED TO LEFT FOOT. DRESSING C/D/I. PT DENIES NEEDS AT THIS TIME. CLIR. BED IN LOWEST POSITION. SIDE RAILS X2
[2020-10-28 07:49] VITALS: BP 105/45
--- NOTE | 2020-10-28 11:30 | NUR ---
PT LEFT UNIT FOR DIALYSIS ACCOMPANIED BY HOSPITAL STAFF
--- NOTE | 2020-10-28 14:40 | NUR ---
PT LEFT UNIT FOR DIALYSIS ACCOMPANIED BY HOSPITAL STAFF
--- NOTE | 2020-10-28 15:50 | NUR ---
PT RETURNED TO UNIT FROM DIALYSIS. VS WNL. NO DISTRESS NOTED. CLIR. BED IN LOWEST POSITION. SIDE RAILS X2
--- NOTE | 2020-10-28 16:02 | NUR ---
OT NOTE: PT COMPLETED SUPINE TO SIT WITH CGA. PT COMPLETED SIT TO STAND WITH CGA. PT COMPLETED ADL MOB WITH CGA. PT COMPLETED SELF BATHING TASKS AT EOB WITH SETUP FOR UB. [phone] JOSH CORREIA COTA
[2020-10-28 16:03] VITALS: BP 110/58
--- NOTE | 2020-10-28 18:03 | NUR ---
I have reviewed this patient and I concur with the Shift Assessment completed by the Licensed Practical Nurse today this shift.
--- NOTE | 2020-10-28 18:51 | NUR ---
DIALYSIS TREATMENT FOR 3 HOURS TODAY. REMOVED 2 LITERS TOTAL. PATIENT TOLERATED WELL WITH THE EXCEPTION OF NEED TO DECREASE UF GOAL FROM 2.5 LITERS TO 2 LITERS DUE TO MILD HYPOTENSION. DID NOT REQUIRE NS BOLUS OR ALBUMIN. ENDING BLOOD PRESSURE 130/71. REPORT GIVEN TO GEOVANY MARIA LPN.
[2020-10-28 19:34] VITALS: BP 98/48
--- NOTE | 2020-10-28 21:38 | NUR ---
REPORT RECEIVED. PT A&O, UP IN BED WATCHING TV. NO S/S OF DISTRESS OBSERVED. RR EVEN & UNLABORED ON RA. IV TO L FA SL. SR 72 ON TELE. BED LOCKED AND LOWERED, CL IN REACH. ASSESSMENT COMPLETE. WILL CONT POC.
[2020-10-29] VITALS (7 sets, daily range): BP systolic 95–141; BP diastolic 43–62
[2020-10-29 06:16] LABS: HEMATOCRIT 27.5 % (42.0-54.0); MCH 31.5 pg (26.0-34.0); MCHC 32.6 g/dL (31.0-37.0); MCV 96.6 fL (80.0-100.0); MEAN PLATELET VOLUME 9.1 fL (7.4-10.4); RBC 2.85 10x6/uL (4.20-6.10); RDW 14.6 % (11.5-14.5)
[2020-10-29 06:45] LABS: ANION GAP 11.1 mmol/L (8-16); CALCIUM 7.8 mg/dL (8.5-10.1); CARBON DIOXIDE 29.1 mmol/L (21.0-32.0); CREATININE - SERUM 6.7 mg/dL (0.6-1.3); POTASSIUM - SERUM 4.2 mmol/L (3.5-5.1); VANCOMYCIN - RANDOM 20.9 ug/mL (10.0-20.0)
--- NOTE | 2020-10-29 11:53 | NUR ---
Nutrition Follow-up: NPO for I&D of L heel with wound vac change vs closure. Pt reports good appetite/PO intake. Has been drinking some Vasquez. Denies N/V/C/D. Wt: 245# (10/27) Last BM: 10/28 Labs noted: Na 134, K+ 4.2, BUN 25, Cre 6.7, GFR 9, Ca 7.8 Meds noted: Miralax, Florajen, Sensipar, Colace, Protonix, Renagel -Resume diet when medically feasible. -RD follow-up: 11/03
--- NOTE | 2020-10-29 14:39 | NUR ---
OT NOTE: I/D TODAY...WILL CHECK ON PT LATER. CONCETTA ELAM, OTR/L
--- NOTE | 2020-10-29 20:00 | NUR ---
REPORT RECEIVED. PT A&O, UP IN BED WITH FRIEND AT BEDSIDE. NO S/S OF DISTRESS OBSERVED. RR EVEN & UNLABORED ON RA. BED LOCKED AND LOWERED, CL IN REACH. ASSESSMENT COMPLETE. WILL CONT POC.
[2020-10-30 03:33] VITALS: BP 148/45
[2020-10-30 06:06] LABS: VANCOMYCIN - RANDOM 31.2 ug/mL (10.0-20.0)
[2020-10-30 06:08] LABS: CREATININE - SERUM 8.4 mg/dL (0.6-1.3)
[2020-10-30 07:54] VITALS: BP 177/54
[2020-10-30 15:09] VITALS: BP 114/43
--- NOTE | 2020-10-30 15:43 | NUR ---
OT NOTE: PT DECLINED THERAPY AT THIS TIME. PT JUST BACK FROM DIALYSIS. JOSH CORREIA COTA
[2020-10-30 19:47] VITALS: BP 123/33
--- NOTE | 2020-10-30 23:03 | NUR ---
REPORT RECEIVED. PT A&O, UP IN BED WITH FAMLY AT BEDSIDE. NO S/S OF DISTRESS OBSERVED. RR EVEN & UNLABORED ON RA. SR 69 ON TELE. IV TO L FA PATENT, SL, SWAB CAPS IN USE. DRESSING C/D/I. NO S/S OF INFILTRATION. PAIN 10/19. NORCO ADMINISTERED. BED LOCKED AND LOWERED, CL IN REACH. ASSESSMENT COMPLETE. WILL CONT POC.
[2020-10-30 23:38] VITALS: BP 116/45
[2020-10-31 03:57] VITALS: BP 104/46
[2020-10-31 06:16] LABS: BASOPHILS 0.5 % (0-2); EOSINOPHILS 4.5 % (0-7); HEMATOCRIT 27.5 % (42.0-54.0); HEMOGLOBIN 9.2 g/dL (13.5-17.5); LYMPHOCYTES 28.5 % (15-50); MCH 32.3 pg (26.0-34.0); MCHC 33.4 g/dL (31.0-37.0); MCV 96.6 fL (80.0-100.0); MEAN PLATELET VOLUME 8.7 fL (7.4-10.4); MONOCYTES 11.6 % (2-11); NEUTROPHILS 54.9 % (40-80); PLATELET COUNT 139 10x3/uL (130-400); RBC 2.85 10x6/uL (4.20-6.10); RDW 14.9 % (11.5-14.5); WBC 4.5 10x3/uL (4.8-10.8)
[2020-10-31 06:56] LABS: ALBUMIN 2.7 g/dL (3.4-5.0); ANION GAP 11.1 mmol/L (8-16); BILIRUBIN - TOTAL 0.38 mg/dL (0.2-1.3); CALCIUM 8.4 mg/dL (8.5-10.1); CARBON DIOXIDE 30.3 mmol/L (21.0-32.0); PHOSPHOROUS 3.9 mg/dL (2.5-4.9); POTASSIUM - SERUM 4.4 mmol/L (3.5-5.1); VANCOMYCIN - RANDOM 25.4 ug/mL (10.0-20.0)
[2020-10-31 06:57] LABS: CREATININE - SERUM 6.1 mg/dL (0.6-1.3)
--- NOTE | 2020-10-31 07:00 | NUR ---
RECEIVED REPORT. ASSUMED CARE OF PATIENT. PATIENT WITH EYES OPEN, RESTING IN BED. MALE VISITOR AT BEDSIDE. CALL LIGHT WITHIN REACH. PATIENT STATES PAIN IS OKAY BUT COMPLAINS OF CONSTIPATION. WHITE BOARD UPDATED, BEDSIDE SHIFT REPORT COMPLETE. NO DISTRESS.
--- NOTE | 2020-10-31 08:04 | NUR ---
PRUNE JUICE PROVIDED FOR COMPLAINTS OF CONSTIPATION.
[2020-10-31 08:25] VITALS: BP 135/42
--- NOTE | 2020-10-31 12:38 | NUR ---
RESTING IN BED, NOON MEAL COMPLETED, IV ABX COMPLETED AT THIS TIME. NO DISTRESS.
[2020-10-31 15:56] VITALS: BP 147/32
--- NOTE | 2020-10-31 17:30 | NUR ---
NO BM X 3 DAYS. PATIENT NOW VOMITING AND NAUSEATED. PATIENT HAS RECIEVED COLACE, MIRALAX, AND PRUNE JUICE ON THIS SHIFT. PAGED DIRECTOR MEDICARE SALES FOR SUPPOSITORY ORDER.
--- NOTE | 2020-10-31 17:58 | NUR ---
STILL WAITING FOR PHARMACY TO VERIFY ORDERS FOR SUPPOSITORY
--- NOTE | 2020-10-31 18:54 | NUR ---
CALLED AFTER HOURS PHARMACY TO VERFIY NEW ORDER THAT HAS BEEN WAITING ON VERIFICATION FOR ONE HOUR!
--- NOTE | 2020-10-31 19:00 | NUR ---
RECEIVED REPORT, WILL ASSUME CARE OF PT, VISITING WITH FAMILY, EXPLAIN WE ARE WAITING ON DULCOLAX SUPP. WILL GIVE SOON IT IS VERIFIED, DENIES ANY OTHER NEEDS AT THIS TIME, BED IS LOW, SRX2, CALL LIGHT IN REACH, WILL CONTINUE PLAN OF CARE
[2020-10-31 20:09] VITALS: BP 116/38
[2020-11-01 00:01] VITALS: BP 119/42
[2020-11-01 04:49] VITALS: BP 129/38
[2020-11-01 06:00] LABS: BASOPHILS 0.5 % (0-2); EOSINOPHILS 5.2 % (0-7); HEMATOCRIT 27.1 % (42.0-54.0); HEMOGLOBIN 8.9 g/dL (13.5-17.5); LYMPHOCYTES 20.5 % (15-50); MCH 31.7 pg (26.0-34.0); MCV 95.9 fL (80.0-100.0); MEAN PLATELET VOLUME 9.1 fL (7.4-10.4); MONOCYTES 14.4 % (2-11); NEUTROPHILS 59.4 % (40-80); PLATELET COUNT 129 10x3/uL (130-400); RBC 2.82 10x6/uL (4.20-6.10); RDW 14.4 % (11.5-14.5); WBC 5.1 10x3/uL (4.8-10.8)
[2020-11-01 06:43] LABS: ALBUMIN 2.6 g/dL (3.4-5.0); ANION GAP 10.2 mmol/L (8-16); BILIRUBIN - TOTAL 0.39 mg/dL (0.2-1.3); CALCIUM 8.3 mg/dL (8.5-10.1); CARBON DIOXIDE 30.5 mmol/L (21.0-32.0); PHOSPHOROUS 4.4 mg/dL (2.5-4.9); POTASSIUM - SERUM 4.7 mmol/L (3.5-5.1); PROTEIN - SERUM 6.9 g/dL (6.4-8.2); VANCOMYCIN - RANDOM 25.1 ug/mL (10.0-20.0)
[2020-11-01 06:55] LABS: CREATININE - SERUM 7.8 mg/dL (0.6-1.3)
--- NOTE | 2020-11-01 07:00 | NUR ---
RECEIVED REPORT. ASSUMED CARE OF PATIENT. PATIENT RESTING IN BED WITH EYES CLOSED. MALE VISITOR AT BEDSIDE. CALL LIGHT WITHIN REACH. WHITE BOARD UPDATED, BEDSIDE SHIFT REPORT COMPLETE. REPORTED PATIENT HAD 2 LARGE BM ON PREVIOUS SHIFT, NO FURTHER NAUSEA OR VOMITING THROUGHOUT THE NIGHT. NO DISTRESS.
[2020-11-01 08:00] VITALS: BP 147/45
[2020-11-01 12:00] VITALS: BP 143/48
[2020-11-01 15:08] LABS: AEROBE ID Final report (())
[2020-11-01 16:00] VITALS: BP 145/36
[2020-11-01 21:00] VITALS: BP 119/68
--- NOTE | 2020-11-01 22:30 | NUR ---
INITIAL ROUNDS COMPLETED AT 1915 HRS. PT DENIED ANY DISCOMFORT. FRIEND AT BEDSIDE. ASSESSMENT COMPLETED AT 2009 HRS. SR PER CM HR 69. ALERT AND ORIENTED TO PERSON, PLACE AND TIME. MAZA. PALPABLE PERIPHERAL PULSES. LUNGS ESSENTIALLY CTA. ABD SOFT WTIH ACTIVE BS NOTED. UPPER R ARM WITH AV FISTULA. GOOD BRUIT AND THRILL NOTED. IV TO L WRIST SL. DRESSING WRAPPED WITH VALDEMAR BANDAGE TO LOWER L CALF AND FOOT CLEAN, DRY AND INTACT. PALPABLE PEDAL PULSE. L FOOT TOENAILS PINK WITH GOOD CAP REFILL. VSS. PM MEDS GIVEN. PT CURRENTLY WATCHINT TV. SR UP X2, CALL LIGHT WITHIN REACH.
[2020-11-02] VITALS: BP 148/70
--- NOTE | 2020-11-02 00:31 | NUR ---
PT AWAKE; DENIES ANY DISCOMFORT. CALL LIGHT WITHIN REACH.
--- NOTE | 2020-11-02 03:19 | NUR ---
PT RESTING WITH EYES CLOSED. RESP EVEN AND REGULAR. SR UP X2, CALL LIGHT WITHIN REACH.
[2020-11-02 04:00] VITALS: BP 135/63
--- NOTE | 2020-11-02 05:57 | NUR ---
VSS THROUGHOUT NIGHT. PT RESTED WELL DURING SHIFT. NEEDS MET; WILL CONTINUE TO MONITOR.
[2020-11-02 06:43] LABS: BASOPHILS 0.7 % (0-2); EOSINOPHILS 4.6 % (0-7); HEMATOCRIT 28.1 % (42.0-54.0); HEMOGLOBIN 9.6 g/dL (13.5-17.5); LYMPHOCYTES 17.7 % (15-50); MCH 32.4 pg (26.0-34.0); MCV 95.5 fL (80.0-100.0); MEAN PLATELET VOLUME 9.4 fL (7.4-10.4); MONOCYTES 13.6 % (2-11); NEUTROPHILS 63.4 % (40-80); PLATELET COUNT 136 10x3/uL (130-400); RBC 2.95 10x6/uL (4.20-6.10); RDW 14.3 % (11.5-14.5); WBC 5.5 10x3/uL (4.8-10.8)
--- NOTE | 2020-11-02 07:00 | NUR ---
RECEIVED REPORT. ASSUMED CARE OF PATIENT. RESTING WITH EYES CLOSED. RESP EVEN AND UNLABORED. WHITE BOARD UPDATED, BEDSIDE SHIFT REPORT COMPLETE. NO DISTRESS.
[2020-11-02 07:03] LABS: ALBUMIN 2.7 g/dL (3.4-5.0); ANION GAP 10.6 mmol/L (8-16); BILIRUBIN - TOTAL 0.38 mg/dL (0.2-1.3); CALCIUM 8.5 mg/dL (8.5-10.1); CARBON DIOXIDE 29.2 mmol/L (21.0-32.0); CREATININE - SERUM 9.5 mg/dL (0.6-1.3); MAGNESIUM - SERUM 2.1 mg/dL (1.8-2.4); POTASSIUM - SERUM 4.8 mmol/L (3.5-5.1); PROTEIN - SERUM 7.2 g/dL (6.4-8.2)
[2020-11-02 07:04] LABS: VANCOMYCIN - RANDOM 23.2 ug/mL (10.0-20.0)
--- NOTE | 2020-11-02 07:52 | NUR ---
CALLED AND STATED FROM [facility]NAL [facility], WHEN SURGERY IS READY TO D/C PATIENT, OKAY TO DISCHARGE TO HOME FROM [facility], PATIENT TO HAVE DIALYSIS TODAY.
[2020-11-02 08:31] VITALS: BP 158/76
--- NOTE | 2020-11-02 10:00 | NUR ---
PATIENT LEFT UNIT VIA BED FOR DIALYSIS AT THIS TIME. NO DISTRESS UPON LEAVING UNIT.
--- NOTE | 2020-11-02 11:30 | OP ---
PATIENT NAME: SONYA LEROY MEDICAL RECORD: [id number] :56 LOCATION:D.[facility] D.2107 ADMISSION DATE:10/26/20 SURGEON: TOD CROWELL MD DATE OF OPERATION: 10/26/2020 PREOPERATIVE DIAGNOSIS: Left Achilles infection. POSTOPERATIVE DIAGNOSIS: Left Achilles infection. PROCEDURE PERFORMED: 1. Incision and debridement of left heel (skin, subcutaneous tissue, tendon). 2. Placement of wound VAC, left heel (less than 50 cm-squared). INDICATIONS FOR THE PROCEDURE: Mr. Leroy is a 59-year-old male with history of a chronic wound, left heel. He had Achilles tendon repair approximately 10 years ago and did well postoperatively, but has developed a wound over the heel for the last few months. It is progressively getting larger and is draining. We attempted local wound care and antibiotics, but it does not seem to be improving. He is admitted for I&D of the heel with placement of wound VAC and then plans to return for formalization and closure of the wound. Risks, benefits and alternatives of surgery were discussed with the patient and consent was obtained. DESCRIPTION OF PROCEDURE: The patient was met in the holding area where his identity and confirmation of procedure was performed. The left lower extremity was marked. He was taken to the operating room where he was placed supine on the operating table, and anesthesia was administered. Tourniquet was applied to the left thigh and the left leg was prepped and draped in a sterile fashion. The patient received preoperative antibiotics and timeout was performed before initiating the case. On initiation of the case, the leg was exsanguinated and the tourniquet was raised. Total tourniquet time was 21 minutes. The edges of the wound were then elliptically excised. There was some granulation tissue over the tendon in the wound bed, but no evidence of deep abscess. The wound bed was debrided thoroughly with a rongeur and then irrigated with saline. Again, there did not appear to be any tracking or deep abscess formation. After thorough debridement and irrigation, a wound VAC was applied to the wound measuring 4 x 1.5 cm. The wound VAC was securely placed and compression was confirmed in the operating room. This was then covered with a sterile dressing. The patient was turned back over to anesthesia where he was awakened and taken to the recovery room in stable condition. POSTOPERATIVE PLAN: The patient is going to be admitted for routine postoperative care. We will start him on broad-spectrum antibiotics and tackle these according to his culture results. Medicine and nephrology will be consulted to assist with medical management. The patient will return to the operating room later this week. COMPLICATIONS: None. ESTIMATED BLOOD LOSS: 25 mL. ANESTHESIA: General. TRANSINT:[id number] Voice Confirmation ID: [id number] DOCUMENT ID: [id number] OPERATIVE REPORT [id number] SONYA LEROY BRENT M MD at 1130 CC: [id number] DICTATION DATE: 10/26/20 1209 METAL CASKET MAKER: 10/26/20 1705 ADM IN [place] [id number] [place] [id number]
--- NOTE | 2020-11-02 11:32 | OP ---
PATIENT NAME: SONYA LEROY MEDICAL RECORD: [id number] :56 LOCATION:D.M2 D.7 ADMISSION DATE:10/26/20 SURGEON: TOD CROWELL MD DATE OF OPERATION: 10/29/2020 PREOPERATIVE DIAGNOSES: 1. Left Achilles infection. 2. Open wound, left heel, status post incision and drainage. POSTOPERATIVE DIAGNOSES: 1. Left Achilles infection. 2. Open wound, left heel, status post incision and drainage. PROCEDURE PERFORMED: 1. Irrigation and debridement of left heel wound (skin, subcutaneous tissue, tendon). 2. Delayed closure, left heel wound (4.5 cm). INDICATIONS FOR THE PROCEDURE: Mr. Leroy is a 59-year-old male with a history of a left Achilles tendon repair years ago. He has developed infection recently along the posterior Achilles with open draining wound. He was taken to the operating room earlier this week for I&D and wound VAC was placed. He returns to the OR today for repeat I&D with wound closure versus VAC change. Cultures so far have showed gram-positive cocci and gram-positive derek and he is on broad-spectrum antibiotics. Risks, benefits and alternatives of surgery were discussed with the patient and consent was obtained. DESCRIPTION OF THE PROCEDURE: The patient was met in the holding area where his identity and confirmation of procedure was performed. The left lower extremity was marked. He was taken to the operating room where he was placed supine on the operating table, and anesthesia was administered. He was then positioned in the right lateral decubitus position and extremities were positioned, and padded appropriately. Left lower extremity was prepped and draped in a sterile fashion. The patient received preoperative antibiotics and timeout was performed prior to initiating the case. On initiation of the case, the wound was explored and noted to have good bleeding and granulation tissue from the borders of the wound. No obvious deep infection. The wound edges were again trimmed with a scalpel. Wound was irrigated thoroughly with saline. The wound was then closed with vertical mattress sutures of 3-0 nylon. Total length of closure of the complex wound measured 4.5 cm. Sterile dressing was placed. The patient was turned back over to anesthesia where he was awakened and taken to recovery room in stable condition. POSTOPERATIVE PLAN: The patient is going to return to the floor for continued postoperative care. Need to follow his culture results and tailor the antibiotics accordingly. He will likely need a course of antibiotics for at least a couple of weeks to address the soft tissue infection. COMPLICATIONS: None. ESTIMATED BLOOD LOSS: 10 mL. ANESTHESIA: General. TRANSINT:[id number] Voice Confirmation ID: [id number] DOCUMENT ID: [id number] OPERATIVE REPORT [id number] SONYA LEROY BRENT M MD at 1132 CC: [id number] DICTATION DATE: 10/29/20 1433 TRACE CLERK: 10/29/20 1711 ADM IN [facility] [address] [place] [address]
--- NOTE | 2020-11-02 12:41 | NUR ---
CONTINUES OFF UNIT IN DIALYSIS.
[2020-11-02] MEDS ORDERED: COLACE100 MG PO (14:11)
[2020-11-02] MEDS ORDERED: MIRALAX17 GM PO (14:11)
[2020-11-02] MEDS ORDERED: FLORAJEN DIGES1 EACH PO (14:11)
[2020-11-02] MEDS ORDERED: RENAGEL800 MG PO (14:11)
--- NOTE | 2020-11-02 14:37 | NUR ---
PATIENT RETURNED FROM DIALYSIS VIA BED AT THIS TIME. 4 LITERS REMOVED DURING TX TODAY. NO DISTRESS. CALL LIGHT WITHIN REACH.
--- NOTE | 2020-11-02 15:10 | NUR ---
CALL PLACED TO ORTHO TO VERIFY IF PATIENT OKAY TO DISCHARGE TODAY. PRIMARY AND RENAL OKAY FOR DISCHARGE. AWAITING ON ORTHO NURSE ANNIE TO RETURN CALL OR COME SEE THE PATIENT FOR DISCHARGE INSTRUCTIONS.
--- NOTE | 2020-11-02 16:03 | MORECARE ---
CASE MANAGEMENT DISCHARGE SUMMARY PATIENT: SONYA FLORIAN UNIT: [id number] ADM DATE: 10/26/20 AGE: 59 : 56 SEX: M ROOM/BED: D.2107 AUTHOR: FLOYD,DOC PHYSICIAN: REFERRING PHYSICIAN: TOD CROWELL MD DATE OF SERVICE: 11/02/20 Case Management Discharge Planning Summary DCP REVIEW SUMMARY ANTICIPATED D/C DATE: 11/02/2020 EXPECTED LOS : 7 CASE STATUS: DCP Initiated INITIAL REVIEW: 10/26/2020 INITIAL REVIEWER: Sydney Stein FINAL DISCHARGE DISPOSITION: 01 : Home or Self Care (Routine Discharge) FINAL REVIEWER: FINAL REVIEW DATE: DCP Focus Questions & Answers QUESTION: ANSWER : PATIENT: SONYA FLORIAN ENCOUNTER: [id number] MEDICAL RECORD#: [id number] ADMISSION DATE: 10/26/2020 DISCHARGE DATE: ATTENDING MD: : AGE: 59 MARITAL STATUS: D DC PLAN ID: [id number] FACILITY: [facility] PRINTED ON: 11/02/20 16:03 CT All edits/amendments must be made on the electronic document DICTATION DATE: 11/02/201602 BATCH MAKER: DM 11/02/20 160 RPT#: [id number] DC DATE: STATUS: ADM IN [facility] [address] [place] [address] END OF REPORT
--- NOTE | 2020-11-02 16:15 | MORECARE ---
CASE MANAGEMENT DISCHARGE SUMMARY PATIENT: SONYA FLORIAN UNIT: [id number] ADM DATE: 10/26/20 AGE: 59 : 56 SEX: M ROOM/BED: D.6289 AUTHOR: FLOYDDOC PHYSICIAN: REFERRING PHYSICIAN: TOD CROWELL MD DATE OF SERVICE: 11/02/20 Case Management Discharge Planning Summary DCP REVIEW SUMMARY ANTICIPATED D/C DATE: 11/02/2020 EXPECTED LOS : 7 CASE STATUS: DCP Initiated INITIAL REVIEW: 10/26/2020 INITIAL REVIEWER: Sydney Stein FINAL DISCHARGE DISPOSITION: 01 : Home or Self Care (Routine Discharge) FINAL REVIEWER: FINAL REVIEW DATE: DCP Focus Questions & Answers DCP Evaluation QUESTION: ANSWER Patient and/or caregiver agree upon recommended discharge plan? : Yes Family / Caregiver's ability to cope with chronic illness: : a. Adequate (ability to meet patient's medical needs, ensures patient attends medical appts.) Patient's current cognitive status: : *Oriented to person, place, situation, time and present Patient's ability to cope with chronic illness : d. No chronic illness Patient gives permission to discuss discharge plans with: (name, relationship and number) : Brayan Fan [phone] Other relation Does the patient have the ability to pay for or attain post discharge needs / services? : Yes Functional screen assessment: : Basic needs can adequately be met by self Family / Caregiver's ability to cope with chronic illness: : a. Adequate (ability to meet patient's medical needs, ensures patient attends medical appts.) Physical Status: : Independent with ADL's Equipment needed for post hospitalization: : Wound Dressing Is there a likelihood that the patient will require additional services to return to the preadmission environment? : Yes Living Arrangements: : Home with others Partial Dependence, assistance required for: : Ambulation / Mobility Results of this evaluation have been discussed with: : Patient Patient with capacity for self-care or can be cared for in same environment as prior to hospitalization? : Yes Baseline cognitive status: : *Oriented to person, place, situation, time and present Physical environment modification needed / anticipated for discharge: : No Medication Management: : Patient states can read and understand medication labels Medication Management: : Patient states they do have transportation to chicken picker medications Medication Management: : Patient states can afford medications Planned post hospital services available for patient? : Yes Pharmacy name(s): : [facility] in [place] Planned post hospital services covered by insurance plan? : Yes Does Patient have transportation to get home and to follow-up medical appointments when discharged from the hospital? : Yes Would patient like to participate in any Care Coordination programs (if applicable): : Not applicable Does the patient have electricity at home? : Yes Does the patient have running water in their house? : Yes Equipment in use: : Walker - Rollator Equipment in use: : Shower Chair Equipment in use: : Glucometer Mental health screen: : No mental health history Psychosocial status: : Independent adult (18-64) Abuse/Neglect: : None Resources / Services in place: : Dialysis - facility hemodialysis -- DCP Re-evaluation QUESTION: ANSWER Would patient like to participate in any Care Coordination programs (if applicable): : Not applicable PATIENT: SONYA FLORIAN ENCOUNTER: [id number] MEDICAL RECORD#: [id number] ADMISSION DATE: 10/26/2020 DISCHARGE DATE: ATTENDING MD: ALE: AGE: 59 MARITAL STATUS: D DC PLAN ID: [id number] FACILITY: [facility] PRINTED ON: 11/02/20 16:15 CT All edits/amendments must be made on the electronic document DICTATION DATE: 11/02/201614 MAIL SORTER AND DELIVERY: RAY 11/02/201614 RPT#: [id number] DC DATE: STATUS: ADM IN [facility] [address] [place] [address] END OF REPORT
--- NOTE | 2020-11-02 16:18 | NUR ---
OT NOTE: PT COMPLETED SUPINE TO SIT WITH CGA-MIN A. PT COMPLETED EOB SITTING WITH SPV AT TOLERATED. PT COMPLETED FACE HYGIENE WITH SETUP. PT COMPLETED SIT TO SUPINE WITH MIN A. PT REQUIRED EXTRA TIME. [phone] THANK YOU,LO KENNY
--- NOTE | 2020-11-02 16:41 | MORECARE ---
CASE MANAGEMENT DISCHARGE SUMMARY PATIENT: SONYA FLORIAN UNIT: [id number] ADM DATE: 10/26/20 AGE: 59 : 56 SEX: M ROOM/BED: D.2107 AUTHOR: FLOYD,DOC PHYSICIAN: REFERRING PHYSICIAN: TOD CORWELL MD DATE OF SERVICE: 11/02/20 Case Management Discharge Planning Summary COMMENTS ENTERED DATE: 11/02/20 16:15 CT COMMENT TYPE: Discharge Planning REVIEWER: Sydney Stein CM met with patient to complete discharge planning assessment and offer availability of needed services. Patient states that he lives independently at home with room mate Brayan Fan ([phone]) prior to admission. Mr Fan present in room at time of DCP and verified that home environment is safe and has electricity and running water. Patient denies need for transportation and state that they have funds for services and medications if needed. PCP is Yoanna STEVE and patient uses [facility] both in [place]. CM offered and discussed home health, rehab services, and need for any additional medical equipment. Patient did not express need for offered services at this time. CM anticipates HH for wound care which patients states he has a visiting nurse, but does not know from what company. [facility] contacted and patient was discharged from their care 05/2020. Transportation home will be provided by room mate, Patient verbalized understanding of signed forms. IMM served, and signed copy placed on chart. Awaiting Ortho sign off for discharge. DCP REVIEW SUMMARY ANTICIPATED D/C DATE: 11/02/2020 EXPECTED LOS : 7 CASE STATUS: DCP Initiated INITIAL REVIEW: 10/26/2020 INITIAL REVIEWER: Sydney Stein FINAL DISCHARGE DISPOSITION: 01 : Home or Self Care (Routine Discharge) FINAL REVIEWER: FINAL REVIEW DATE: [facility] Focus Questions & Answers DCP Evaluation QUESTION: ANSWER Patient and/or caregiver agree upon recommended discharge plan? : Yes Family / Caregiver's ability to cope with chronic illness: : a. Adequate (ability to meet patient's medical needs, ensures patient attends medical appts.) Patient's current cognitive status: : *Oriented to person, place, situation, time and present Patient's ability to cope with chronic illness : d. No chronic illness Patient gives permission to discuss discharge plans with: (name, relationship and number) : Brayan Fan [phone] Other relation Does the patient have the ability to pay for or attain post discharge needs / services? : Yes Functional screen assessment: : Basic needs can adequately be met by self Family / Caregiver's ability to cope with chronic illness: : a. Adequate (ability to meet patient's medical needs, ensures patient attends medical appts.) Physical Status: : Independent with ADL's Equipment needed for post hospitalization: : Wound Dressing Is there a likelihood that the patient will require additional services to return to the preadmission environment? : Yes Living Arrangements: : Home with others Partial Dependence, assistance required for: : Ambulation / Mobility Results of this evaluation have been discussed with: : Patient Patient with capacity for self-care or can be cared for in same environment as prior to hospitalization? : Yes Baseline cognitive status: : *Oriented to person, place, situation, time and present Physical environment modification needed / anticipated for discharge: : No Medication Management: : Patient states can read and understand medication labels Medication Management: : Patient states they do have transportation to hop picker medications Medication Management: : Patient states can afford medications Planned post hospital services available for patient? : Yes Pharmacy name(s): : [facility] Planned post hospital services covered by insurance plan? : Yes Does Patient have transportation to get home and to follow-up medical appointments when discharged from the hospital? : Yes Would patient like to participate in any Care Coordination programs (if applicable): : Not applicable Does the patient have electricity at home? : Yes Does the patient have running water in their house? : Yes Equipment in use: : Walker - Rollator Equipment in use: : Shower Chair Equipment in use: : Glucometer Mental health screen: : No mental health history Psychosocial status: : Independent adult (18-64) Abuse/Neglect: : None Resources / Services in place: : Dialysis - facility hemodialysis M-W- DCP Re-evaluation QUESTION: ANSWER Would patient like to participate in any Care Coordination programs (if applicable): : Not applicable PATIENT: SONYA FLORIAN ENCOUNTER: [id number] MEDICAL RECORD#: [id number] ADMISSION DATE: 10/26/2020 DISCHARGE DATE: ATTENDING MD: ALE: AGE: 59 MARITAL STATUS: D DC PLAN ID: [id number] FACILITY: [facility] PRINTED ON: 11/02/20 16:41 CT All edits/amendments must be made on the electronic document DICTATION DATE: 11/02/201640 COMMUNITY ASSOCIATE: RAY 11/02/201640 RPT#: [id number] DC DATE: STATUS: ADM IN [facility] [address] [place] [address] END OF REPORT
[2020-11-02 16:43] VITALS: BP 121/54
--- NOTE | 2020-11-02 17:11 | NUR ---
NO RETURN CALL RECEIVED FROM ORTHO AT THIS TIME. AWAITING ORTHO BEDSIDE ROUNDS AT THIS TIME.
--- NOTE | 2020-11-02 17:32 | NUR ---
HERE FOR ROUNDS, STATES HOLD PATIENT TONIGHT AND LET HIM GO TOMORROW. PATIENT WILL NEED A WALKING BOOT, WEARS A SIZE 12 SHOE SO THAT WOULD BE AN XLARGE WALKING BOOT. ORDER PLACED AND WILL FAX TO [employer].
--- NOTE | 2020-11-02 18:07 | NUR ---
ORDER AND SIGNED FORM FOR ZEENAT BRACE AND LIMB FAXED TO [employer] FOR XL WALKING BOOT. FAX CONFIRMATION PLACED IN CHART. PATIENT AWARE THAT [employer] SHOULD BRING THE BOOT UP IN THE AM. PATIENT NOT HUNGRY, NOT WANTING TO EAT, READY TO GO HOME. MALE VISITOR REMAINS AT BEDSIDE AND PROVIDES GREAT ENCOURAGEMENT TO PATIENT TO KEEP HIS ATTITUDE POSITIVE.
[2020-11-02 21:00] VITALS: BP 153/51
[2020-11-02 23:51] VITALS: BP 95/77
[2020-11-03 04:00] VITALS: BP 109/34
[2020-11-03 05:10] LABS: BASOPHILS 0.5 % (0-2); EOSINOPHILS 3.4 % (0-7); HEMATOCRIT 26.2 % (42.0-54.0); HEMOGLOBIN 8.8 g/dL (13.5-17.5); LYMPHOCYTES 20.9 % (15-50); MCH 32.1 pg (26.0-34.0); MCHC 33.6 g/dL (31.0-37.0); MCV 95.6 fL (80.0-100.0); MEAN PLATELET VOLUME 9.4 fL (7.4-10.4); MONOCYTES 16.2 % (2-11); PLATELET COUNT 127 10x3/uL (130-400); RBC 2.74 10x6/uL (4.20-6.10); RDW 14.4 % (11.5-14.5); WBC 4.8 10x3/uL (4.8-10.8)
[2020-11-03 05:30] LABS: ALBUMIN 2.4 g/dL (3.4-5.0); BILIRUBIN - TOTAL 0.33 mg/dL (0.2-1.3); CALCIUM 8.1 mg/dL (8.5-10.1); CARBON DIOXIDE 29.5 mmol/L (21.0-32.0); PROTEIN - SERUM 6.6 g/dL (6.4-8.2); VANCOMYCIN - RANDOM 18.6 ug/mL (10.0-20.0)
[2020-11-03 05:40] LABS: ANION GAP 9.5 mmol/L (8-16); CREATININE - SERUM 6.6 mg/dL (0.6-1.3); PHOSPHOROUS 3.7 mg/dL (2.5-4.9)
--- NOTE | 2020-11-03 05:50 | NUR ---
I have reviewed this patient and I concur with the Shift Assessment completed by the Licensed Practical Nurse today this shift.
[2020-11-03 07:55] VITALS: BP 134/53
[2020-11-03 12:22] VITALS: BP 144/51
--- NOTE | 2020-11-03 12:53 | NUR ---
Nutrition Reassessment/Follow-up: Poor appetite/PO intake. Denies N/V. Reports last BM ~2 days ago; receiving Miralax & Colace. Declines Nepro. HD yesterday (-4L). Diet: Renal, Vasquez BID PO intake: 0-25% yesterday No new wt; last wt: 245# (10/27) Labs noted: Na 132, K+ 4.0, Ca 8.1, PO4 3.7, Alb 2.4 Meds noted: Renagel, Sensipar, Miralax, Florajen, Colace, Creon, Protonix, Zofran Nutrition Diagnosis: -Altered nutrition-related lab values R/T ESRD AEB BUN 24, Cre 6.6, GFR 9. -Increased nutrient needs (amino acids/protein & micronutrients) R/T increased demand for healing AEB wound on foot with recent I&D and wound vac placement. Nutrition Goals: -PO intake >=75% avg of meals/snacks. -Stable dry wt. -Glu at or near normal. -Wound healing/improvement documented. Nutrition Intervention: -Nutrition needs unchanged since initial assessment; no new wt available. -Encourage PO intake and honor food preferences within diet restrictions. -Offer Nepro with meals. -Pt may benefit from an appetite stimulant. -Need new wt. -RD will follow up within 2-3 days.
--- NOTE | 2020-11-03 16:51 | NUR ---
OT NOTE: PT COMPLETED SUPINE TO SIT WITH CGA. PT COMPLETED SIT TO STAND WITH SBA-CGA. PT COMPLETED SIDE ROLLING AND POSITIONING IN BED WITH SBA. PT COMPLETED BUE AROM WITH FUNCTIONAL TASKS. [phone] THANK YOU,LO KENNY
--- NOTE | 2020-11-03 17:29 | NUR ---
D/C LEFT FOREARM IV, TIP INTACT. TELEMETRY OFF. BOOT ON. DISCHARGE INSTRUCTIONS GIVEN VERBALLY AND HANDOUTS PROVIDED.
--- NOTE | 2020-11-03 18:00 | NUR ---
TAKEN DOWN TO SPOUSE AT ED ENTRANCE VIA WHEELCHAIR.
--- NOTE | 2020-11-04 21:54 | MORECARE ---
CASE MANAGEMENT DISCHARGE SUMMARY PATIENT: SONYA FLORIAN UNIT: [id number] ADM DATE: 10/26/20 AGE: 59 : 56 SEX: M ROOM/BED: D.2107 AUTHOR: FLOYD,DOC PHYSICIAN: REFERRING PHYSICIAN: TOD CROWELL MD DATE OF SERVICE: 11/04/20 Case Management Discharge Planning Summary COMMENTS ENTERED DATE: 11/02/20 16:15 CT COMMENT TYPE: Discharge Planning REVIEWER: Sydney Stein CM met with patient to complete discharge planning assessment and offer availability of needed services. Patient states that he lives independently at home with room mate Brayan Fan ([phone]) prior to admission. Mr Fan present in room at time of DCP and verified that home environment is safe and has electricity and running water. Patient denies need for transportation and state that they have funds for services and medications if needed. PCP is Yoanna STEVE and patient uses [facility] pharmacy both in [place]. CM offered and discussed home health, rehab services, and need for any additional medical equipment. Patient did not express need for offered services at this time. CM anticipates HH for wound care which patients states he has a visiting nurse, but does not know from what company. [facility] contacted and patient was discharged from their care 05/2020. Transportation home will be provided by room mate, Patient verbalized understanding of signed forms. IMM served, and signed copy placed on chart. Awaiting Ortho sign off for discharge. [facility] REVIEW SUMMARY ANTICIPATED D/C DATE: 11/02/2020 EXPECTED LOS : 7 CASE STATUS: DCP Initiated INITIAL REVIEW: 10/26/2020 INITIAL REVIEWER: Sydney Stein FINAL DISCHARGE DISPOSITION: 01 : Home or Self Care (Routine Discharge) FINAL REVIEWER: FINAL REVIEW DATE: [facility] [place] [facility] Questions & Answers DCP Evaluation QUESTION: ANSWER Family / Caregiver's ability to cope with chronic illness: : a. Adequate (ability to meet patient's medical needs, ensures patient attends medical appts.) Patient gives permission to discuss discharge plans with: (name, relationship and number) : Brayan Fan [phone] Other relation Patient's ability to cope with chronic illness : d. No chronic illness Patient's current cognitive status: : *Oriented to person, place, situation, time and present Patient and/or caregiver agree upon recommended discharge plan? : Yes Physical Status: : Independent with ADL's Family / Caregiver's ability to cope with chronic illness: : a. Adequate (ability to meet patient's medical needs, ensures patient attends medical appts.) Functional screen assessment: : Basic needs can adequately be met by self Does the patient have the ability to pay for or attain post discharge needs / services? : Yes Partial Dependence, assistance required for: : Ambulation / Mobility Living Arrangements: : Home with others Is there a likelihood that the patient will require additional services to return to the preadmission environment? : Yes Equipment needed for post hospitalization: : Wound Dressing Baseline cognitive status: : *Oriented to person, place, situation, time and present Patient with capacity for self-care or can be cared for in same environment as prior to hospitalization? : Yes Results of this evaluation have been discussed with: : Patient Physical environment modification needed / anticipated for discharge: : No Medication Management: : Patient states can afford medications Medication Management: : Patient states they do have transportation to picker tender medications Medication Management: : Patient states can read and understand medication labels Pharmacy name(s): : [facility] Planned post hospital services available for patient? : Yes Does Patient have transportation to get home and to follow-up medical appointments when discharged from the hospital? : Yes Planned post hospital services covered by insurance plan? : Yes Would patient like to participate in any Care Coordination programs (if applicable): : Not applicable Does the patient have electricity at home? : Yes Does the patient have running water in their house? : Yes Equipment in use: : Glucometer Equipment in use: : Shower Chair Equipment in use: : Walker - Rollator Mental health screen: : No mental health history Psychosocial status: : Independent adult (18-64) Abuse/Neglect: : None Resources / Services in place: : Dialysis - facility hemodialysis M-W- DCP Re-evaluation QUESTION: ANSWER Would patient like to participate in any Care Coordination programs (if applicable): : Not applicable PATIENT: SONYA FLORIAN ENCOUNTER: [id number] MEDICAL RECORD#: [id number] ADMISSION DATE: 10/26/2020 DISCHARGE DATE: 11/03/2020 ATTENDING MD: ALE: 1961- AGE: 59 MARITAL STATUS: D DC PLAN ID: [id number] FACILITY: [facility] PRINTED ON: 11/04/20 21:53 CT All edits/amendments must be made on the electronic document DICTATION DATE: 11/04/202152 EMPLOYER RELATIONS REPRESENTATIVE: RAY 11/04/202152 RPT#: [id number] DC DATE:11/03/20 STATUS: DIS IN [facility] [address] [place] [address] END OF REPORT
--- NOTE | 2020-11-06 10:11 | MORECARE ---
CASE MANAGEMENT DISCHARGE SUMMARY PATIENT: SONYA FLORIAN UNIT: [id number] ADM DATE: 10/26/20 AGE: 59 : 56 SEX: M ROOM/BED: D.2107 AUTHOR: FLOYD,DOC PHYSICIAN: REFERRING PHYSICIAN: TOD CROWELL MD DATE OF SERVICE: 11/06/20 Case Management Discharge Planning Summary COMMENTS ENTERED DATE: 11/02/20 16:15 CT COMMENT TYPE: Discharge Planning REVIEWER: Sydney Stein CM met with patient to complete discharge planning assessment and offer availability of needed services. Patient states that he lives independently at home with room mate Brayan Fan ([phone]) prior to admission. Mr Fan present in room at time of DCP and verified that home environment is safe and has electricity and running water. Patient denies need for transportation and state that they have funds for services and medications if needed. PCP is Yoanna STEVE and patient uses [facility] both in [place]. CM offered and discussed home health, rehab services, and need for any additional medical equipment. Patient did not express need for offered services at this time. CM anticipates HH for wound care which patients states he has a visiting nurse, but does not know from what company. [facility] contacted and patient was discharged from their care 05/2020. Transportation home will be provided by room mate, Patient verbalized understanding of signed forms. IMM served, and signed copy placed on chart. Awaiting Ortho sign off for discharge. [facility] REVIEW SUMMARY ANTICIPATED D/C DATE: 11/02/2020 EXPECTED LOS : 7 CASE STATUS: DCP Initiated INITIAL REVIEW: 10/26/2020 INITIAL REVIEWER: Sydney Stein FINAL DISCHARGE DISPOSITION: 01 : Home or Self Care (Routine Discharge) FINAL REVIEWER: FINAL REVIEW DATE: [facility] Focus Questions & Answers [facility] Evaluation QUESTION: ANSWER Patient gives permission to discuss discharge plans with: (name, relationship and number) : Brayan Fan [phone] Other relation Patient's ability to cope with chronic illness : d. No chronic illness Patient's current cognitive status: : *Oriented to person, place, situation, time and present Family / Caregiver's ability to cope with chronic illness: : a. Adequate (ability to meet patient's medical needs, ensures patient attends medical appts.) Patient and/or caregiver agree upon recommended discharge plan? : Yes Physical Status: : Independent with ADL's Family / Caregiver's ability to cope with chronic illness: : a. Adequate (ability to meet patient's medical needs, ensures patient attends medical appts.) Functional screen assessment: : Basic needs can adequately be met by self Does the patient have the ability to pay for or attain post discharge needs / services? : Yes Partial Dependence, assistance required for: : Ambulation / Mobility Living Arrangements: : Home with others Is there a likelihood that the patient will require additional services to return to the preadmission environment? : Yes Equipment needed for post hospitalization: : Wound Dressing Baseline cognitive status: : *Oriented to person, place, situation, time and present Patient with capacity for self-care or can be cared for in same environment as prior to hospitalization? : Yes Results of this evaluation have been discussed with: : Patient Physical environment modification needed / anticipated for discharge: : No Medication Management: : Patient states can afford medications Medication Management: : Patient states they do have transportation to olive picker medications Medication Management: : Patient states can read and understand medication labels Pharmacy name(s): : [facility] Planned post hospital services available for patient? : Yes Does Patient have transportation to get home and to follow-up medical appointments when discharged from the hospital? : Yes Planned post hospital services covered by insurance plan? : Yes Would patient like to participate in any Care Coordination programs (if applicable): : Not applicable Does the patient have electricity at home? : Yes Does the patient have running water in their house? : Yes Equipment in use: : Glucometer Equipment in use: : Shower Chair Equipment in use: : Walker - Rollator Mental health screen: : No mental health history Psychosocial status: : Independent adult (18-64) Abuse/Neglect: : None Resources / Services in place: : Dialysis - facility hemodialysis M-W- DCP Re-evaluation QUESTION: ANSWER Would patient like to participate in any Care Coordination programs (if applicable): : Not applicable PATIENT: SONYA FLORIAN ENCOUNTER: [id number] MEDICAL RECORD#: [id number] ADMISSION DATE: 10/26/2020 DISCHARGE DATE: 11/03/2020 ATTENDING MD: ALE: 1961- AGE: 59 MARITAL STATUS: D DC PLAN ID: [id number] FACILITY: [facility] PRINTED ON: 11/06/20 10:11 CT All edits/amendments must be made on the electronic document DICTATION DATE: 11/06/20 1011 SHOE STICKS REPAIRER: RAY 11/06/20 1011 RPT#: [id number] DC DATE:11/03/20 STATUS: DIS IN [facility] [address] [place] [address] END OF REPORT
== END 2020-11-03 18:00 | disposition home health service (06) | DRG 500 ==
LOC: D.M2 09:00 → D.OPS 09:00 → D.M2 12:10 → D.OPS 13:37 → D.M2 13:38
PROVIDERS: Anesthesiology; Family Medicine; ADMIT Orthopaedic Surgery; ATTEND Orthopaedic Surgery
PROC: 0LBP0ZZ Excision of Left Lower Leg Tendon, Open Approach (ICD-10-PCS; principal; 2020-10-26 10:00)
PROC: 2W1TX6Z Compression of Left Foot using Pressure Dressing (ICD-10-PCS; 2020-10-26 10:00)
DX: M65.18 Other infective (teno)synovitis, other site (principal); N18.6 End stage renal disease; I12.0 Hypertensive chronic kidney disease with stage 5 chronic kidney disease or end stage renal disease; I25.10 Atherosclerotic heart disease of native coronary artery without angina pectoris; D63.1 Anemia in chronic kidney disease; E11.22 Type 2 diabetes mellitus with diabetic chronic kidney disease; E11.40 Type 2 diabetes mellitus with diabetic neuropathy, unspecified; Z99.2 Dependence on renal dialysis; Z95.1 Presence of aortocoronary bypass graft; Z95.5 Presence of coronary angioplasty implant and graft